=== PATIENT | female | born 1935 | race Caucasian/White ===

== ENCOUNTER 2020-01-21 07:15 | Outpatient (CLI) | payer MEDICARE, MEDICAID, SELFPAY ==
--- NOTE | ~2020-01-21 | MR_ITS ---
EXAMINATION: MR knee RT wo con DATE: 01/21/2020 09:20 INDICATION: Right knee pain. TECHNIQUE: Magnetic resonance imaging (MRI) of the right knee was performed without intravenous contr ast. Sequences included axial PD-weighted FS FSE, coronal PD-weighted FSE and PD-weighted FS FSE, sag ittal PD-weighted FSE, and sagittal T2-weighted FS FSE. COMPARISON: Right knee radiographs 07/23/2019 FINDINGS: Medial compartment: Medial meniscus is intact. There is partial-thickness cartilage loss of tibial condyle, deep at the m edial articular surface with mild subchondral edema-like marrow signal intensity. There is deep parti al thickness cartilage loss of femoral condyle involving the central, medial, lateral, and posterior articular surface with mild subchondral edema-like marrow signal intensity. Osteophytes are noted. Lateral compartment: There is maceration of lateral meniscus. There is extensive full-thickness cartilage loss of tibial c ondyle and femoral condyle with cortical remodeling and extensive subchondral edema-like marrow signa l intensity. Osteophytes are noted. Patellofemoral compartment: There is full-thickness cartilage loss of patellar median ridge and lateral facet with mild subchondr al edema-like marrow signal intensity. There is deep partial thickness cartilage loss of patellar med ial facet. There is full-thickness cartilage loss of central and lateral trochlea with moderate subch ondral edema-like marrow signal intensity. There is partial-thickness cartilage loss of medial trochl ea. Marginal osteophytes are noted. Ligaments and tendons: The anterior and posterior cruciate ligaments are intact. Medial collateral ligament is normal. There are changes of prior sprain of fibular collateral ligament characterized by thickening and increased signal intensity proximally. Fluid: There is a large knee joint effusion with heterogeneous signal intensity. There is a small Serrato's cy st. IMPRESSION: 1. 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 2. Maceration of lateral meniscus. 3. Large knee joint effusion. 4. Small Serrato's cyst. Reviewed, dictated and finalized at location A. IMPRESSION: 1. 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 2. Maceration of lateral meniscus. 3. Large knee joint effusion. 4. Small Serrato's cyst.
--- NOTE | ~2020-01-21 | MR_ITS ---
EXAMINATION: MR knee LT wo con DATE: 01/21/2020 09:20 INDICATION: Left knee pain. TECHNIQUE: Magnetic resonance imaging (MRI) of the left knee was performed without intravenous contra st. Sequences included axial PD-weighted FS FSE, coronal PD-weighted FSE and PD-weighted FS FSE, sagi ttal PD-weighted FSE, and sagittal T2-weighted FS FSE. COMPARISON: Left knee radiographs 07/23/2019 FINDINGS: Medial compartment: Medial meniscus is normal. There is cartilage surface irregularity of femoral condyle and tibial cond yle. Lateral compartment: Lateral meniscus is normal. There is cartilage surface irregularity of femoral condyle and tibial con dyle. Patellofemoral compartment: There is deep partial thickness cartilage loss of patellar median ridge and lateral facet with modera te subchondral edema-like marrow signal intensity. There is shallow partial-thickness cartilage loss of central and lateral trochlea with mild subchondral edema-like marrow signal intensity. Ligaments and tendons: The anterior and posterior cruciate ligaments are normal. Medial collateral ligament is normal. There are changes of prior sprain of fibular collateral ligament characterized by thickening and increased signal intensity proximally. The patellar tendon is normal. Fluid: There is no knee joint effusion. IMPRESSION: 1. Moderate chondrosis of patellofemoral compartment and mild chondrosis of medial and lateral compar tments. Reviewed, dictated and finalized at location A. IMPRESSION: 1. Moderate chondrosis of patellofemoral compartment and mild chondrosis of med ial and lateral compartments.
[2020-01-21 08:02] LABS: Basophils Percent Auto 0.3 % (0.2-1.2); Eosinophils Absolute Auto 0.3 K/mm3 (0-0.3); Eosinophils Percent Auto 2.7 % (0-4.4); Hematocrit 38.8 % (37.0-47.0); Hemoglobin 12.3 g/dL (12.0-15.0); Immature Granulocyte Absolute 0.02 K/mm3 (0.00-0.031); Immature Granulocyte Percent A 0.2 % (0-0.5); Lymphocytes Absolute Auto 4.27 K/mm3 (0.9-3.2); Lymphocytes Percent Auto 44.8 % (18.3-44.2); Mean Corpuscular HGB Conc 31.7 g/dl (32-36); Mean Corpuscular Volume 91.5 fl (80-100); Mean Platelet Volume 9.9 fl (7.4-10.4); Monocytes Absolute Auto 1.1 K/mm3 (0.1-0.6); Monocytes Percent Auto 11.6 % (2.6-8.5); Neutrophils Absolute Auto 3.9 K/mm3 (1.3-6.7); Neutrophils Percent Auto 40.4 % (45.5-73.1); Platelet Count Result 336 k/mm3 (150-375); Red Blood Count 4.24 M/mm3 (4.2-5.4); Red Cell Distribution Width 15.6 % (11.5-14.5); White Blood Count 9.5 K/mm3 (4.5-10.0)
[2020-01-21 08:16] LABS: Blood Urea Nitrogen 11 mg/dL (7-17); Calcium 9.7 mg/dL (8.4-10.2); Carbon Dioxide 25 mmol/L (22-30); Chloride 100 mmol/L (98-107); Cholesterol 108 mg/dL (0-200); Estimated Glomerular Filt Rate > 60; Glucose 103 mg/dL (65-105); HDL Direct 36 mg/dL; Potassium 4.7 mmol/L (3.4-5.0); Sodium 130 mmol/L (137-145); Triglycerides 86 mg/dL (<150)
[2020-01-21 08:26] LABS: LDL Cholesterol Direct 43 mg/dL
[2020-01-23 12:24] LABS: Homocysteine 14.1 umol/L (<10.4)
== END 2020-01-21 07:16 | disposition home or self-care (01) ==
PROVIDERS: PCP Internal Medicine; Referring Provider Internal Medicine; Visit Provider Internal Medicine Rheumatology
DX: M25.562 Pain in left knee (principal); Z79.899 Other long term (current) drug therapy; M71.21 Synovial cyst of popliteal space [Baker], right knee; M25.461 Effusion, right knee
CPT/HCPCS: 36415; 73721; 80048; 80061; 83090; 84443; 85025

== ENCOUNTER 2020-01-30 09:42 | Outpatient (CLI) | payer MEDICARE, MEDICAID, SELFPAY ==
--- NOTE | ~2020-01-30 | DEXA_ITS ---
Bone Density Report Name: Tatiana Serrato Age: 85 Sex: Female Ethnicity: White Date of : 1935 Indication: postmenopausal; height loss; hysterectomy; Referring Provider: SOBIA RAMOS Study: Bone densitometry was performed. Exam Date: January 30, 2020 Accession number: [id number] There is hypertrophic degenerative change of the lumbar spine, which results in higher than expected spine bone mineral density measurements. These spine BMD and T score and Z score measurements are not reflective of the patient's true general bone mineral density. Bone Density: Region BMD T-score Z-score Classification AP Spine (L2, L3) 0.800 -2.3 0.5 Osteopenia Femoral Neck (Left) 0.541 -2.8 -0.3 Osteoporosis Total Hip (Left) 0.633 -2.5 -0.2 Osteoporosis Total Hip Bilateral Avg 0.609 -2.7 -0.4 Osteoporosis Femoral Neck (Right) 0.512 -3.0 -0.6 Osteoporosis Total Hip (Right) 0.583 -2.9 -0.7 Osteoporosis World Health Organization criteria for BMD impression classify patients as: Normal (T-score at or above -1.0), Osteopenia (T-score between -1.0 and -2.5), or Osteoporosis (T-score at or below -2.5). 10-year Fracture Risk: FRAX not reported because: Some T-score for Spine Total or Hip Total or Femoral Neck at or below -2.5 Clinical Information Provided by Patient: Has used the following medications: Vitamin D Has the following medical conditions: Hysterectomy Patient maximum height was 65 Menopause Age: 51 No regular weight bearing exercise Drinks caffeinated beverages Onset of menses at age 15 Number of children 6 Impression: The patient has osteoporosis, based on the Right Femoral Neck T-score. There is hypertrophic degenerative change of the lumbar spine, which results in higher than expected spine bone mineral density measurements. These spine BMD and T score and Z score measurements are not reflective of the patient's true general bone mineral density. Discussion: INCREASED RISK OF FRACTURE. BONE DENSITY IS UNDESIRABLY LOW AT ONE OR MORE SKELETAL SITES, CONSISTENT WITH POSTMENOPAUSAL OSTEOPOROSIS. This patient's lowest T-score meets the World Health Organization's (WHO) criteria for osteoporosis at one or more sites (T-score -2.5 or below). In untreated patients, the risk of osteoporotic fracture increases approximately two-fold for each 1.0 SD decrease in T-score. Low bone density is not the only risk factor for fracture; also consider factors such as patient's age, frailty or poor health, risk of falling, risk of injury, previous osteoporotic fracture, family history of osteoporosis, cigarette smoking, low body weight, etc. Not everyone with low bone mineral density has osteoporosis; osteomalacia and other metabolic bone disorders should also be considered. Patients who have osteoporosis should be evaluated for specific diseases and conditions (secondary ca
[2020-01-30 10:13] LABS: Basophils Percent Auto 0.3 % (0.2-1.2); Eosinophils Absolute Auto 0.2 K/mm3 (0-0.3); Eosinophils Percent Auto 2.3 % (0-4.4); Hematocrit 34.9 % (37.0-47.0); Hemoglobin 11.4 g/dL (12.0-15.0); Immature Granulocyte Absolute 0.02 K/mm3 (0.00-0.031); Immature Granulocyte Percent A 0.2 % (0-0.5); Lymphocytes Absolute Auto 3.58 K/mm3 (0.9-3.2); Lymphocytes Percent Auto 37.3 % (18.3-44.2); Mean Corpuscular HGB Conc 32.7 g/dl (32-36); Mean Corpuscular Hemoglobin 29.8 pg (26-34); Mean Corpuscular Volume 91.4 fl (80-100); Mean Platelet Volume 9.2 fl (7.4-10.4); Monocytes Percent Auto 10.4 % (2.6-8.5); Neutrophils Absolute Auto 4.7 K/mm3 (1.3-6.7); Neutrophils Percent Auto 49.5 % (45.5-73.1); Platelet Count Result 334 k/mm3 (150-375); Red Blood Count 3.82 M/mm3 (4.2-5.4); Red Cell Distribution Width 15.8 % (11.5-14.5); White Blood Count 9.6 K/mm3 (4.5-10.0)
[2020-01-30 10:22] LABS: Alanine Aminotransferase 9 U/L (4-35); Albumin Level 3.8 g/dL (3.5-5.1); Alkaline Phosphatase 87 U/L (38-126); Aspartate Amino Transferase 23 U/L (14-36); Bilirubin,Total 0.4 mg/dL (0.2-1.3); Blood Urea Nitrogen 15 mg/dL (7-17); Calcium 9.1 mg/dL (8.4-10.2); Carbon Dioxide 25 mmol/L (22-30); Chloride 101 mmol/L (98-107); Cholesterol 96 mg/dL (0-200); Estimated Glomerular Filt Rate > 60; Glucose 124 mg/dL (65-105); HDL Direct 36 mg/dL; Potassium 4.3 mmol/L (3.4-5.0); Sodium 134 mmol/L (137-145); Triglycerides 85 mg/dL (<150)
[2020-01-30 10:33] LABS: LDL Cholesterol Direct 37 mg/dL
[2020-01-30 11:22] LABS: Free T4 Free Thyroxine 1.38 ng/mL (0.78-2.19)
== END 2020-01-30 09:43 | disposition home or self-care (01) ==
PROVIDERS: PCP Internal Medicine; Visit Provider Internal Medicine Rheumatology
DX: R73.03 Prediabetes (principal); E03.9 Hypothyroidism, unspecified; M85.89 Other specified disorders of bone density and structure, multiple sites; M81.0 Age-related osteoporosis without current pathological fracture; Z79.899 Other long term (current) drug therapy; Z78.0 Asymptomatic menopausal state
CPT/HCPCS: 36415; 77080; 80053; 80061; 83036; 84439; 84443; 85025

== ENCOUNTER 2020-05-19 17:49 | Inpatient (IN) | payer MEDICARE, MEDICAID, SELFPAY ==
[2020-05-19] VITALS (11 sets, daily range): BP systolic 97–120; BP diastolic 61–68; PULSE 74–166; RESP 18–24; TEMP 36.2–38.3; O2SAT 96–98; BMI 21.5
--- NOTE | ~2020-05-19 | XR_ITS ---
EXAMINATION: XR chest 2V EXAM DATE: 05/19/2020 18:48 INDICATION: Fever, transient alteration of awareness. TECHNIQUE: Frontal and lateral projections of the chest obtained and reviewed. There is no prior bharati dy for comparison. FINDINGS: The lungs are clear. There are no pleural effusions. The cardiomediastinal silhouette is p rominent but magnified on this AP technique. There is no pneumothorax suspected. Severe scoliosis . IMPRESSION: No acute cardiopulmonary findings. Reviewed, dictated and finalized at location A.
--- NOTE | 2020-05-19 18:00 | ECG_ITS ---
Measurements Intervals [place] Rate: 169 P: [place]: 0 QRS: -5 QRSD: 77 T: 62 QT: 232 QTc: 389 Interpretive Statements ATRIAL FIBRILLATION WITH RAPID VENTRICULAR RESPONSE VENTRICULAR PREMATURE COMPLEXES CANNOT RULE OUT SEPTAL INFARCT, AGE INDETERMINATE BORDERLINE ST ABNORMALITY- ANTEROLATERAL LEADS BASELINE ARTIFACT- V5 ABNORMAL ECG Electronically Signed On 05-19-2020 19:36:53 CDT by Tyrell Cornejo D.O.
--- NOTE | 2020-05-19 18:11 | ED.FEVER ---
HPI - Fever General Chief Complaint: Fever Stated Complaint: ams Time Seen by Provider: 05/19/20 18:01 History of Present Illness HPI Narrative: Patient is an 85-year-old female who presents ER with fever as well as dysuria. Symptoms began this afternoon. Patient is in no distress and has no complaints. History obtained mainly from [id number]. Patient has history of A. fib and is currently in RVR. No chest pain or racing heart. Related Data Home Medications Medication Instructions Recorded Confirmed acetaminophen [Acetaminophen Pain 1,000 mg PO BID 12/26/19 01/30/20 Relief] calcium carbonate-vitamin D3 1 tablet PO DAILY 12/26/19 01/30/20 [Caltrate 600 plus D] etanercept [Enbrel] 50 mg SUBCUT WEEKLY 12/26/19 01/30/20 vitamin B complex 1 cap PO DAILY 12/26/19 01/30/20 Allergies Allergy/AdvReac Type Severity Reaction Status Date / Time No Known Allergies Allergy Verified 05/19/20 18:02 Review of Systems Review of Systems: ROS unobtainable: Yes unobtainable due to mental status PMFSH Social History Social History Smoking status: Current every day smoker Tobacco type: smokeless tobacco Smokeless tobacco user: chewing tobacco and snuff Alcohol intake: current Substance use: unknown Gender identity (if verbalized by the patient): Female Spiritual care concerns: No Exam Narrative: Exam Narrative: GENERAL: Well-appearing, well-nourished, and in no acute distress. HEAD: Normocephalic, atraumatic. EYES: PERRL and EOMI. CHEST: Clear to auscultation. No respiratory distress. HEART: Tachycardic and irregular regular. Normal peripheral pulses. ABDOMEN: Soft, nontender, nondistended. EXTREMITIES: Normal range of motion. No edema. SKIN: Warm, dry, no rash. NEURO: Alert and oriented x2. PSYCH: Normal mood and affect. Course Reevaluation(s) Reevaluation #1: Blood pressure dropped to 96/50 mmHg after 10 mg of diltiazem. Heart rate went from 180 bpm to 90 to 100 bpm. Patient is receiving 1 L IV fluid and IV Tylenol for fever. Anticipate admission. Date: 05/19/20 Time: 18:32 Vital Signs Vital signs: Vital Signs Temperature 100.9 F H 05/19/20 17:56 Pulse Rate 166 H 05/19/20 17:56 Respiratory Rate 22 H 05/19/20 17:56 Blood Pressure 120/68 05/19/20 17:56 Pulse Oximetry 97 05/19/20 17:56 Temperature 100.9 F H 05/19/20 17:56 Pulse Rate 115 H 05/19/20 19:06 Respiratory Rate 24 H 05/19/20 18:26 Blood Pressure 99/63 L 05/19/20 19:06 Pulse Oximetry 96 05/19/20 18:26 MDM - Fever Lab Data Result diagrams: 05/19/20 18:19 05/19/20 18:19 Labs: Lab Results 05/19/20 05/19/20 05/19/20 Range/Units 18:19 18:19 18:19 WBC 17.8 H (4.5-10.0) K/mm3 RBC 4.06 L (4.2-5.4) M/mm3 Hgb 12.2 (12.0-15.0) g/dL Hct 36.5 L (37.0-47.0) % MCV 89.9 (80-100) fl MCH 30.0 (26-34) pg MCHC 33.4 (32-36) g/dl RDW 14.0 (11.5-14.5) % Plt Count 274 (150-375) k/mm3 MPV 10.5 H (7.4-10.4) fl Immature Gran % (Auto) 0.4 (0-0.5) % Neut % (Auto) 85.2 H (45.5-73.1) % Lymph % (Auto) 7.0 L (18.3-44.2) % [place]aden % (Auto) 7.1 (2.6-8.5) % Eos % (Auto) 0.1 (0-4.4) % Baso % (Auto) 0.2 (0.2-1.2) % Lymph # (Auto) 1.24 (0.9-3.2) K/mm3 Bladen # (Auto) 1.3 H (0.1-0.6) K/mm3 Eos # (Auto) 0.0 (0-0.3) K/mm3 Baso # (Auto) 0.0 (0.0-0.1) K/mm3 Abs Immat Gran (auto) 0.08 H (0.00-0.031) K/mm3 Absolute Neuts (auto) 15.2 H (1.3-6.7) K/mm3 Absolute Nucleated RBC 0.0 (0.0-0.012) K/mm3 Nucleated RBC % 0.0 (0.0-0.2) % Sodium 136 L (137-145) mmol/L Potassium 4.5 (3.4-5.0) mmol/L Chloride 106 (98-107) mmol/L Carbon Dioxide 20 L (22-30) mmol/L Anion Gap 10 (8-16) mmol/L BUN 16 (7-17) mg/dL Creatinine 0.80 (0.7-1.0) mg/dL Estim Creat Clear Calc 39 ml/min Estimated GFR > 60 (59 - ) Glucose
[2020-05-19] MEDS: dilTIAZem HCl INJ 25 MG/5 ML VIAL 10 MG IV PUSH (18:23)
[2020-05-19] MEDS: SODIUM CHLORIDE 0.9% IV 1,000 ML 999 ML IV CONT (18:24)
[2020-05-19 18:32] LABS: Basophils Percent Auto 0.2 % (0.2-1.2); Eosinophils Percent Auto 0.1 % (0-4.4); Hematocrit 36.5 % (37.0-47.0); Hemoglobin 12.2 g/dL (12.0-15.0); Immature Granulocyte Absolute 0.08 K/mm3 (0.00-0.031); Immature Granulocyte Percent A 0.4 % (0-0.5); Lymphocytes Absolute Auto 1.24 K/mm3 (0.9-3.2); Mean Corpuscular HGB Conc 33.4 g/dl (32-36); Mean Corpuscular Volume 89.9 fl (80-100); Mean Platelet Volume 10.5 fl (7.4-10.4); Monocytes Absolute Auto 1.3 K/mm3 (0.1-0.6); Monocytes Percent Auto 7.1 % (2.6-8.5); Neutrophils Absolute Auto 15.2 K/mm3 (1.3-6.7); Neutrophils Percent Auto 85.2 % (45.5-73.1); Platelet Count Result 274 k/mm3 (150-375); Red Blood Count 4.06 M/mm3 (4.2-5.4); White Blood Count 17.8 K/mm3 (4.5-10.0)
[2020-05-19 18:37] LABS: Add Urine Microscopic? YES; Appearance Urine Cloudy (Clear); Bacteria Urine 1+ /hpf; Bilirubin Urine Negative (Negative); Blood Urine 2+ (Negative); Color Urine Amber (Yellow); Glucose Urine UA Negative (Negative); Ketones Urine Negative (Negative); Leukocyte Esterase Ur 3+ LEU/UL (Negative); Nitrate Urine Positive (Negative); Protein Urine 2+ mg/dL (Negative); Specific Grav Ur 1.014 (1.001-1.035); Urobilinogen Urine Negative mg/dL (<2.0); WBC Urine >75 /hpf
[2020-05-19 18:44] LABS: Lactic Acid Reflex 2.2 mmol/L (0.7-2.1)
[2020-05-19 18:48] LABS: Alanine Aminotransferase 18 U/L (4-35); Albumin Level 3.9 g/dL (3.5-5.1); Alkaline Phosphatase 103 U/L (38-126); Anion Gap 10 mmol/L (8-16); Aspartate Amino Transferase 37 U/L (14-36); Bilirubin,Total 0.3 mg/dL (0.2-1.3); Blood Urea Nitrogen 16 mg/dL (7-17); CRP 7.8 mg/dL (<1.0); Calcium 9.2 mg/dL (8.4-10.2); Carbon Dioxide 20 mmol/L (22-30); Chloride 106 mmol/L (98-107); Estimated CRCL calculation 39 ml/min; Estimated Glomerular Filt Rate > 60; Glucose 128 mg/dL (65-105); Potassium 4.5 mmol/L (3.4-5.0); Sodium 136 mmol/L (137-145)
--- NOTE | 2020-05-19 19:13 | PC.NURSE ---
report given to ANNEMARIE Roberts.
--- NOTE | 2020-05-19 19:17 | PC.NURSE ---
Diltize, drip rate reviewed with oncoming shift.
--- NOTE | 2020-05-19 20:30 | PC.NURSE ---
This patient, Tatiana Serrato, was admitted to IMU Room 213-01 at 1999 on 05/19/20. Patient/family oriented to hospital policies and general routines including ID bracelet, bed and alarms, visiting hours, pain management, procedures, bathroom and other care routines, personal items, smoking policy, room service/diet, and visiting hours. Valuables list has been completed. Information on how to activate the Rapid Response Team has been discussed. Patient/Family are encouraged to report perceived risks to care and to ask questions if they do not understand what they are told or what they should do.
--- NOTE | 2020-05-19 21:04 | PM.IMHP ---
H&P: HPI History of Present Illness Date/Time: 05/19/20 20:30 Chief complaint: Fever, peeing frequently, burning with urination Narrative: Tatiana Serrato is a 85 year old female with a past medical history dementia, atrial fibrillation on chronic anticoagulation, and rheumatoid arthritis who presented to the ER with fever urinary frequency and urgency. Source of information is patient was of [facility] historian and past medical records. The patient reports that she has not felt well for the last 2 weeks ever since she returned from [place] where she visited her son. She has felt fatigued and worn out. She has had decreased appetite. She has had several days of dysuria. Today she developed increased urinary frequency and urgency with only small amounts of urine output. She has been having intermittent fevers and chills that reportedly started today. Today she only had a small amount of Potato soup for lunch and then became nauseated and felt as if she was going to vomit. She has not had any further food. She denies any persistent nausea. The patient is alert and oriented times 2-3 which is reportedly her baseline. The patient actually answered her age date of , month year and reason for hospitalization. However she kept asking same questions over and over again. When she arrived to the ER the patient was noted to be in AFib with RVR. Her heart rate was 169 on EKG. She received Cardizem push and Cardizem drip. She was also febrile on presentation to the hospital. Her T-max was 100.9?. She denies any chest pain or shortness of breath. She has not had any cough or congestion. She has chronic gait instability and ambulates with a walker. Review of systems was limited due to patient's chronic hearing loss. Review of Systems Review of Systems: Narrative: 12 systems were reviewed with pertinent positives and negatives per HPI. Except as documented in the HPI, all other systems were reviewed and are negative. [facility] Past Medical History Medical History (Updated 05/19/20 @ 21:07 by Gudelia Gerardo DO) A-fib on chronic anticoagulation with Eliquis Age-related hearing loss B12 deficiency Cataracts, bilateral maturing Constipation Dementia DJD (degenerative joint disease), multiple sites GERD (gastroesophageal reflux disease) Glaucoma H/O elevated homocysteine Hypothyroidism (acquired) Osteoporosis Pre-diabetes Presbyesophagus Rheumatoid arthritis Surgical History Surgical History (Updated 05/19/20 @ 21:29 by Gudelia Gerardo DO) H/O dilation and curettage October 2019 demonstrating atrophic endometrium History of colonoscopy with polypectomy Family History Family History (Updated 05/19/20 @ 20:27 by Natasha Barbosa, ANNEMARIE) Sibling Acute myocardial infarction Mother Renal failure Social History Social History (Updated 05/19/20 @ 21:21 by Gudelia Gerardo DO) Social History: Primary care physician: Dr. Matias De Jesus Code status: Full code per EMR. The patient does not have advanced directives in place. Smoking status: Never smoker Tobacco type: smokeless tobacco Smokeless tobacco user: snuff Second hand tobacco smoke exposure: Yes Additional smoking assessment comments: snuff x 70 years Alcohol intake: never Substance use: never Living arrangements: with family Additional living arrangements comments: The patient lives with her son. She ambulates with a walker and also has a wheelchair available as needed. She has a total of 5 boys and 1 girl. One son due to trauma at the age of 40. Occupation/Education: retired Gender identity (if verbalized by the patient): Female Spiritual care concerns: No Meds Home Medications and Allergies Home Medications Medication Instructions Recorded Confirmed Type omeprazole 40 mg capsule,delayed 40 mg PO DAILY #90 cap 10/11/19 05/19/20 Rx release acetaminophen [Acetaminophen Pain 1,000 mg PO BID 12/26/19
[2020-05-19 21:29] LABS: Reflex Lactic Acid Yes or No Add Lactic
[2020-05-19] MEDS: PANTOPRAZOLE 40 MG TABLET PO (22:22)
[2020-05-19] MEDS: METOPROLOL TARTRATE 12.5 MG TABLET PO (22:22)
[2020-05-19] MEDS: MELATONIN 5 MG TABLET PO (22:23)
[2020-05-19] MEDS: APIXABAN 5 MG TABLET PO (22:23)
[2020-05-19] MEDS: SODIUM CHLORIDE 0.9% IV 1,000 ML 100 ML IV CONT (22:31)
[2020-05-20] VITALS (18 sets, daily range): BP systolic 88–125; BP diastolic 43–70; PULSE 70–105; RESP 18–20; TEMP 35.9–37.2; O2SAT 95–100
[2020-05-20 07:37] LABS: Hematocrit 32.1 % (37.0-47.0); Hemoglobin 10.5 g/dL (12.0-15.0); Mean Corpuscular HGB Conc 32.7 g/dl (32-36); Mean Corpuscular Hemoglobin 29.9 pg (26-34); Mean Corpuscular Volume 91.5 fl (80-100); Mean Platelet Volume 9.7 fl (7.4-10.4); Platelet Count Result 224 k/mm3 (150-375); Red Blood Count 3.51 M/mm3 (4.2-5.4); Red Cell Distribution Width 14.4 % (11.5-14.5); White Blood Count 14.5 K/mm3 (4.5-10.0)
[2020-05-20 07:50] LABS: Alanine Aminotransferase 13 U/L (4-35); Albumin Level 3.4 g/dL (3.5-5.1); Alkaline Phosphatase 79 U/L (38-126); Anion Gap 6 mmol/L (8-16); Aspartate Amino Transferase 25 U/L (14-36); Bilirubin,Total 0.3 mg/dL (0.2-1.3); Blood Urea Nitrogen 12 mg/dL (7-17); Calcium 8.6 mg/dL (8.4-10.2); Carbon Dioxide 21 mmol/L (22-30); Chloride 110 mmol/L (98-107); Estimated CRCL calculation 45 ml/min; Estimated Glomerular Filt Rate > 60; Glucose 128 mg/dL (65-105); Potassium 4.2 mmol/L (3.4-5.0); Sodium 137 mmol/L (137-145)
[2020-05-20] MEDS: PANTOPRAZOLE 40 MG TABLET PO ×2 (08:55→20:27)
[2020-05-20] MEDS: APIXABAN 5 MG TABLET PO ×2 (08:55→20:25)
[2020-05-20] MEDS: ATORVASTATIN 10 MG TABLET PO (08:55)
[2020-05-20] MEDS: VITAMIN B COMPLEX CAPSULE 1 CAP PO (08:55)
[2020-05-20] MEDS: DOCUSATE SODIUM 100 MG CAPSULE 200 MG PO (08:55)
[2020-05-20] MEDS: FOLIC ACID 1 MG TABLET PO (08:55)
[2020-05-20] MEDS: METOPROLOL TARTRATE 12.5 MG TABLET PO ×2 (08:55→20:26)
[2020-05-20] MEDS: SODIUM CHLORIDE 0.9% IV 1,000 ML 100 ML IV CONT (08:56)
--- NOTE | 2020-05-20 10:14 | PM.IMPN ---
Progress Note: A&P Assessment and Plan (1) Atrial fibrillation with rapid ventricular response: Code(s): I48.91 - Unspecified atrial fibrillation Status: Acute Assessment and Plan: ----- Likely due to acute infection. She was on a Cardizem drip but has been discontinued around midnight so we will continue her home metoprolol and Eliquis. We will check a TSH tomorrow morning to be thorough Although it was normal in January. If her heart rate remains normal after noon, may be downgraded. (2) Acute UTI: Code(s): N39.0 - Urinary tract infection, site not specified Status: Acute Assessment and Plan: ----- UA suspicious for UTI. Continue empiric ceftriaxone and await urine and blood cultures. (3) Sepsis: Code(s): A41.9 - Sepsis, unspecified organism Status: Acute Assessment and Plan: ----- Patient was septic when she arrived secondary to UTI. Her lactic acid was elevated and she had a leukocytosis. This improved with IV fluids and antibiotics. Continue to monitor blood pressure and symptoms closely (4) Rheumatoid arthritis: Code(s): M06.9 - Rheumatoid arthritis, unspecified Status: Acute Assessment and Plan: ----- Patient takes Orencia, immunosuppressant weekly.. Will hold this For now. Time Spent With Patient Time with patient: 25 - 35 minutes Subjective Date/time seen: 05/20/20 10:14 Interval history: Pt is a 85-year-old female here for UTI with AFib RVR. Patient was seen today and says she is doing better than yesterday. She still has some dysuria and frequency but denies chest pain, palpitations, shortness of breath, nausea, vomiting, fevers or chills. She has a slight abdominal discomfort in her lower quadrants. Review of Systems Review of Systems: All systems reviewed & are unremarkable except as noted in HPI and below Exam Narrative: Exam Narrative: General: Hard of hearing elderly patient resting comfortably in bed in no acute distress HEENT: normocephalic Neck: supple Neuro: Alert and oriented x4 CV: irregularly irregular Resp: no wheezing or rhonchi, Relatively clear to auscultation. Abd: Soft, non distended. mild pain to the right lower quadrant. Positive bowel sounds Extremities: No swelling, erythema, or pain to palpation. Objective Data Vital Signs Vital Signs: Vital Signs - 24 hr 05/19/20 17:56 05/19/20 18:26 05/19/20 18:27 Temperature 100.9 F H Pulse Rate 166 H 108 H Respiratory Rate 22 H 24 H Blood Pressure 120/68 97/62 L Pulse Oximetry 97 96 05/19/20 19:06 05/19/20 19:37 05/19/20 19:50 Temperature 99.3 F Pulse Rate 115 H 100 110 H Respiratory Rate 22 H 22 H Blood Pressure 99/63 L 103/62 98/61 L Pulse Oximetry 98 98 05/19/20 19:52 05/19/20 20:00 05/19/20 20:08 Temperature 99.3 F 97.1 F L Pulse Rate 107 H 123 H 74 Respiratory Rate 23 H 18 18 Blood Pressure 98/61 L 104/61 104/61 Pulse Oximetry 98 98 98 05/19/20 22:00 05/19/20 22:22 05/20/20 00:00 Temperature 96.7 F L Pulse Rate 99 99 75 Respiratory Rate 20 Blood Pressure 88/49 L Pulse Oximetry 97 05/20/20 00:34 05/20/20 01:25 05/20/20 02:00 Temperature Pulse Rate 75 70 Respiratory Rate Blood Pressure 88/49 L 90/58 L Pulse Oximetry 05/20/20 04:00 05/20/20 04:34 05/20/20 06:00 Temperature 98.9 F Pulse Rate 84 77 92 Respiratory Rate 18 Blood Pressure 91/43 L Pulse Oximetry 97 05/20/20 08:00 05/20/20 08:55 Temperature 97.4 F L Pulse Rate 82 97 Respiratory Rate 18 Blood Pressure 123/46 L Pulse Oximetry 97 Intake/Output Intake/Output: Intake & Output 05/17/20 05/18/20 05/19/20 05/20/20 23:59 23:59 23:59 23:59 Intake Total 1150 1715 Output Total 750 Balance 1150 965 Meds/Results Medications: Active Medications Generic Name Dose Route Start Last Admin Trade Name Freq PRN Reason Stop Dose Admin Acetaminophen 650 mg 0
--- NOTE | 2020-05-20 16:57 | PC.NURSE ---
This patient, Tatiana Serrato, was transferred to [ [facility]] on 05/20/20 at 1657. Personal belongings sent with patient. Belongings list checked and signed with receiving [ 3[facility]]. Report given to [cullen clemente ]. Appropriate documentation sent with patient.
[2020-05-20] MEDS: ONDANSETRON INJ 4 MG/2 ML VIAL IV PUSH (17:00)
[2020-05-20] MEDS: MELATONIN 5 MG TABLET PO (21:29)
--- NOTE | 2020-05-20 23:41 | PC.NURSE ---
2254 Realized that patient was taking snuff from her purse. The patient went to the bathroom to empty her spit cup and I asked why it was brown. The patient admitted that she was doing snuff but she told me not to tell anyone. I told her that I would need to lock it up at the nurses station. The charge nurse was made aware of this and so was the hospitalist on duty.
[2020-05-21] VITALS (13 sets, daily range): BP systolic 99–135; BP diastolic 49–74; PULSE 69–183; RESP 16–20; TEMP 36.5–36.9; O2SAT 94–99
[2020-05-21] MEDS: METOPROLOL TARTRATE INJ 5 MG/5 ML VIAL IV PUSH (05:06)
[2020-05-21 06:17] LABS: Hematocrit 29.9 % (37.0-47.0); Hemoglobin 9.9 g/dL (12.0-15.0); Mean Corpuscular HGB Conc 33.1 g/dl (32-36); Mean Corpuscular Hemoglobin 29.9 pg (26-34); Mean Corpuscular Volume 90.3 fl (80-100); Mean Platelet Volume 9.9 fl (7.4-10.4); Platelet Count Result 213 k/mm3 (150-375); Red Blood Count 3.31 M/mm3 (4.2-5.4); White Blood Count 10.7 K/mm3 (4.5-10.0)
[2020-05-21 06:30] LABS: Alanine Aminotransferase 10 U/L (4-35); Albumin Level 3.2 g/dL (3.5-5.1); Alkaline Phosphatase 78 U/L (38-126); Anion Gap 7 mmol/L (8-16); Aspartate Amino Transferase 20 U/L (14-36); Bilirubin,Total 0.2 mg/dL (0.2-1.3); Blood Urea Nitrogen 8 mg/dL (7-17); Calcium 8.8 mg/dL (8.4-10.2); Carbon Dioxide 22 mmol/L (22-30); Chloride 107 mmol/L (98-107); Estimated CRCL calculation 51 ml/min; Estimated Glomerular Filt Rate > 60; Glucose 124 mg/dL (65-105); Potassium 3.9 mmol/L (3.4-5.0); Sodium 136 mmol/L (137-145)
[2020-05-21] MEDS: DOCUSATE SODIUM 100 MG CAPSULE 200 MG PO (09:19)
[2020-05-21] MEDS: VITAMIN B COMPLEX CAPSULE 1 CAP PO (09:20)
[2020-05-21] MEDS: PANTOPRAZOLE 40 MG TABLET PO ×2 (09:20→20:48)
[2020-05-21] MEDS: METOPROLOL TARTRATE 12.5 MG TABLET PO ×2 (09:20→20:48)
[2020-05-21] MEDS: ATORVASTATIN 10 MG TABLET PO (09:20)
[2020-05-21] MEDS: APIXABAN 5 MG TABLET PO ×2 (09:20→20:48)
[2020-05-21] MEDS: FOLIC ACID 1 MG TABLET PO (09:20)
[2020-05-21] MEDS: LACTATED RINGERS 1,000 ML 75 ML IV CONT ×2 (09:33→23:31)
--- NOTE | 2020-05-21 16:31 | PM.IMPN ---
Progress Note: A&P Assessment and Plan (1) Bacteremia: Code(s): R78.81 - Bacteremia Status: Acute Assessment and Plan: ----- E coli and both of blood cultures secondary to UTI. Await sensitivities and adjust antibiotics as needed. Continue ceftriaxone at this time. (2) Atrial fibrillation with rapid ventricular response: Code(s): I48.91 - Unspecified atrial fibrillation Status: Acute Assessment and Plan: ----- Likely due to acute infection. She was on a Cardizem drip On admission but was discontinued early 05/20/20. we will continue her home metoprolol and Eliquis. she is on 12.5 metoprolol and we will continue with that as she is 78 consistently throughout today. With that being said, she was 120-140 over night and had to be given an extra dose of metoprolol IV. May consider increasing metoprolol if she continues to have RVR. TSH normal. (3) Acute UTI: Code(s): N39.0 - Urinary tract infection, site not specified Status: Acute Assessment and Plan: ----- E coli UTI confirmed. Await sensitivities and adjust antibiotics as needed. (4) Sepsis: Code(s): A41.9 - Sepsis, unspecified organism Status: Acute Assessment and Plan: ----- Patient was septic when she arrived secondary to UTI. Her lactic acid was elevated and she had a leukocytosis. This improved with IV fluids and antibiotics. Continue to monitor blood pressure and symptoms closely (5) Rheumatoid arthritis: Code(s): M06.9 - Rheumatoid arthritis, unspecified Status: Acute Assessment and Plan: ----- Patient takes Orencia, immunosuppressant weekly. Will hold this For now. Subjective Date/time seen: 05/21/20 16:31 Interval history: Pt is a 85-year-old female here for UTI , bacteremia with AFib RVR. Patient was seen today and says she is doing better but did have some back pain after physical therapy earlier. Her dysuria and frequency has improved. She denies chest pain, palpitations, shortness of breath, nausea, vomiting, fevers or chills. the patient really would like some chewing tobacco, offered nicotine patch. Of note, family relayed to the nurse that she has a problem with pain medication and they have been trying to wean her off of it. Exam Narrative: Exam Narrative: General: Hard of hearing elderly patient resting comfortably in bed in no acute distress HEENT: normocephalic Neck: supple Neuro: Alert and oriented x4 CV: irregularly irregular Rate 88. She had AFib RVR this morning from 4-530. Looks like she got a dose of metoprolol at this time Resp: no wheezing or rhonchi, Relatively clear to auscultation. Abd: Soft, non distended. mild pain to the right lower quadrant. Positive bowel sounds Extremities: No swelling, erythema, or pain to palpation. Objective Data Vital Signs Vital Signs: Vital Signs - 24 hr 05/20/20 16:45 05/20/20 20:00 05/20/20 20:20 Temperature 98.4 F Pulse Rate 98 80 105 H Respiratory Rate 18 Blood Pressure 125/70 112/62 Pulse Oximetry 100 95 05/20/20 20:26 05/20/20 21:52 05/21/20 00:00 Temperature 98.3 F Pulse Rate 105 H 88 88 Respiratory Rate 18 Blood Pressure 108/49 L Pulse Oximetry 98 05/21/20 02:00 05/21/20 04:00 05/21/20 04:05 Temperature 97.9 F Pulse Rate 83 183 H 113 H Respiratory Rate 16 Blood Pressure 110/51 L 135/74 Pulse Oximetry 96 97 05/21/20 04:12 05/21/20 05:06 05/21/20 06:00 Temperature 98.4 F Pulse Rate 113 H 104 H 84 Respiratory Rate 18 Blood Pressure 135/74 99/49 L Pulse Oximetry 97 94 05/21/20 08:00 Temperature Pulse Rate 77 Respiratory Rate Blood Pressure Pulse Oximetry Intake/Output Intake/Output: Intake & Output 05/18/20 05/19/20 05/20/20 05/21/20 23:59 23:59 23:59 23:59 Intake Total 1150 2605 300 Output Total 1450 Balance 1150 1155 300 Meds/Results Medications: Active Medica
[2020-05-21] MEDS: MELATONIN 5 MG TABLET PO (20:49)
[2020-05-22] VITALS (9 sets, daily range): BP systolic 105–143; BP diastolic 48–69; PULSE 74–103; RESP 16–18; TEMP 36.3–37.2; O2SAT 95–98
[2020-05-22 06:34] LABS: Transferrin 170 mg/dL (206-381)
[2020-05-22 07:00] LABS: Iron 30 ug/dL (37-170)
[2020-05-22 07:09] LABS: Percent Iron Saturation 12 % (20-50)
[2020-05-22 07:34] LABS: Folic Acid > 20.0 ng/mL (2.76->20); Vitamin B12 > 1000.0 pg/mL (239-931)
[2020-05-22] MEDS: FOLIC ACID 1 MG TABLET PO (08:14)
[2020-05-22] MEDS: VITAMIN B COMPLEX CAPSULE 1 CAP PO (08:14)
[2020-05-22] MEDS: DOCUSATE SODIUM 100 MG CAPSULE 200 MG PO (08:14)
[2020-05-22] MEDS: PANTOPRAZOLE 40 MG TABLET PO ×2 (08:14→21:00)
[2020-05-22] MEDS: APIXABAN 5 MG TABLET PO ×2 (08:14→20:59)
[2020-05-22] MEDS: METOPROLOL TARTRATE 12.5 MG TABLET PO ×2 (08:14→20:59)
[2020-05-22] MEDS: ATORVASTATIN 10 MG TABLET PO (08:14)
--- NOTE | 2020-05-22 12:01 | PM.IMPN ---
Progress Note: A&P Assessment and Plan (1) Bacteremia: Code(s): R78.81 - Bacteremia Status: Acute Assessment and Plan: ----- E coli and both of blood cultures secondary to UTI. Sensitive to ceftriaxone. Will continue abx today and stop fluids. If pt is doing well and bp remains stable, may be able to discharge tomorrow. (2) Atrial fibrillation with rapid ventricular response: Code(s): I48.91 - Unspecified atrial fibrillation Status: Acute Assessment and Plan: ----- Likely due to acute infection. She was on a Cardizem drip on admission but was discontinued early 05/20/20. we will continue her home metoprolol and Eliquis. TSH normal. (3) Acute UTI: Code(s): N39.0 - Urinary tract infection, site not specified Status: Acute Assessment and Plan: ----- E coli UTI confirmed. Continue ceftriaxone. (4) Sepsis: Code(s): A41.9 - Sepsis, unspecified organism Status: Acute Assessment and Plan: ----- Patient was septic when she arrived secondary to UTI. Her lactic acid was elevated and she had a leukocytosis. This improved with IV fluids and antibiotics. Continue to monitor blood pressure and symptoms closely (5) Rheumatoid arthritis: Code(s): M06.9 - Rheumatoid arthritis, unspecified Status: Acute Assessment and Plan: ----- Patient takes Orencia, immunosuppressant weekly. Will hold this For now. Subjective Date/time seen: 05/22/20 12:01 Interval history: Pt is a 85-year-old female here for UTI , bacteremia with AFib RVR. Patient was seen today and says she is doing well. She has complaints of generalized weakness and a dry nose. She denies chest pain, palpitations, shortness of breath, nausea, vomiting, fevers or chills. Of note, family relayed to the nurse that she has a problem with pain medication and they have been trying to wean her off of it. Exam Narrative: Exam Narrative: General: Hard of hearing elderly patient resting comfortably in bed in no acute distress HEENT: normocephalic Neck: supple Neuro: Alert and oriented x4 CV: irregularly irregular Rate 88. Resp: no wheezing or rhonchi, Relatively clear to auscultation. Abd: Soft, non distended. mild pain to the right lower quadrant. Positive bowel sounds Extremities: No swelling, erythema, or pain to palpation. Objective Data Vital Signs Vital Signs: Vital Signs - 24 hr 05/21/20 14:00 05/21/20 20:00 05/21/20 20:48 Temperature 98.1 F Pulse Rate 84 69 78 Respiratory Rate 20 Blood Pressure 115/65 Pulse Oximetry 99 05/21/20 22:00 05/22/20 00:00 05/22/20 02:00 Temperature 97.7 F 97.7 F Pulse Rate 80 76 79 Respiratory Rate 16 18 Blood Pressure 129/51 L 114/65 Pulse Oximetry 97 95 05/22/20 04:00 05/22/20 06:00 05/22/20 08:00 Temperature 99.0 F Pulse Rate 103 H 98 75 Respiratory Rate 18 Blood Pressure 143/69 H Pulse Oximetry 97 05/22/20 10:00 Temperature 97.3 F L Pulse Rate 79 Respiratory Rate 18 Blood Pressure 105/66 Pulse Oximetry 98 Intake/Output Intake/Output: Intake & Output 05/19/20 05/20/20 05/21/20 05/22/20 23:59 23:59 23:59 23:59 Intake Total 1150 2605 2330 864 Output Total 1450 Balance 1150 1155 2330 864 Meds/Results Medications: Active Medications Generic Name Dose Route Start Last Admin Trade Name Freq PRN Reason Stop Dose Admin Acetaminophen 650 mg 05/21/20 16:38 Tylenol Tablet PO Q4H PRN Mild Pain (1-4) Or Fever Hydrocodone Bitart/Acetaminophen 1 tab 05/21/20 16:38 05/22/20 06:25 Jameson 5-325 Mg PO 1 tab Q4H PRN Administration Pain Rated 5-10 Apixaban 5 mg 05/19/20 21:00 05/22/20 08:14 Eliquis PO 5 mg Q12HR JAMES Administration Atorvastatin Calcium 10 mg 05/20/20 09:00 05/22/20 08:14 Lipitor PO 10 mg DAILY JAMES Administration Calcium Carbonate 500 mg 05/20/20 09:00 05/22/20 08:14 O
[2020-05-22] MEDS: SODIUM CHLORIDE NASAL GEL 14.1 GM 1 APPLIC NASAL (13:07)
[2020-05-22] MEDS: MELATONIN 5 MG TABLET PO (20:59)
[2020-05-23 03:58] VITALS: BP 129/74; PULSE 86; RESP 18; TEMP 37.1; O2SAT 97
[2020-05-23 06:19] LABS: Hematocrit 31.7 % (37.0-47.0); Hemoglobin 10.6 g/dL (12.0-15.0); Mean Corpuscular HGB Conc 33.4 g/dl (32-36); Mean Corpuscular Hemoglobin 29.7 pg (26-34); Mean Corpuscular Volume 88.8 fl (80-100); Mean Platelet Volume 11.1 fl (7.4-10.4); Platelet Count Result 238 k/mm3 (150-375); Red Blood Count 3.57 M/mm3 (4.2-5.4); Red Cell Distribution Width 13.7 % (11.5-14.5); White Blood Count 8.4 K/mm3 (4.5-10.0)
[2020-05-23 06:33] LABS: Alanine Aminotransferase 12 U/L (4-35); Albumin Level 3.3 g/dL (3.5-5.1); Alkaline Phosphatase 67 U/L (38-126); Anion Gap 8 mmol/L (8-16); Aspartate Amino Transferase 34 U/L (14-36); Bilirubin,Total 0.4 mg/dL (0.2-1.3); Blood Urea Nitrogen 12 mg/dL (7-17); Calcium 8.8 mg/dL (8.4-10.2); Carbon Dioxide 25 mmol/L (22-30); Chloride 104 mmol/L (98-107); Estimated CRCL calculation 51 ml/min; Estimated Glomerular Filt Rate > 60; Glucose 108 mg/dL (65-105); Potassium 3.9 mmol/L (3.4-5.0); Sodium 137 mmol/L (137-145)
[2020-05-23 08:03] VITALS: PULSE 86
[2020-05-23] MEDS: APIXABAN 5 MG TABLET PO (08:03)
[2020-05-23] MEDS: DOCUSATE SODIUM 100 MG CAPSULE 200 MG PO (08:03)
[2020-05-23] MEDS: METOPROLOL TARTRATE 12.5 MG TABLET PO (08:03)
[2020-05-23] MEDS: PANTOPRAZOLE 40 MG TABLET PO (08:03)
[2020-05-23] MEDS: ATORVASTATIN 10 MG TABLET PO (08:03)
[2020-05-23] MEDS: FOLIC ACID 1 MG TABLET PO (08:03)
[2020-05-23] MEDS: VITAMIN B COMPLEX CAPSULE 1 CAP PO (08:03)
[2020-05-23] MEDS: polyethylene glycoL 3350 17 GM POWD.PACK PO (08:03)
--- NOTE | 2020-05-23 12:44 | PM.DS ---
DS: Admitting Diagnosis Admitting Diagnosis Admitting Diagnosis: Sepsis, unspecified organism DS: Discharge Diagnosis Discharge Diagnosis (1) Bacteremia: Code(s): R78.81 - Bacteremia Status: Acute Assessment and Plan: ----- E coli and both of blood cultures secondary to UTI. Sensitive to ceftriaxone. She received 4 days of IV abx and transitioned to cefdinir at discharge. (2) Atrial fibrillation with rapid ventricular response: Code(s): I48.91 - Unspecified atrial fibrillation Status: Acute Assessment and Plan: -----Resolved at discharge. Likely due to acute infection. She was on a Cardizem drip on admission but was discontinued early 05/20/20.continue her home metoprolol and Eliquis. TSH normal. (3) Acute UTI: Code(s): N39.0 - Urinary tract infection, site not specified Status: Acute Assessment and Plan: ----- E coli UTI confirmed. see above. (4) Sepsis: Code(s): A41.9 - Sepsis, unspecified organism Status: Acute Assessment and Plan: ----- Patient was septic when she arrived secondary to UTI. Her lactic acid was elevated and she had a leukocytosis. This improved with IV fluids and antibiotics. pt back to baseline. (5) Rheumatoid arthritis: Code(s): M06.9 - Rheumatoid arthritis, unspecified Status: Acute Assessment and Plan: ----- Patient takes Orencia, immunosuppressant weekly. Will hold this for an additional week after discharge. DS: Summary Hospital Course Reason for hospitalization: UTI bacteremia Hospital Course: Patient is a 85-year-old female who is on immunosuppressive therapy for RA who presented emergency room for confusion, weakness and dysuria found to have UTI and bacteremia. She was admitted to the hospitalist service and given 4 days worth of IV therapy. Her cultures grew E coli sensitive to ceftriaxone and she was transition to oral cefdinir to complete a 14 day course of antibiotics. Her condition improved throughout her hospital stay and the day of discharge she felt back to baseline. We reviewed her medications at discharge and she is going to follow-up with her primary care physicians. She was educated about the worrisome signs and symptoms come back to emergency room for was discharged stable condition. Time spent discussing smoking cessation with patient: more than 10 minutes Status at Discharge Overall status at discharge: patient is progressing back to baseline Time Spent with Patient Time attestation: Total time spent providing and/or coordinating discharge services:36 min Time spent: Greater than 30 minutes Exam Narrative: Exam Narrative: General: Hard of hearing elderly patient resting comfortably in bed in no acute distress HEENT: normocephalic Neck: supple Neuro: Alert and oriented x4 CV: irregularly irregular Rate 88. Resp: no wheezing or rhonchi, Relatively clear to auscultation. Abd: Soft, non distended. mild pain to the right lower quadrant. Positive bowel sounds Extremities: No swelling, erythema, or pain to palpation. DS: Data Data Completed and Pending Labs on day of discharge: Labs from last 24 hours 05/23/20 05/23/20 05:37 05:37 WBC 8.4 RBC 3.57 L Hgb 10.6 L Hct 31.7 L MCV 88.8 MCH 29.7 MCHC 33.4 RDW 13.7 Plt Count 238 MPV 11.1 H Sodium 137 Potassium 3.9 Chloride 104 Carbon Dioxide 25 Anion Gap 8 BUN 12 Creatinine 0.60 L Estim Creat Clear Calc 51 Estimated GFR > 60 Glucose 108 H Calcium 8.8 Total Bilirubin 0.4 Direct Bilirubin 0.0 AST 34 ALT 12 Alkaline Phosphatase 67 Total Protein 7.0 Albumin 3.3 L Preliminary micro results at discharge 05/19/20 18:50 Blood Culture - Preliminary Blood Escherichia Coli Discharge Plan Discharge Attending physician on discharge: Maria Elena Nichols Consulting providers: Tosin Feliciano ; Sam Valente ;
== END 2020-05-23 14:55 | disposition home or self-care (01) | DRG 872 ==
LOC: ANHED 19:10 → ANHIMU 19:30 → ANH3MEDSUR 05-21 02:25 → ANHIMU 05-25 15:02
PROVIDERS: Physician Assistant; Admitting Provider Internal Medicine; Emergency Provider Emergency Medicine; PCP Internal Medicine; Visit Provider Family Medicine
DX: A41.51 Sepsis due to Escherichia coli [E. coli] (principal); N39.0 Urinary tract infection, site not specified; I48.91 Unspecified atrial fibrillation; M06.9 Rheumatoid arthritis, unspecified; F03.90 Unspecified dementia, unspecified severity, without behavioral disturbance, psychotic disturbance, mood disturbance, and anxiety; E03.9 Hypothyroidism, unspecified; F17.290 Nicotine dependence, other tobacco product, uncomplicated; Z79.01 Long term (current) use of anticoagulants; Z79.899 Other long term (current) drug therapy
CPT/HCPCS: 36415; 71046; 80048; 80053; 80076; 81001; 82607; 82728; 82746; 83540; 83550; 83605; 83735; 84443; 84466; 85025; 85027; 86140; 87040; 87077; 87086; 87088; 87186; 93005; 96361; 96365; 96366; 96375; 96376; 97110; 97116; 97161; 97165; 97530; 97535; 99285; A9270; G0378; J0131; J0696; J2405; J7030; J7120

== ENCOUNTER 2020-09-28 14:22 | Outpatient (RCR) | payer MEDICARE, MEDICAID, SELFPAY ==
[2020-09-28 15:53] LABS: Basophils Percent Auto 0.3 % (0.2-1.2); Eosinophils Absolute Auto 0.2 K/mm3 (0-0.3); Eosinophils Percent Auto 1.9 % (0-4.4); Hematocrit 39.6 % (37.0-47.0); Hemoglobin 12.7 g/dL (12.0-15.0); Immature Granulocyte Absolute 0.02 K/mm3 (0.00-0.031); Immature Granulocyte Percent A 0.2 % (0-0.5); Lymphocytes Absolute Auto 3.48 K/mm3 (0.9-3.2); Lymphocytes Percent Auto 32.8 % (18.3-44.2); Mean Corpuscular HGB Conc 32.1 g/dl (32-36); Mean Corpuscular Hemoglobin 28.5 pg (26-34); Mean Platelet Volume 11.7 fl (7.4-10.4); Monocytes Percent Auto 9.6 % (2.6-8.5); Neutrophils Absolute Auto 5.9 K/mm3 (1.3-6.7); Neutrophils Percent Auto 55.2 % (45.5-73.1); Platelet Count Result 225 k/mm3 (150-375); Red Blood Count 4.45 M/mm3 (4.2-5.4); Red Cell Distribution Width 15.1 % (11.5-14.5); White Blood Count 10.6 K/mm3 (4.5-10.0)
[2020-09-28 16:06] LABS: Alanine Aminotransferase 13 U/L (4-35); Albumin Level 4.1 g/dL (3.5-5.1); Alkaline Phosphatase 104 U/L (38-126); Anion Gap 9 mmol/L (8-16); Aspartate Amino Transferase 32 U/L (14-36); Bilirubin,Total 0.4 mg/dL (0.2-1.3); Blood Urea Nitrogen 20 mg/dL (7-17); Calcium 10.1 mg/dL (8.4-10.2); Carbon Dioxide 24 mmol/L (22-30); Chloride 106 mmol/L (98-107); Estimated Glomerular Filt Rate > 60; Glucose 108 mg/dL (65-105); Potassium 4.3 mmol/L (3.4-5.0); Sodium 139 mmol/L (137-145)
== END 2020-12-27 23:59 | disposition home or self-care (01) ==
LOC: ANHLAB 14:22
PROVIDERS: PCP Internal Medicine; Visit Provider Internal Medicine Rheumatology
DX: Z51.81 Encounter for therapeutic drug level monitoring (principal); Z79.899 Other long term (current) drug therapy
CPT/HCPCS: 36415; 80048; 80076; 85025

== ENCOUNTER 2020-10-30 15:24 | Outpatient (CLI) | payer MEDICARE, MEDICAID, SELFPAY ==
[2020-10-30 16:08] LABS: Anion Gap 7 mmol/L (8-16); Blood Urea Nitrogen 19 mg/dL (7-17); Calcium 9.7 mg/dL (8.4-10.2); Carbon Dioxide 28 mmol/L (22-30); Chloride 105 mmol/L (98-107); Cholesterol 175 mg/dL (0-200); Estimated Glomerular Filt Rate > 60; Glucose 109 mg/dL (65-105); HDL Direct 93 mg/dL; Potassium 5.4 mmol/L (3.4-5.0); Sodium 140 mmol/L (137-145); Triglycerides 103 mg/dL (<150)
[2020-10-30 16:18] LABS: LDL Cholesterol Direct 54 mg/dL
[2020-10-30 17:04] LABS: Free T4 Free Thyroxine 1.01 ng/mL (0.78-2.19)
== END 2020-10-30 15:25 | disposition home or self-care (01) ==
LOC: ANHLAB 15:27
PROVIDERS: PCP Internal Medicine; Visit Provider Internal Medicine
DX: R73.03 Prediabetes (principal); R94.6 Abnormal results of thyroid function studies; E78.2 Mixed hyperlipidemia; Z79.899 Other long term (current) drug therapy
CPT/HCPCS: 36415; 80048; 80061; 83036; 84439; 84443

== ENCOUNTER → 2021-01-26 02:58 | Outpatient (CLI) | payer MEDICARE, MEDICAID, SELFPAY ==
[2021-01-26 19:43] LABS: SARS-CoV-2 RNA PCR Negative
== END ==
PROVIDERS: PCP Internal Medicine; Visit Provider Internal Medicine Gastroenterology
DX: Z01.812 Encounter for preprocedural laboratory examination (principal); Z20.822 Contact with and (suspected) exposure to COVID-19
CPT/HCPCS: C9803; U0003; U0005

== ENCOUNTER 2021-01-29 00:53 | Day surgery (SDC) | payer MEDICARE, MEDICAID, SELFPAY ==
[2021-01-21 10:33] VITALS: BMI 30.4
[2021-01-29] MEDS: LACTATED RINGERS 1,000 ML 150 ML IV CONT (06:54)
[2021-01-29 07:03] VITALS: BP 146/90; PULSE 75; RESP 16; TEMP 36.2; O2SAT 99
--- NOTE | 2021-01-29 07:40 | WPDANESEPPF ---
Anes - Initial Pre Proc Eval Procedure: Operation Date: 01/29/21 08:00 Proposed Procedures p Colonoscopy - Miguel Taylor MD Date/Time: 01/29/21 07:40 Surgeon: Miguel Taylor MD Pre Op Diagnosis: positive cologuard Patient Data Age: 86 Gender: F Height: 5 ft 1 in Weight: 65.7 kg Last Vital Signs Temp 97.2 F L 01/29/21 07:03 Pulse 75 01/29/21 07:03 Resp 16 01/29/21 07:03 BP 146/90 H 01/29/21 07:03 Pulse Ox 99 01/29/21 07:03 Allergies Allergy/AdvReac Type Severity Reaction Status Date / Time No Known Allergies Allergy Verified 01/29/21 07:01 Home Medications Medication Instructions Recorded Confirmed Type acetaminophen [Acetaminophen Pain 1,000 mg PO BID 12/26/19 01/29/21 History Relief] docusate sodium 200 mg PO DAILY 05/19/20 01/29/21 History melatonin 5 mg PO HS 05/19/20 01/29/21 History syringe with needle 3 mL 25 gauge #3 each 06/26/20 Rx x 1 atorvastatin 10 mg tablet See Rx Instructions .ROUTE 07/24/20 01/29/21 Rx .COMPLEX #90 tablet metoprolol tartrate 25 mg tablet See Rx Instructions .ROUTE 07/24/20 01/29/21 Rx .COMPLEX #90 tablet omeprazole 40 mg capsule,delayed See Rx Instructions .ROUTE 09/28/20 01/29/21 Rx release .COMPLEX #90 cap hydrocodone 5 mg-acetaminophen 325 1 tablet PO BID PRN #60 tablet 10/10/20 01/29/21 Rx mg tablet multivit with min-folic 1 tablet PO DAILY 11/06/20 01/29/21 History acid-lutein 400 mcg-250 mcg chewable tablet prednisone 5 mg tablet 5 mg PO DAILY 11/06/20 01/29/21 History tramadol 50 mg tablet 50 mg PO Q8H PRN tablet 11/06/20 01/29/21 History apixaban 5 mg tablet See Rx Instructions .ROUTE 12/17/20 01/29/21 Rx .COMPLEX #180 tablet cyanocobalamin (vitamin B-12) See Rx Instructions .ROUTE 12/17/20 01/29/21 Rx 1,000 mcg/mL injection solution .COMPLEX #3 ml methotrexate sodium [Methotrexate 15 mg PO WEEKLY 01/21/21 01/29/21 History (Anti-Rheumatic)] polyethylene glycol 3350 [Miralax] 17 g PO DAILY PRN 01/21/21 01/29/21 History Patient hx anesthesia problems: none Family hx anesthesia problems: none PMFSH Past Medical History Medical History (Updated 11/07/20 @ 15:45 by Gillian Bliss) A-fib on chronic anticoagulation with Eliquis Abnormal thyroid function test Age-related hearing loss B12 deficiency BMI 24.0-24.9, adult BMI 26.0-26.9,adult Cataracts, bilateral maturing Constipation Dementia DJD (degenerative joint disease), multiple sites Encounter for annual wellness exam in Medicare patient GERD (gastroesophageal reflux disease) Glaucoma H/O elevated homocysteine History of sepsis Hospital discharge follow-up Hypothyroidism (acquired) Mixed hyperlipidemia Need for COVID-19 vaccine Need for influenza vaccination Osteoporosis Positive colorectal cancer screening using Cologuard test Pre-diabetes Presbyesophagus Rheumatoid arthritis UTI (urinary tract infection) Vitamin D deficiency Surgical History Surgical History H/O dilation and curettage October 2019 demonstrating atrophic endometrium History of colonoscopy with polypectomy Family History Family History Sibling Acute myocardial infarction Mother Renal failure Social History Social History Social History: Primary care physician: Dr. Matias De Jesus Code status: Full code per EMR. The patient does not have advanced directives in place. Smoking status: Never smoker Tobacco type: smokeless tobacco Smokeless tobacco user: snuff Second hand tobacco smoke exposure: Yes Additional smoking assessment comments: snuff x 70 years Alcohol intake: never Substance use: never Living arrangements: with family Additional living arrangements comments: The patient lives with her son. She ambulates with a walker and also has
--- NOTE | 2021-01-29 07:47 | PM.HPGS ---
History of Present Illness History of Present Illness Consent: Risks, benefits, and alternatives have been discussed and questions answered. Patient agrees to proceed with procedure. Chief complaint: positive cologuard Narrative: Tatiana Serrato is a 86 year old female with cologuard +, had polyps about 7 years ago. Review of Systems Constitutional: Constitutional: Denies headache(s) and Denies weakness Eyes: Eyes: Denies blurry vision ENT: Reports Normal hearing present, Denies headache(s) and Denies neck pain Cardiovascular: Cardiovascular: Denies chest pain and Denies dyspnea Respiratory: Respiratory: Denies dyspnea Gastrointestinal: Gastrointestinal: Reports no additional gastrointestinal complaints Genitourinary: Genitourinary: Denies dysuria Musculoskeletal: Musculoskeletal: Denies neck pain Integumentary/Breasts: Skin/Breast: Denies dry skin Neurologic: Reports Normal hearing present, Denies headache(s) and Denies weakness Psychiatric: Psychiatric: Denies anxiety Endocrine: Endocrine: Denies change in body appearance Hematologic/Lymphatic: Hematologic/Lymphatic: Denies easy bleeding Allergic/Immunologic: Allergic/Immunologic: Denies urticaria PMFSH Past Medical History Medical History (Updated 11/07/20 @ 15:45 by Gillian Bliss) A-fib on chronic anticoagulation with Eliquis Abnormal thyroid function test Age-related hearing loss B12 deficiency BMI 24.0-24.9, adult BMI 26.0-26.9,adult Cataracts, bilateral maturing Constipation Dementia DJD (degenerative joint disease), multiple sites Encounter for annual wellness exam in Medicare patient GERD (gastroesophageal reflux disease) Glaucoma H/O elevated homocysteine History of sepsis Hospital discharge follow-up Hypothyroidism (acquired) Mixed hyperlipidemia Need for COVID-19 vaccine Need for influenza vaccination Osteoporosis Positive colorectal cancer screening using Cologuard test Pre-diabetes Presbyesophagus Rheumatoid arthritis UTI (urinary tract infection) Vitamin D deficiency Surgical History Surgical History H/O dilation and curettage October 2019 demonstrating atrophic endometrium History of colonoscopy with polypectomy Family History Family History Sibling Acute myocardial infarction Mother Renal failure Social History Social History Social History: Primary care physician: Dr. Matias Kopjas Code status: Full code per EMR. The patient does not have advanced directives in place. Smoking status: Never smoker Tobacco type: smokeless tobacco Smokeless tobacco user: snuff Second hand tobacco smoke exposure: Yes Additional smoking assessment comments: snuff x 70 years Alcohol intake: never Substance use: never Living arrangements: with family Additional living arrangements comments: The patient lives with her son. She ambulates with a walker and also has a wheelchair available as needed. She has a total of 5 boys and 1 girl. One son due to trauma at the age of 40. Gender identity (if verbalized by the patient): Female Spiritual care concerns: No Meds Home Medications and Allergies Home Medications Medication Instructions Recorded Confirmed Type acetaminophen [Acetaminophen Pain 1,000 mg PO BID 12/26/19 01/29/21 History Relief] docusate sodium 200 mg PO DAILY 05/19/20 01/29/21 History melatonin 5 mg PO HS 05/19/20 01/29/21 History syringe with needle 3 mL 25 gauge #3 each 06/26/20 Rx x 1 atorvastatin 10 mg tablet See Rx Instructions .ROUTE 07/24/20 01/29/21 Rx .COMPLEX #90 tablet metoprolol tartrate 25 mg tablet See Rx Instructions .ROUTE 07/24/20 01/29/21 Rx .COMPLEX #90 tablet omeprazole 40 mg capsule,delayed See Rx Instructions .ROUTE 09/28/20 01/29/21 Rx release .COMPLEX #90 cap hydroc
[2021-01-29 08:15] VITALS: BP 107/51; PULSE 126; RESP 20; O2SAT 97
[2021-01-29 08:25] VITALS: BP 107/62; PULSE 98; RESP 23; O2SAT 97
[2021-01-29 08:35] VITALS: BP 131/92; PULSE 90; RESP 23; O2SAT 96
== END 2021-01-29 08:57 | disposition home or self-care (01) ==
PROVIDERS: PCP Internal Medicine; Visit Provider Internal Medicine Gastroenterology
PROC: 0DJD8ZZ Inspection of Lower Intestinal Tract, Via Natural or Artificial Opening Endoscopic (ICD-10-PCS; CPT 45378; principal; 2021-01-29 08:00)
DX: R19.5 Other fecal abnormalities (principal); D12.2 Benign neoplasm of ascending colon; K63.5 Polyp of colon; K64.8 Other hemorrhoids; I48.91 Unspecified atrial fibrillation; F03.90 Unspecified dementia, unspecified severity, without behavioral disturbance, psychotic disturbance, mood disturbance, and anxiety; K21.9 Gastro-esophageal reflux disease without esophagitis; H40.9 Unspecified glaucoma; E03.9 Hypothyroidism, unspecified; E78.2 Mixed hyperlipidemia; M81.0 Age-related osteoporosis without current pathological fracture; R73.03 Prediabetes; M06.9 Rheumatoid arthritis, unspecified; E55.9 Vitamin D deficiency, unspecified; H26.9 Unspecified cataract; F17.220 Nicotine dependence, chewing tobacco, uncomplicated; Z79.01 Long term (current) use of anticoagulants
CPT/HCPCS: 45380; 45385; 88305; J2704; J7120

== ENCOUNTER 2021-03-12 14:50 | Outpatient (CLI) | payer MEDICARE, MEDICAID, SELFPAY ==
[2021-03-12 15:55] LABS: Basophils Percent Auto 0.2 % (0.2-1.2); Eosinophils Absolute Auto 0.1 K/mm3 (0-0.3); Hematocrit 43.4 % (37.0-47.0); Hemoglobin 13.9 g/dL (12.0-15.0); Immature Granulocyte Absolute 0.07 K/mm3 (0.00-0.031); Immature Granulocyte Percent A 0.6 % (0-0.5); Lymphocytes Absolute Auto 2.98 K/mm3 (0.9-3.2); Lymphocytes Percent Auto 23.9 % (18.3-44.2); Mean Platelet Volume 10.1 fl (7.4-10.4); Monocytes Percent Auto 8.3 % (2.6-8.5); Neutrophils Absolute Auto 8.2 K/mm3 (1.3-6.7); Platelet Count Result 288 k/mm3 (150-375); Red Blood Count 4.34 M/mm3 (4.2-5.4); Red Cell Distribution Width 18.2 % (11.5-14.5); White Blood Count 12.5 K/mm3 (4.5-10.0)
[2021-03-12 16:53] LABS: Anion Gap 11 mmol/L (8-16); Blood Urea Nitrogen 18 mg/dL (7-17); Calcium 10.4 mg/dL (8.4-10.2); Carbon Dioxide 27 mmol/L (22-30); Chloride 105 mmol/L (98-107); Cholesterol 192 mg/dL (0-200); Estimated Glomerular Filt Rate > 60; Glucose 118 mg/dL (65-105); HDL Direct 79 mg/dL; Potassium 5.5 mmol/L (3.4-5.0); Sodium 143 mmol/L (137-145); Triglycerides 256 mg/dL (<150)
[2021-03-12 17:04] LABS: LDL Cholesterol Direct 55 mg/dL
[2021-03-12 17:06] LABS: Free T4 Free Thyroxine 1.03 ng/mL (0.78-2.19)
[2021-03-12 18:00] LABS: Folic Acid > 20.0 ng/mL (2.76->20)
[2021-03-12 18:33] LABS: Hemoglobin A1C 6.1 % (<5.7)
== END 2021-03-12 14:51 | disposition home or self-care (01) ==
LOC: ANHLAB 14:55
PROVIDERS: PCP Internal Medicine; Visit Provider Internal Medicine
DX: R73.03 Prediabetes (principal); Z51.81 Encounter for therapeutic drug level monitoring; Z79.899 Other long term (current) drug therapy; E78.5 Hyperlipidemia, unspecified; E78.2 Mixed hyperlipidemia; E03.9 Hypothyroidism, unspecified; E53.8 Deficiency of other specified B group vitamins
CPT/HCPCS: 36415; 80048; 80061; 82607; 82746; 83036; 84439; 84443; 85025

== ENCOUNTER 2021-07-24 16:03 | Outpatient (CLI) | payer MEDICARE, MEDICAID, SELFPAY ==
[2021-07-24 16:37] LABS: Alanine Aminotransferase 28 U/L (4-35); Albumin Level 4.7 g/dL (3.5-5.1); Alkaline Phosphatase 83 U/L (38-126); Anion Gap 11 mmol/L (8-16); Aspartate Amino Transferase 37 U/L (14-36); Bilirubin,Total 0.5 mg/dL (0.2-1.3); Blood Urea Nitrogen 19 mg/dL (7-17); Calcium 9.6 mg/dL (8.4-10.2); Carbon Dioxide 23 mmol/L (22-30); Chloride 106 mmol/L (98-107); Cholesterol 163 mg/dL (0-200); Estimated Glomerular Filt Rate > 60; Glucose 129 mg/dL (65-110); HDL Direct 72 mg/dL; Potassium 5.1 mmol/L (3.4-5.0); Sodium 140 mmol/L (137-145); Triglycerides 163 mg/dL (<150)
[2021-07-24 16:40] LABS: Hemoglobin A1C 6.1 % (<5.7)
[2021-07-24 16:51] LABS: LDL Cholesterol Direct 58 mg/dL
[2021-07-28 23:01] LABS: Vitamin D 1,25 (OH)2 Total 32 pg/mL (18-72); Vitamin D2 1,25 (OH)2 <8 pg/mL; Vitamin D3 1,25 (OH)2 32 pg/mL
== END 2021-07-24 16:04 | disposition home or self-care (01) ==
LOC: ANHLAB 16:06
PROVIDERS: PCP Internal Medicine; Visit Provider Internal Medicine
DX: E55.9 Vitamin D deficiency, unspecified (principal); Z51.81 Encounter for therapeutic drug level monitoring; Z79.899 Other long term (current) drug therapy; E78.5 Hyperlipidemia, unspecified; R73.03 Prediabetes
CPT/HCPCS: 36415; 80048; 80061; 80076; 82652; 83036

== ENCOUNTER 2021-08-21 14:30 | Inpatient (IN) | payer MEDICARE, MEDICAID, SELFPAY ==
[2021-08-21] VITALS (26 sets, daily range): BP systolic 100–189; BP diastolic 58–104; PULSE 82–197; RESP 12–22; TEMP 36.6–37.2; O2SAT 94–100
--- NOTE | ~2021-08-21 | CT_ITS ---
EXAMINATION: CT brain wo con INDICATION: Head injury, ground level fall COMPARISON: None TECHNIQUE: Standard unenhanced head CT. The dose-length product (DLP) was 605.33 mGy-cm. The mA was a djusted according to patient size. Iterative reconstruction technique was employed. FINDINGS: There is no acute intraparenchymal hemorrhage. No evidence of mass lesion. No evidence of a cute infarction. There is mild periventricular and subcortical hypodensity probably related to small vessel ischemic disease. There is mild prominence of the sulci and ventricles related to cerebral atr ophy. Intracranial calcified cerebral atherosclerosis is noted. There are no extra-axial collections. There is no mass effect or midline shift. Changes in the globes are likely from ocular lens surgery. The visualized sinuses and mastoid air cells are well aerated. IMPRESSION: 1. No acute intracranial abnormality. 2. Age related findings. Reviewed, dictated and finalized at location B. OFFICER
--- NOTE | ~2021-08-21 | XR_ITS ---
EXAMINATION: XR surgery orthopedic EXAM DATE: 08/22/2021 16:29 INDICATION: Right hip fixation. TECHNIQUE: Fluoroscopy used during right hip ORIF performed by Dr. Sweetie Blue MD. Radiologist w as not present for the imaging or procedure. Total fluoroscopic time of 735 seconds. The DAP for th is procedure was 5.9 mGym2. A total of 6 images sent to PACS from the exam. FINDINGS: There is an intertrochanteric fracture. Surgical hardware, gamma nail insertion hardware i n position. Correlate with procedure note. IMPRESSION: Fluoroscopy used during right hip intertrochanteric ORIF.. Reviewed, dictated and finalized at location A. HOME TUTOR
--- NOTE | ~2021-08-21 | CT_ITS ---
EXAMINATION: CTA chest PE protocol EXAM DATE: 08/21/2021 17:35 INDICATION: tachycardia long bone fracture . TECHNIQUE: Spiral CTA of the chest (pulmonary arteries) was performed with 100 cc Omnipaque 350 intr avenous contrast injection. Images were acquired during the pulmonary arterial phase. Coronal maxi mum intensity projection 3D-reconstructions were created by the technologist on dedicated workstation . Axial, coronal and sagittal reformatted images were reviewed. The dose-length product (DLP) for t his examination was 399.28 mGy-cm. The exposure was tailored according to patient size (auto mA exp osure control), and iterative reconstruction (ASIR) was used as additional dose reduction technique. Comparison is made to prior examination from 10/07/2019. FINDINGS: Pulmonary arteries are well opacified and without intraluminal filling defects. No thora cic aortic dissection. Small right pleural plaques. Dependent subsegmental atelectasis. Mild emphyse ma. There are no pleural or pericardial effusions. Tracheobronchial tree is patent. There is no mediastinal, hilar or axillary lymphadenopathy. There is no pneumothorax. Cardiomegaly. There is mild coronary arterial calcification, arterial sclerosis. Upper abdomen is unremarkable. There is mild thoracic spondylosis without osteoblastic or osteolytic lesions identified. Evidence of signifi cant lumbar scoliosis. IMPRESSION: 1. No pulmonary emboli or acute cardiopulmonary findings. 2. Dependent subsegmental atelectasis. 3. Cardiomegaly. Reviewed, dictated and finalized at location A. NQUENT ACCOUNT CLERK
--- NOTE | ~2021-08-21 | CT_ITS ---
EXAMINATION: CT cervical spine wo con DATE: 08/21/2021 15:25 INDICATION: Head injury TECHNIQUE: Computed tomography (CT) of the cervical spine was performed without intravenous contrast. The dose-length product (DLP) was 197.74 mGy-cm. Automated exposure control and iterative reconstruc tion technique were employed. COMPARISON: 07/23/2019 FINDINGS: There are 2 mm of unchanged anterolisthesis of C4 on C5 and 2 mm of stable retrolisthesis o f C5 on C6. There is no fracture. The odontoid is intact. The vertebral body heights are maintained. There is severe loss of intervertebral disc space height at C4-5 and C5-6. Small degenerative osteoph ytes project from the anterior endplates of multiple vertebral bodies. The prevertebral soft tissues are normal. There is moderate to severe multilevel facet and uncovertebral joint osteoarthritis. Scar ring is noted in the lung apices. IMPRESSION: 1. Severe cervical spondylosis without acute findings or significant interval change. Reviewed, dictated and finalized at location B. NTIFIC DIVER IMPRESSION: 1. Severe cervical spondylosis without acute findings or significant interval c tri.
--- NOTE | ~2021-08-21 | XR_ITS ---
XR knee RT 3V 08/21/2021 15:44 Indication: Right knee pain Procedure: 3 views right knee Comparison: 02/11/2021 Findings: There is moderate tricompartment osteoarthritis of the right knee. No acute fracture, sublu xation or dislocation. No definite joint effusion. Osteopenia. Impression: 1: No acute fracture. Reviewed, dictated and finalized at location A. L RULE DIE MAKER Impression: 1: No acute fracture.
--- NOTE | ~2021-08-21 | XR_ITS ---
EXAMINATION: XR hip RT 2V w AP pelvis INDICATION: Right hip pain, initial encounter TECHNIQUE: AP view the pelvis and two views of the right hip are obtained. COMPARISON: 07/23/2019 FINDINGS: There is an acute, traumatic, comminuted intertrochanteric fracture of the right femur. The lesser trochanter resides on a separate fracture fragment. There is moderate osteoarthritis of the r ight hip. Mild left hip posterior arthritis is noted. The soft tissues are unremarkable. IMPRESSION: 1. Comminuted intertrochanteric fracture of the right femur. Reviewed, dictated and finalized at location B. GEMENT ACCOUNTANT
--- NOTE | 2021-08-21 15:00 | ECG_ITS ---
Measurements Intervals [place] Rate: 123 P: NH: 0 QRS: -3 QRSD: 86 T: 76 QT: 286 QTc: 410 Interpretive Statements ATRIAL FIBRILLATION WITH RAPID VENTRICULAR RESPONSE NONSPECIFIC ST & T-WAVE ABNORMALITY- INF/HIGH LAT LEADS BASELINE ARTIFACT- I, II, III, AVR, AVF, V1, V3-V6 ABNORMAL ECG Electronically Signed On 08-21-2021 20:11:43 [facility] by Tyrell Cornejo D.O.
[2021-08-21] MEDS: MORPHINE SULFATE (*CRX) 4 MG/ML INJ IV PUSH ×4 (15:43→23:40)
[2021-08-21 16:01] LABS: Basophils Percent Auto 0.2 % (0.2-1.2); Eosinophils Absolute Auto 0.1 K/mm3 (0-0.3); Eosinophils Percent Auto 0.3 % (0-4.4); Hematocrit 42.9 % (37.0-47.0); Hemoglobin 14.2 g/dL (12.0-15.0); Immature Granulocyte Absolute 0.16 K/mm3 (0.00-0.031); Lymphocytes Absolute Auto 2.21 K/mm3 (0.9-3.2); Lymphocytes Percent Auto 14.5 % (18.3-44.2); Mean Corpuscular HGB Conc 33.1 g/dl (32-36); Mean Corpuscular Hemoglobin 33.3 pg (26-34); Mean Corpuscular Volume 100.5 fl (80-100); Mean Platelet Volume 9.6 fl (7.4-10.4); Monocytes Absolute Auto 0.9 K/mm3 (0.1-0.6); Monocytes Percent Auto 5.9 % (2.6-8.5); Neutrophils Absolute Auto 11.9 K/mm3 (1.3-6.7); Neutrophils Percent Auto 78.1 % (45.5-73.1); Platelet Count Result 285 k/mm3 (150-375); Red Blood Count 4.27 M/mm3 (4.2-5.4); Red Cell Distribution Width 15.7 % (11.5-14.5); White Blood Count 15.3 K/mm3 (4.5-10.0)
[2021-08-21 16:17] LABS: Prothrombin Time 13.5 Seconds (11.1-14.7)
[2021-08-21 16:18] LABS: Partial Thromboplastin Time 32.2 SECONDS (22.3-36.8)
[2021-08-21 16:19] LABS: Alanine Aminotransferase 29 U/L (4-35); Albumin Level 4.6 g/dL (3.5-5.1); Alkaline Phosphatase 101 U/L (38-126); Anion Gap 8 mmol/L (8-16); Aspartate Amino Transferase 43 U/L (14-36); Bilirubin,Total 0.4 mg/dL (0.2-1.3); Blood Urea Nitrogen 20 mg/dL (7-17); Carbon Dioxide 27 mmol/L (22-30); Chloride 103 mmol/L (98-107); Estimated CRCL calculation 51 ml/min; Estimated Glomerular Filt Rate > 60; Glucose 115 mg/dL (65-110); Potassium 4.6 mmol/L (3.4-5.0); Sodium 138 mmol/L (137-145)
--- NOTE | 2021-08-21 16:30 | ED.FALL ---
HPI - Fall General Chief Complaint: Fall Stated Complaint: fall - hip pain Time Seen by Provider: 08/21/21 14:54 Source: patient History of Present Illness HPI Narrative: Patient presents after a ground-level fall. 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 Reports her primary area of pain is her right hip and right knee. She denies striking her head she denies any loss of consciousness she does report she is on Eliquis. Denies any prodrome prior to the fall such as chest pain, shortness of breath, lightheadedness or dizziness. She denies any headache denies any focal numbness or weakness Related Data Home Medications Medication Instructions Recorded Confirmed acetaminophen [Acetaminophen Pain 1,000 mg PO BID PRN 12/26/19 08/21/21 Relief] docusate sodium 200 mg PO DAILY 05/19/20 08/21/21 multivit with min-folic 1 tablet PO DAILY 11/06/20 08/21/21 acid-lutein 400 mcg-250 mcg chewable tablet prednisone 5 mg tablet 5 mg PO DAILY 11/06/20 08/21/21 tramadol 50 mg tablet 50 mg PO Q8H PRN tablet 11/06/20 08/21/21 methotrexate sodium [Methotrexate 7.5 mg PO WEEKLY 01/21/21 08/21/21 (Anti-Rheumatic)] polyethylene glycol 3350 [Miralax] 17 g PO DAILY PRN 01/21/21 08/21/21 gabapentin 100 mg capsule 200 mg PO HS cap 03/20/21 08/21/21 apixaban [Eliquis] 5 mg PO BID 08/21/21 08/21/21 atorvastatin 10 mg PO DAILY 08/21/21 08/21/21 bimatoprost [Lumigan] 1 drp RIGHT EYE HS 08/21/21 08/21/21 brimonidine-timolol [Combigan] 1 drp RIGHT EYE BID 08/21/21 08/21/21 hydrocodone-acetaminophen 1 tablet PO BID PRN 08/21/21 08/21/21 metoprolol tartrate 12.5 mg PO BID 08/21/21 08/21/21 omeprazole 40 mg PO DAILY 08/21/21 08/21/21 Allergies Allergy/AdvReac Type Severity Reaction Status Date / Time No Known Allergies Allergy Verified 08/21/21 14:52 Review of Systems Review of Systems: CONSTITUTIONAL: Denies fever, chills, or sweats. EYES: Denies visual changes, redness, or discharge. ENT: Denies rhinorrhea, congestion, sore throat, or otalgia. CARDIOVASCULAR: Denies chest pain, palpitations, or edema. RESPIRATORY: Denies cough or dyspnea. GASTROINTESTINAL: Denies abdominal pain, nausea, vomiting, or diarrhea. GENITOURINARY: Denies dysuria or hematuria. SKIN: Denies rash or itching. MUSCULOSKELETAL: Denies back pain, or myalgia. NEUROLOGIC: Denies headache, numbness, dizziness, or weakness. PSYCHIATRIC: Denies anxiety or depression. All systems reviewed & are unremarkable except as noted in HPI and below PMFSH Past Medical History Medical History (Updated 08/22/21 @ 10:54 by Jc Cortez MD) A-fib on chronic anticoagulation with Eliquis Abnormal thyroid function test Acute UTI Age-related hearing loss B12 deficiency BMI 24.0-24.9, adult BMI 29.0-29.9,adult BMI 33.0-33.9,adult Cataracts, bilateral maturing Colon cancer screening Constipation Dementia DJD (degenerative joint disease), multiple sites Early satiety Encounter for annual wellness exam in Medicare patient GERD (gastroesophageal reflux disease) Glaucoma H/O elevated homocysteine Hematoma of right knee region History of sepsis Hospital discharge follow-up Hypothyroidism (acquired) Impaired functional mobility, balance, gait, and endurance Knee effusion, right Left knee DJD Mixed hyperlipidemia Need for COVID-19 vaccine Need for influenza vaccination On fdc drug therapy Osteoporosis Positive colorectal cancer screening using Cologuard test Pre-diabetes Presbyesophagus Rheumatoid arthritis Right knee DJD Sepsis Unexplained weight loss UTI (urinary tract infection) Vitamin D deficiency Surgical History Surgical History H/O dilation and curettage October 2019 demonstrating atrophic endometrium History of colonoscopy with polypectomy Family History Family History Sibling Acute m
[2021-08-21] MEDS: dilTIAZem HCl INJ 25 MG/5 ML VIAL 10 MG IV PUSH (16:45)
[2021-08-21] MEDS: SODIUM CHLORIDE 0.9% IV 500 ML 999 ML IV CONT (16:46)
[2021-08-21] MEDS: ONDANSETRON INJ 4 MG/2 ML VIAL IV PUSH (18:04)
[2021-08-21] MEDS: SODIUM CHLORIDE 0.9% IV 1,000 ML 125 ML IV CONT (18:04)
--- NOTE | 2021-08-21 19:00 | ADMGEN ---
This patient, Tatiana Serarto, was admitted to IMU Room 211-01. Patient/family oriented to hospital policies and general routines including ID bracelet, bed and alarms, visiting hours, pain management, procedures, bathroom and other care routines, personal items, smoking policy, room service/diet, and visiting hours. Information on how to activate the Rapid Response Team has been discussed. Patient/Family are encouraged to report perceived risks to care and to ask questions if they do not understand what they are told or what they should do.
--- NOTE | 2021-08-21 21:45 | PM.IMHP ---
H&P: HPI History of Present Illness Date/Time: 08/21/21 21:45 this is an 86-year-old female patient who is hard of hearing and has poor vision. The patient stated that she dropped her medication went to pick it up and her leg slipped then she fell on the ground. She was complaining of right hip and right knee pain. She stated she did not hit her head or lose consciousness however she is on Eliquis. Patient was not dizzy or have any chest pain prior to falling on the ground. Patient's hip and pelvis x-ray was read as comminuted inter intertrochanteric fracture of the right femur. Knee x-ray no acute fracture. Cervical spine CT several cervical spondylosis without acute findings or significant interval change. Head CT was read as no acute intracranial abnormality. Age-related findings. The patient denies any headache or any focal weakness. The patient had a CTA due to her tachycardia and her long bone fracture. Which shows no PE or cardiopulmonary findings. Dependent subsegmental atelectasis. Cardiomegaly. The patient was found to be in AFib with RVR. The patient was given an IV push Cardizem, IV fluids and morphine. Once the patient was admitted to IMU her heart rate went up in the 120s so we started her on a Cardizem drip. The patient is being admitted to inpatient services on the date of service of 08/21/2021. Chief Complaint: Fall and right hip pain Review of Systems Review of Systems: All systems reviewed & are unremarkable except as noted in HPI and below Constitutional: Constitutional: Reports as per HPI and Reports no additional constitutional complaints Eyes: Eyes: Reports as per HPI and Reports no additional eye complaints ENT: Reports system reviewed and no additional complaints, except as documented and Reports Normal hearing present Cardiovascular: Cardiovascular: Reports no additional cardiovascular complaints Respiratory: Respiratory: Reports no additional respiratory complaints and Reports no additional respiratory complaints Gastrointestinal: Gastrointestinal: Reports as per HPI and Reports no additional gastrointestinal complaints Musculoskeletal: Musculoskeletal: Reports no additional musculoskeletal complaints Integumentary/Breasts: Skin/Breast: Reports system reviewed and no additional complaints, except as docu and Reports as per HPI Neurologic: Reports system reviewed and no additional complaints, except as documented, Reports as per HPI and Reports Normal hearing present Psychiatric: Psychiatric: Reports no additional psychiatric complaints and Reports as per HPI Endocrine: Endocrine: Reports no additional endocrine complaints Hematologic/Lymphatic: Hematologic/Lymphatic: Reports no additional hematologic/lymphatic complaints Allergic/Immunologic: Allergic/Immunologic: Reports no additional allergic/immunologic complaints FOR[facility]LY [facility] Past Medical History Medical History (Updated 08/21/21 @ 22:22 by Keisha Jain NP) A-fib on chronic anticoagulation with Eliquis Abnormal thyroid function test Acute UTI Age-related hearing loss B12 deficiency BMI 24.0-24.9, adult BMI 29.0-29.9,adult BMI 33.0-33.9,adult Cataracts, bilateral maturing Colon cancer screening Constipation Dementia DJD (degenerative joint disease), multiple sites Early satiety Encounter for annual wellness exam in Medicare patient GERD (gastroesophageal reflux disease) Glaucoma H/O elevated homocysteine Hematoma of right knee region History of sepsis Hospital discharge follow-up Hypothyroidism (acquired) Impaired functional mobility, balance, gait, and endurance Knee effusion, right Left knee DJD Mixed hyperlipidemia Need for COVID-19 vaccine Need for influenza vaccination On residential drug therapy Osteoporosis Positive colorectal cancer screening using Cologuard test Pre-diabetes Presbyesophagus Rheumatoid arthritis Right knee DJD Sepsis Unexplained weight loss UTI (urinary tract infection) Vitamin D deficiency Adria
[2021-08-22] VITALS (26 sets, daily range): BP systolic 109–170; BP diastolic 49–90; PULSE 73–130; RESP 14–20; TEMP 36.6–37.6; O2SAT 94–100
[2021-08-22] MEDS: SODIUM CHLORIDE 0.9% IV 1,000 ML 125 ML IV CONT ×3 (01:16→21:14)
[2021-08-22] MEDS: LATANOPROST 0.005% OP SOLN 2.5 ML BTL 1 DROP RIGHT EYE (01:16)
[2021-08-22] MEDS: HYDROcodone/acetaminophen (*CRX) 5-325 MG TABLET 1 TAB PO (02:04)
[2021-08-22] MEDS: MORPHINE SULFATE (*CRX) 4 MG/ML INJ IV PUSH ×3 (03:08→08:24)
[2021-08-22 05:20] LABS: Basophils Absolute Auto 0.1 K/mm3 (0.0-0.1); Basophils Percent Auto 0.3 % (0.2-1.2); Eosinophils Absolute Auto 0.1 K/mm3 (0-0.3); Eosinophils Percent Auto 0.5 % (0-4.4); Hematocrit 35.9 % (37.0-47.0); Hemoglobin 11.6 g/dL (12.0-15.0); Immature Granulocyte Absolute 0.11 K/mm3 (0.00-0.031); Immature Granulocyte Percent A 0.7 % (0-0.5); Lymphocytes Absolute Auto 4.75 K/mm3 (0.9-3.2); Lymphocytes Percent Auto 30.2 % (18.3-44.2); Mean Corpuscular HGB Conc 32.3 g/dl (32-36); Mean Platelet Volume 9.7 fl (7.4-10.4); Monocytes Absolute Auto 1.5 K/mm3 (0.1-0.6); Monocytes Percent Auto 9.3 % (2.6-8.5); Neutrophils Absolute Auto 9.3 K/mm3 (1.3-6.7); Platelet Count Result 291 k/mm3 (150-375); Red Blood Count 3.52 M/mm3 (4.2-5.4); Red Cell Distribution Width 15.7 % (11.5-14.5); White Blood Count 15.8 K/mm3 (4.5-10.0)
[2021-08-22 05:48] LABS: Alanine Aminotransferase 25 U/L (4-35); Albumin Level 3.7 g/dL (3.5-5.1); Alkaline Phosphatase 69 U/L (38-126); Anion Gap 7 mmol/L (8-16); Aspartate Amino Transferase 35 U/L (14-36); Bilirubin,Total 0.7 mg/dL (0.2-1.3); Blood Urea Nitrogen 15 mg/dL (7-17); Carbon Dioxide 24 mmol/L (22-30); Chloride 105 mmol/L (98-107); Estimated CRCL calculation 51 ml/min; Estimated Glomerular Filt Rate > 60; Glucose 108 mg/dL (65-110); Magnesium 1.8 mg/dL (1.6-2.3); Potassium 4.3 mmol/L (3.4-5.0); Sodium 136 mmol/L (137-145)
[2021-08-22 08:11] LABS: Free T4 Free Thyroxine Reflex 1.53 ng/dL (0.78-2.19)
[2021-08-22] MEDS: ATORVASTATIN 10 MG TABLET PO (09:13)
[2021-08-22] MEDS: MULTIVITAMINS /C LUTEIN (CENTRUM SILVER) TABLET *BKC 1 TAB PO (09:13)
[2021-08-22] MEDS: PANTOPRAZOLE 40 MG TABLET PO (09:13)
[2021-08-22] MEDS: predniSONE 5 MG TABLET PO (09:13)
--- NOTE | 2021-08-22 09:18 | PM.PNORT ---
Subjective Subjective Date/Time Seen: 08/22/21 09:17 Objective Data Vital Signs Vital Signs: Vital Signs - 24 hr 08/21/21 14:38 08/21/21 14:40 08/21/21 14:50 Temperature 37.2 C Pulse Rate 86 90 88 Respiratory Rate 16 20 17 Blood Pressure 161/96 H Pulse Oximetry 99 94 100 08/21/21 15:00 08/21/21 15:01 08/21/21 15:42 Temperature Pulse Rate 100 102 H 106 H Respiratory Rate 16 19 17 Blood Pressure 170/97 H Pulse Oximetry 100 99 08/21/21 15:43 08/21/21 15:48 08/21/21 16:22 Temperature Pulse Rate 107 H 109 H 93 Respiratory Rate 17 21 H 20 Blood Pressure 158/92 H Pulse Oximetry 100 99 99 08/21/21 16:33 08/21/21 16:45 08/21/21 16:46 Temperature Pulse Rate 108 H 138 H 130 H Respiratory Rate 21 H 20 14 Blood Pressure 189/104 H Pulse Oximetry 97 08/21/21 16:47 08/21/21 17:00 08/21/21 17:02 Temperature Pulse Rate 103 H 102 H 82 Respiratory Rate 22 H 20 14 Blood Pressure 132/58 L Pulse Oximetry 98 99 08/21/21 17:41 08/21/21 17:45 08/21/21 17:46 Temperature Pulse Rate 112 H 101 H 106 H Respiratory Rate 15 15 17 Blood Pressure 156/67 H Pulse Oximetry 08/21/21 19:04 08/21/21 19:05 08/21/21 20:00 Temperature 37.1 C 36.7 C Pulse Rate 109 H 126 H 197 H Respiratory Rate 14 12 Blood Pressure 154/89 H 100/67 Pulse Oximetry 100 99 95 08/21/21 20:09 08/21/21 20:39 08/21/21 20:42 Temperature Pulse Rate 125 H 125 H 133 H Respiratory Rate 12 Blood Pressure Pulse Oximetry 98 08/21/21 22:00 08/21/21 23:13 08/22/21 00:00 Temperature 36.6 C Pulse Rate 98 96 112 H Respiratory Rate 18 Blood Pressure 121/70 Pulse Oximetry 97 96 08/22/21 02:00 08/22/21 03:17 08/22/21 04:00 Temperature 36.7 C Pulse Rate 123 H 107 H 99 Respiratory Rate 20 Blood Pressure 109/90 Pulse Oximetry 98 97 08/22/21 05:50 08/22/21 08:30 Temperature 36.9 C Pulse Rate 108 H 102 H Respiratory Rate 16 Blood Pressure 123/74 Pulse Oximetry 99 Intake/Output Intake/Output: Intake & Output 08/19/21 08/20/21 08/21/21 08/22/21 23:59 23:59 23:59 23:59 Intake Total 600 1000 Output Total 1300 800 Balance -700 200 Meds/Results Medications: Active Medications Generic Name Dose Route Start Last Admin Trade Name Freq PRN Reason Stop Dose Admin Hydrocodone Bitart/Acetaminophen 1 tab 08/21/21 22:14 08/22/21 02:04 Hydrocodone/Acetaminophen (*Crx) 5-325 Mg Tablet PO 1 tab BID PRN Administration Pain Rated 4-6 Atorvastatin Calcium 10 mg 08/22/21 09:00 08/22/21 09:13 Atorvastatin 10 Mg Tablet PO 10 mg DAILY JAMES Administration Docusate Sodium 200 mg 08/22/21 09:00 08/22/21 09:18 Docusate Sodium 100 Mg Capsule PO Not Given DAILY JAMES Acetaminophen 1,000 mg in 100 mls @ 400 mls/hr 08/21/21 17:12 08/21/21 20:43 Ofirmev 1,000 Mg Ivpb IVPB 08/22/21 17:11 Infused Q6H PRN Infusion Mild Pain (1-3) or Fever Sodium Chloride 1,000 mls @ 125 mls/hr 08/21/21 17:15 08/22/21 01:16 Normal Saline Iv IV CONT 125 mls/hr .Q8H JAMES Administration Diltiazem HCl 100 mg in 100 mls @ 5 mls/hr 08/22/21 16:20 Cardizem 100 Mg/D5w 100 Ml IV CONT .Q20H JAMES Protocol Latanoprost 1 drop 08/21/21 22:30 08/22/21 01:16 Latanoprost 0.005% Op Soln 2.5 Ml Btl RIGHT EYE 09/21/21 22:29 1 drop HS JAMES Administration Methotrexate 7.5 mg 08/26/21 09:00 Methotrexate 2.5 Mg Tab (*Chemo) PO Mo@0900 REPLACED BY [facility] Miscellaneous Information 0 each 08/21/21 00:01 Brimonidine/Timolol - We Carry This As 2 Separate Drops - Use These? Or Can Patient Use Fr XX 09/20/21 00:00 CLARIFY REPLACED BY [facility] Morphine Sulfate 4 mg 08/21/21 17:12 08/22/21 08:24 Morphine Sulfate (*Crx) 4 Mg/Ml Inj IV PUSH 4 mg Q2H PRN Administration Pain Rated 7-10 Multivitamins/Minerals 1 tab 08/22/21 09:00 08/22/21 09:13 Multivitamins /C Lutein (Centrum Silver) Tablet *Bkc PO 1 tab QAM REPLACED BY [facility] Administ
--- NOTE | 2021-08-22 09:19 | PM.CNOR ---
Assessment and Plan Assessment and plan (1) Hip fracture: Qualifiers: Encounter type: initial encounter Fracture type: closed Laterality: right Qualified Code(s): S72.001A - Fracture of unspecified part of neck of right femur, initial encounter for closed fracture Code(s): S72.009A - Fracture of unspecified part of neck of unspecified femur, initial encounter for closed fracture Status: Acute Assessment and Plan: History, exam and radiographs reviewed with the patient. Radiographs of the right hip in the emergency room reveal a comminuted intertrochanteric fracture of the right femur. Discussed fracture type, condition, nature, etiology and course of natural history. Conservative and operative treatment options reviewed as well as the risks and benefits of each. Reviewed likelihood of nonunion and long-term immobility with conservative care. Reviewed risks of proceeding with surgical intervention with recent Eliquis. Patient would like to proceed with surgical intervention at this time. Discussed Insertion of Gamma Nail RIGHT Hip Risks of surgery including but not limited to neurovascular damage, wound complications, blood clot, pulmonary embolus, stroke, myocardial infarction, anesthetic risks up to and including were reviewed. Continued pain and possible dysfunction were explained. No guarantees were offered. The patient understands and wishes to proceed. Plan: Insertion of Gamma Nail RIGHT Hip (2) Atrial fibrillation with RVR: Code(s): I48.91 - Unspecified atrial fibrillation Status: Acute Assessment and Plan: The patient had a CTA due to her tachycardia and long bone fracture in the emergency room. CTA reveals no PE or cardiopulmonary findings. She was found to be in AFib with RVR and was admitted to the IMU for telemetry monitoring and a Cardizem drip. She is currently on Eliquis at home which has been held at this time. One document in the medical record indicated that the patient takes Xarelto at home but we are currently unable to find evidence of this. Additional Plan Reviewed case, radiographs, Eliquis use, AFib with RVR and assessment with Dr. Zamarripa. Surgical decision made by Dr. Zamarripa. History of Present Illness HPI Consult date: 08/22/21 Consult reason: fracture (Right Hip Fracture ) Chief complaint: Hip Fracture Narrative: 86-year-old female admitted to [facility] status post fall at home while attempting to burr picker her medications. Patient reports that she dropped her medications and went to pick it up and her leg slipped and she fell onto the right side. She denies a syncopal episode prior to fall and denies loss of consciousness or hitting her head. Per the medical record, the patient is chronically on Eliquis. Radiographs of the right hip were obtained in the emergency room which revealed a comminuted intertrochanteric fracture of the right femur. Radiographs of the right knee with no acute fracture. Patient is known to the Orthopedic Service for chronic right knee DJD and underwent a cortisone injection in February of 2021. Orthopedic consult requested for patient's right hip fracture by the hospitalist service. Review of Systems Constitutional: Constitutional: Reports no additional constitutional complaints, Denies chills, Denies fatigue, Denies fever(s), Denies headache(s) and Denies weakness Eyes: Eyes: Denies change in vision ENT: Reports Normal hearing present and Denies headache(s) Cardiovascular: Cardiovascular: Denies chest pain and Denies dyspnea Respiratory: Respiratory: Denies cough, Denies dyspnea and Denies wheezing Gastrointestinal: Gastrointestinal: Denies constipation, Denies diarrhea, Denies nausea and Denies vomiting Genitourinary: Genitourinary: Denies hematuria, Denies dysuria and Denies urinary urgency Musculoskeletal: Musculoskeletal: Reports as per HPI, Denies numbness and Denies tingling Integumentary/Breasts: Skin/B
[2021-08-22 11:08] LABS: Total Triiodothyronine (T3) 1.68 NG/ML (0.97-1.69)
--- NOTE | 2021-08-22 12:45 | PC.NURSE ---
Patient to Pre-op via bed. Report given to ANNEMARIE Erwin.
--- NOTE | 2021-08-22 13:08 | WPDANESEPPF ---
Anes - Initial Pre Proc Eval Procedure: Operation Date: 08/22/21 14:00 Proposed Procedures p Intertrochanteric Nail Right Hip - Austen Zamarripa MD Date/Time: 08/22/21 13:08 Pre Op Diagnosis: Hip Fracture Patient Data Age: 86 Gender: F Height: 1.6 m Weight: 82 kg Last Vital Signs Temp 36.8 C 08/22/21 12:20 Pulse 105 H 08/22/21 12:20 Resp 18 08/22/21 12:20 BP 121/59 L 08/22/21 12:20 Pulse Ox 96 08/22/21 12:20 Allergies Allergy/AdvReac Type Severity Reaction Status Date / Time No Known Allergies Allergy Verified 08/21/21 14:52 Home Medications Medication Instructions Recorded Confirmed Type acetaminophen [Acetaminophen Pain 1,000 mg PO BID PRN 12/26/19 08/21/21 History Relief] docusate sodium 200 mg PO DAILY 05/19/20 08/21/21 History multivit with min-folic 1 tablet PO DAILY 11/06/20 08/21/21 History acid-lutein 400 mcg-250 mcg chewable tablet prednisone 5 mg tablet 5 mg PO DAILY 11/06/20 08/21/21 History tramadol 50 mg tablet 50 mg PO Q8H PRN tablet 11/06/20 08/21/21 History methotrexate sodium [Methotrexate 7.5 mg PO WEEKLY 01/21/21 08/21/21 History (Anti-Rheumatic)] polyethylene glycol 3350 [Miralax] 17 g PO DAILY PRN 01/21/21 08/21/21 History cyanocobalamin (vitamin B-12) See Rx Instructions .ROUTE 03/20/21 08/21/21 Rx 1,000 mcg/mL injection solution .COMPLEX #3 ml gabapentin 100 mg capsule 200 mg PO HS cap 03/20/21 08/21/21 History syringe with needle 3 mL 25 gauge #3 each 08/20/21 08/21/21 Rx x 1 apixaban [Eliquis] 5 mg PO BID 08/21/21 08/21/21 History atorvastatin 10 mg PO DAILY 08/21/21 08/21/21 History bimatoprost [Lumigan] 1 drp RIGHT EYE HS 08/21/21 08/21/21 History brimonidine-timolol [Combigan] 1 drp RIGHT EYE BID 08/21/21 08/21/21 History hydrocodone-acetaminophen 1 tablet PO BID PRN 08/21/21 08/21/21 History metoprolol tartrate 12.5 mg PO BID 08/21/21 08/21/21 History omeprazole 40 mg PO DAILY 08/21/21 08/21/21 History Laboratory Tests 08/21/21 08/21/21 08/21/21 15:55 15:55 15:55 WBC 15.3 K/mm3 H K/mm3 (4.5-10.0) RBC 4.27 M/mm3 M/mm3 (4.2-5.4) Hgb 14.2 g/dL g/dL (12.0-15.0) Hct 42.9 % % (37.0-47.0) MCV 100.5 fl H fl (80-100) MCH 33.3 pg pg (26-34) MCHC 33.1 g/dl g/dl (32-36) RDW 15.7 % H % (11.5-14.5) Plt Count 285 k/mm3 k/mm3 (150-375) MPV 9.6 fl fl (7.4-10.4) Immature Gran % (Auto) 1.0 % H % (0-0.5) Neut % (Auto) 78.1 % H % (45.5-73.1) Lymph % (Auto) 14.5 % L % (18.3-44.2) Zavala % (Auto) 5.9 % % (2.6-8.5) Eos % (Auto) 0.3 % % (0-4.4) Baso % (Auto) 0.2 % % (0.2-1.2) Lymph # (Auto) 2.21 K/mm3 K/mm3 (0.9-3.2) Zavala # (Auto) 0.9 K/mm3 H K/mm3 (0.1-0.6) Eos # (Auto) 0.1 K/mm3 K/mm3 (0-0.3) Baso # (Auto) 0.0 K/mm3 K/mm3 (0.0-0.1) Abs Immat Gran (auto) 0.16 K/mm3 H K/mm3 (0.00-0.031) Absolute Neuts (auto) 11.9 K/mm3 H K/mm3 (1.3-6.7) Absolute Nucleated RBC 0.0 K/mm3 K/mm3 (0.0-0.012) Nucleated RBC % 0.0 % % (0.0-0.2) PT 13.5 Seconds Seconds (11.1-14.7) INR 1.0 APTT 32.2 SECONDS SECONDS (22.3-36.8) Sodium 138 mmol/L mmol/L (137-145) Potassium 4.6 mmol/L mmol/L (3.4-5.0) Chloride 103 mmol/L mmol/L (98-107) Carbon Dioxide 27 mmol/L mmol/L (22-30) Anion Gap 8 mmol/L mmol/L (8-16) BUN 20 mg/dL H mg/dL (7-17) Creatinine 0.70 mg/dL mg/dL (0.7-1.0) Estim Creat Clear Calc 51 ml/min ml/min Estimated GFR > 60 (59 - ) Glucose 115 mg/dL H mg/dL (65-110) Calcium 10.0 mg/dL mg/dL (8.4-10.2) Magnesium Total Bilirubin 0.4 mg/dL mg/dL (0.2-1.3) AST 43 U/L H U/L (14-36) ALT 29 U/L U/
--- NOTE | 2021-08-22 13:16 | PC.NURSE ---
On 08/22/21, the student, [Neena Owusu], provided care and completed [facility] documentation on this patient. I have reviewed the student's documentation and agree with the findings.
[2021-08-22] MEDS: TRANEXAMIC ACID 1,000MG/ISO100 1,000 MG/100 ML BAG 200 MG IVPB (13:27)
[2021-08-22] MEDS: LACTATED RINGERS 1,000 ML 30 ML IV CONT (13:27)
--- NOTE | 2021-08-22 14:17 | WPDHPUPDATE1 ---
History and Physical Update Update Date/Time: 08/22/21 14:17 History and Physical has been reviewed, including an updated exam of the patient. There are NO changes in the patient's condition. Risks, benefits, and alternatives have been discussed and questions answered. Patient agrees to proceed with procedure.
[2021-08-22] MEDS: ceFAZolin 2 GM/D5W 50 ML 2 GM/50 ML BAG IVPB ×2 (14:27→21:22)
[2021-08-22] MEDS: fentaNYL CITRATE INJ (*CRX) 100 MCG/2 ML VIAL 25 MCG IV PUSH ×5 (16:59→18:00)
--- NOTE | 2021-08-22 17:23 | W.PM.PROC2 ---
Procedure Note - Detailed Date of Procedure 08/22/21 Pre-op Diagnosis RIGHT SUB TROCHANTERIC FEMUR FRACTURE Post-op Diagnosis same Procedure Performed INSERTION IM HIP JUMANA LEFT FEMUR Surgeon Austen Zamarripa MD Anesthesia general Description of Procedure THE PATIENT WAS TAKEN TO THE OPERATING ROOM AND PLACED ON A FRACTURE TABLE AFTER GIVEN GENERAL ANESTHESIA. THE RIGHT LOWER EXTREMITY WAS PLACED IN A TRACTION BOOT AND USING SOME TRACTION AND INTERNAL ROTATION THE INNER TROCHANTERIC FRACTURE WAS REDUCED TO ANATOMIC POSITION. NEXT THE RIGHT LOWER EXTREMITY WAS PREPPED AND DRAPED IN THE STERILE FASHION. AN INCISION WAS MADE PROXIMAL TO THE TIP OF THE GREATER TROCHANTER AND DISSECTION CONTINUED TILL THE TIP OF THE GREATER TROCHANTER WAS PALPATED. A GUIDE PIN WAS PLACED DOWN THE FEMORAL CANAL AND PAST THE FRACTURE SITE. THIS WAS CHECKED ON FLUOROSCOPY AND FOUND TO BE IN GOOD POSITION. AN INITIAL REAMER WAS USED TO REAM THE FEMORAL CANAL. A 11 MM ARTHREX LONG HIP JUMANA WAS INSERTED TILL THE CORRECT POSITION WAS IDENTIFIED ON XRAY. A GUIDE PIN WAS INSERTED THROUGH THE FEMORAL NECK AT [address] TILL IT REACHED THE TIP OF THE SUB CHONDRAL BONE SEEN ON XRAY. AFTER REAMING, LAG SCREW WAS INSERTED MEASURING 105 MM. XRAYS SHOWED IT TO BE IN GOOD POSITION. THE LAG SCREW WAS LOCKED PROXIMALLY AFTER COMPRESSION OF THE FRACTURE SITE WAS PREFORMED. NEXT A DISTAL LOCKING SCREW WAS PLACED ACROSS THE JUMANA AND WAS IN GOOD POSITION ON XRAY. THE TRACTION WAS RELEASED. THE WOUNDS WERE WASHED. THE DEEP FASCIA WAS REPAIRED WITH 0 VICRYL SUTURE, THE SUB CUTANEOUS LAYER WITH 2-0 VICRYL, AND THE SKIN WITH ANGEL. THE WOUNDS WERE WASHED AND THEN STERILE DRESSING WAS APPLIED. PATIENT WAS EXTUBATED AND SENT TO RECOVERY ROOM. Estimated Blood Loss 100 Urine Output 300 Complications No immediate complications Condition stable Disposition PACU
--- NOTE | 2021-08-22 18:18 | PC.NURSE ---
Patient returned to room following surgery. Report received from ANNEMARIE Morales.
--- NOTE | 2021-08-22 18:36 | PM.IMPN ---
Progress Note: A&P Assessment and Plan (1) Hip fracture: Qualifiers: Encounter type: initial encounter Fracture type: closed Laterality: right Qualified Code(s): S72.001A - Fracture of unspecified part of neck of right femur, initial encounter for closed fracture Code(s): S72.009A - Fracture of unspecified part of neck of unspecified femur, initial encounter for closed fracture Status: Acute Assessment and Plan: Dr. Zamarripa has been notified and agreed to consult on the patient. DVT prophylaxis per Dr. Zamarripa. Patient has been on Xarelto will hold it for tonight. Continue with pain management. The patient is receiving IV Tylenol as well as morphine. (2) Atrial fibrillation with rapid ventricular response: Code(s): I48.91 - Unspecified atrial fibrillation Status: Acute Assessment and Plan: Patient was started on a Cardizem drip. Hold metoprolol for now. Hold Eliquis for possible surgery. Hold metoprolol for now. 08/22/2021 interval history: status post fall and fracture right femur most likely triggered atrial fibrillation with RVR patient is being diltiazem drip and metoprolol 25 mg b.i.d. seen by cardiology lori Wood, patient with a right hip fracture seen by orthopedic and scheduled to have a ORIF today will continue to monitor and further recommendation to follow, her son is present in the room (3) Hypothyroidism (acquired): Code(s): E03.9 - Hypothyroidism, unspecified Status: Chronic Assessment and Plan: Check thyroid level. However I do not see any thyroid medicine. (4) Mixed hyperlipidemia: Code(s): E78.2 - Mixed hyperlipidemia Status: Chronic Assessment and Plan: Continue with atorvastatin (5) Rheumatoid arthritis: Qualifiers: Rheumatoid arthritis location: multiple sites Rheumatoid factor presence: unspecified presence Qualified Code(s): M06.9 - Rheumatoid arthritis, unspecified Code(s): M06.9 - Rheumatoid arthritis, unspecified Status: Chronic Assessment and Plan: Continue with methotrexate and prednisone Subjective Date/time seen: 08/22/21 18:36 HPI: this is an 86-year-old female patient who is hard of hearing and has poor vision. The patient stated that she dropped her medication went to pick it up and her leg slipped then she fell on the ground. She was complaining of right hip and right knee pain. She stated she did not hit her head or lose consciousness however she is on Eliquis. Patient was not dizzy or have any chest pain prior to falling on the ground. Patient's hip and pelvis x-ray was read as comminuted inter intertrochanteric fracture of the right femur. Knee x-ray no acute fracture. Cervical spine CT several cervical spondylosis without acute findings or significant interval change. Head CT was read as no acute intracranial abnormality. Age-related findings. The patient denies any headache or any focal weakness. The patient had a CTA due to her tachycardia and her long bone fracture. Which shows no PE or cardiopulmonary findings. Dependent subsegmental atelectasis. Cardiomegaly. The patient was found to be in AFib with RVR. The patient was given an IV push Cardizem, IV fluids and morphine. Once the patient was admitted to IMU her heart rate went up in the 120s so we started her on a Cardizem drip. The patient is being admitted to inpatient services on the date of service of 08/21/2021. Chief Complaint: Fall and right hip pain 08/22/2021 interval history: status post fall and fracture right femur most likely triggered atrial fibrillation with RVR patient is being diltiazem drip and metoprolol 25 mg b.i.d. seen by cardiology lori Wood, patient with a right hip fracture seen by orthopedic and scheduled to have a ORIF today will continue to monitor and further recommendation to follow, her son is present in the room Review of Systems Review of Systems: All systems r
[2021-08-22] MEDS: dilTIAZem HCl INJ 25 MG/5 ML VIAL 10 MG IV PUSH (19:05)
--- NOTE | 2021-08-22 19:18 | PM.CNCAR ---
Assessment and Plan Assessment and plan (1) Atrial fibrillation with RVR: Code(s): I48.91 - Unspecified atrial fibrillation Status: Acute Assessment and Plan: Patient with history of paroxysmal? atrial fibrillation, now with AFib RVR. Increase Cardizem drip from 5 mg to 10 milligrams/hour with another 10 mg bolus Resume metoprolol though at a higher dose, 25 mg b.i.d. Metoprolol 5 mg IVP prn also Apixaban has been resumed Check a CBC in the morning (2) Hip fracture: Qualifiers: Encounter type: initial encounter Fracture type: closed Laterality: right Qualified Code(s): S72.001A - Fracture of unspecified part of neck of right femur, initial encounter for closed fracture Code(s): S72.009A - Fracture of unspecified part of neck of unspecified femur, initial encounter for closed fracture Status: Acute Assessment and Plan: S/P ORIF 08/22/2021, doing well History of Present Illness History of Present Illness Consult date/time: 08/22/21 19:18 Requesting physician: Lucio Marrero MD Consult reason: atrial fibrillation Reason For Visit: Hip Fracture Narrative: Tatiana Serrato is an 85-year-old white female whom I was asked to see at the request of Dr. Marrero for my advice and opinion regarding her AFib RVR in consultation. She has a history of atrial fibrillation, and is maintained on Eliquis and metoprolol. The patient fell on 08/21/2021 and was admitted with a hip fracture. Her heart rate was running around 90-110 and she was started on a Cardizem drip at 5 milligrams/hour. She had her ORIF today with Dr. Dale but has been in AFib RVR with a heart rate in the 120s. She is having no shortness of breath or chest pain. As far she can recall she has no other heart problems such as no heart attacks or heart failure. Dr. De Jesus manages her atrial fibrillation. She may have paroxysmal atrial fibrillation as his last 2 office visit notes showed a regular heart rate although the EKG done in May 2020 showed a fib. Review of Systems Review of Systems: Patient is hungry and would like to have some coffee but is doing well after her hip surgery today. Constitutional: Constitutional: Reports fatigue Eyes: Eyes: Reports no additional eye complaints ENT: Denies Normal hearing present Cardiovascular: Cardiovascular: Denies chest pain, Denies pedal edema, Denies leg edema, Denies lightheadedness and Denies palpitations Respiratory: Respiratory: Denies dyspnea and Denies dyspnea on exertion Gastrointestinal: Gastrointestinal: Denies abdominal pain and Denies constipation Genitourinary: Genitourinary: Denies hematuria Musculoskeletal: Musculoskeletal: Reports back pain, Reports arthralgias and Reports neck pain Comments: Uses a walker. Denies other falls this past year. Integumentary/Breasts: Skin/Breast: Denies rash Neurologic: Denies confusion Psychiatric: Psychiatric: Denies behavioral changes [facility] Past Medical History Medical History A-fib on chronic anticoagulation with Eliquis Abnormal thyroid function test Acute UTI Age-related hearing loss B12 deficiency BMI 24.0-24.9, adult BMI 29.0-29.9,adult BMI 33.0-33.9,adult Cataracts, bilateral maturing Colon cancer screening Constipation Dementia DJD (degenerative joint disease), multiple sites Early satiety Encounter for annual wellness exam in Medicare patient GERD (gastroesophageal reflux disease) Glaucoma H/O elevated homocysteine Hematoma of right knee region History of sepsis Hospital discharge follow-up Hypothyroidism (acquired) Impaired functional mobility, balance, gait, and endurance Knee effusion, right Left knee DJD Mixed hyperlipidemia Need for COVID-19 vaccine Need for influenza vaccination 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
[2021-08-22] MEDS: GABAPENTIN 100 MG CAPSULE 200 MG PO (22:01)
[2021-08-22] MEDS: HYDROcodone/acetaminophen (*CRX) 7.5-325 MG TABLET 1 TAB PO (22:01)
[2021-08-23] VITALS (27 sets, daily range): BP systolic 103–142; BP diastolic 45–61; PULSE 58–108; RESP 18–22; TEMP 36.1–37.4; O2SAT 92–100; BMI 10.0
[2021-08-23] MEDS: SODIUM CHLORIDE 0.9% IV 1,000 ML 125 ML IV CONT ×3 (03:20→17:05)
[2021-08-23] MEDS: ceFAZolin 2 GM/D5W 50 ML 2 GM/50 ML BAG IVPB ×2 (05:22→13:07)
[2021-08-23 06:39] LABS: Basophils Percent Auto 0.1 % (0.2-1.2); Hematocrit 23.3 % (37.0-47.0); Hemoglobin 7.6 g/dL (12.0-15.0); Immature Granulocyte Percent A 0.7 % (0-0.5); Lymphocytes Absolute Auto 1.98 K/mm3 (0.9-3.2); Lymphocytes Percent Auto 14.1 % (18.3-44.2); Mean Corpuscular HGB Conc 32.6 g/dl (32-36); Mean Corpuscular Hemoglobin 33.8 pg (26-34); Mean Corpuscular Volume 103.6 fl (80-100); Monocytes Absolute Auto 1.4 K/mm3 (0.1-0.6); Monocytes Percent Auto 10.2 % (2.6-8.5); Neutrophils Absolute Auto 10.5 K/mm3 (1.3-6.7); Neutrophils Percent Auto 74.9 % (45.5-73.1); Platelet Count Result 203 k/mm3 (150-375); Red Blood Count 2.25 M/mm3 (4.2-5.4); Red Cell Distribution Width 15.4 % (11.5-14.5)
[2021-08-23 06:53] LABS: Anion Gap 8 mmol/L (8-16); Blood Urea Nitrogen 13 mg/dL (7-17); Calcium 8.2 mg/dL (8.4-10.2); Carbon Dioxide 19 mmol/L (22-30); Chloride 108 mmol/L (98-107); Estimated CRCL calculation 51 ml/min; Estimated Glomerular Filt Rate > 60; Glucose 141 mg/dL (65-110); Potassium 4.4 mmol/L (3.4-5.0); Sodium 135 mmol/L (137-145)
[2021-08-23] MEDS: METOPROLOL TARTRATE 25 MG TABLET PO ×2 (08:25→21:16)
[2021-08-23] MEDS: DOCUSATE SODIUM 100 MG CAPSULE PO ×2 (08:25→16:10)
[2021-08-23] MEDS: APIXABAN 5 MG TABLET PO ×2 (10:17→16:11)
[2021-08-23] MEDS: HYDROcodone/acetaminophen (*CRX) 7.5-325 MG TABLET 1 TAB PO (10:19)
--- NOTE | 2021-08-23 10:33 | PM.PNORT ---
Progress Note: A&P Assessment and Plan (1) Hip fracture: Qualifiers: Encounter type: initial encounter Fracture type: closed Laterality: right Qualified Code(s): S72.001A - Fracture of unspecified part of neck of right femur, initial encounter for closed fracture Code(s): S72.009A - Fracture of unspecified part of neck of unspecified femur, initial encounter for closed fracture Status: Acute Assessment and Plan: POD #1: Insertion of gamma nail RIGHT hip Continue PT/OT. TTWB RLE. Walker. HIGH FALL RISK. OOB to chair. Dalton okay to be removed from ortho stanpoint pending patient is able to get out of bed. Continue pain control. Ice lateral hip. SCDs. Incentive Spirometry. Eliquis resumed post op. Monitor dressing. Change on POD #2 or sooner if dressing soiled. Change to Mepilex silver. May keep in place until POD #7 and then change. [place] to be removed on the 14th day after surgery. Dispo: SNF for rehab when medically cleared. Follow up arranged in outpatient ortho clinic. (2) Atrial fibrillation with RVR: Code(s): I48.91 - Unspecified atrial fibrillation Status: Acute Assessment and Plan: Eliquis Resumed. Cardiology following. (3) Impaired functional mobility, balance, gait, and endurance: Code(s): Z74.09 - Other reduced mobility Status: Acute Assessment and Plan: PT/OT. TTWB RLE. Walker. Fall Risk. SNF for Rehab upon discharge. Subjective Subjective Date/Time Seen: 08/23/21 10:05 Post Op day: 1 Principal diagnosis: Right Hip Fracture Interval history: POD #1: Insertion of Gamma Nail RIGHT hip No new complaints. Alert and oriented to place, time, situation. Some confusion to situation but overall, answering questions appropriately. Pain well controlled right hip. No new concerns. Review of Systems Review of Systems: All systems reviewed & are unremarkable except as noted in HPI and below (HPI ) Exam Const: General: comfortable and no acute distress Resp: Effort & Inspection: normal respiratory effort Cardio: Rate: tachycardic GI: Inspection: non-distended GI Palp: Yes Soft to palpation and No Tenderness to palpation present (GI) Urinary Catheter: Urinary Catheter: patent and draining and urine clear Skin: Wounds: wounds noted (Incision right hip ) Neuro: General: No gait normal Cognition (Neuro): normal cognition Speech: normal speech Motor exam (neuro): strength not 5/5 throughout and Abnormal motor strength present (limited RLE ) Extrem: Right lower extremity: hip/thigh Details: tenderness Location: of the hip Location: laterally and anteriorly and of the proximal upper leg Location: laterally and anteriorly, swelling (thigh soft ) Location: at the hip, at the proximal leg and at the mid upper leg, abnormal ROM (Limited due to recent surgical intervention ) and ecchymosis (surrounding incision ); no abrasions and no lacerations, knee Details: normal to inspection, tenderness (generalized, chronic. ), swelling (generalized ) and normal ROM, lower leg (Negative Mariano's Sign ), ankle Details: normal to inspection, no edema and normal ROM; no tenderness, no swelling and no edema and foot Details: normal capillary refill and vascular exam Details: dorsalis pedis pulse present Psych: Mental Status: mental status grossly normal Affect: normal affect and No Anxious affect present Thought content: Yes Normal thought content present Objective Data Vital Signs Vital Signs: Vital Signs - 24 hr 08/22/21 12:00 08/22/21 12:20 08/22/21 13:05 Temperature 36.8 C 37.6 C H Pulse Rate 112 H 105 H 115 H Respiratory Rate 18 18 Blood Pressure 121/59 L 128/54 L Pulse Oximetry 96 96 08/22/21 13:39 08/22/21 13:49 08/22/21 16:46 Temperature Pulse Rate 108 H 115 H 100 Respiratory Rate 17 Blood Pressure 117/58 L 126/77 Pulse Oximetry 98 08/22/21 17:00 08/22/21 17:15 08/22/21 17:30 Temperature Pulse Rate 121 H 111 H
--- NOTE | 2021-08-23 10:47 | PM.PNCARD ---
Progress Note: A&P Assessment and Plan (1) Atrial fibrillation with RVR: Code(s): I48.91 - Unspecified atrial fibrillation Status: Acute Assessment and Plan: Patient with history of paroxysmal? atrial fibrillation, now with AFib RVR. Achieving good rate control on diltiazem drip. Will transition her to p.o. diltiazem. Resume metoprolol though at a higher dose, 25 mg b.i.d. Metoprolol 5 mg IVP prn also Apixaban has been resumed (2) Hip fracture: Qualifiers: Encounter type: initial encounter Fracture type: closed Laterality: right Qualified Code(s): S72.001A - Fracture of unspecified part of neck of right femur, initial encounter for closed fracture Code(s): S72.009A - Fracture of unspecified part of neck of unspecified femur, initial encounter for closed fracture Status: Acute Assessment and Plan: S/P gamma nail placement 08/22/2021, doing well Hemoglobin this moning 7.6 from 11.6 yesterday. 100 cc EBL during procedure. Recheck CBC ? transfuse. Will defer to primary service Subjective Date/time seen: 08/23/21 10:47 Cardiology follow up for atrial fibrillation Date of service 08/23/21: Patient is complaining of pain in her right hip despite receiving pain medicine about 1 hour prior to me seeing her. She is requesting additional pain medicine. Otherwise she does not have any complaints. Review of Systems Constitutional: Constitutional: Reports fatigue Eyes: Eyes: Reports no additional eye complaints ENT: Denies Normal hearing present and Reports neck pain Cardiovascular: Cardiovascular: Denies chest pain, Denies pedal edema, Denies leg edema, Denies lightheadedness, Denies palpitations, Denies dyspnea and Denies dyspnea on exertion Respiratory: Respiratory: Denies dyspnea and Denies dyspnea on exertion Gastrointestinal: Gastrointestinal: Denies abdominal pain and Denies constipation Genitourinary: Genitourinary: Denies hematuria Musculoskeletal: Musculoskeletal: Reports back pain, Reports arthralgias and Reports neck pain Integumentary/Breasts: Skin/Breast: Denies rash Neurologic: Denies Normal hearing present, Denies behavioral changes and Denies confusion Psychiatric: Psychiatric: Denies behavioral changes and Denies confusion Endocrine: Endocrine: Reports fatigue and Denies palpitations Exam Const: General: comfortable and no acute distress; No confusion Orientation/consciousness: No confusion HENMT: Head: normal to inspection General nose exam: no epistaxis Mouth: Yes moist mucous membranes Eyes: General: appearance normal, both eyes and all related structures EOM: EOMs intact bilaterally Neck: Neck: supple and no JVD Thyroid: abnormal thyroid Lymphatic: lymphadenopathy not noted Resp: Effort & Inspection: normal respiratory effort Auscultation: clear to auscultation bilaterally Cardio: Rate: regular rate Rhythm: abnormal rhythm irregularly irregular Heart sounds: no murmurs GI: Inspection: non-distended Urinary Catheter: Urinary Catheter: patent and draining Skin: General skin exam: normal color and no rashes or lesions noted Wounds: wounds noted (Surgical wound right hip. Dressing clean dry and intact.) Neuro: General: No confusion Cranial nerves: No Normal hearing present Cognition (Neuro): normal cognition Speech: normal speech Extrem: General: no edema and no pedal edema Other: Intact dorsalis pedis pulses Psych: Mental Status: mental status grossly normal Affect: normal affect Objective Data Vital Signs Vital Signs: Vital Signs - 24 hr 08/22/21 12:00 08/22/21 12:20 08/22/21 13:05 Temperature 36.8 C 37.6 C H Pulse Rate 112 H 105 H 115 H Respiratory Rate 18 18 Blood Pressure 121/59 L 128/54 L Pulse Oximetry 96 96 08/22/21 13:39 08/22/21 13:49 08/22/21 16:46 Temperature Pulse Rate 108 H 115 H 100 Respiratory Rate 17 Blood Pressure 117/58 L 126/77 Pulse Oximetry 98 08/22/21 17:00 1
--- NOTE | 2021-08-23 11:11 | WPDCDIQUERY2 ---
CDI Query Clarification Request -08/21 H&H 14.2/42.9 08/22 H&H 11.6/35.9 08/23 H&H 7.6/23.3 -Pt admitted with fractured femur after fall -EBL 100cc during OR Please clarify if there is a possible corresponding diagnosis for above findings. <Sabrina Arnold RN - Last Filed: 08/23/21 11:17> Clarified Diagnosis (1) Anemia: Code(s): D64.9 - Anemia, unspecified <Sabrina Arnold RN - Last Filed: 08/23/21 11:17> Status: Acute <Sabrina Arnold RN - Last Filed: 08/23/21 11:17> Assessment and Plan: patient with anemia most likely multifactorial secondary to surgery as well as hemodilution there is no other source of bleeding, patient was given 1 unit of pack RBC and hemoglobin is stable <Lucio Marrero MD - Last Filed: 08/26/21 14:47>
[2021-08-23] MEDS: MORPHINE SULFATE (*CRX) 4 MG/ML INJ 3 MG IV PUSH ×2 (11:23→16:09)
[2021-08-23] MEDS: traMADol HCL (*CRX) 50 MG TABLET PO (13:08)
--- NOTE | 2021-08-23 15:23 | PM.IMPN ---
Progress Note: A&P Assessment and Plan (1) Hip fracture: Qualifiers: Encounter type: initial encounter Fracture type: closed Laterality: right Qualified Code(s): S72.001A - Fracture of unspecified part of neck of right femur, initial encounter for closed fracture Code(s): S72.009A - Fracture of unspecified part of neck of unspecified femur, initial encounter for closed fracture Status: Acute Assessment and Plan: Dr. Zamarripa has been notified and agreed to consult on the patient. DVT prophylaxis per Dr. Zamarripa. Patient has been on Xarelto will hold it for tonight. Continue with pain management. The patient is receiving IV Tylenol as well as morphine. (2) Atrial fibrillation with rapid ventricular response: Code(s): I48.91 - Unspecified atrial fibrillation Status: Acute Assessment and Plan: Patient was started on a Cardizem drip. Hold metoprolol for now. Hold Eliquis for possible surgery. Hold metoprolol for now. 08/22/2021 interval history: status post fall and fracture right femur most likely triggered atrial fibrillation with RVR patient is being diltiazem drip and metoprolol 25 mg b.i.d. seen by cardiology oracioe Israel, patient with a right hip fracture seen by orthopedic and scheduled to have a ORIF today will continue to monitor and further recommendation to follow, her son is present in the room. 08/23/2021 interval history: status post right hip surgery POD#1, States the pain persisting right hip, patient is being treated [place] and tramadol as needed, patient is off diltiazem drip now on diltiazem 60 mg p.o. every 6 hours the rate is trending down, patient will have physical therapy per Orthopedic and anticoagulated with Eliquis, continue to monitor further recommendation to follow. (3) Hypothyroidism (acquired): Code(s): E03.9 - Hypothyroidism, unspecified Status: Chronic Assessment and Plan: Check thyroid level. However I do not see any thyroid medicine. (4) Mixed hyperlipidemia: Code(s): E78.2 - Mixed hyperlipidemia Status: Chronic Assessment and Plan: Continue with atorvastatin (5) Rheumatoid arthritis: Qualifiers: Rheumatoid arthritis location: multiple sites Rheumatoid factor presence: unspecified presence Qualified Code(s): M06.9 - Rheumatoid arthritis, unspecified Code(s): M06.9 - Rheumatoid arthritis, unspecified Status: Chronic Assessment and Plan: Continue with methotrexate and prednisone Subjective Date/time seen: 08/23/21 15:23 08/22/2021 interval history: status post fall and fracture right femur most likely triggered atrial fibrillation with RVR patient is being diltiazem drip and metoprolol 25 mg b.i.d. seen by cardiology lori Wood, patient with a right hip fracture seen by orthopedic and scheduled to have a ORIF today will continue to monitor and further recommendation to follow, her son is present in the room. 08/23/2021 interval history: status post right hip surgery POD#1, States the pain persisting right hip, patient is being treated [place] and tramadol as needed, patient is off diltiazem drip now on diltiazem 60 mg p.o. every 6 hours the rate is trending down, patient will have physical therapy per Orthopedic and anticoagulated with Eliquis, continue to monitor further recommendation to follow. Review of Systems Review of Systems: All systems reviewed & are unremarkable except as noted in HPI and below Exam Narrative: elderly frail Patient is comfortable, NAD HEENT: eyes are clear and none icteric LUNGS: normal respiratory effort ABD: not distended Lower extremities: right lower extremity externally rotated. SKIN: nonjaundiced Neuro: grossly intact. Objective Data Vital Signs Vital Signs: Vital Signs - 24 hr 08/22/21 16:46 08/22/21 17:00 08/22/21 17:15 Temperature Pulse Rate 100 121 H 111 H Respiratory Rate 17 18 14 Blood Pressure 126/7
[2021-08-23] MEDS: dilTIAZem HCL 60 MG TABLET PO (16:10)
[2021-08-23 18:10] LABS: Hematocrit 21.8 % (37.0-47.0); Hemoglobin 7.1 g/dL (12.0-15.0)
[2021-08-23] MEDS: GABAPENTIN 100 MG CAPSULE 200 MG PO (21:16)
--- NOTE | 2021-08-23 21:28 | PC.NURSE ---
Correction to the MAR documentation. HR when giving the 2100 Metoprolol is 87 and Irregular.
[2021-08-24] VITALS (18 sets, daily range): BP systolic 102–115; BP diastolic 42–58; PULSE 56–91; RESP 16–26; TEMP 36.4–37.7; O2SAT 94–100
[2021-08-24] MEDS: dilTIAZem HCL 60 MG TABLET PO ×2 (00:41→04:57)
[2021-08-24] MEDS: TUBING, BLOOD PLUM PUMP TUBING 1 EACH XX (01:20)
[2021-08-24] MEDS: SODIUM CHLORIDE 0.9% IV 1,000 ML 125 ML IV CONT (04:56)
[2021-08-24 07:01] LABS: Hematocrit 22.2 % (37.0-47.0); Hemoglobin 7.5 g/dL (12.0-15.0); Mean Corpuscular HGB Conc 33.8 g/dl (32-36); Mean Corpuscular Hemoglobin 33.3 pg (26-34); Mean Corpuscular Volume 98.7 fl (80-100); Platelet Count Result 182 k/mm3 (150-375); Red Blood Count 2.25 M/mm3 (4.2-5.4); Red Cell Distribution Width 16.9 % (11.5-14.5); White Blood Count 12.8 K/mm3 (4.5-10.0)
[2021-08-24 07:13] LABS: Anion Gap 7 mmol/L (8-16); Blood Urea Nitrogen 11 mg/dL (7-17); Carbon Dioxide 21 mmol/L (22-30); Chloride 111 mmol/L (98-107); Estimated CRCL calculation 62 ml/min; Estimated Glomerular Filt Rate > 60; Glucose 126 mg/dL (65-110); Sodium 139 mmol/L (137-145)
[2021-08-24] MEDS: HYDROcodone/acetaminophen (*CRX) 7.5-325 MG TABLET 1 TAB PO ×3 (09:07→17:33)
[2021-08-24] MEDS: METOPROLOL TARTRATE 25 MG TABLET PO ×2 (09:08→20:43)
[2021-08-24] MEDS: APIXABAN 5 MG TABLET PO ×2 (09:08→17:33)
[2021-08-24] MEDS: DOCUSATE SODIUM 100 MG CAPSULE PO ×2 (09:09→17:34)
[2021-08-24] MEDS: traMADol HCL (*CRX) 50 MG TABLET PO ×2 (10:44→18:47)
--- NOTE | 2021-08-24 12:09 | PM.PNCARD ---
Progress Note: A&P Additional Plan 86-year-old lady with: Chronic atrial fibrillation managing with rate control and anticoagulation. Now that she is postop hip repair and is comfortable I believe she will not require as much rate controlling medication. Going to stop the diltiazem at this point and watch her on just the metoprolol. She did not require any diltiazem prior to coming in the hospital according to what I see in the chart. Jhonatan Shi MD [facility] Subjective Date/time seen: Date of service: 08/24/21 12:09 Interval history: Follow-up visit in this 86-year-old lady with: Chronic atrial fibrillation being managed as an outpatient with metoprolol and apixaban. Patient admitted with a hip fracture we are seeing her to provide rate control. Her metoprolol dosage has been advanced and she was also placed on some diltiazem. She is stable in IMU today. She does not have any cardiovascular complaints at this time but is getting rather bradycardic considering she has chronic atrial fib heart rate at this time is in the 50s and 60s. Exam Narrative: Pleasant older lady who is quite interested in getting dinner. Does not appear to be any distress. Const: General: comfortable and no acute distress; No confusion Orientation/consciousness: No confusion HENMT: Head: normal to inspection General nose exam: no epistaxis Mouth: Yes moist mucous membranes Eyes: General: appearance normal, both eyes and all related structures EOM: EOMs intact bilaterally Neck: Neck: supple and no JVD Thyroid: abnormal thyroid Lymphatic: lymphadenopathy not noted Resp: Effort & Inspection: normal respiratory effort Auscultation: clear to auscultation bilaterally Cardio: Rate: regular rate Rhythm: abnormal rhythm irregularly irregular Heart sounds: no murmurs GI: Inspection: non-distended Urinary Catheter: Urinary Catheter: patent and draining Skin: General skin exam: normal color and no rashes or lesions noted Wounds: wounds noted (Surgical wound right hip. Dressing clean dry and intact.) Neuro: General: No confusion Cranial nerves: No Normal hearing present Cognition (Neuro): normal cognition Speech: normal speech Other: Vague historian Extrem: General: no edema and no pedal edema Other: Intact dorsalis pedis pulses Psych: Mental Status: mental status grossly normal Affect: normal affect Objective Data Vital Signs Vital Signs: Vital Signs - 24 hr 08/23/21 13:20 08/23/21 14:00 08/23/21 14:36 Temperature 36.1 C L Pulse Rate 88 77 Respiratory Rate 22 H Blood Pressure 142/60 H Pulse Oximetry 99 92 08/23/21 15:16 08/23/21 16:00 08/23/21 16:31 Temperature 36.1 C L Pulse Rate 80 88 Respiratory Rate 22 H Blood Pressure 106/61 Pulse Oximetry 94 98 08/23/21 17:06 08/23/21 17:52 08/23/21 19:55 Temperature 37.4 C Pulse Rate 87 99 75 Respiratory Rate 18 Blood Pressure 107/58 L Pulse Oximetry 100 08/23/21 20:00 08/23/21 21:16 08/23/21 22:00 Temperature Pulse Rate 74 65 60 Respiratory Rate Blood Pressure Pulse Oximetry 100 08/23/21 22:07 08/23/21 22:30 08/23/21 23:09 Temperature 36.9 C 37.1 C Pulse Rate 70 60 Respiratory Rate 20 18 Blood Pressure 106/45 L 103/52 L Pulse Oximetry 98 97 94 08/23/21 23:30 08/24/21 00:00 08/24/21 00:30 Temperature 36.5 C 37.7 C H Pulse Rate 58 L 56 L 63 Respiratory Rate 20 20 Blood Pressure 112/49 L 108/58 L Pulse Oximetry 97 99 99 08/24/21 02:00 08/24/21 03:56 08/24/21 04:00 Temperature 37.3 C Pulse Rate 67 66 64 Respiratory Rate 18 Blood Pressure 105/45 L Pulse Oximetry 96 96 08/24/21 06:00 08/24/21 08:00 08/24/21 09:08 Temperature 36.8 C Pulse Rate 63 91 91 Respiratory Rate 24 H Blood Pressure 115/42 L Pulse Oximetry 94 08/24/21 10:00 Temperature Pulse Rate 73 Respiratory Rate Blood Pressure Pulse Oximetry Intake/Output Intake/Output: Intake & Output 08/21/21
--- NOTE | 2021-08-24 13:20 | PM.PNORT ---
Progress Note: A&P Additional Plan POD 2 DOING WELL. WILL SNF PLACEMENT WHEN STABLE PER MEDICINE. WILL F/U IN 6 WEEKS WITH ORTHO. CONTINUE NON WEIGHT BEARING FOR 6 WEEKS Subjective Subjective Date/Time Seen: 08/24/21 13:2POD 2 DOING ELL COMFORTABLE. 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 Objective Data Vital Signs Vital Signs: Vital Signs - 24 hr 08/23/21 14:00 08/23/21 14:36 08/23/21 15:16 Temperature Pulse Rate 77 Respiratory Rate Blood Pressure Pulse Oximetry 92 94 08/23/21 16:00 08/23/21 16:31 08/23/21 17:06 Temperature 36.1 C L Pulse Rate 80 88 87 Respiratory Rate 22 H Blood Pressure 106/61 Pulse Oximetry 98 08/23/21 17:52 08/23/21 19:55 08/23/21 20:00 Temperature 37.4 C Pulse Rate 99 75 74 Respiratory Rate 18 Blood Pressure 107/58 L Pulse Oximetry 100 100 08/23/21 21:16 08/23/21 22:00 08/23/21 22:07 Temperature 36.9 C Pulse Rate 65 60 70 Respiratory Rate 20 Blood Pressure 106/45 L Pulse Oximetry 98 08/23/21 22:30 08/23/21 23:09 08/23/21 23:30 Temperature 37.1 C 36.5 C Pulse Rate 60 58 L Respiratory Rate 18 20 Blood Pressure 103/52 L 112/49 L Pulse Oximetry 97 94 97 08/24/21 00:00 08/24/21 00:30 08/24/21 02:00 Temperature 37.7 C H Pulse Rate 56 L 63 67 Respiratory Rate 20 Blood Pressure 108/58 L Pulse Oximetry 99 99 08/24/21 03:56 08/24/21 04:00 08/24/21 06:00 Temperature 37.3 C Pulse Rate 66 64 63 Respiratory Rate 18 Blood Pressure 105/45 L Pulse Oximetry 96 96 08/24/21 08:00 08/24/21 09:08 08/24/21 10:00 Temperature 36.8 C Pulse Rate 91 91 73 Respiratory Rate 24 H Blood Pressure 115/42 L Pulse Oximetry 94 08/24/21 12:00 Temperature Pulse Rate 61 Respiratory Rate Blood Pressure Pulse Oximetry 94 Intake/Output Intake/Output: Intake & Output 08/21/21 08/22/21 08/23/21 08/24/21 23:59 23:59 23:59 23:59 Intake Total 600 2400 4340 1840 Output Total 1300 1100 1850 1550 Balance -700 1300 2490 290 Meds/Results Medications: Active Medications Generic Name Dose Route Start Last Admin Trade Name Freq PRN Reason Stop Dose Admin Acetaminophen 1,000 mg 08/22/21 18:08 Acetaminophen 500 Mg Tablet PO BID PRN Pain (Scale Score 1-3) Hydrocodone Bitart/Acetaminophen 1 tab 08/22/21 18:08 08/24/21 09:07 Hydrocodone/Acetaminophen (*Crx) 7.5-325 Mg Tablet PO 1 tab Q3H PRN Administration Pain Rated 4-6 Apixaban 5 mg 08/23/21 09:00 08/24/21 09:08 Apixaban 5 Mg Tablet PO 5 mg BID JAMES Administration Cyanocobalamin 1,000 mcg 09/20/21 09:00 Cyanocobalamin Inj 1,000 Mcg/Ml Vial SUB-Q MONTHLY JAMES Diazepam 5 mg 08/22/21 18:08 Diazepam (*Crx) 5 Mg Tablet PO Q8H PRN Muscle Spasm Docusate Sodium 100 mg 08/23/21 09:00 08/24/21 09:09 Docusate Sodium 100 Mg Capsule PO 100 mg BID JAMES Administration Gabapentin 200 mg 08/22/21 21:00 08/23/21 21:16 Gabapentin 100 Mg Capsule PO 200 mg HS JAMES Administration Hydroxyzine Pamoate 50 mg 08/22/21 18:08 Hydroxyzine Pamoate 25 Mg Capsule PO Q4H PRN Itching Sodium Chloride 1,000 mls @ 125 mls/hr 08/22/21 18:08 08/24/21 10:48 Normal Saline Iv IV CONT 0 mls/hr .Q8H JAMES Infusion Magnesium Hydroxide 30 ml 08/22/21 18:08 Magnesium Hydroxide Susp 30 Ml Udc PO BID PRN Constipation Metoprolol Tartrate 25 mg 08/23/21 09:00 08/24/21 09:08 Metoprolol Tartrate 25 Mg Tablet PO 25 mg Q12HR JAMES Administration Metoprolol Tartrate 5 mg 08/22/21 19:47 Metoprolol Tartrate Inj 5 Mg/5 Ml Vial IV PUSH Q4H PRN Tachycardia Morphine Sulfate 3 mg 08/22/21 18:08 08/23/21 16:09 Morphine Sulfate (*Crx) 4 Mg/Ml Inj IV PUSH 3 mg Q3H PRN Administration Pain Rated 7-10 Naloxone HCl 0.1 mg 08/22/21 18:08 Naloxone Hcl 0.4 Mg/Ml Vial
--- NOTE | 2021-08-24 14:14 | PM.IMPN ---
Progress Note: A&P Assessment and Plan (1) Hip fracture: Qualifiers: Encounter type: initial encounter Fracture type: closed Laterality: right Qualified Code(s): S72.001A - Fracture of unspecified part of neck of right femur, initial encounter for closed fracture Code(s): S72.009A - Fracture of unspecified part of neck of unspecified femur, initial encounter for closed fracture Status: Acute Assessment and Plan: Dr. Zamarripa has been notified and agreed to consult on the patient. DVT prophylaxis per Dr. Zamarripa. Patient has been on Xarelto will hold it for tonight. Continue with pain management. The patient is receiving IV Tylenol as well as morphine. (2) Atrial fibrillation with rapid ventricular response: Code(s): I48.91 - Unspecified atrial fibrillation Status: Acute Assessment and Plan: Patient was started on a Cardizem drip. Hold metoprolol for now. Hold Eliquis for possible surgery. Hold metoprolol for now. 08/22/2021 interval history: status post fall and fracture right femur most likely triggered atrial fibrillation with RVR patient is being diltiazem drip and metoprolol 25 mg b.i.d. seen by cardiology oracioe Israel, patient with a right hip fracture seen by orthopedic and scheduled to have a ORIF today will continue to monitor and further recommendation to follow, her son is present in the room. 08/23/2021 interval history: status post right hip surgery POD#1, States the pain persisting right hip, patient is being treated [place] and tramadol as needed, patient is off diltiazem drip now on diltiazem 60 mg p.o. every 6 hours the rate is trending down, patient will have physical therapy per Orthopedic and anticoagulated with Eliquis, continue to monitor further recommendation to follow. 08/24/2021 interval history: status post right hip surgery POD#2, States the pain persisting right hip, pain is worse with physical therapy, patient is being treated [place] and tramadol as needed, patient is off diltiazem drip now on diltiazem 60 mg p.o. every 6 hours the rate is trending down, patient will have physical therapy per Orthopedic and anticoagulated with Eliquis, continue to monitor further recommendation to follow. patient with anemia most likely multifactorial secondary to surgery as well as hemodilution there is no other source of bleeding, patient was given 1 unit of pack RBC will continue to monitor further recommendation to follow. (3) Hypothyroidism (acquired): Code(s): E03.9 - Hypothyroidism, unspecified Status: Chronic Assessment and Plan: Check thyroid level. However I do not see any thyroid medicine. (4) Mixed hyperlipidemia: Code(s): E78.2 - Mixed hyperlipidemia Status: Chronic Assessment and Plan: Continue with atorvastatin (5) Rheumatoid arthritis: Qualifiers: Rheumatoid arthritis location: multiple sites Rheumatoid factor presence: unspecified presence Qualified Code(s): M06.9 - Rheumatoid arthritis, unspecified Code(s): M06.9 - Rheumatoid arthritis, unspecified Status: Chronic Assessment and Plan: Continue with methotrexate and prednisone (6) Anemia: Code(s): D64.9 - Anemia, unspecified Status: Acute Assessment and Plan: patient with acute blood loss anemia most likely multifactorial secondary to right hip surgery and hemodilution, will do the iron profile and further recommendation to follow. Subjective Date/time seen: 08/24/21 14:14 08/22/2021 interval history: status post fall and fracture right femur most likely triggered atrial fibrillation with RVR patient is being diltiazem drip and metoprolol 25 mg b.i.d. seen by cardiology lori Wood, patient with a right hip fracture seen by orthopedic and scheduled to have a ORIF today will continue to monitor and further recommendation to follow, her son is present in the room. 08/23/2021 interval history: status pos
[2021-08-24] MEDS: GABAPENTIN 100 MG CAPSULE 200 MG PO (20:43)
[2021-08-25] VITALS (14 sets, daily range): BP systolic 112–134; BP diastolic 64–71; PULSE 50–101; RESP 16–18; TEMP 36.7–37.2; O2SAT 94–100; BMI 10.0; BMI 35.2
[2021-08-25] MEDS: traMADol HCL (*CRX) 50 MG TABLET PO ×2 (04:11→13:03)
[2021-08-25 05:06] LABS: Iron 15 ug/dL (37-170)
[2021-08-25 05:15] LABS: Percent Iron Saturation 6 % (20-50)
[2021-08-25 06:17] LABS: Folic Acid 8.8 ng/mL (2.76->20); Vitamin B12 > 1000.0 pg/mL (239-931)
[2021-08-25] MEDS: APIXABAN 5 MG TABLET PO ×2 (09:44→17:57)
[2021-08-25] MEDS: DOCUSATE SODIUM 100 MG CAPSULE PO ×2 (09:44→17:57)
[2021-08-25] MEDS: METOPROLOL TARTRATE 25 MG TABLET PO ×2 (09:44→20:43)
[2021-08-25] MEDS: HYDROcodone/acetaminophen (*CRX) 7.5-325 MG TABLET 1 TAB PO ×3 (09:44→20:43)
--- NOTE | 2021-08-25 10:12 | PHAR ---
HOME MEDICATION VERIFIED BY PHARMACY [facility]
--- NOTE | 2021-08-25 10:56 | PM.PNCARD ---
Progress Note: A&P Additional Plan Chronic atrial fibrillation heart rate well controlled with metoprolol. Systemically anticoagulated with apixaban. No adjustments in regimen today. Jhonatan Shi MD [facility] Subjective Date/time seen: Date of service: 08/25/21 10:56 Interval history: Follow-up visit in this 86-year-old lady with: Chronic atrial fibrillation being managed as an outpatient with metoprolol and apixaban. Patient admitted with a hip fracture we are seeing her to provide rate control. Her metoprolol dosage has been advanced and she was also placed on some diltiazem. She is stable in IMU today. She does not have any cardiovascular complaints at this time but is getting rather bradycardic considering she has chronic atrial fib heart rate at this time is in the 50s and 60s. Date of service 08/25/2021: Patient without cardiovascular complaints. Heart rate is well controlled with simply the metoprolol. AFib heart rate in the 80s. Appears she will not require diltiazem along with her metoprolol which has been chronically prescribed. Exam Narrative: Pleasant older lady who is quite interested in getting dinner. Does not appear to be any distress. Const: General: comfortable and no acute distress; No confusion Orientation/consciousness: No confusion HENMT: Head: normal to inspection General nose exam: no epistaxis Mouth: Yes moist mucous membranes Eyes: General: appearance normal, both eyes and all related structures EOM: EOMs intact bilaterally Neck: Neck: supple and no JVD Thyroid: abnormal thyroid Lymphatic: lymphadenopathy not noted Resp: Effort & Inspection: normal respiratory effort Auscultation: clear to auscultation bilaterally Cardio: Rate: regular rate Rhythm: abnormal rhythm irregularly irregular Heart sounds: no murmurs GI: Inspection: non-distended Urinary Catheter: Urinary Catheter: patent and draining Skin: General skin exam: normal color and no rashes or lesions noted Wounds: wounds noted (Surgical wound right hip. Dressing clean dry and intact.) Neuro: General: No confusion Cranial nerves: No Normal hearing present Cognition (Neuro): normal cognition Speech: normal speech Other: Vague historian Extrem: General: no edema and no pedal edema Other: Intact dorsalis pedis pulses Psych: Mental Status: mental status grossly normal Affect: normal affect Objective Data Vital Signs Vital Signs: Vital Signs - 24 hr 08/24/21 12:00 08/24/21 14:00 08/24/21 16:00 Temperature 36.8 C 36.4 C Pulse Rate 59 L 82 78 Respiratory Rate 20 26 H Blood Pressure 109/51 L 112/49 L Pulse Oximetry 99 100 08/24/21 18:00 08/24/21 19:56 08/24/21 20:00 Temperature 36.4 C Pulse Rate 76 57 L 58 L Respiratory Rate 18 Blood Pressure 103/47 L Pulse Oximetry 99 99 08/24/21 20:43 08/24/21 22:00 08/24/21 23:55 Temperature 36.4 C L Pulse Rate 66 64 65 Respiratory Rate 16 Blood Pressure 102/57 L Pulse Oximetry 100 08/25/21 00:00 08/25/21 02:00 08/25/21 04:00 Temperature 37.2 C Pulse Rate 50 L 54 L 69 Respiratory Rate 16 Blood Pressure 125/64 Pulse Oximetry 100 100 08/25/21 06:00 08/25/21 08:00 08/25/21 09:44 Temperature 36.8 C Pulse Rate 68 101 H 101 H Respiratory Rate 18 Blood Pressure 134/68 Pulse Oximetry 97 Intake/Output Intake/Output: Intake & Output 08/22/21 08/23/21 08/24/21 08/25/21 23:59 23:59 23:59 23:59 Intake Total 2400 4340 3000 1180 Output Total 1100 1850 1775 600 Balance 1300 2490 1225 580 Meds/Results Medications: Active Medications Generic Name Dose Route Start Last Admin Trade Name Freq PRN Reason Stop Dose Admin Acetaminophen 1,000 mg 08/22/21 18:08 Acetaminophen 500 Mg Tablet PO BID PRN Pain (Scale Score 1-3) Hydrocodone Bitart/Acetaminophen 1 tab 08/22/21 18:08 08/25/21 09:44 Hydrocodone/Acetaminophen (*Crx) 7.5-325 Mg Tablet PO 1 tab Q3H PRN Administration Pain Rate
--- NOTE | 2021-08-25 13:53 | PM.IMPN ---
Progress Note: A&P Assessment and Plan (1) Hip fracture: Qualifiers: Encounter type: initial encounter Fracture type: closed Laterality: right Qualified Code(s): S72.001A - Fracture of unspecified part of neck of right femur, initial encounter for closed fracture Code(s): S72.009A - Fracture of unspecified part of neck of unspecified femur, initial encounter for closed fracture Status: Acute Assessment and Plan: Dr. Zamarripa has been notified and agreed to consult on the patient. DVT prophylaxis per Dr. Zamarripa. Patient has been on Xarelto will hold it for tonight. Continue with pain management. The patient is receiving IV Tylenol as well as morphine. (2) Atrial fibrillation with rapid ventricular response: Code(s): I48.91 - Unspecified atrial fibrillation Status: Acute Assessment and Plan: Patient was started on a Cardizem drip. Hold metoprolol for now. Hold Eliquis for possible surgery. Hold metoprolol for now. 08/22/2021 interval history: status post fall and fracture right femur most likely triggered atrial fibrillation with RVR patient is being diltiazem drip and metoprolol 25 mg b.i.d. seen by cardiology oracioe Israel, patient with a right hip fracture seen by orthopedic and scheduled to have a ORIF today will continue to monitor and further recommendation to follow, her son is present in the room. 08/23/2021 interval history: status post right hip surgery POD#1, States the pain persisting right hip, patient is being treated [place] and tramadol as needed, patient is off diltiazem drip now on diltiazem 60 mg p.o. every 6 hours the rate is trending down, patient will have physical therapy per Orthopedic and anticoagulated with Eliquis, continue to monitor further recommendation to follow. 08/24/2021 interval history: status post right hip surgery POD#2, States the pain persisting right hip, pain is worse with physical therapy, patient is being treated [place] and tramadol as needed, patient is off diltiazem drip now on diltiazem 60 mg p.o. every 6 hours the rate is trending down, patient will have physical therapy per Orthopedic and anticoagulated with Eliquis, continue to monitor further recommendation to follow. patient with anemia most likely multifactorial secondary to surgery as well as hemodilution there is no other source of bleeding, patient was given 1 unit of pack RBC will continue to monitor further recommendation to follow. 08/25/2021 interval history: status post right hip surgery POD#3, States the pain persisting right hip, pain is worse with physical therapy, patient is being treated [place] and tramadol as needed, patient is off diltiazem drip now on diltiazem 60 mg p.o. every 6 hours the rate is trending down, seen by cardiology recommended continue present management, patient will have physical therapy per Orthopedic and anticoagulated with Eliquis, continue to monitor further recommendation to follow. patient with anemia most likely multifactorial secondary to surgery as well as hemodilution there is no other source of bleeding, patient was given 1 unit of pack RBC will continue to monitor further recommendation to follow. (3) Hypothyroidism (acquired): Code(s): E03.9 - Hypothyroidism, unspecified Status: Chronic Assessment and Plan: Check thyroid level. However I do not see any thyroid medicine. (4) Mixed hyperlipidemia: Code(s): E78.2 - Mixed hyperlipidemia Status: Chronic Assessment and Plan: Continue with atorvastatin (5) Rheumatoid arthritis: Qualifiers: Rheumatoid arthritis location: multiple sites Rheumatoid factor presence: unspecified presence Qualified Code(s): M06.9 - Rheumatoid arthritis, unspecified Code(s): M06.9 - Rheumatoid arthritis, unspecified Status: Chronic Assessment and Plan: Continue with methotrexate and prednisone (6) Anemia: Code(s): D64.9 - Anemia, unspecified
[2021-08-25] MEDS: GABAPENTIN 100 MG CAPSULE 200 MG PO (20:44)
[2021-08-25] MEDS: PANTOPRAZOLE 40 MG TABLET PO (20:44)
--- NOTE | 2021-08-25 23:35 | PC.NURSE ---
This patient, Tatiana Serrato, was transferred to [ [id number]] on 08/25/21 at 2336. Personal belongings sent with patient. Report given to [ Nando]. Appropriate documentation sent with patient.
[2021-08-26] VITALS (8 sets, daily range): BP systolic 104–142; BP diastolic 54–68; PULSE 73–100; RESP 16–18; TEMP 36.1–36.8; O2SAT 94–99
[2021-08-26] MEDS: HYDROcodone/acetaminophen (*CRX) 7.5-325 MG TABLET 1 TAB PO (06:11)
[2021-08-26] MEDS: hydrOXYzine pamoate 25 MG CAPSULE 50 MG PO (09:00)
[2021-08-26] MEDS: traMADol HCL (*CRX) 50 MG TABLET PO (09:00)
[2021-08-26] MEDS: DOCUSATE SODIUM 100 MG CAPSULE PO ×2 (09:00→16:32)
[2021-08-26] MEDS: PANTOPRAZOLE 40 MG TABLET PO (09:00)
[2021-08-26] MEDS: diazePAM (*CRX) 5 MG TABLET PO (09:01)
[2021-08-26] MEDS: METOPROLOL TARTRATE 25 MG TABLET PO (09:02)
[2021-08-26] MEDS: APIXABAN 5 MG TABLET PO ×2 (09:02→16:32)
--- NOTE | 2021-08-26 09:07 | PCPTNOTE ---
Attempted to see patient for PT at this time, however patient refused.
--- NOTE | 2021-08-26 09:32 | PM.PNCARD ---
Progress Note: A&P Assessment and Plan (1) Atrial fibrillation with RVR: Code(s): I48.91 - Unspecified atrial fibrillation Status: Acute Assessment and Plan: Patient with history of paroxysmal? atrial fibrillation, now with AFib RVR. Achieving good rate control on diltiazem drip. Will transition her to p.o. diltiazem. Resume metoprolol though at a higher dose, 25 mg b.i.d. Metoprolol 5 mg IVP prn also Apixaban has been resumed (2) Hip fracture: Qualifiers: Encounter type: initial encounter Fracture type: closed Laterality: right Qualified Code(s): S72.001A - Fracture of unspecified part of neck of right femur, initial encounter for closed fracture Code(s): S72.009A - Fracture of unspecified part of neck of unspecified femur, initial encounter for closed fracture Status: Acute Assessment and Plan: S/P ORIF 08/22/2021 Hemoglobin from 11.6 on day of surgery to 7.6, 7.1, 7.5. 100 cc EBL during procedure. She has been transfused. If hgb remains low will defer work up to primary service. Discussed with Dr. Marrero Subjective Date/time seen: 08/26/21 09:32 Interval history: Follow-up visit in this 86-year-old lady with: Chronic atrial fibrillation being managed as an outpatient with metoprolol and apixaban. Patient admitted with a hip fracture we are seeing her to provide rate control. Her metoprolol dosage has been advanced and she was also placed on some diltiazem. She is stable in IMU today. She does not have any cardiovascular complaints at this time but is getting rather bradycardic considering she has chronic atrial fib heart rate at this time is in the 50s and 60s. Date of service 08/25/2021: Patient without cardiovascular complaints. Heart rate is well controlled with simply the metoprolol. AFib heart rate in the 80s. Appears she will not require diltiazem along with her metoprolol which has been chronically prescribed. Date of service 08/26/2021: Very drowsy this morning but awakens to stimulation. Remains in atrial fibrillation with rate controlled. She does not stay awake long enough to answer most of my questions but she did tell me she feels ok today. Review of Systems Constitutional: Constitutional: Reports fatigue Eyes: Eyes: Reports no additional eye complaints ENT: Denies Normal hearing present and Reports neck pain Cardiovascular: Cardiovascular: Denies chest pain, Denies pedal edema, Denies leg edema, Denies lightheadedness, Denies palpitations, Denies dyspnea and Denies dyspnea on exertion Respiratory: Respiratory: Denies dyspnea and Denies dyspnea on exertion Gastrointestinal: Gastrointestinal: Denies abdominal pain and Denies constipation Genitourinary: Genitourinary: Denies hematuria Musculoskeletal: Musculoskeletal: Reports back pain, Reports arthralgias and Reports neck pain Integumentary/Breasts: Skin/Breast: Denies rash Neurologic: Denies Normal hearing present, Denies behavioral changes and Denies confusion Psychiatric: Psychiatric: Denies behavioral changes and Denies confusion Endocrine: Endocrine: Reports fatigue and Denies palpitations Exam Narrative: Elderly female laying comfortably in bed. Sleeping but awakens to stimulation Const: General: comfortable and no acute distress HENMT: Head: normal to inspection General nose exam: no epistaxis Mouth: Yes moist mucous membranes Eyes: General: appearance normal, both eyes and all related structures EOM: EOMs intact bilaterally Neck: Neck: supple and no JVD Thyroid: abnormal thyroid Lymphatic: lymphadenopathy not noted Resp: Effort & Inspection: normal respiratory effort Auscultation: clear to auscultation bilaterally Cardio: Rate: regular rate Rhythm: abnormal rhythm irregularly irregular Heart sounds: no murmurs GI: Inspection: non-distended Urinary Catheter: Urinary Catheter: patent and draining Skin: General skin exam: normal color and no rash
--- NOTE | 2021-08-26 10:13 | PCOTNOTE ---
Attempted to see pt. on this date, upon entering pt. was sleeping, declined stating, Not right now . Will attempt later.
--- NOTE | 2021-08-26 10:40 | PCPTNOTE ---
Attempted a 2nd time to see patient for PT this morning, however patient declined. Encouraged patient to participate, patient stated not right now.
[2021-08-26 11:30] LABS: Hematocrit 30.2 % (37.0-47.0); Hemoglobin 9.4 g/dL (12.0-15.0); Mean Corpuscular HGB Conc 31.1 g/dl (32-36); Mean Corpuscular Hemoglobin 33.2 pg (26-34); Mean Corpuscular Volume 106.7 fl (80-100); Mean Platelet Volume 9.9 fl (7.4-10.4); Platelet Count Result 252 k/mm3 (150-375); Red Blood Count 2.83 M/mm3 (4.2-5.4); Red Cell Distribution Width 17.4 % (11.5-14.5)
[2021-08-26] MEDS: ACETAMINOPHEN 500 MG TABLET 1000 MG PO (12:25)
--- NOTE | 2021-08-26 12:47 | PM.DS ---
DS: Admitting Diagnosis Discharge Date 08/26/2021 Admitting Diagnosis Chief Complaint: Fall and right hip pain DS: Discharge Diagnosis Discharge Diagnosis (1) Anemia: Code(s): D64.9 - Anemia, unspecified Status: Acute Assessment and Plan: patient with anemia most likely multifactorial secondary to surgery as well as hemodilution there is no other source of bleeding, patient was given 1 unit of pack RBC and hemoglobin is stable DS: Summary Hospital Course Reason for hospitalization: this is an 86-year-old female patient who is hard of hearing and has poor vision. The patient stated that she dropped her medication went to pick it up and her leg slipped then she fell on the ground. She was complaining of right hip and right knee pain. She stated she did not hit her head or lose consciousness however she is on Eliquis. Patient was not dizzy or have any chest pain prior to falling on the ground. Patient's hip and pelvis x-ray was read as comminuted inter intertrochanteric fracture of the right femur. Knee x-ray no acute fracture. Cervical spine CT several cervical spondylosis without acute findings or significant interval change. Head CT was read as no acute intracranial abnormality. Age-related findings. The patient denies any headache or any focal weakness. The patient had a CTA due to her tachycardia and her long bone fracture. Which shows no PE or cardiopulmonary findings. Dependent subsegmental atelectasis. Cardiomegaly. The patient was found to be in AFib with RVR. The patient was given an IV push Cardizem, IV fluids and morphine. Once the patient was admitted to IMU her heart rate went up in the 120s so we started her on a Cardizem drip. The patient is being admitted to inpatient services on the date of service of 08/21/2021. Chief Complaint: Fall and right hip pain Hospital Course: 08/22/2021 interval history: status post fall and fracture right femur most likely triggered atrial fibrillation with RVR patient is being diltiazem drip and metoprolol 25 mg b.i.d. seen by cardiology lori Wood, patient with a right hip fracture seen by orthopedic and scheduled to have a ORIF today will continue to monitor and further recommendation to follow, her son is present in the room. 08/23/2021 interval history: status post right hip surgery POD#1, States the pain persisting right hip, patient is being treated [place] and tramadol as needed, patient is off diltiazem drip now on diltiazem 60 mg p.o. every 6 hours the rate is trending down, patient will have physical therapy per Orthopedic and anticoagulated with Eliquis, continue to monitor further recommendation to follow. 08/24/2021 interval history: status post right hip surgery POD#2, States the pain persisting right hip, pain is worse with physical therapy, patient is being treated [place] and tramadol as needed, patient is off diltiazem drip now on diltiazem 60 mg p.o. every 6 hours the rate is trending down, patient will have physical therapy per Orthopedic and anticoagulated with Eliquis, continue to monitor further recommendation to follow. patient with anemia most likely multifactorial secondary to surgery as well as hemodilution there is no other source of bleeding, patient was given 1 unit of pack RBC will continue to monitor further recommendation to follow. 08/25/2021 interval history: status post right hip surgery POD#3, States the pain persisting right hip, pain is worse with physical therapy, patient is being treated [place] and tramadol as needed, patient is off diltiazem drip now on diltiazem 60 mg p.o. every 6 hours the rate is trending down, seen by cardiology recommended continue present management, patient will have physical therapy per Orthopedic and anticoagulated with Eliquis, continue to monitor further recommendation to follow. patient with anemia most likely multifactorial secondary to surgery as well as hemodilution there is no other source of bleeding, pat
[2021-08-26 14:17] LABS: EDCOVIDSCREEN Negative (Negative)
--- NOTE | 2021-08-26 14:54 | PM.PNORT ---
Progress Note: A&P Assessment and Plan (1) Hip fracture: Qualifiers: Encounter type: initial encounter Fracture type: closed Laterality: right Qualified Code(s): S72.001A - Fracture of unspecified part of neck of right femur, initial encounter for closed fracture Code(s): S72.009A - Fracture of unspecified part of neck of unspecified femur, initial encounter for closed fracture Status: Acute Assessment and Plan: POD #4: Insertion of gamma nail RIGHT hip Continue PT/OT. NWB RLE. Walker. HIGH FALL RISK. OOB to chair. Dalton okay to be removed from ortho standpoint pending patient is able to get out of bed. Continue pain control. Ice lateral hip. SCDs. Incentive Spirometry. Eliquis resumed post op. Change dressing to Mepilex silver today, nursing notified. May keep in place until POD #7 and then change. Lucrecia to be removed on the 14th day after surgery. Dispo: SNF for rehab when medically cleared. Follow up arranged in outpatient ortho clinic. (2) Atrial fibrillation with RVR: Code(s): I48.91 - Unspecified atrial fibrillation Status: Acute Assessment and Plan: Eliquis Resumed. Cardiology following. (3) Impaired functional mobility, balance, gait, and endurance: Code(s): Z74.09 - Other reduced mobility Status: Acute Assessment and Plan: PT/OT. NWB RLE. Walker. Fall Risk. SNF for Rehab upon discharge. Subjective Subjective Date/Time Seen: 08/26/21 14:54 Interval history: POD #4: Insertion of Gamma Nail RIGHT hip No new complaints today. Alert and oriented to place, time, situation. Pain well controlled right hip. Plans to go to SNF today. Review of Systems Review of Systems: All systems reviewed & are unremarkable except as noted in HPI and below (HPI ) Exam Const: General: comfortable and no acute distress Resp: Effort & Inspection: normal respiratory effort Cardio: Rate: tachycardic GI: Inspection: non-distended GI Palp: Yes Soft to palpation and No Tenderness to palpation present (GI) Urinary Catheter: Urinary Catheter: patent and draining and urine clear Skin: Wounds: wounds noted (Incision right hip ) Neuro: General: No gait normal Cognition (Neuro): normal cognition Speech: normal speech Motor exam (neuro): strength not 5/5 throughout and Abnormal motor strength present (limited RLE ) Extrem: Right lower extremity: hip/thigh Details: tenderness Location: of the hip Location: laterally and anteriorly and of the proximal upper leg Location: laterally and anteriorly, swelling (thigh soft ) Location: at the hip, at the proximal leg and at the mid upper leg, abnormal ROM (Limited due to recent surgical intervention ) and ecchymosis (surrounding incision ); no abrasions and no lacerations, knee Details: normal to inspection, tenderness (generalized, chronic. ), swelling (generalized ) and normal ROM, lower leg (Negative Mariano's Sign ), ankle Details: normal to inspection, no edema and normal ROM; no tenderness, no swelling and no edema and foot Details: normal capillary refill and vascular exam Details: dorsalis pedis pulse present Psych: Mental Status: mental status grossly normal Affect: normal affect and No Anxious affect present Thought content: Yes Normal thought content present Objective Data Vital Signs Vital Signs: Vital Signs - 24 hr 08/25/21 16:00 08/25/21 16:45 08/25/21 20:00 Temperature 36.7 C Pulse Rate 68 79 94 Respiratory Rate 18 18 Blood Pressure 112/71 Pulse Oximetry 96 96 08/25/21 20:43 08/26/21 00:00 08/26/21 04:00 Temperature 36.4 C Pulse Rate 98 73 80 Respiratory Rate 16 Blood Pressure 113/61 Pulse Oximetry 97 08/26/21 06:00 08/26/21 09:00 08/26/21 09:02 Temperature 36.8 C Pulse Rate 100 81 92 Respiratory Rate 18 Blood Pressure 142/68 H Pulse Oximetry 99 08/26/21 09:16 08/26/21 12:00 Temperature 36.3 C L Pulse Rate 95 75 Respiratory Rate 16 Blood Pressu
--- NOTE | 2021-08-26 15:17 | PCPTNOTE ---
Attempted to see patient this afternoon, per nursing patient is discharging.
== END 2021-08-26 17:22 | DRG 481 ==
LOC: ANHED 16:35 → ANHIMU 18:01 → ANH2MED 08-26 13:24 → ANHIMU 08-28 09:23
PROVIDERS: Internal Medicine; Nurse Practitioner; Orthopaedic Surgery; Admitting Provider Internal Medicine; Emergency Provider Emergency Medicine; PCP Internal Medicine; Visit Provider Family Medicine
PROC: 0QS636Z Reposition Right Upper Femur with Intramedullary Internal Fixation Device, Percutaneous Approach (ICD-10-PCS; CPT 27245; principal; 2021-08-22 14:00)
DX: S72.144A Nondisplaced intertrochanteric fracture of right femur, initial encounter for closed fracture (principal); I48.20 Chronic atrial fibrillation, unspecified; D62 Acute posthemorrhagic anemia; Z79.01 Long term (current) use of anticoagulants; F03.90 Unspecified dementia, unspecified severity, without behavioral disturbance, psychotic disturbance, mood disturbance, and anxiety; K21.9 Gastro-esophageal reflux disease without esophagitis; M81.0 Age-related osteoporosis without current pathological fracture; M15.9 Polyosteoarthritis, unspecified; H40.9 Unspecified glaucoma; E78.2 Mixed hyperlipidemia; M06.9 Rheumatoid arthritis, unspecified; E55.9 Vitamin D deficiency, unspecified; E03.9 Hypothyroidism, unspecified; E53.8 Deficiency of other specified B group vitamins; E66.9 Obesity, unspecified; Z68.34 Body mass index [BMI] 34.0-34.9, adult; W18.30XA Fall on same level, unspecified, initial encounter
CPT/HCPCS: 36415; 36430; 70450; 71275; 72125; 73502; 73562; 80048; 80053; 82607; 82746; 83540; 83550; 83735; 84439; 84443; 84480; 85014; 85018; 85025; 85027; 85610; 85730; 86850; 86900; 86901; 86920; 87426; 93005; 96361; 96374; 96375; 96376; 97110; 97161; 97167; 97530; 97535; 99285; A9270; C1713; C9803; G0378; J0131; J0690; J1100; J1756; J2270; J2405; J2704; J3010; J3370; J7030; J7040; J7120; J7512; P9016; Q9967

== ENCOUNTER 2021-09-06 06:17 | Inpatient (IN) | payer MEDICARE, MEDICAID, SELFPAY ==
[2021-09-06] VITALS (32 sets, daily range): BP systolic 80–142; BP diastolic 35–101; PULSE 61–152; RESP 15–29; TEMP 36–36.9; O2SAT 93–96; BMI 30.5
--- NOTE | ~2021-09-06 | XR_ITS ---
EXAMINATION: XR chest 1V portable INDICATION: Fluid overload TECHNIQUE: Portable AP chest at 0832 hours COMPARISON: 09/16/2021 FINDINGS: There is stable cardiomegaly. Bibasilar airspace opacities have nearly completely resolved. There is subsegmental atelectasis of the right lower lobe. The interstitial pattern has also nearly completely resolved. There is no pleural effusion or pneumothorax. Thoracolumbar dextroscoliosis is n oted. IMPRESSION: 1. Cardiomegaly with near resolution of pulmonary edema. 2. Near complete resolution of bibasilar airspace opacities with minimal subsegmental atelectasis of the right lung base. Reviewed, dictated and finalized at location A. UCT STRATEGY DIRECTOR IMPRESSION: 1. Cardiomegaly with near resolution of pulmonary edema. 2. Near complete resolution of bibasilar airspace opacities with minimal subseg mental atelectasis of the right lung base.
--- NOTE | ~2021-09-06 | XR_ITS ---
EXAMINATION: XR chest 1V portable INDICATION: PICC insertion TECHNIQUE: Portable AP chest at 1356 hours COMPARISON: 09/18/2021 FINDINGS: A right upper extremity PICC has been inserted which ends with its tip in the distal superi or vena cava. Cardiomegaly is noted. Subsegmental atelectasis of the right lung base is decreased. No additional focal airspace opacities are identified. There is no pleural effusion or pneumothorax. Th oracolumbar dextroscoliosis is noted. IMPRESSION: 1. Right upper extremity PICC ending with its tip in the distal superior vena cava. 2. Decreasing right basilar subsegmental atelectasis. Reviewed, dictated and finalized at location A. NDS SUPERVISOR IMPRESSION: 1. Right upper extremity PICC ending with its tip in the distal superior vena c carrie. 2. Decreasing right basilar subsegmental atelectasis.
--- NOTE | ~2021-09-06 | XR_ITS ---
EXAMINATION: XR chest 1V portable EXAM DATE: 09/21/2021 18:27 INDICATION: Pneumonia. TECHNIQUE: Portable AP frontal chest x-ray was obtained. Comparison is made to prior examination from 09/19/2021. FINDINGS: There is a right-sided PICC line with tip projecting over the cavoatrial junction. Small a mount of right basilar airspace disease with continued improvement. Mild cardiomegaly. No pneumothora x or pleural effusion. The bones are osteopenic. There are bony degenerative changes. Moderate to se marlon scoliosis. IMPRESSION: Small amount of residual right basilar airspace disease. Reviewed, dictated and finalized at location A. PING SERVICES SALES REPRESENTATIVE
--- NOTE | ~2021-09-06 | CT_ITS ---
EXAMINATION: CT hip RT w con DATE: 09/06/2021 09:03 INDICATION: Right hip wound status post right hip surgery on 08/23/2021 TECHNIQUE: Computed tomography (CT) of the pelvis was performed without intravenous contrast. The dos e-length product (DLP) was 940.71 mGy-cm. Automated exposure control and iterative reconstruction chevy hnique were employed. COMPARISON: 10/07/2019 FINDINGS: There is antegrade intramedullary sukhwinder and interlocking intratrochanteric screw fixation of the right femur traversing a comminuted trochanteric fracture. The lesser trochanter is on a separate fracture fragment. An approximately 5.3 x 4.5 cm complex fluid collection with foci of gas is seen o verlying the right hip which is continuous with the surgical incision site. A small amount of gas tra cks inferiorly into the anterior subcutaneous tissues of the proximal leg. 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 IMPRESSION: 1. Complex subcutaneous fluid collection overlying the right hip, contiguous with the incision site, consistent with hematoma/seroma and/or abscess. Reviewed, dictated and finalized at location A. E ALPINE IMPRESSION: 1. Complex subcutaneous fluid collection overlying the right hip, contiguous wi th the incision site, consistent with hematoma/seroma and/or abscess.
--- NOTE | ~2021-09-06 | XR_ITS ---
EXAMINATION: XR chest 1V portable DATE: 09/15/2021 06:09 INDICATION: Increasing oxygen needs TECHNIQUE: frontal view of the chest was obtained. COMPARISON: Chest radiograph dated 05/19/[address] dated 08/21/2021 FINDINGS: Patient is rotated towards the left. Linear bands of discoid atelectasis/scarring in the bilateral lo wer lung zones. In addition there is mild increased interstitial pattern in the right lower lung zone which could represent additional atelectasis, mild pulmonary edema or less likely pneumonia. Cardiom egaly. Partially visualized prominent lumbar dextroscoliosis with moderate spondylosis. IMPRESSION: 1. Bibasilar atelectasis and mild increased interstitial pattern in the right lower lung zone which c ould represent mild pulmonary edema, atelectasis or pneumonia. 2. Cardiomegaly. Reviewed, dictated and finalized at location A. RS AND EMULSIFIERS SUPERVISOR IMPRESSION: 1. Bibasilar atelectasis and mild increased interstitial pattern in the right l ower lung zone which could represent mild pulmonary edema, atelectasis or pneum onia. 2. Cardiomegaly.
--- NOTE | ~2021-09-06 | US_ITS ---
EXAMINATION: US venous doppler [facility] DATE: 09/07/2021 07:53 INDICATION: Bilateral lower limb edema TECHNIQUE: Telles scale images without and with compression and Doppler images of the bilateral lower e xtremity veins were obtained. COMPARISON: None FINDINGS: The right common femoral vein, profunda femoral vein, femoral vein, popliteal vein, peroneal trunk, p osterior tibial veins, and greater saphenous vein are patent. The left common femoral vein, profunda femoral vein, femoral vein, popliteal vein, peroneal trunk, po sterior tibial veins, and greater saphenous vein are patent. IMPRESSION: 1. Patent bilateral lower extremity veins. No evidence of deep venous thrombosis. Reviewed, dictated and finalized at location A. OGICAL TECHNICAL OFFICER IMPRESSION: 1. Patent bilateral lower extremity veins. No evidence of deep venous thrombosi s.
--- NOTE | ~2021-09-06 | XR_ITS ---
EXAMINATION: XR chest 1V portable INDICATION: Pulmonary edema TECHNIQUE: Portable AP chest at 1457 hours COMPARISON: 09/15/2021 FINDINGS: There is stable cardiomegaly. A mild diffuse interstitial pattern persists but has improved . No pleural effusion or pneumothorax is identified. Bibasilar airspace opacities persist without sig nificant change. Thoracolumbar dextroscoliosis is noted. IMPRESSION: 1. Cardiomegaly with improving pulmonary edema. 2. Stable bibasilar airspace opacities, consistent with atelectasis versus pneumonia. Reviewed, dictated and finalized at location A. CH BONDING MACHINE OPERATOR IMPRESSION: 1. Cardiomegaly with improving pulmonary edema. 2. Stable bibasilar airspace opacities, consistent with atelectasis versus pneu monia.
--- NOTE | 2021-09-06 07:39 | ECG_ITS ---
Measurements Intervals [place] Rate: 110 P: MN: 0 QRS: 217 QRSD: 93 T: 40 QT: 367 QTc: 498 Interpretive Statements ATRIAL FIBRILLATION WITH RAPID VENTRICULAR RESPONSE LOW QRS VOLTAGE IN PRECORDIAL LEADS BORDERLINE ST-T WAVE ABNORMALITY- HIGH LATERAL LEADS BASELINE ARTIFACT- I, II, III, AVR, AVF, V2-V6 ABNORMAL ECG Electronically Signed On 09-06-2021 11:33:40 SENIOR MICROS[employer] CONSULTANT by Tyrell Cornejo D.O.
[2021-09-06] MEDS: SODIUM CHLORIDE 0.9% IV 1,000 ML 999 ML IV CONT ×2 (07:42→10:11)
[2021-09-06] MEDS: MORPHINE SULFATE (*CRX) 4 MG/ML INJ IV PUSH ×3 (08:15→18:33)
[2021-09-06 08:26] LABS: Basophils Percent Auto 0.4 % (0.2-1.2); Eosinophils Absolute Auto 0.1 K/mm3 (0-0.3); Hematocrit 34.2 % (37.0-47.0); Hemoglobin 10.8 g/dL (12.0-15.0); Immature Granulocyte Absolute 0.25 K/mm3 (0.00-0.031); Immature Granulocyte Percent A 2.2 % (0-0.5); Lymphocytes Absolute Auto 2.97 K/mm3 (0.9-3.2); Lymphocytes Percent Auto 26.7 % (18.3-44.2); Mean Corpuscular HGB Conc 31.6 g/dl (32-36); Mean Corpuscular Hemoglobin 32.8 pg (26-34); Mean Platelet Volume 10.3 fl (7.4-10.4); Monocytes Percent Auto 9.1 % (2.6-8.5); Neutrophils Absolute Auto 6.7 K/mm3 (1.3-6.7); Neutrophils Percent Auto 60.6 % (45.5-73.1); Nucleated Red Blood Cells Absolute Auto 0.1 K/mm3 (0.0-0.012); Nucleated Red Blood Cells Perc 0.5 % (0.0-0.2); Platelet Count Result 505 k/mm3 (150-375); Red Blood Count 3.29 M/mm3 (4.2-5.4); Red Cell Distribution Width 17.8 % (11.5-14.5); White Blood Count 11.1 K/mm3 (4.5-10.0)
--- NOTE | 2021-09-06 08:36 | PC.NURSE ---
Lab called to obtain blood cultures.
[2021-09-06 08:37] LABS: INR 1.8; Prothrombin Time 20.7 Seconds (11.1-14.7)
[2021-09-06 08:38] LABS: Alanine Aminotransferase 17 U/L (4-35); Albumin Level 3.8 g/dL (3.5-5.1); Alkaline Phosphatase 181 U/L (38-126); Anion Gap 9 mmol/L (8-16); Aspartate Amino Transferase 39 U/L (14-36); Bilirubin,Total 1.4 mg/dL (0.2-1.3); Blood Urea Nitrogen 22 mg/dL (7-17); Calcium 8.2 mg/dL (8.4-10.2); Carbon Dioxide 25 mmol/L (22-30); Chloride 103 mmol/L (98-107); Estimated CRCL calculation 43 ml/min; Estimated Glomerular Filt Rate 60; Glucose 109 mg/dL (65-110); Partial Thromboplastin Time 45.9 SECONDS (22.3-36.8); Potassium 3.6 mmol/L (3.4-5.0); Sodium 137 mmol/L (137-145)
[2021-09-06 08:49] LABS: CRP 20.1 mg/dL (<1.0)
[2021-09-06 08:50] LABS: Add Urine Microscopic? YES; Appearance Urine Turbid (Clear); Bilirubin Urine Negative (Negative); Blood Urine 1+ (Negative); Color Urine Yellow (Yellow); Glucose Urine UA Negative (Negative); Ketones Urine Negative (Negative); Leukocyte Esterase Ur 3+ LEU/UL (Negative); Nitrate Urine Negative (Negative); Protein Urine 1+ mg/dL (Negative); RBC Urine 51-75 /hpf (0-2); Specific Grav Ur 1.011 (1.001-1.035); Urobilinogen Urine Negative mg/dL (<2.0); WBC Clumps Urine Present /HPF; WBC Urine >75 /hpf
--- NOTE | 2021-09-06 08:54 | PC.NURSE ---
Patient to CT.
[2021-09-06 08:57] LABS: Erythrocyte Sedimentation Rate 125 mm/hr (0-20)
--- NOTE | 2021-09-06 09:32 | ED.LOWEXIN ---
HPI - Extremity Injury (Lower) General Chief Complaint: Extremity Injury, Lower Stated Complaint: WOUND R HIP Time Seen by Provider: 09/06/21 07:18 Source: patient History of Present Illness HPI Narrative: Patient referred from nursing facility for wound evaluation. Patient had mechanical fall approximately 2 weeks ago and had enteroenteric fracture managed operatively. Patient is discharged home to a nursing facility this morning they look better wound and thought it was black so they referred her to the ER for further evaluation. Patient reports pain to her right hip that is constant, achy. Denies fevers or focal areas of pain she denies any lightheadedness dizziness she denies any focal numbness or weakness Related Data Home Medications Medication Instructions Recorded Confirmed acetaminophen [Acetaminophen Pain 1,000 mg PO BID PRN 12/26/19 09/06/21 Relief] docusate sodium 200 mg PO DAILY 05/19/20 09/06/21 multivit with min-folic 1 tablet PO DAILY 11/06/20 09/06/21 acid-lutein 400 mcg-250 mcg chewable tablet prednisone 5 mg tablet 5 mg PO DAILY 11/06/20 09/06/21 tramadol 50 mg tablet 50 mg PO Q8H PRN tablet 11/06/20 09/06/21 methotrexate sodium 7.5 mg PO WEEKLY 01/21/21 09/06/21 polyethylene glycol 3350 [Miralax] 17 g PO DAILY PRN 01/21/21 09/06/21 gabapentin 100 mg capsule 200 mg PO HS cap 03/20/21 09/06/21 Combigan 1 drp RIGHT EYE BID 08/21/21 09/06/21 Eliquis 5 mg PO BID 08/21/21 09/06/21 Lumigan 1 drp RIGHT EYE HS 08/21/21 09/06/21 atorvastatin 10 mg PO DAILY 08/21/21 09/06/21 omeprazole 40 mg PO DAILY 08/21/21 09/06/21 ferrous sulfate 325 mg PO DAILY 09/06/21 09/06/21 furosemide 40 mg PO DAILY 09/06/21 09/06/21 hydrocodone-acetaminophen 1 tablet PO Q4-6H PRN 09/06/21 09/06/21 lactulose 30 g PO DAILY 09/06/21 09/06/21 mirtazapine 15 mg PO HS 09/06/21 09/06/21 potassium chloride 20 meq PO DAILY 09/06/21 09/06/21 spironolactone 25 mg PO DAILY 09/06/21 09/06/21 Allergies Allergy/AdvReac Type Severity Reaction Status Date / Time No Known Allergies Allergy Verified 09/06/21 06:32 Review of Systems Review of Systems: CONSTITUTIONAL: Denies fever, chills, or sweats. EYES: Denies visual changes, redness, or discharge. ENT: Denies rhinorrhea, congestion, sore throat, or otalgia. CARDIOVASCULAR: Denies chest pain, palpitations, or edema. RESPIRATORY: Denies cough or dyspnea. GASTROINTESTINAL: Denies abdominal pain, nausea, vomiting, or diarrhea. GENITOURINARY: Denies dysuria or hematuria. SKIN: Denies rash or itching. MUSCULOSKELETAL: Denies back pain, or myalgia. NEUROLOGIC: Denies headache, numbness, dizziness, or weakness. PSYCHIATRIC: Denies anxiety or depression. All systems reviewed & are unremarkable except as noted in HPI and below PMFSH Past Medical History Medical History (Updated 09/06/21 @ 13:09 by Sabrina Bae PA-C) Age-related hearing loss Cataracts, bilateral maturing Chronic anemia Chronic anticoagulation Degenerative joint disease Dementia Gastroesophageal reflux disease Glaucoma Hypertension Hypothyroidism Mixed hyperlipidemia Osteoporosis Paroxysmal atrial fibrillation Pre-diabetes Presbyesophagus Rheumatoid arthritis Vitamin B12 deficiency Vitamin D deficiency Surgical History Surgical History (Updated 09/06/21 @ 13:04 by Sabrina Bae PA-C) History of colonoscopy with polypectomy History of dilation and curettage (11/04/19) For postmenopausal bleeding. Pathology demonstrated atrophic endometrium. History of open reduction and internal fixation (ORIF) procedure (08/22/21) IM sukhwinder for right hip fracture. Family History Family History Sibling Acute myocardial infarction Mother Renal failure Social History Social History (Updated 09/06/21 @ 13:06 by Sabrina Bae PA-C) Social History: Surrogate decision maker: Chandler Serrato, tristan. Code status: Full code. Smoking status: Never smoker
[2021-09-06] MEDS: dilTIAZem HCl INJ 25 MG/5 ML VIAL 10 MG IV PUSH (10:11)
--- NOTE | 2021-09-06 11:32 | PC.NURSE ---
Spoke to Zheng in pharmacy regarding Cardizem drip. States medication was already sent to IMU.
[2021-09-06] MEDS: SODIUM CHLORIDE 0.9% IV 1,000 ML 125 ML IV CONT (12:23)
--- NOTE | 2021-09-06 12:45 | PM.IMHP ---
H&P: HPI History of Present Illness Date/Time: 09/06/21 12:45 <Sabrina Bae PA-C - Last Filed: 09/06/21 21:02> Chief Complaint: Right hip wound. <Sabrina Bae PA-C - Last Filed: 09/06/21 21:02> Narrative: This is an 86-year-old female with dementia, paroxysmal atrial fibrillation, hypertension, hyperlipidemia, rheumatoid arthritis, GERD, and diabetes who presented to the emergency department earlier today via EMS from [facility] for evaluation of a right hip wound. She is currently in rehab at [facility] after sustaining a right hip fracture earlier this month for which she underwent insertion of IM sukhwinder on 08/22/[address] Zamarripa. She has been participating in rehab however she continues to have discomfort in her right hip with exercise and weight-bearing. Today she was brought in for evaluation as staff at the rehab facility noticed a wound developing around the upper incision and they were concerned for possible infection. On arrival to the emergency department she was afebrile with a stable but low end of normal blood pressure. She was found to be in atrial fibrillation with rapid ventricular response and she has been started on a Cardizem drip. CT of the hip showed a complex subcutaneous fluid collection overlying the right hip, contiguous with the incision site, consistent with hematoma/seroma and/or abscess and she is being admitted in this setting. At the time my evaluation she is resting comfortably and she is without significant pain. She has only mild feelings of racing heart but no significant palpitations. She does endorse a decreased appetite over the last several days and fact she did have nausea and a couple of episodes of emesis yesterday. She denies fever, chills, and sweats. No hematemesis, melena, or hematochezia. She denies diarrhea. No dysuria. <Sabrina Bae PA-C - Last Filed: 09/06/21 21:02> Review of Systems Review of Systems: Twelve systems were reviewed. No cold or flu symptoms. She denies cough and shortness of breath. Her vision is poor due to glaucoma, and at time she can only see shadows. Reports chronic right foot drop, present for well over a year. Except as documented, all other systems were reviewed and are negative. <Sabrina Bae PA-C - Last Filed: 09/06/21 21:02> [facility] Past Medical History Medical History: Medical History Age-related hearing loss Cataracts, bilateral maturing Chronic anemia Chronic anticoagulation Degenerative joint disease Dementia Gastroesophageal reflux disease Glaucoma Hypertension Hypothyroidism Mixed hyperlipidemia Osteoporosis Paroxysmal atrial fibrillation Pre-diabetes Presbyesophagus Rheumatoid arthritis Vitamin B12 deficiency Vitamin D deficiency <Sabrina Bae PA-C - Last Filed: 09/06/21 21:02> Surgical History Surgical History: Surgical History History of colonoscopy with polypectomy History of dilation and curettage (11/04/19) For postmenopausal bleeding. Pathology demonstrated atrophic endometrium. History of open reduction and internal fixation (ORIF) procedure (08/22/21) IM sukhwinder for right hip fracture. <Sabrina Bae PA-C - Last Filed: 09/06/21 21:02> Family History Family History: Family History Sibling Acute myocardial infarction Mother Renal failure <Sabrina Bae PA-C - Last Filed: 09/06/21 21:02> Social History Social History: Social History Social History: Surrogate decision maker: Chandler Serrato, son. Code status: Full code. Smoking status: Never smoker Tobacco type: smokeless tobacco Smokeless tobacco user: snuff Second hand tobacco smoke exposure: Yes Additional smoking assessment comments: snuff x 70 years Alcohol intake:
[2021-09-06] MEDS: ONDANSETRON INJ 4 MG/2 ML VIAL IV PUSH (13:17)
[2021-09-06] MEDS: HYDROcodone/acetaminophen (*CRX) 7.5-325 MG TABLET 1 TAB PO ×2 (16:05→20:35)
[2021-09-06] MEDS: TIMOLOL MALEATE 0.5% OP SOLN 5 ML BOTTLE 1 DROP RIGHT EYE (20:28)
[2021-09-06] MEDS: LATANOPROST 0.005% OP SOLN 2.5 ML BTL 1 DROP RIGHT EYE (20:28)
[2021-09-06] MEDS: BRIMONIDINE TARTRATE 0.2% OP SOLN 5 ML BTL 1 DROP RIGHT EYE (20:29)
[2021-09-06] MEDS: GABAPENTIN 100 MG CAPSULE 200 MG PO (20:30)
[2021-09-06] MEDS: MIRTAZAPINE 15 MG TABLET PO (20:30)
[2021-09-06] MEDS: METOPROLOL TARTRATE 25 MG TABLET PO (20:30)
[2021-09-07] VITALS (18 sets, daily range): BP systolic 91–132; BP diastolic 47–90; PULSE 56–98; RESP 16–18; TEMP 36.4–37.3; O2SAT 94–99
--- NOTE | 2021-09-07 01:59 | PC.NURSE ---
Pt's diltiazem gtt infusing at 10mls/hr. Order for 5mls/hr verified. Notified Dr. Evans of discrepancy. Asked Dr. Evans if she wanted to continue gtt at 10 mls/hr or decrease to 5mls/hr. Pt's HR rate controlled in the 60s. Dr. Evans states she wants diltiazem gtt decreased to 5mls/hr.
[2021-09-07 04:40] LABS: Hematocrit 34.3 % (37.0-47.0); Hemoglobin 10.5 g/dL (12.0-15.0); Mean Corpuscular HGB Conc 30.6 g/dl (32-36); Mean Corpuscular Hemoglobin 32.9 pg (26-34); Mean Corpuscular Volume 107.5 fl (80-100); Mean Platelet Volume 10.7 fl (7.4-10.4); Platelet Count Result 391 k/mm3 (150-375); Red Blood Count 3.19 M/mm3 (4.2-5.4); Red Cell Distribution Width 17.8 % (11.5-14.5); White Blood Count 10.2 K/mm3 (4.5-10.0)
[2021-09-07 04:48] LABS: Alanine Aminotransferase 15 U/L (4-35); Albumin Level 3.4 g/dL (3.5-5.1); Alkaline Phosphatase 165 U/L (38-126); Anion Gap 6 mmol/L (8-16); Aspartate Amino Transferase 34 U/L (14-36); Bilirubin,Total 1.1 mg/dL (0.2-1.3); Blood Urea Nitrogen 17 mg/dL (7-17); Calcium 9.1 mg/dL (8.4-10.2); Carbon Dioxide 24 mmol/L (22-30); Chloride 105 mmol/L (98-107); Estimated CRCL calculation 41 ml/min; Estimated Glomerular Filt Rate 60; Glucose 93 mg/dL (65-110); Magnesium 2.3 mg/dL (1.6-2.3); Potassium 4.9 mmol/L (3.4-5.0); Sodium 135 mmol/L (137-145)
[2021-09-07] MEDS: HYDROcodone/acetaminophen (*CRX) 7.5-325 MG TABLET 1 TAB PO ×4 (05:09→21:02)
[2021-09-07] MEDS: TIMOLOL MALEATE 0.5% OP SOLN 5 ML BOTTLE 1 DROP RIGHT EYE ×2 (08:43→21:10)
[2021-09-07] MEDS: FERROUS SULFATE 324 MG TABLET PO (08:44)
[2021-09-07] MEDS: ATORVASTATIN 10 MG TABLET PO (08:45)
[2021-09-07] MEDS: LACTULOSE 20 GM/30 ML UDC 30 GM PO (08:46)
[2021-09-07] MEDS: FUROSEMIDE 40 MG TABLET PO (08:46)
[2021-09-07] MEDS: DOCUSATE SODIUM 100 MG CAPSULE 200 MG PO (08:46)
[2021-09-07] MEDS: METOPROLOL TARTRATE 25 MG TABLET PO ×2 (08:47→21:03)
[2021-09-07] MEDS: MULTIVITAMINS /C LUTEIN (CENTRUM SILVER) TABLET *BKC 1 TAB PO (08:47)
[2021-09-07] MEDS: PANTOPRAZOLE 40 MG TABLET PO (08:48)
[2021-09-07] MEDS: predniSONE 5 MG TABLET PO (08:48)
[2021-09-07] MEDS: POTASSIUM CHLORIDE 20 MEQ TABLET.ER PO (08:48)
[2021-09-07] MEDS: BRIMONIDINE TARTRATE 0.2% OP SOLN 5 ML BTL 1 DROP RIGHT EYE ×2 (08:49→21:12)
[2021-09-07] MEDS: SPIRONOLACTONE 25 MG TABLET PO (08:49)
--- NOTE | 2021-09-07 15:24 | PM.IMPN ---
Progress Note: A&P Assessment and Plan (1) Atrial fibrillation with rapid ventricular response: Code(s): I48.91 - Unspecified atrial fibrillation Status: Acute Assessment and Plan: 09/07/2021 Interval history: status post fall and fracture of the right hip and she underwent insertion of IM sukhwinder on 08/22/2021. no patient present with complaint of right hip pain is a concern for an abscess, patient is being treated with cefazolin and vancomycin and we have consulted Orthopedic further recommendation to follow, patient is also has developed atrial fibrillation with RVR most likely triggered by stress from the pain of right hip, patient was started on diltiazem dripp, patient rate is trending down will stop the diltiazem and start the patient on diltiazem 60 mg q.8 p.o. and monitor (2) Postoperative wound infection of right hip: Code(s): T81.49XA - Infection following a procedure, other surgical site, initial encounter Status: Acute (3) Chronic anemia: Code(s): D64.9 - Anemia, unspecified Status: Acute (4) Abnormal urinalysis: Code(s): R82.90 - Unspecified abnormal findings in urine Status: Acute (5) Chronic anticoagulation: Code(s): Z79.01 - FPC (current) use of anticoagulants Status: Acute (6) Hypothyroidism: Code(s): E03.9 - Hypothyroidism, unspecified Status: Acute (7) Hypertension: Code(s): I10 - Essential (primary) hypertension Status: Acute Additional Plan The patient was brought in today for evaluation of a right hip wound and area of dehiscence around the proximal-most incision on her right hip. There is some surrounding warmth and erythema with evidence of seroma, hematoma, or possibly even abscess contiguous with the incision noted on CT thus she has been started on empiric antibiotics to include cefepime and vancomycin. Dr. Zamarripa has been consulted and his recommendations are appreciated. She has been started on a Cardizem drip for AFib/RVR with some improvement in her rate. She is on apixaban for stroke prophylaxis though I am going to place on hold tonight as she may need exploration and/or debridement of the wound. She has a chronic anemia which is stable on review of previous labs. Her urinalysis is abnormal however she has no symptoms of UTI. Blood pressures were reviewed and they have been running on the low end of normal, likely due to Cardizem drip. Continue antihypertensives with parameters. The rest of her home medications will be reviewed and resumed as appropriate. 09/07/2021 Interval history: status post fall and fracture of the right hip and she underwent insertion of IM sukhwinder on 08/22/2021. no patient present with complaint of right hip pain is a concern for an abscess, patient is being treated with cefazolin and vancomycin and we have consulted Orthopedic further recommendation to follow, patient is also has developed atrial fibrillation with RVR most likely triggered by stress from the pain of right hip, patient was started on diltiazem arun, patient rate is trending down will stop the diltiazem and start the patient on diltiazem 60 mg q.8 p.o. and monitor Subjective Date/time seen: 09/07/21 15:24 Chief Complaint: Right hip wound. HPI: Narrative: This is an 86-year-old female with dementia, paroxysmal atrial fibrillation, hypertension, hyperlipidemia, rheumatoid arthritis, GERD, and diabetes who presented to the emergency department earlier today via EMS from [facility] for evaluation of a right hip wound. She is currently in rehab at [facility] after sustaining a right hip fracture earlier this month for which she underwent insertion of IM sukhwinder on 08/22/[address] Zamarripa. She has been participating in rehab however she continues to have discomfort in her right hip with exercise and weight-bearing. Today she was brought in for evaluation as staff at the rehab facility noticed a wound developing around the uppe
[2021-09-07] MEDS: dilTIAZem HCL 60 MG TABLET PO ×2 (17:07→21:04)
[2021-09-07] MEDS: ONDANSETRON INJ 4 MG/2 ML VIAL IV PUSH (18:01)
[2021-09-07] MEDS: GABAPENTIN 100 MG CAPSULE 200 MG PO (21:03)
[2021-09-07] MEDS: MIRTAZAPINE 15 MG TABLET PO (21:04)
[2021-09-07] MEDS: LATANOPROST 0.005% OP SOLN 2.5 ML BTL 1 DROP RIGHT EYE (21:07)
[2021-09-07] MEDS: HEPARIN SODIUM 5,000 UNITS/ML VIAL 5000 UNITS SUB-Q (21:08)
[2021-09-08] VITALS (16 sets, daily range): BP systolic 89–122; BP diastolic 45–87; PULSE 43–93; RESP 16–18; TEMP 36.2–37.1; O2SAT 94–98
[2021-09-08] MEDS: HYDROcodone/acetaminophen (*CRX) 7.5-325 MG TABLET 1 TAB PO ×4 (00:54→19:18)
[2021-09-08] MEDS: dilTIAZem HCL 60 MG TABLET PO ×3 (05:56→21:54)
[2021-09-08] MEDS: TIMOLOL MALEATE 0.5% OP SOLN 5 ML BOTTLE 1 DROP RIGHT EYE ×2 (08:17→21:53)
[2021-09-08] MEDS: DOCUSATE SODIUM 100 MG CAPSULE 200 MG PO (08:18)
[2021-09-08] MEDS: LACTULOSE 20 GM/30 ML UDC 30 GM PO (08:20)
[2021-09-08] MEDS: MULTIVITAMINS /C LUTEIN (CENTRUM SILVER) TABLET *BKC 1 TAB PO (08:21)
[2021-09-08] MEDS: PANTOPRAZOLE 40 MG TABLET PO (08:21)
[2021-09-08] MEDS: FERROUS SULFATE 324 MG TABLET PO (08:21)
[2021-09-08] MEDS: ATORVASTATIN 10 MG TABLET PO (08:21)
[2021-09-08] MEDS: SPIRONOLACTONE 25 MG TABLET PO (08:22)
[2021-09-08] MEDS: METOPROLOL TARTRATE 25 MG TABLET PO ×2 (08:22→21:54)
[2021-09-08] MEDS: BRIMONIDINE TARTRATE 0.2% OP SOLN 5 ML BTL 1 DROP RIGHT EYE ×2 (08:23→21:53)
[2021-09-08] MEDS: POTASSIUM CHLORIDE 20 MEQ TABLET.ER PO (08:23)
[2021-09-08] MEDS: FUROSEMIDE 40 MG TABLET PO (08:24)
[2021-09-08] MEDS: HEPARIN SODIUM 5,000 UNITS/ML VIAL 5000 UNITS SUB-Q (08:25)
[2021-09-08] MEDS: predniSONE 5 MG TABLET PO (08:25)
--- NOTE | 2021-09-08 13:48 | PM.IMPN ---
Progress Note: A&P Assessment and Plan (1) Atrial fibrillation with rapid ventricular response: Code(s): I48.91 - Unspecified atrial fibrillation Status: Acute Assessment and Plan: 09/07/2021 Interval history: status post fall and fracture of the right hip and she underwent insertion of IM sukhwinder on 08/22/2021. no patient present with complaint of right hip pain is a concern for an abscess, patient is being treated with cefazolin and vancomycin and we have consulted Orthopedic further recommendation to follow, patient is also has developed atrial fibrillation with RVR most likely triggered by stress from the pain of right hip, patient was started on diltiazem dripp, patient rate is trending down will stop the diltiazem and start the patient on diltiazem 60 mg q.8 p.o. and monitor 09/08/2021 Interval history: status post fall and fracture of the right hip and she underwent insertion of IM sukhwinder on 08/22/2021. now patient presented with complaint of right hip pain and CT scan is concerning for an abscess, patient is being treated with cefazolin and vancomycin pernursing staff today wound in not draining as much and we have consulted Orthopedic further recommendation to follow, patient is also has developed atrial fibrillation with RVR most likely triggered by stress from the pain of right hip, patient was started on diltiazem dripp, patient rate was trending down on 09/07 stopped the diltiazem and started the patient on diltiazem 60 mg q.8 p.o. and monitor rate is trending down, patient is off eliquis for possible wound debridement tomorrow, patient is placed on heparin 5000 SC units b.i.d. 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 There is some surrounding warmth and erythema with evidence of seroma, hematoma, or possibly even abscess contiguous with the incision noted on CT thus she has been started on empiric antibiotics to include cefepime and vancomycin. Dr. Zamarripa has been consulted and his recommendations are appreciated. She has been started on a Cardizem drip for AFib/RVR with some improvement in her rate. She is on apixaban for stroke prophylaxis though I am going to place on hold tonight as she may need exploration and/or debridement of the wound. She has a chronic anemia which is stable on review of previous labs. Her urinalysis is abnormal however she has no symptoms of UTI. Blood pressures were reviewed and they have been running on the low end of normal, likely due to Cardizem drip. Continue antihypertensives with parameters. The rest of her home medications will be reviewed and resumed as appropriate. 09/07/2021 Interval history: status post fall and fracture of the right hip and she underwent insertion of IM sukhwinder on 08/22/2021. no patient present with complaint of right hip pain is a concern for an abscess, patient is being treated with cefazolin and vancomycin and we have consulted Orthopedic further recommendation to follow, patient is also has developed atrial fibrillation with RVR most likely triggered by stress from the pain of right hip, patient was started on diltiazem dripp, patient rate is trending down will stop the diltiazem and start
--- NOTE | 2021-09-08 16:46 | PM.CNOR ---
Assessment and Plan Additional Plan IMPRESSION ID RIGHT HIP WOUND DEHISCENCE WITH INFECTED HEMATOMA, POSSIBLY SEEDED FOR UTI. HER WBC COUNT APPEARS TO BE STABLE AND SHE HAS BEEN AFEBRILE. RECOMMEND I AND D AND WOUND CLOSURE IF POSSIBLE AT TIME OF SURGERY. SHE MAY REQUIRE WOUND VAC APPLICATION WELL. DICUSEED THIS WITH THE PATIENT WHO VERBALIZED AN UNDERSTANDING OF HER CONDITON AND THE NEED FOR SURGERY. WILL SPEAK TO FAMILY WELL. WILL PROCEED. DISCUSSED NONOPERATIVE AND OPERATIVE TREATMENT OPTIONS WITH THE PATIENT. THE PATIENT'S QUESTIONS WERE ANSWERED. THE PATIENT DESIRES OPERATIVE TREATMENT. DISCUSSED I AND D RIGHT HIP WOUND. . RISKS OF SURGERY INCLUDING BUT NOT LIMITED TO NEUROVASCULAR DAMAGE, WOUND COMPLICATIONS, BLOOD CLOT, PULMONARY EMBOLUS, STROKE, [place], ANESTHETIC RISKS UP TO AND INCLUDING WERE REVIEWED. CONTINUED PAIN AND POSSIBLE DYSFUNCTION WERE EXPLAINED. NO GUARANTEES WERE OFFERED. THE PATIENT UNDERSTANDS AND WISHES TO PROCEED. History of Present Illness HPI Consult date: 09/08/21 Chief complaint: afib rvr/uti/wound check Narrative: COLE IS A 86 YO FEMALE WELL KNOWN TO ME. SHE UNDERWENT RIGHT HIP IM JUMANA WITH HIP SCREW FOR A INTERTROCH/SUB TROCHANTERIC FEMUR FRACTURE ON 08/23 AND DID VERY WELL. APPROXIMATELY 3 DAYS AGO SHE WAS FOUND TO HAVE A RIGHT SURGICAL WOUND DEHISCENCE WITH DRAINING HEMATOMA. SHE WAS SENT TO THE ED AND THEN ADMITTED WITH A UTI WELL. SHE IS HERE FOR EVALUATION. SHE HAS NO OTHER COMPLAINTS ASIDE FROM SOME MILD TO MODERATE RIGHT HIP PAIN. Review of Systems Review of Systems: All systems reviewed & are unremarkable except as noted in HPI and below PMFSH Past Medical History Medical History Age-related hearing loss Cataracts, bilateral maturing Chronic anemia Chronic anticoagulation Degenerative joint disease Dementia Gastroesophageal reflux disease Glaucoma Hypertension Hypothyroidism Mixed hyperlipidemia Osteoporosis Paroxysmal atrial fibrillation Pre-diabetes Presbyesophagus Rheumatoid arthritis Vitamin B12 deficiency Vitamin D deficiency Surgical History Surgical History History of colonoscopy with polypectomy History of dilation and curettage (11/04/19) For postmenopausal bleeding. Pathology demonstrated atrophic endometrium. History of open reduction and internal fixation (ORIF) procedure (08/22/21) IM jumana for right hip fracture. Family History Family History Sibling Acute myocardial infarction Mother Renal failure Social History Social History Social History: Surrogate decision maker: tristan Gilmore. Code status: Full code. Smoking status: Never smoker Tobacco type: smokeless tobacco Smokeless tobacco user: snuff Second hand tobacco smoke exposure: Yes Additional smoking assessment comments: snuff x 70 years Alcohol intake: never Substance use: never Additional living arrangements comments: . She lives in [place] with her son though she is currently undergoing rehab. Ambulates with a walker but a wheelchair is also available as needed. She has 6 children, 1 in a traumatic accident at the age of 40. Additional occupation/education comments: Retired. Meds Home Medications and Allergies Home Medications Medication Instructions Recorded Confirmed Type acetaminophen [Acetaminophen Pain 1,000 mg PO BID PRN 12/26/19 09/06/21 History Relief] docusate sodium 200 mg PO DAILY 05/19/20 09/06/21 History multivit with min-folic 1 tablet PO DAILY 11/06/20 09/06/21 History acid-lutein 400 mcg-250 mcg chewable tablet prednisone 5 mg tablet 5 mg PO DAILY 11/06/20 09/06/21 History tramadol 50 mg tablet 50 mg PO Q8H PRN tablet 11/06/20 09/06/21 History methotrexate sodi
[2021-09-08] MEDS: GABAPENTIN 100 MG CAPSULE 200 MG PO (21:53)
[2021-09-08] MEDS: LATANOPROST 0.005% OP SOLN 2.5 ML BTL 1 DROP RIGHT EYE (21:53)
[2021-09-08] MEDS: MIRTAZAPINE 15 MG TABLET PO (21:55)
[2021-09-09] VITALS (16 sets, daily range): BP systolic 90–111; BP diastolic 46–63; PULSE 53–96; RESP 18–22; TEMP 36.2–36.9; O2SAT 93–97
[2021-09-09] MEDS: HYDROcodone/acetaminophen (*CRX) 7.5-325 MG TABLET 1 TAB PO ×4 (01:47→20:29)
[2021-09-09 05:03] LABS: Estimated CRCL calculation 37 ml/min; Estimated Glomerular Filt Rate 53
[2021-09-09] MEDS: dilTIAZem HCL 60 MG TABLET PO ×3 (06:03→21:38)
[2021-09-09] MEDS: TIMOLOL MALEATE 0.5% OP SOLN 5 ML BOTTLE 1 DROP RIGHT EYE ×2 (08:29→21:37)
[2021-09-09] MEDS: FERROUS SULFATE 324 MG TABLET PO (08:29)
[2021-09-09] MEDS: SPIRONOLACTONE 25 MG TABLET PO (08:29)
[2021-09-09] MEDS: METOPROLOL TARTRATE 25 MG TABLET PO ×2 (08:29→20:30)
[2021-09-09] MEDS: LACTULOSE 20 GM/30 ML UDC 30 GM PO (08:30)
[2021-09-09] MEDS: DOCUSATE SODIUM 100 MG CAPSULE 200 MG PO (08:30)
[2021-09-09] MEDS: ATORVASTATIN 10 MG TABLET PO (08:31)
[2021-09-09] MEDS: MULTIVITAMINS /C LUTEIN (CENTRUM SILVER) TABLET *BKC 1 TAB PO (08:32)
[2021-09-09] MEDS: PANTOPRAZOLE 40 MG TABLET PO (08:32)
[2021-09-09] MEDS: FUROSEMIDE 40 MG TABLET PO (08:32)
[2021-09-09] MEDS: BRIMONIDINE TARTRATE 0.2% OP SOLN 5 ML BTL 1 DROP RIGHT EYE ×2 (08:32→21:39)
[2021-09-09] MEDS: predniSONE 5 MG TABLET PO (08:32)
[2021-09-09 15:55] LABS: Vancomycin Trough 15.6 ug/mL (10.0-20.0)
--- NOTE | 2021-09-09 16:18 | PM.IMPN ---
Progress Note: A&P Assessment and Plan (1) Atrial fibrillation with rapid ventricular response: Code(s): I48.91 - Unspecified atrial fibrillation Status: Acute Assessment and Plan: 09/07/2021 Interval history: status post fall and fracture of the right hip and she underwent insertion of IM sukhwinder on 08/22/2021. no patient present with complaint of right hip pain is a concern for an abscess, patient is being treated with cefazolin and vancomycin and we have consulted Orthopedic further recommendation to follow, patient is also has developed atrial fibrillation with RVR most likely triggered by stress from the pain of right hip, patient was started on diltiazem dripp, patient rate is trending down will stop the diltiazem and start the patient on diltiazem 60 mg q.8 p.o. and monitor 09/08/2021 Interval history: status post fall and fracture of the right hip and she underwent insertion of IM sukhwinder on 08/22/2021. now patient presented with complaint of right hip pain and CT scan is concerning for an abscess, patient is being treated with cefazolin and vancomycin pernursing staff today wound in not draining as much and we have consulted Orthopedic further recommendation to follow, patient is also has developed atrial fibrillation with RVR most likely triggered by stress from the pain of right hip, patient was started on diltiazem dripp, patient rate was trending down on 09/07 stopped the diltiazem and started the patient on diltiazem 60 mg q.8 p.o. and monitor rate is trending down, patient is off eliquis for possible wound debridement tomorrow, patient is placed on heparin 5000 SC units b.i.d. 09/09/2021 Interval history: today patient remains clinically stable, has no new complaint, patient was seen orthopedic surgeon and recommending I and D of the right hip which is scheduled for tomorrow, patient heart rate is trending down and stable, will continue present management and monitor (2) Postoperative wound infection of right hip: Code(s): T81.49XA - Infection following a procedure, other surgical site, initial encounter Status: Acute (3) Chronic anemia: Code(s): D64.9 - Anemia, unspecified Status: Acute (4) Abnormal urinalysis: Code(s): R82.90 - Unspecified abnormal findings in urine Status: Acute (5) Chronic anticoagulation: Code(s): Z79.01 - longterm (current) use of anticoagulants Status: Acute (6) Hypothyroidism: Code(s): E03.9 - Hypothyroidism, unspecified Status: Acute (7) Hypertension: Code(s): I10 - Essential (primary) hypertension Status: Acute Additional Plan The patient was brought in today for evaluation of a right hip wound and area of dehiscence around the proximal-most incision on her right hip. There is some surrounding warmth and erythema with evidence of seroma, hematoma, or possibly even abscess contiguous with the incision noted on CT thus she has been started on empiric antibiotics to include cefepime and vancomycin. Dr. Zamarripa has been consulted and his recommendations are appreciated. She has been started on a Cardizem drip for AFib/RVR with some improvement in her rate. She is on apixaban for stroke prophylaxis though I am going to place on hold tonight as she may need exploration and/or debridement of the wound. She has a chronic anemia which is stable on review of previous labs. Her urinalysis is abnormal however she has no symptoms of UTI. Blood pressures were reviewed and they have been running on the low end of normal, likely due to Cardizem drip. Continue antihypertensives with parameters. The rest of her home medications will be reviewed and resumed as appropriate. 09/07/2021 Interval history: status post fall and fracture of the right hip and she underwent insertion of IM sukhwinder on 08/22/2021. no patient present with complaint of right hip pain is a concern for an abscess, patient is being treated with cefazolin and vancomyc
[2021-09-09] MEDS: LATANOPROST 0.005% OP SOLN 2.5 ML BTL 1 DROP RIGHT EYE (20:29)
[2021-09-09] MEDS: MIRTAZAPINE 15 MG TABLET PO (20:30)
[2021-09-09] MEDS: GABAPENTIN 100 MG CAPSULE 200 MG PO (20:30)
[2021-09-10] VITALS (21 sets, daily range): BP systolic 98–143; BP diastolic 51–99; PULSE 53–120; RESP 15–20; TEMP 36.2–36.9; O2SAT 92–99
[2021-09-10] MEDS: HYDROcodone/acetaminophen (*CRX) 7.5-325 MG TABLET 1 TAB PO ×4 (04:02→21:40)
[2021-09-10] MEDS: dilTIAZem HCL 60 MG TABLET PO ×3 (05:55→21:42)
--- NOTE | 2021-09-10 07:15 | WPDHPUPDATE1 ---
History and Physical Update Update Date/Time: 09/10/21 07:15 History and Physical has been reviewed, including an updated exam of the patient. There are NO changes in the patient's condition. Risks, benefits, and alternatives have been discussed and questions answered. Patient agrees to proceed with procedure.
[2021-09-10] MEDS: METOPROLOL TARTRATE 25 MG TABLET PO ×2 (08:36→20:31)
[2021-09-10] MEDS: PANTOPRAZOLE 40 MG TABLET PO (08:36)
[2021-09-10] MEDS: TIMOLOL MALEATE 0.5% OP SOLN 5 ML BOTTLE 1 DROP RIGHT EYE ×2 (08:36→20:32)
[2021-09-10] MEDS: BRIMONIDINE TARTRATE 0.2% OP SOLN 5 ML BTL 1 DROP RIGHT EYE ×2 (08:36→20:31)
[2021-09-10] MEDS: predniSONE 5 MG TABLET PO (08:36)
--- NOTE | 2021-09-10 08:47 | WPDCDIQUERY2 ---
CDI Query Clarification Request -09/06 urine culture growing >100,000 E coli -EDP and orthopedic consult documented UTI -Abnormal UA documented by hospitalists Please clarify if UTI was ruled in or ruled out. <Sabrina Arnold RN - Last Filed: 09/10/21 08:51> Provider Comments UTI RULED IN <Maria Elena Nichols MD - Last Filed: 09/10/21 15:30>
[2021-09-10] MEDS: LACTATED RINGERS 1,000 ML 30 ML IV CONT (12:40)
--- NOTE | 2021-09-10 12:44 | WPDANESEPPF ---
Anes - Initial Pre Proc Eval Procedure: Operation Date: 09/10/21 15:30 Proposed Procedures p Incision And Drainage Right Hip Hematoma - Austen Zamarripa MD Date/Time: 09/10/21 12:44 Surgeon: Sweetie Blue MD Pre Op Diagnosis: afib rvr/uti/wound check Patient Data Age: 86 Gender: F Height: 1.63 m Weight: 82 kg Last Vital Signs Temp 36.4 C L 09/10/21 12:29 Pulse 62 09/10/21 12:29 Resp 18 09/10/21 12:29 BP 98/51 L 09/10/21 12:29 Pulse Ox 92 09/10/21 12:29 Allergies Allergy/AdvReac Type Severity Reaction Status Date / Time No Known Allergies Allergy Verified 09/06/21 06:32 Home Medications Medication Instructions Recorded Confirmed Type acetaminophen [Acetaminophen Pain 1,000 mg PO BID PRN 12/26/19 09/06/21 History Relief] docusate sodium 200 mg PO DAILY 05/19/20 09/06/21 History multivit with min-folic 1 tablet PO DAILY 11/06/20 09/06/21 History acid-lutein 400 mcg-250 mcg chewable tablet prednisone 5 mg tablet 5 mg PO DAILY 11/06/20 09/06/21 History tramadol 50 mg tablet 50 mg PO Q8H PRN tablet 11/06/20 09/06/21 History methotrexate sodium 7.5 mg PO WEEKLY 01/21/21 09/06/21 History polyethylene glycol 3350 [Miralax] 17 g PO DAILY PRN 01/21/21 09/06/21 History cyanocobalamin (vitamin B-12) See Rx Instructions .ROUTE 03/20/21 09/06/21 Rx 1,000 mcg/mL injection solution .COMPLEX #3 ml gabapentin 100 mg capsule 200 mg PO HS cap 03/20/21 09/06/21 History syringe with needle 3 mL 25 gauge #3 each 08/20/21 09/06/21 Rx x 1 Combigan 1 drp RIGHT EYE BID 08/21/21 09/06/21 History Eliquis 5 mg PO BID 08/21/21 09/06/21 History Lumigan 1 drp RIGHT EYE HS 08/21/21 09/06/21 History atorvastatin 10 mg PO DAILY 08/21/21 09/06/21 History omeprazole 40 mg PO DAILY 08/21/21 09/06/21 History metoprolol tartrate 25 mg PO Q12HR #60 tablet 08/26/21 09/06/21 Rx pantoprazole 40 mg PO QAM #30 tablet 08/26/21 09/06/21 Rx ferrous sulfate 325 mg PO DAILY 09/06/21 09/06/21 History furosemide 40 mg PO DAILY 09/06/21 09/06/21 History hydrocodone-acetaminophen 1 tablet PO Q4-6H PRN 09/06/21 09/06/21 History lactulose 30 g PO DAILY 09/06/21 09/06/21 History mirtazapine 15 mg PO HS 09/06/21 09/06/21 History potassium chloride 20 meq PO DAILY 09/06/21 09/06/21 History spironolactone 25 mg PO DAILY 09/06/21 09/06/21 History Laboratory Tests 09/09/21 14:41 Vancomycin Trough 15.6 ug/mL ug/mL (10.0-20.0) Patient hx anesthesia problems: none Family hx anesthesia problems: none Results Review: All pre-operative results and documents have been reviewed as part of the pre-operative evaluation. [facility] Past Medical History Medical History Age-related hearing loss Cataracts, bilateral maturing Chronic anemia Chronic anticoagulation Degenerative joint disease Dementia Gastroesophageal reflux disease Glaucoma Hypertension Hypothyroidism Mixed hyperlipidemia Osteoporosis Paroxysmal atrial fibrillation Pre-diabetes Presbyesophagus Rheumatoid arthritis Vitamin B12 deficiency Vitamin D deficiency Surgical History Surgical History History of colonoscopy with polypectomy History of dilation and curettage (11/04/19) For postmenopausal bleeding. Pathology demonstrated atrophic endometrium. History of open reduction and internal fixation (ORIF) procedure (08/22/21) IM sukhwinder for right hip fracture. Family History Family History Sibling Acute myocardial infarction Mother Renal failure Social History Social History Social History: Surrogate decision maker: Chandler Serrato, son. Code status: Full code. Smoking status: Never smoker Tobacco type: smokeless tobacco Smokeless tobacco user: snuff Second hand tobacco smoke exposure: Yes Additional smoking assessment co
--- NOTE | 2021-09-10 13:58 | SUR.OPER ---
Right Hip Wound Culture sent with Franki DARLING to Pathology and received by Naye.
--- NOTE | 2021-09-10 14:35 | W.PM.PROC2 ---
Procedure Note - Detailed Date of Procedure 09/10/21 Pre-op Diagnosis RIGHT HIP INFECTED HEMATOMA Post-op Diagnosis same Procedure Performed INCISION AND DRAINAGE WITH IRRIGATION NAD DEBRIDEMENT RIGHT HIP WOUND WITH WOUND VAC PLACEMENT Surgeon Austen Zamarripa MD Anesthesia general Findings HEMATOMA , FAT NECROSIS AND PURULENCE Description of Procedure THE PATIENT WAS TAKEN TO THE OR IN STABLE CONDITION. SHE WAS PLACED UNDER GENERAL ANESTHESIA AND INTUBATED THEN SHE WAS PLACED IN THE LATERAL DECUBITUS. THE RIGHT LOWER EXTREMITY WAS PREPPED AND DRAPED IN THE USUAL FASHION. THE MAIN PROXIMAL WOUND WAS OPEN AND DEHISCED. THE 2 MORE DISTAL WOUNDS WERE NOT SHOWING ANY SIGN OF INFECTION. THE FIRST THING THAT WAS PREFORMED WAS A DEBRIDEMENT OF THE SKIN EDGES WHICH WAS DONE WITH A SHARP KNIFE. DEBRIDEMENT CONTINUED IN TO THE WOUND AND DOWN TO THE FASCIA LAYER. THE LAYER WAS INTACT AND THERE NO COMMUNICATION WITH THE IMPLANT. DEBRIDEMENT OF DEVITALIZED MUSCLE TISSUE WAS ALSO PREFORMED. FAT NECROSIS WAS SEEN THROUGHOUT THE SUBCUTANEOUS FAT LAYER AND THIS WAS DEBRIDED TO GOOD BLEEDING SUBCUTANEOUS LAYER. ONCE THAT WAS PREFORMED THE WOUND APPEARED TO WELL DEBRIDED AND THERE WAS GOOD BLEEDING TISSUE THROUGHOUT THE WOUND BED. THERE WAS NO COMMUNICATION OF THE MAIN WOUND WITH THE DISTAL WOUNDS. ONCE THAT WAS PREFORMED IT APPEARED THAT WOUND CLOSURE WAS NOT POSSIBLE DUE TO THE SWELLING AND MISSING TISSUE. A WOUND VAC WAS THEN PLACED IN THE USUAL FASHION. IT WAS CONNECTED TO THE MAIN SOURCE AND WAS FUNCTIONING WELL. THE WOUNDS WERE DRESSED WITH STERILE DRESSINGS. THE PATIENT WAS EXTUBATED AND SENT TO RECOVERY ROOM Estimated Blood Loss 150 Urine Output 900 Packing Yes (WOUND VAC) Complications No immediate complications Condition stable Disposition PACU
--- NOTE | 2021-09-10 15:21 | PM.IMPN ---
Progress Note: A&P Assessment and Plan (1) Atrial fibrillation with rapid ventricular response: Code(s): I48.91 - Unspecified atrial fibrillation Status: Acute Assessment and Plan: 09/07/2021 Interval history: status post fall and fracture of the right hip and she underwent insertion of IM sukhwinder on 08/22/2021. no patient present with complaint of right hip pain is a concern for an abscess, patient is being treated with cefazolin and vancomycin and we have consulted Orthopedic further recommendation to follow, patient is also has developed atrial fibrillation with RVR most likely triggered by stress from the pain of right hip, patient was started on diltiazem dripp, patient rate is trending down will stop the diltiazem and start the patient on diltiazem 60 mg q.8 p.o. and monitor 09/08/2021 Interval history: status post fall and fracture of the right hip and she underwent insertion of IM sukhwinder on 08/22/2021. now patient presented with complaint of right hip pain and CT scan is concerning for an abscess, patient is being treated with cefazolin and vancomycin pernursing staff today wound in not draining as much and we have consulted Orthopedic further recommendation to follow, patient is also has developed atrial fibrillation with RVR most likely triggered by stress from the pain of right hip, patient was started on diltiazem dripp, patient rate was trending down on 09/07 stopped the diltiazem and started the patient on diltiazem 60 mg q.8 p.o. and monitor rate is trending down, patient is off eliquis for possible wound debridement tomorrow, patient is placed on heparin 5000 SC units b.i.d. 09/09/2021 Interval history: today patient remains clinically stable, has no new complaint, patient was seen orthopedic surgeon and recommending I and D of the right hip which is scheduled for tomorrow, patient heart rate is trending down and stable, will continue present management and monitor 09/10/2021 Interval history: Pt is stable for orthopedic surgery today (2) Postoperative wound infection of right hip: Code(s): T81.49XA - Infection following a procedure, other surgical site, initial encounter Status: Acute (3) Chronic anemia: Code(s): D64.9 - Anemia, unspecified Status: Acute (4) Abnormal urinalysis: Code(s): R82.90 - Unspecified abnormal findings in urine Status: Acute (5) Chronic anticoagulation: Code(s): 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 no patient present with complaint of right hip pain is a concern for an abscess, patient is being treated with cefazolin and vancomycin and we have consulted Orthopedic further recommendation to follow, patient is also has developed atrial fibrillation with RVR most likely triggered by stress from the pain of right hip, patient was started on diltiazem arun, patient rate is trending down will stop the diltiazem and start the patient on diltiazem 60 mg q.8 p.o. and monitor 09/08/2021 Interval history: status post fall and fracture of the right hip and she underwent insertion of IM sukhwinder on 08/22/2021. now patient presented with complaint of right hip pain and CT scan is concerning for an abscess, patient is being treated with cefazolin and vancomycin pernursing staff today wound in not draining as much and we have consulted Orthopedic further recommendation to follow, patient is also has developed atrial fibrillation with RVR most li
[2021-09-10] MEDS: FUROSEMIDE 40 MG TABLET PO (17:05)
[2021-09-10] MEDS: SPIRONOLACTONE 25 MG TABLET PO (17:05)
[2021-09-10] MEDS: FERROUS SULFATE 324 MG TABLET PO (17:06)
[2021-09-10] MEDS: ATORVASTATIN 10 MG TABLET PO (17:06)
[2021-09-10] MEDS: MULTIVITAMINS /C LUTEIN (CENTRUM SILVER) TABLET *BKC 1 TAB PO (17:06)
[2021-09-10] MEDS: APIXABAN 5 MG TABLET PO (17:58)
[2021-09-10] MEDS: GABAPENTIN 100 MG CAPSULE 200 MG PO (20:30)
[2021-09-10] MEDS: LATANOPROST 0.005% OP SOLN 2.5 ML BTL 1 DROP RIGHT EYE (20:31)
[2021-09-10] MEDS: MIRTAZAPINE 15 MG TABLET PO (20:32)
[2021-09-11] VITALS (14 sets, daily range): BP systolic 87–115; BP diastolic 48–59; PULSE 54–109; RESP 12–20; TEMP 36.2–36.9; O2SAT 93–97; BMI 10.0
[2021-09-11] MEDS: HYDROcodone/acetaminophen (*CRX) 7.5-325 MG TABLET 1 TAB PO ×2 (02:23→06:48)
[2021-09-11] MEDS: dilTIAZem HCL 60 MG TABLET PO ×2 (06:48→16:02)
[2021-09-11] MEDS: FERROUS SULFATE 324 MG TABLET PO (08:54)
[2021-09-11] MEDS: APIXABAN 5 MG TABLET PO ×2 (08:54→16:06)
[2021-09-11] MEDS: BRIMONIDINE TARTRATE 0.2% OP SOLN 5 ML BTL 1 DROP RIGHT EYE ×2 (08:55→21:34)
[2021-09-11] MEDS: DOCUSATE SODIUM 100 MG CAPSULE 200 MG PO (08:55)
[2021-09-11] MEDS: ATORVASTATIN 10 MG TABLET PO (08:55)
[2021-09-11] MEDS: FUROSEMIDE 40 MG TABLET PO (08:56)
[2021-09-11] MEDS: METOPROLOL TARTRATE 25 MG TABLET PO (08:57)
[2021-09-11] MEDS: PANTOPRAZOLE 40 MG TABLET PO (08:58)
[2021-09-11] MEDS: SPIRONOLACTONE 25 MG TABLET PO (08:58)
[2021-09-11] MEDS: predniSONE 5 MG TABLET PO (08:58)
[2021-09-11] MEDS: MULTIVITAMINS /C LUTEIN (CENTRUM SILVER) TABLET *BKC 1 TAB PO (08:58)
[2021-09-11] MEDS: TIMOLOL MALEATE 0.5% OP SOLN 5 ML BOTTLE 1 DROP RIGHT EYE ×2 (08:59→21:34)
[2021-09-11] MEDS: CYANOCOBALAMIN INJ 1,000 MCG/ML VIAL 1000 MCG SUB-Q (12:40)
[2021-09-11] MEDS: SODIUM CHLORIDE 0.9% IV 250 ML 999 ML IV CONT (13:39)
--- NOTE | 2021-09-11 16:18 | PM.IMPN ---
Progress Note: A&P Assessment and Plan (1) Atrial fibrillation with rapid ventricular response: Code(s): I48.91 - Unspecified atrial fibrillation Status: Acute Assessment and Plan: 09/07/2021 Interval history: status post fall and fracture of the right hip and she underwent insertion of IM sukhwinder on 08/22/2021. no patient present with complaint of right hip pain is a concern for an abscess, patient is being treated with cefazolin and vancomycin and we have consulted Orthopedic further recommendation to follow, patient is also has developed atrial fibrillation with RVR most likely triggered by stress from the pain of right hip, patient was started on diltiazem dripp, patient rate is trending down will stop the diltiazem and start the patient on diltiazem 60 mg q.8 p.o. and monitor 09/08/2021 Interval history: status post fall and fracture of the right hip and she underwent insertion of IM sukhwinder on 08/22/2021. now patient presented with complaint of right hip pain and CT scan is concerning for an abscess, patient is being treated with cefazolin and vancomycin pernursing staff today wound in not draining as much and we have consulted Orthopedic further recommendation to follow, patient is also has developed atrial fibrillation with RVR most likely triggered by stress from the pain of right hip, patient was started on diltiazem dripp, patient rate was trending down on 09/07 stopped the diltiazem and started the patient on diltiazem 60 mg q.8 p.o. and monitor rate is trending down, patient is off eliquis for possible wound debridement tomorrow, patient is placed on heparin 5000 SC units b.i.d. 09/09/2021 Interval history: today patient remains clinically stable, has no new complaint, patient was seen orthopedic surgeon and recommending I and D of the right hip which is scheduled for tomorrow, patient heart rate is trending down and stable, will continue present management and monitor 09/10/2021 Interval history: Pt is stable for orthopedic surgery today (2) Postoperative wound infection of right hip: Code(s): T81.49XA - Infection following a procedure, other surgical site, initial encounter Status: Acute Assessment and Plan: Procedure was well tolerated. Patient is postop day 1. Plan for wound closure on Thursday. Continue pain management. (3) Chronic anemia: Code(s): D64.9 - Anemia, unspecified Status: Acute Assessment and Plan: Moderate macrocytic anemia, stable and well tolerated with a hemoglobin of 10.5. Send B12 and folate. (4) Abnormal urinalysis: Code(s): R82.90 - Unspecified abnormal findings in urine Status: Acute Assessment and Plan: Urine culture growing pansensitive E coli. Currently patient on cefepime and vancomycin. Cefepime will cover for E coli UTI. (5) Chronic anticoagulation: Code(s): Z79.01 - prison (current) use of anticoagulants Status: Acute Assessment and Plan: Continue Eliquis 5 mg p.o. b.i.d.. (6) Hypothyroidism: Code(s): E03.9 - Hypothyroidism, unspecified Status: Chronic Assessment and Plan: Chronic and stable . Check TSA agent obtain home medication records. (7) Hypertension: Code(s): I10 - Essential (primary) hypertension Status: Chronic Assessment and Plan: Chronic and stable . At home patient was on furosemide 40 mg p.o. daily, metoprolol tartrate 25 mg p.o. q.12 hour, spironolactone 25 mg p.o. daily. Blood pressure was low earlier today at 87/54. Patient given normal saline 250 cc. Hold blood pressure medication for BP less than 140/90.. Additional Plan The patient was brought in on 09/06/2021 for evaluation of a right hip wound and area of dehiscence around the proximal-most incision on her right hip. There is some surrounding warmth and erythema with evidence of seroma, hematoma, or possibly even abscess contiguous with the incision noted on CT thus she has be
--- NOTE | 2021-09-11 16:32 | PM.PNORT ---
Progress Note: A&P Additional Plan POD 1 DOING WELL. WILL GO FOR SECOND LOOK AND POSSIBLE WOUND CLOSURE ON THURSDAY Subjective Subjective Date/Time Seen: 09/11/21 16:32 POD 1 I AND D RIGHT HIP WOUND. SHE HAS MINIMAL HIP PAIN, NO CALF PAIN Exam Extrem: Other: VSS AFEBRILE WOUND VAC IN PLACE DRAINING WELL, NEG HOMANS SIGN CALF SOFT NON TENDER. NEG HOMANS SIGN Objective Data Vital Signs Vital Signs: Vital Signs - 24 hr 09/10/21 18:00 09/10/21 20:00 09/10/21 20:31 Temperature 36.6 C Pulse Rate 115 H 104 H 120 H Respiratory Rate 20 Blood Pressure 124/71 Pulse Oximetry 97 09/10/21 22:00 09/10/21 23:13 09/11/21 00:00 Temperature 36.6 C Pulse Rate 97 103 H 99 Respiratory Rate 20 Blood Pressure 112/51 L Pulse Oximetry 98 09/11/21 02:00 09/11/21 04:00 09/11/21 06:00 Temperature 36.8 C Pulse Rate 102 H 104 H 98 Respiratory Rate 20 Blood Pressure 115/59 L Pulse Oximetry 97 09/11/21 08:00 09/11/21 08:57 09/11/21 10:00 Temperature 36.2 C L Pulse Rate 101 H 109 H 63 Respiratory Rate 18 Blood Pressure 96/50 L Pulse Oximetry 97 09/11/21 12:00 09/11/21 14:00 Temperature 36.6 C Pulse Rate 54 L 62 Respiratory Rate 18 Blood Pressure 87/54 L Pulse Oximetry 97 Intake/Output Intake/Output: Intake & Output 09/08/21 09/09/21 09/10/21 09/11/21 23:59 23:59 23:59 23:59 Intake Total 1150 590 640 440 Output Total 2690 600 Balance 1150 590 -2050 -160 Meds/Results Medications: Active Medications Generic Name Dose Route Start Last Admin Trade Name Freq PRN Reason Stop Dose Admin Acetaminophen 1,000 mg 09/10/21 15:30 Acetaminophen 500 Mg Tablet PO BID PRN Pain (Scale Score 1-3) Hydrocodone Bitart/Acetaminophen 1 tab 09/06/21 13:31 09/11/21 06:48 Hydrocodone/Acetaminophen (*Crx) 7.5-325 Mg Tablet PO 1 tab Q4-6H PRN Administration Pain (Scale Score 7-10) Apixaban 5 mg 09/10/21 17:00 09/11/21 16:06 Apixaban 5 Mg Tablet PO 5 mg BID JAMES Administration Atorvastatin Calcium 10 mg 09/07/21 09:00 09/11/21 08:55 Atorvastatin 10 Mg Tablet PO 10 mg DAILY JAMES Administration Brimonidine Tartrate 1 drop 09/06/21 21:00 09/11/21 08:55 Brimonidine Tartrate 0.2% Op Soln 5 Ml Btl RIGHT EYE 1 drop Q12HR JAMES Administration Cyanocobalamin 1,000 mcg 09/11/21 09:00 09/11/21 12:40 Cyanocobalamin Inj 1,000 Mcg/Ml Vial SUB-Q 1,000 mcg Q31D JAMES Administration Diltiazem HCl 60 mg 09/07/21 15:50 09/11/21 16:02 Diltiazem Hcl 60 Mg Tablet PO 60 mg Q8HR JAMES Administration Docusate Sodium 200 mg 09/07/21 09:00 09/11/21 08:55 Docusate Sodium 100 Mg Capsule PO 200 mg DAILY JAMES Administration Ferrous Sulfate 324 mg 09/07/21 08:00 09/11/21 08:54 Ferrous Sulfate 324 Mg Tablet PO 324 mg DAILY@0800 JAMES Administration Furosemide 40 mg 09/07/21 09:00 09/11/21 08:56 Furosemide 40 Mg Tablet PO 40 mg DAILY JAMES Administration Gabapentin 200 mg 09/06/21 21:00 09/10/21 20:30 Gabapentin 100 Mg Capsule PO 200 mg HS JAMES Administration Cefepime HCl 2 gm in 50 mls @ 100 mls/hr 09/07/21 09:00 09/11/21 09:33 Maxipime 2 Gm/D5w 50 Ml IVPB Infused Q24H JAMES Infusion Vancomycin HCl 1,250 mg in 250 mls @ 200 mls/hr 09/10/21 03:00 09/11/21 16:02 Vancomycin 1,250 Mg/D5w 250 Ml IVPB 200 mls/hr Q36H JAMES Administration Lactulose 30 gm 09/07/21 09:00 09/11/21 08:57 Lactulose 20 Gm/30 Ml Udc PO Not Given DAILY JAMES Latanoprost 1 drop 09/06/21 21:00 09/10/21 20:31 Latanoprost 0.005% Op Soln 2.5 Ml Btl RIGHT EYE 10/06/21 20:59 1 drop HS JAMES Administration Methotrexate 7.5 mg 09/16/21 09:00 Methotrexate 2.5 Mg Tab (*Chemo) PO Mo@0900 JAMES Metoprolol Tartrate 25 mg 09/06/21 21:00 09/11/21 08:57 Metoprolol Tartrate 25 Mg Tablet PO 25 mg Q12HR JAMES Administration Mirtazapine 15 mg 09/06/21 21:00 09/10/21 20:32 Mirtazapine 15
[2021-09-11] MEDS: GABAPENTIN 100 MG CAPSULE 200 MG PO (21:33)
[2021-09-11] MEDS: MIRTAZAPINE 15 MG TABLET PO (21:33)
[2021-09-11] MEDS: LATANOPROST 0.005% OP SOLN 2.5 ML BTL 1 DROP RIGHT EYE (21:34)
[2021-09-12] VITALS (18 sets, daily range): BP systolic 98–119; BP diastolic 47–66; PULSE 63–110; RESP 14–20; TEMP 36.3–37.4; O2SAT 94–98; BMI 10.0
[2021-09-12] MEDS: dilTIAZem HCL 60 MG TABLET PO (04:40)
[2021-09-12 05:59] LABS: Estimated CRCL calculation 35 ml/min; Estimated Glomerular Filt Rate 47
--- NOTE | 2021-09-12 09:30 | PM.PNORT ---
Progress Note: A&P Assessment and Plan (1) Postoperative wound infection of right hip: Code(s): T81.49XA - Infection following a procedure, other surgical site, initial encounter Status: Acute Assessment and Plan: POD #2: INCISION AND DRAINAGE WITH IRRIGATION NAD DEBRIDEMENT RIGHT HIP WOUND WITH WOUND VAC PLACEMENT Wound VAC in place and functioning well. Sanguinous drainage in chamber. (100mL). NWB RLE. Fall precautions. Intraoperative wound cultures pending. Continue pain control. Ice lateral hip. IV antibiotics per medicine team. ID Consult pending final cultures may be beneficial. Plan for return to OR tomorrow for repeat I&D and possible wound closure. NPO at midnight. Subjective Subjective Date/Time Seen: 09/12/21 09:30 Post Op day: 2 Interval history: POD #2: INCISION AND DRAINAGE WITH IRRIGATION NAD DEBRIDEMENT RIGHT HIP WOUND WITH WOUND VAC PLACEMENT No complaints. Winces in pain when palpating lateral hip. Review of Systems Review of Systems: All systems reviewed & are unremarkable except as noted in HPI and below ROS unobtainable: Yes other (dementia ) Constitutional: Constitutional: Reports as per HPI Exam Const: General: comfortable and no acute distress Resp: Effort & Inspection: normal respiratory effort Cardio: Rate: regular rate Rhythm: regular rhythm GI: GI Palp: Yes Soft to palpation Urinary Catheter: Urinary Catheter: patent and draining Skin: Wounds: wounds noted (lateral hip and proximal hip ) Neuro: General: No gait normal Speech: normal speech Motor exam (neuro): strength not 5/5 throughout and Abnormal motor strength present (b/l LE ) Extrem: Right lower extremity: hip/thigh Details: tenderness Location: of the hip Location: laterally, abnormal ROM (limited ) and ecchymosis (lateral hip ); ROM abnormal, knee Details: normal to inspection and normal ROM; no tenderness and no swelling, lower leg (Negative Mariano's Sign ), ankle (+ankle dorsiflexion/plantarflexion ) and foot (Moves toes, sensation intact to light touch) Other: Wound vac in place and functioning over the proximal hip incision. Dressing over the lateral thigh c/d/i. Wound VAC with sanguinous drainage in the chamber. (100mL) Objective Data Vital Signs Vital Signs: Vital Signs - 24 hr 09/11/21 10:00 09/11/21 12:00 09/11/21 14:00 Temperature 36.6 C Pulse Rate 63 54 L 62 Respiratory Rate 18 Blood Pressure 87/54 L Pulse Oximetry 97 09/11/21 14:10 09/11/21 16:00 09/11/21 18:00 Temperature 36.9 C Pulse Rate 81 68 Respiratory Rate 12 Blood Pressure 97/57 L 96/55 L Pulse Oximetry 94 09/11/21 20:00 09/11/21 22:00 09/12/21 00:00 Temperature 36.5 C 36.6 C Pulse Rate 66 75 73 Respiratory Rate 20 18 Blood Pressure 111/48 L 99/47 L Pulse Oximetry 97 98 09/12/21 02:00 09/12/21 04:00 09/12/21 05:32 Temperature 36.5 C Pulse Rate 82 108 H 110 H Respiratory Rate 20 Blood Pressure 114/64 Pulse Oximetry 98 98 09/12/21 06:00 Temperature Pulse Rate 109 H Respiratory Rate Blood Pressure Pulse Oximetry Intake/Output Intake/Output: Intake & Output 09/09/21 09/10/21 09/11/21 09/12/21 23:59 23:59 23:59 23:59 Intake Total 219 726 5930 Output Total 2690 1250 1600 Balance 590 -2050 300 -1600 Meds/Results Medications: Active Medications Generic Name Dose Route Start Last Admin Trade Name Lisandro PRN Reason Stop Dose Admin Acetaminophen 1,000 mg 09/10/21 15:30 Acetaminophen 500 Mg Tablet PO BID PRN Pain (Scale Score 1-3) Hydrocodone Bitart/Acetaminophen 1 tab 09/06/21 13:31 09/11/21 06:48 Hydrocodone/Acetaminophen (*Crx) 7.5-325 Mg Tablet PO 1 tab Q4-6H PRN Administration Pain (Scale Score 7-10) Apixaban 5 mg 09/10/21 17:00 09/11/21 16:06 Apixaban 5 Mg Tablet PO 5 mg BID JAMES Administration Atorvastatin Calcium 10 mg 09/07/21 09:00 09/11/21 08:55 Atorvastatin 10 Mg Tablet PO 10 mg
[2021-09-12] MEDS: FERROUS SULFATE 324 MG TABLET PO (09:51)
[2021-09-12] MEDS: APIXABAN 5 MG TABLET PO ×2 (09:51→16:59)
[2021-09-12] MEDS: METOPROLOL TARTRATE 25 MG TABLET PO (09:52)
[2021-09-12] MEDS: TIMOLOL MALEATE 0.5% OP SOLN 5 ML BOTTLE 1 DROP RIGHT EYE ×2 (09:52→21:24)
[2021-09-12] MEDS: BRIMONIDINE TARTRATE 0.2% OP SOLN 5 ML BTL 1 DROP RIGHT EYE ×2 (09:52→21:23)
[2021-09-12] MEDS: PANTOPRAZOLE 40 MG TABLET PO (09:52)
[2021-09-12] MEDS: FUROSEMIDE 40 MG TABLET PO (09:53)
[2021-09-12] MEDS: DOCUSATE SODIUM 100 MG CAPSULE 200 MG PO (09:53)
[2021-09-12] MEDS: predniSONE 5 MG TABLET PO (09:53)
[2021-09-12] MEDS: LACTULOSE 20 GM/30 ML UDC 30 GM PO (09:53)
[2021-09-12] MEDS: SPIRONOLACTONE 25 MG TABLET PO (09:54)
[2021-09-12] MEDS: MULTIVITAMINS /C LUTEIN (CENTRUM SILVER) TABLET *BKC 1 TAB PO (09:54)
[2021-09-12] MEDS: ATORVASTATIN 10 MG TABLET PO (09:54)
--- NOTE | 2021-09-12 13:30 | PC.NURSE ---
On 09/12/21, the student, [Maria Luisa Moody], provided care and completed [facility] documentation on this patient. I have reviewed the student's documentation and agree with the findings.
--- NOTE | 2021-09-12 18:08 | P.PNIM_ITS ---
Progress Note: A&P Assessment and Plan (1) Atrial fibrillation with rapid ventricular response: Code(s): I48.91 - Unspecified atrial fibrillation Status: Acute Assessment and Plan: 09/07/2021 Interval history: status post fall and fracture of the right hip and she underwent insertion of IM sukhwinder on 08/22/2021. no patient present with complaint of right hip pain is a concern for an abscess, patient is being treated with cefazolin and vancomycin and we have consulted Orthopedic further recommendation to follow, patient is also has developed atrial fibrillation with RVR most likely triggered by stress from the pain of right hip, patient was started on diltiazem dripp, patient rate is trending down will stop the diltiazem and start the patient on diltiazem 60 mg q.8 p.o. and monitor 09/08/2021 Interval history: status post fall and fracture of the right hip and she underwent insertion of IM sukhwinder on 08/22/2021. now patient presented with complaint of right hip pain and CT scan is concerning for an abscess, patient is being treated with cefazolin and vancomycin pernursing staff today wound in not draining as much and we have consulted Orthopedic further recommendation to follow, patient is also has developed atrial fibrillation with RVR most likely triggered by stress from the pain of right hip, patient was started on diltiazem dripp, patient rate was trending down on 09/07 stopped the diltiazem and started the patient on diltiazem 60 mg q.8 p.o. and monitor rate is trending down, patient is off eliquis for possible wound debridement tomorrow, patient is placed on heparin 5000 SC units b.i.d. 09/09/2021 Interval history: today patient remains clinically stable, has no new complaint, patient was seen orthopedic surgeon and recommending I and D of the right hip which is scheduled for tomorrow, patient heart rate is trending down and stable, will continue present management and monitor 09/10/2021 Interval history: Pt is stable for orthopedic surgery today (2) Postoperative wound infection of right hip: Code(s): T81.49XA - Infection following a procedure, other surgical site, initial encounter Status: Acute Assessment and Plan: Procedure was well tolerated. Patient is postop day 2. Plan for wound closure on Thursday. Continue pain management. (3) Chronic anemia: Code(s): D64.9 - Anemia, unspecified Status: Acute Assessment and Plan: Moderate macrocytic anemia, stable and well tolerated with a hemoglobin of 10.5. Send B12 and folate. (4) Abnormal urinalysis: Code(s): R82.90 - Unspecified abnormal findings in urine Status: Acute Assessment and Plan: Urine culture growing pansensitive E coli. Currently patient on cefepime and vancomycin. Cefepime will cover for E coli UTI. (5) Chronic anticoagulation: Code(s): Z79.01 - [facility] (current) use of anticoagulants Status: Acute Assessment and Plan: Continue Eliquis 5 mg p.o. b.i.d.. (6) Hypothyroidism: Code(s): E03.9 - Hypothyroidism, unspecified Status: Chronic Assessment and Plan: Chronic and stable . Check TSA agent obtain home medication records. (7) Hypertension: Code(s): I10 - Essential (primary) hypertension Status: Chronic Assessment and Plan: Chronic and stable . At home patient was on furosemide 40 mg p.o. daily, metoprolol tartrate 25 mg p.o. q.12 hour, spironolactone 25 mg p.o. daily. Blood pressure was low earlier today at 87/54. Patient given normal saline 250 cc. Hold blood pressure medication for BP less than 140/90.. Additional Plan [facility]
[2021-09-12] MEDS: LATANOPROST 0.005% OP SOLN 2.5 ML BTL 1 DROP RIGHT EYE (21:23)
[2021-09-12] MEDS: GABAPENTIN 100 MG CAPSULE 200 MG PO (21:23)
[2021-09-12] MEDS: MIRTAZAPINE 15 MG TABLET PO (21:25)
--- NOTE | 2021-09-12 21:29 | PC.NURSE ---
Metoprolol held due to MD order to hold if patient BP less than 140/90. See 2000 vital signs for reference.
[2021-09-13] VITALS (25 sets, daily range): BP systolic 90–135; BP diastolic 58–97; PULSE 75–142; RESP 14–24; TEMP 36.4–37.1; O2SAT 94–97; BMI 31.9
[2021-09-13 03:08] LABS: Vancomycin Trough 15.6 ug/mL (10.0-20.0)
--- NOTE | 2021-09-13 07:51 | PCOTNOTE ---
Pt. going to surgery at 9:30 I&D of R hip. Will reassess and continue plan of care as appropriate.
--- NOTE | 2021-09-13 09:15 | PM.IMPN ---
Progress Note: A&P Assessment and Plan (1) Atrial fibrillation with rapid ventricular response: Code(s): I48.91 - Unspecified atrial fibrillation Status: Acute Assessment and Plan: Patient is rate controlled with a pulse of 95. She is on chronic anticoagulation with apixaban well 5 mg b.i.d.. Hold apixaban prior to intervention today. (2) Postoperative wound infection of right hip: Code(s): T81.49XA - Infection following a procedure, other surgical site, initial encounter Status: Acute Assessment and Plan: Procedure was well tolerated. Patient is postop day 2. Plan for wound closure on Thursday. Continue pain management. (3) Chronic anemia: Code(s): D64.9 - Anemia, unspecified Status: Acute Assessment and Plan: Moderate macrocytic anemia, stable and well tolerated with a hemoglobin of 10.5. Send B12 and folate. (4) Abnormal urinalysis: Code(s): R82.90 - Unspecified abnormal findings in urine Status: Acute Assessment and Plan: Urine culture growing pansensitive E coli. Currently patient on cefepime and vancomycin. Cefepime will cover for E coli UTI. 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 b.i.d. hold Eliquis for to intervention today (6) Hypothyroidism: Code(s): E03.9 - Hypothyroidism, unspecified Status: Chronic Assessment and Plan: Chronic and stable . Check TSH obtain home medication records. (7) Hypertension: Code(s): I10 - Essential (primary) hypertension Status: Chronic Assessment and Plan: Chronic and stable . At home patient was on furosemide 40 mg p.o. daily, metoprolol tartrate 25 mg p.o. q.12 hour, spironolactone 25 mg p.o. daily. Blood pressure is currently stable at 113/75. Additional Plan The patient was brought in on 09/06/2021 for evaluation of a right hip wound and area of dehiscence around the proximal-most incision on her right hip. There is some surrounding warmth and erythema with evidence of seroma, hematoma, or possibly even abscess contiguous with the incision noted on CT thus she has been started on empiric antibiotics to include cefepime and vancomycin. Dr. Zamarripa has been consulted and his recommendations are appreciated. She has been started on a Cardizem drip for AFib/RVR with some improvement in her rate. She is on apixaban for stroke prophylaxis though I am going to place on hold tonight as she may need exploration and/or debridement of the wound. She has a chronic anemia which is stable on review of previous labs. Her urinalysis is abnormal however she has no symptoms of UTI. Blood pressures were reviewed and they have been running on the low end of normal, likely due to Cardizem drip. Continue antihypertensives with parameters. The rest of her home medications will be reviewed and resumed as appropriate. 09/07/2021 Interval history: status post fall and fracture of the right hip and she underwent insertion of IM sukhwinder on 08/22/2021. no patient present with complaint of right hip pain is a concern for an abscess, patient is being treated with cefazolin and vancomycin and we have consulted Orthopedic further recommendation to follow, patient is also has developed atrial fibrillation with RVR most likely triggered by stress from the pain of right hip, patient was started on diltiazem dripp, patient rate is trending down will stop the diltiazem and start the patient on diltiazem 60 mg q.8 p.o. and monitor 09/08/2021 Interval history: status post fall and fracture of the right hip and she underwent insertion of IM sukhwinder on 08/22/2021. now patient presented with complaint of right hip pain and CT scan is concerning for an abscess, patient is being treated with cefazolin and vancomycin pernursing staff today wound in not draining as much and we have consulted Orthopedic
--- NOTE | 2021-09-13 10:28 | WPDANESEPPF ---
Anes - Initial Pre Proc Eval Procedure: Operation Date: 09/10/21 15:30 Proposed Procedures p Incision And Drainage Right Hip Hematoma - Austen Zamarripa MD Operation Date: 09/13/21 11:00 Proposed Procedures p Incision and Drainage Right Hip with Closure - Austen Zamarripa MD Date/Time: 09/13/21 10:28 Surgeon: Sweetie Blue MD Pre Op Diagnosis: afib rvr/uti/wound check Patient Data Age: 86 Gender: F Height: 1.63 m Weight: 84.5 kg Last Vital Signs Temp 36.8 C 09/13/21 08:33 Pulse 95 09/13/21 08:33 Resp 18 09/13/21 08:33 BP 113/75 09/13/21 08:33 Pulse Ox 94 09/13/21 08:33 Allergies Allergy/AdvReac Type Severity Reaction Status Date / Time No Known Allergies Allergy Verified 09/06/21 06:32 Home Medications Medication Instructions Recorded Confirmed Type acetaminophen [Acetaminophen Pain 1,000 mg PO BID PRN 12/26/19 09/06/21 History Relief] docusate sodium 200 mg PO DAILY 05/19/20 09/06/21 History multivit with min-folic 1 tablet PO DAILY 11/06/20 09/06/21 History acid-lutein 400 mcg-250 mcg chewable tablet prednisone 5 mg tablet 5 mg PO DAILY 11/06/20 09/06/21 History tramadol 50 mg tablet 50 mg PO Q8H PRN tablet 11/06/20 09/06/21 History methotrexate sodium 7.5 mg PO WEEKLY 01/21/21 09/06/21 History polyethylene glycol 3350 [Miralax] 17 g PO DAILY PRN 01/21/21 09/06/21 History cyanocobalamin (vitamin B-12) See Rx Instructions .ROUTE 03/20/21 09/06/21 Rx 1,000 mcg/mL injection solution .COMPLEX #3 ml gabapentin 100 mg capsule 200 mg PO HS cap 03/20/21 09/06/21 History syringe with needle 3 mL 25 gauge #3 each 08/20/21 09/06/21 Rx x 1 Combigan 1 drp RIGHT EYE BID 08/21/21 09/06/21 History Eliquis 5 mg PO BID 08/21/21 09/06/21 History Lumigan 1 drp RIGHT EYE HS 08/21/21 09/06/21 History atorvastatin 10 mg PO DAILY 08/21/21 09/06/21 History omeprazole 40 mg PO DAILY 08/21/21 09/06/21 History metoprolol tartrate 25 mg PO Q12HR #60 tablet 08/26/21 09/06/21 Rx pantoprazole 40 mg PO QAM #30 tablet 08/26/21 09/06/21 Rx ferrous sulfate 325 mg PO DAILY 09/06/21 09/06/21 History furosemide 40 mg PO DAILY 09/06/21 09/06/21 History hydrocodone-acetaminophen 1 tablet PO Q4-6H PRN 09/06/21 09/06/21 History lactulose 30 g PO DAILY 09/06/21 09/06/21 History mirtazapine 15 mg PO HS 09/06/21 09/06/21 History potassium chloride 20 meq PO DAILY 09/06/21 09/06/21 History spironolactone 25 mg PO DAILY 09/06/21 09/06/21 History Laboratory Tests 09/13/21 02:14 Vancomycin Trough 15.6 ug/mL ug/mL (10.0-20.0) Patient hx anesthesia problems: none Family hx anesthesia problems: none Results Review: All pre-operative results and documents have been reviewed as part of the pre-operative evaluation. [facility] Past Medical History Medical History Age-related hearing loss Cataracts, bilateral maturing Chronic anemia Chronic anticoagulation Degenerative joint disease Dementia Gastroesophageal reflux disease Glaucoma Hypertension Hypothyroidism Mixed hyperlipidemia Osteoporosis Paroxysmal atrial fibrillation Pre-diabetes Presbyesophagus Rheumatoid arthritis Vitamin B12 deficiency Vitamin D deficiency Surgical History Surgical History History of colonoscopy with polypectomy History of dilation and curettage (11/04/19) For postmenopausal bleeding. Pathology demonstrated atrophic endometrium. History of open reduction and internal fixation (ORIF) procedure (08/22/21) IM sukhwinder for right hip fracture. Family History Family History Sibling Acute myocardial infarction Mother Renal failure Social History Social History Social History: Surrogate decision maker: Chandler Serrato, son. Code status: Full code. Smoking status: Never smoker Toba
[2021-09-13] MEDS: METOPROLOL TARTRATE INJ 5 MG/5 ML VIAL 2.5 MG IV PUSH (10:33)
[2021-09-13] MEDS: LACTATED RINGERS 1,000 ML 30 ML IV CONT (10:34)
--- NOTE | 2021-09-13 11:03 | WPDCDIQUERY2 ---
CDI Query Clarification Request - DEBRIDEMENT OF THE SKIN EDGES WHICH WAS DONE WITH A SHARP KNIFE and DEBRIDEMENT OF DEVITALIZED MUSCLE TISSUE WAS ALSO PREFORMED and FAT NECROSIS WAS SEEN THROUGHOUT THE SUBCUTANEOUS FAT LAYER AND THIS WAS DEBRIDED has been documented. Please further specify if debridement was excisional or nonexcisional.
--- NOTE | 2021-09-13 11:11 | PCPTNOTE ---
Attempted to see patient for PT at this time, however unable due to patient out of room for procedure.
--- NOTE | 2021-09-13 12:48 | W.PM.PROC2 ---
Procedure Note - Detailed Date of Procedure 09/13/21 Pre-op Diagnosis RIGHT HIP OPEN WOUND S/P I AND D Post-op Diagnosis same Procedure Performed I AND D AND WOUND CLOSURE RIGHT HIP WOUND Surgeon Austen Zamarripa MD Anesthesia general Description of Procedure THE PATIENT WAS TAKEN TO THE OR IN STABLE CONDITION AND WAS PLACED UNDER GENERAL ANESTHESIA AND INTUBATED THEN PLACED IN THE LATERAL DECUBITUS. THE RIGHT LOWER EXTREMITY WAS PREPPED AND DRAPED IN THE USUAL FASHION. THE WOUND WAS INSPECTED. IT LOOKED VERY CLEAN AND THERE WAS NO SIGNIFICANT AMOUNT OF DEVITALIZED TISSUE. THERE WAS NO OBVIOUS FAT NECROSIS. THERE WAS NO GROSS PURULENCE. THERE WAS A NICE GRANULATING TISSUE BED AT THE REGION OF THE GREATER TROCHANTER. THERE WAS NO COMMUNICATION OF THE WOUND WITH THE HARDWARE. THE WOUND WAS THEN IRRIGATED WITH STERILE WATER AND BETADINE WITH 6 LITERS OF FLUID. THE SUBCUTANEOUS LAYER WAS APPROXIMATED WITH 2-0 VICRYL. THE SKIN WAS CLOSED WITH NUMBER 1 PROLINE. A PREVENA DRESSING WAS PLACED. THE PATIENT EXTUBATED AND SENT TO RECOVERY ROOM. Estimated Blood Loss 20 Urine Output -300.0 Complications No immediate complications Condition stable Disposition PACU
[2021-09-13] MEDS: fentaNYL CITRATE INJ (*CRX) 100 MCG/2 ML VIAL 25 MCG IV PUSH ×3 (13:05→13:33)
--- NOTE | 2021-09-13 13:49 | PC.NURSE ---
On 09/13/21, the student, [Amanda Sawyer], provided care and completed [facility] documentation on this patient. I have reviewed the student's documentation and agree with the findings.
--- NOTE | 2021-09-13 14:15 | PCNSR ---
On 09/13/21, the student, Paige Huggins, provided care and completed [facility] documentation on this patient. I have reviewed the student's documentation and agree with the findings.
[2021-09-13] MEDS: BRIMONIDINE TARTRATE 0.2% OP SOLN 5 ML BTL 1 DROP RIGHT EYE ×2 (14:16→21:17)
[2021-09-13] MEDS: TIMOLOL MALEATE 0.5% OP SOLN 5 ML BOTTLE 1 DROP RIGHT EYE ×2 (14:16→21:14)
--- NOTE | 2021-09-13 14:18 | ECG_ITS ---
Measurements Intervals [place] Rate: 127 P: MD: 0 QRS: -15 QRSD: 83 T: 134 QT: 262 QTc: 381 Interpretive Statements ATRIAL FIBRILLATION WITH RAPID VENTRICULAR RESPONSE NONSPECIFIC ST & T-WAVE ABNORMALITY- ANTEROLAT/HIGH LAT LEADS BASELINE ARTIFACT- II, AVR, AVF, V6 ABNORMAL ECG Electronically Signed On 09-13-2021 14:35:40 TRAFFIC SUPERINTENDENT by Tyrell Cornejo D.O.
[2021-09-13] MEDS: ATORVASTATIN 10 MG TABLET PO (14:23)
[2021-09-13] MEDS: SPIRONOLACTONE 25 MG TABLET PO (14:24)
[2021-09-13] MEDS: PANTOPRAZOLE 40 MG TABLET PO (14:24)
[2021-09-13] MEDS: FUROSEMIDE 40 MG TABLET PO (14:24)
[2021-09-13] MEDS: MULTIVITAMINS /C LUTEIN (CENTRUM SILVER) TABLET *BKC 1 TAB PO (14:24)
[2021-09-13] MEDS: METOPROLOL TARTRATE 25 MG TABLET PO ×2 (14:24→21:16)
[2021-09-13] MEDS: FERROUS SULFATE 324 MG TABLET PO (14:24)
[2021-09-13] MEDS: HYDROcodone/acetaminophen (*CRX) 7.5-325 MG TABLET 1 TAB PO ×2 (15:27→21:16)
[2021-09-13] MEDS: dilTIAZem HCL 60 MG TABLET PO ×2 (15:27→21:16)
--- NOTE | 2021-09-13 16:09 | PM.EVENT ---
Event Note Event Note Event Note: Patient became tachycardic with heart rate 150-1 70s. Her Cardizem 60 mg p.o. every 8 hours was restarted. Repeat heart rate 1 hour later 106-115. Stat BMP and magnesium level orders. Continue close clinical monitoring.
[2021-09-13 17:01] LABS: Basophils Absolute Auto 0.1 K/mm3 (0.0-0.1); Basophils Percent Auto 0.5 % (0.2-1.2); Eosinophils Absolute Auto 0.3 K/mm3 (0-0.3); Eosinophils Percent Auto 1.6 % (0-4.4); Hematocrit 35.6 % (37.0-47.0); Hemoglobin 10.6 g/dL (12.0-15.0); Immature Granulocyte Absolute 0.29 K/mm3 (0.00-0.031); Immature Granulocyte Percent A 1.9 % (0-0.5); Lymphocytes Absolute Auto 2.89 K/mm3 (0.9-3.2); Lymphocytes Percent Auto 18.6 % (18.3-44.2); Mean Corpuscular HGB Conc 29.8 g/dl (32-36); Mean Corpuscular Hemoglobin 32.7 pg (26-34); Mean Corpuscular Volume 109.9 fl (80-100); Mean Platelet Volume 10.1 fl (7.4-10.4); Monocytes Absolute Auto 1.4 K/mm3 (0.1-0.6); Monocytes Percent Auto 9.2 % (2.6-8.5); Neutrophils Absolute Auto 10.6 K/mm3 (1.3-6.7); Neutrophils Percent Auto 68.2 % (45.5-73.1); Platelet Count Result 399 k/mm3 (150-375); Red Blood Count 3.24 M/mm3 (4.2-5.4); Red Cell Distribution Width 18.1 % (11.5-14.5); White Blood Count 15.5 K/mm3 (4.5-10.0)
[2021-09-13 17:13] LABS: Anion Gap 11 mmol/L (8-16); Blood Urea Nitrogen 24 mg/dL (7-17); Calcium 9.2 mg/dL (8.4-10.2); Carbon Dioxide 23 mmol/L (22-30); Chloride 99 mmol/L (98-107); Estimated CRCL calculation 32 ml/min; Estimated Glomerular Filt Rate 43; Glucose 156 mg/dL (65-110); Magnesium 2.6 mg/dL (1.6-2.3); Sodium 133 mmol/L (137-145)
[2021-09-13] MEDS: LATANOPROST 0.005% OP SOLN 2.5 ML BTL 1 DROP RIGHT EYE (21:16)
[2021-09-13] MEDS: GABAPENTIN 100 MG CAPSULE 200 MG PO (21:17)
[2021-09-13] MEDS: MIRTAZAPINE 15 MG TABLET PO (21:17)
[2021-09-14] VITALS (18 sets, daily range): BP systolic 84–128; BP diastolic 38–92; PULSE 63–135; RESP 16–24; TEMP 36.4–37.8; O2SAT 18–100; BMI 10.0
[2021-09-14] MEDS: traMADol HCL (*CRX) 50 MG TABLET PO (06:18)
[2021-09-14] MEDS: dilTIAZem HCL 60 MG TABLET PO ×3 (06:19→21:24)
[2021-09-14 08:09] LABS: Basophils Absolute Auto 0.1 K/mm3 (0.0-0.1); Basophils Percent Auto 0.4 % (0.2-1.2); Eosinophils Absolute Auto 0.3 K/mm3 (0-0.3); Eosinophils Percent Auto 1.7 % (0-4.4); Hematocrit 34.4 % (37.0-47.0); Hemoglobin 10.8 g/dL (12.0-15.0); Immature Granulocyte Absolute 0.25 K/mm3 (0.00-0.031); Immature Granulocyte Percent A 1.5 % (0-0.5); Lymphocytes Absolute Auto 3.12 K/mm3 (0.9-3.2); Lymphocytes Percent Auto 19.2 % (18.3-44.2); Mean Corpuscular HGB Conc 31.4 g/dl (32-36); Mean Corpuscular Hemoglobin 32.8 pg (26-34); Mean Corpuscular Volume 104.6 fl (80-100); Mean Platelet Volume 10.5 fl (7.4-10.4); Monocytes Absolute Auto 1.7 K/mm3 (0.1-0.6); Monocytes Percent Auto 10.7 % (2.6-8.5); Neutrophils Absolute Auto 10.8 K/mm3 (1.3-6.7); Neutrophils Percent Auto 66.5 % (45.5-73.1); Platelet Count Result 410 k/mm3 (150-375); Red Blood Count 3.29 M/mm3 (4.2-5.4); Red Cell Distribution Width 17.9 % (11.5-14.5); White Blood Count 16.2 K/mm3 (4.5-10.0)
[2021-09-14 08:23] LABS: Anion Gap 11 mmol/L (8-16); Blood Urea Nitrogen 28 mg/dL (7-17); Calcium 9.3 mg/dL (8.4-10.2); Carbon Dioxide 27 mmol/L (22-30); Chloride 95 mmol/L (98-107); Estimated CRCL calculation 27 ml/min; Estimated Glomerular Filt Rate 36; Glucose 129 mg/dL (65-110); Potassium 4.3 mmol/L (3.4-5.0); Sodium 133 mmol/L (137-145)
[2021-09-14] MEDS: FERROUS SULFATE 324 MG TABLET PO (09:55)
[2021-09-14] MEDS: METOPROLOL TARTRATE 25 MG TABLET PO ×2 (09:55→19:51)
[2021-09-14] MEDS: ATORVASTATIN 10 MG TABLET PO (09:55)
[2021-09-14] MEDS: DOCUSATE SODIUM 100 MG CAPSULE 200 MG PO (09:55)
[2021-09-14] MEDS: APIXABAN 5 MG TABLET PO ×2 (09:55→16:49)
[2021-09-14] MEDS: FUROSEMIDE 40 MG TABLET PO (09:55)
[2021-09-14] MEDS: SPIRONOLACTONE 25 MG TABLET PO (09:56)
[2021-09-14] MEDS: PANTOPRAZOLE 40 MG TABLET PO (09:56)
[2021-09-14] MEDS: MULTIVITAMINS /C LUTEIN (CENTRUM SILVER) TABLET *BKC 1 TAB PO (09:58)
[2021-09-14] MEDS: TIMOLOL MALEATE 0.5% OP SOLN 5 ML BOTTLE 1 DROP RIGHT EYE ×2 (10:00→19:50)
[2021-09-14] MEDS: BRIMONIDINE TARTRATE 0.2% OP SOLN 5 ML BTL 1 DROP RIGHT EYE ×2 (10:00→19:54)
[2021-09-14] MEDS: LACTULOSE 20 GM/30 ML UDC 30 GM PO (10:04)
--- NOTE | 2021-09-14 11:31 | PCPTNOTE ---
Attempted to see pt this date however she refused. Will attempt at a later date/time.
--- NOTE | 2021-09-14 13:33 | PM.PNORT ---
Progress Note: A&P Additional Plan POD 1 DOING WELL AND IMPROVING PAIN CONTROL. CONTINUE DRESSING. Subjective Subjective Date/Time Seen: 09/14/21 13:33 POD 1 S/P I AND D RIGHT HIP DOING WELL. NO NEW COMPLAINTS Exam Extrem: Other: VSS AFEBRILE DRESSING DRY AND ON VAC NV INTACT CALF SOFT NON TENDER NEG HOMANS SIGN Objective Data Vital Signs Vital Signs: Vital Signs - 24 hr 09/13/21 14:00 09/13/21 14:20 09/13/21 14:24 Temperature 36.8 C Pulse Rate 138 H 135 H 137 H Respiratory Rate 24 H Blood Pressure 121/58 L Pulse Oximetry 97 09/13/21 15:28 09/13/21 16:00 09/13/21 18:00 Temperature 37.1 C Pulse Rate 142 H 119 H 93 Respiratory Rate 22 H Blood Pressure 116/68 Pulse Oximetry 97 09/13/21 20:00 09/13/21 21:16 09/13/21 22:00 Temperature 36.4 C L Pulse Rate 75 89 87 Respiratory Rate 18 Blood Pressure 90/59 L 102/59 L Pulse Oximetry 97 09/14/21 00:00 09/14/21 02:00 09/14/21 04:00 Temperature 37.3 C 37.2 C Pulse Rate 89 63 102 H Respiratory Rate 18 16 Blood Pressure 93/56 L 105/51 L Pulse Oximetry 18 L 100 09/14/21 06:00 09/14/21 08:00 09/14/21 08:55 Temperature 37.4 C Pulse Rate 115 H 119 H 120 H Respiratory Rate 22 H Blood Pressure 128/56 L Pulse Oximetry 97 97 09/14/21 09:55 09/14/21 10:00 09/14/21 12:00 Temperature Pulse Rate 135 H 86 90 Respiratory Rate Blood Pressure Pulse Oximetry 09/14/21 13:24 Temperature 36.4 C L Pulse Rate 98 Respiratory Rate 24 H Blood Pressure 117/92 H Pulse Oximetry 94 Intake/Output Intake/Output: Intake & Output 09/11/21 09/12/21 09/13/21 09/14/21 23:59 23:59 23:59 23:59 Intake Total 1550 600 990 470 Output Total 1250 2050 400 550 Balance 300 -1450 590 -80 Meds/Results Medications: Active Medications Generic Name Dose Route Start Last Admin Trade Name Freq PRN Reason Stop Dose Admin Acetaminophen 1,000 mg 09/10/21 15:30 Acetaminophen 500 Mg Tablet PO BID PRN Pain (Scale Score 1-3) Hydrocodone Bitart/Acetaminophen 1 tab 09/06/21 13:31 09/13/21 21:16 Hydrocodone/Acetaminophen (*Crx) 7.5-325 Mg Tablet PO 1 tab Q4-6H PRN Administration Pain (Scale Score 7-10) Apixaban 5 mg 09/10/21 17:00 09/14/21 09:55 Apixaban 5 Mg Tablet PO 5 mg BID JAMES Administration Atorvastatin Calcium 10 mg 09/07/21 09:00 09/14/21 09:55 Atorvastatin 10 Mg Tablet PO 10 mg DAILY JAMES Administration Brimonidine Tartrate 1 drop 09/06/21 21:00 09/14/21 10:00 Brimonidine Tartrate 0.2% Op Soln 5 Ml Btl RIGHT EYE 1 drop Q12HR JAMES Administration Cyanocobalamin 1,000 mcg 09/11/21 09:00 09/11/21 12:40 Cyanocobalamin Inj 1,000 Mcg/Ml Vial SUB-Q 1,000 mcg Q31D JAMES Administration Diltiazem HCl 60 mg 09/07/21 15:50 09/14/21 06:19 Diltiazem Hcl 60 Mg Tablet PO 60 mg Q8HR JAMES Administration Docusate Sodium 200 mg 09/07/21 09:00 09/14/21 09:55 Docusate Sodium 100 Mg Capsule PO 200 mg DAILY JAMES Administration Ferrous Sulfate 324 mg 09/07/21 08:00 09/14/21 09:55 Ferrous Sulfate 324 Mg Tablet PO 324 mg DAILY@0800 JAMES Administration Furosemide 40 mg 09/07/21 09:00 09/14/21 09:55 Furosemide 40 Mg Tablet PO 40 mg DAILY JAMES Administration Gabapentin 200 mg 09/06/21 21:00 09/13/21 21:17 Gabapentin 100 Mg Capsule PO 200 mg HS JAMES Administration Cefepime HCl 2 gm in 50 mls @ 100 mls/hr 09/07/21 09:00 09/14/21 13:03 Maxipime 2 Gm/D5w 50 Ml IVPB Infused Q24H JAMES Infusion Vancomycin HCl 1,250 mg in 250 mls @ 200 mls/hr 09/13/21 16:00 09/13/21 18:26 Vancomycin 1,250 Mg/D5w 250 Ml IVPB Infused Q48H JAMES Infusion Lactated Ringer's 1,000 mls @ 30 mls/hr 09/13/21 10:40 09/13/21 13:45 Lr - Lactated Ringers Iv IV CONT Infused .Q24H JAMES Infusion Lactulose 30 gm 09/07/21 09:00 09/14/21 10:04 Lactulose 20 Gm/30 Ml Udc PO 30 gm DAILY JAMES Administration Latanoprost 1
--- NOTE | 2021-09-14 14:28 | P.PNAN_ITS ---
Anes - Prog Note Post-Op Date/Time: 09/14/21 14:28 Cardiovascular status: normal Respiratory status: normal Airway patency: baseline Mental status: baseline Post-Op hydration status: normal Vital Signs: Last Vital Signs Temp 36.4 C L 09/14/21 13:24 Pulse 102 H 09/14/21 13:55 Resp 24 H 09/14/21 13:24 BP 117/92 H 09/14/21 13:24 Pulse Ox 94 09/14/21 13:24 Pain Score (VAS): 0 I/O: Intake & Output 09/13/21 09/14/21 09/14/21 23:59 07:59 15:59 Intake Total 540 300 170 Output Total 50 550 Balance 490 -250 170 Laboratory Tests 09/14/21 07:43 09/14/21 07:43 09/13/21 09/13/21 09/13/21 16:27 16:27 16:27 WBC 15.5 H RBC 3.24 L Hgb 10.6 L Hct 35.6 L MCV 109.9 H MCH 32.7 MCHC 29.8 L RDW 18.1 H Plt Count 399 H MPV 10.1 Immature Gran % (Auto) 1.9 H Neut % (Auto) 68.2 Lymph % (Auto) 18.6 [place] % (Auto) 9.2 H Eos % (Auto) 1.6 Baso % (Auto) 0.5 Lymph # (Auto) 2.89 [place] # (Auto) 1.4 H Eos # (Auto) 0.3 Baso # (Auto) 0.1 Abs Immat Gran (auto) 0.29 H Absolute Neuts (auto) 10.6 H Absolute Nucleated RBC 0.0 Nucleated RBC % 0.0 Sodium 133 L Potassium 4.0 Chloride 99 Carbon Dioxide 23 Anion Gap 11 BUN 24 H Creatinine 1.20 H Estim Creat Clear Calc 32 Estimated GFR 43 L Glucose 156 H Calcium 9.2 Magnesium 2.6 H TSH 4.130 09/14/21 09/14/21 07:43 07:43 WBC 16.2 H RBC 3.29 L Hgb 10.8 L Hct 34.4 L MCV 104.6 H MCH 32.8 MCHC 31.4 L RDW 17.9 H Plt Count 410 H MPV 10.5 H Immature Gran % (Auto) 1.5 H Neut % (Auto) 66.5 Lymph % (Auto) 19.2 [place] % (Auto) 10.7 H Eos % (Auto) 1.7 Baso % (Auto) 0.4 Lymph # (Auto) 3.12 [place] # (Auto) 1.7 H Eos # (Auto) 0.3 Baso # (Auto) 0.1 Abs Immat Gran (auto) 0.25 H Absolute Neuts (auto) 10.8 H Absolute Nucleated RBC 0.0 Nucleated RBC % 0.0 Sodium 133 L Potassium 4.3 Chloride 95 L Carbon Dioxide 27 Anion Gap 11 BUN 28 H Creatinine 1.40 H Estim Creat Clear Calc 27 Estimated GFR 36 L Glucose 129 H Calcium 9.3 Magnesium TSH Microbiology 09/10/21 13:49 Hip Right Anaerobic Culture - Final 09/10/21 13:49 Hip Right Aerobic Culture - Final Proteus Mirabilis Post-procedural complaints: none Patient Feedback: Patient satisfied with anesthetic care.
--- NOTE | 2021-09-14 17:48 | PM.IMPN ---
Progress Note: A&P Assessment and Plan (1) Atrial fibrillation with rapid ventricular response: Code(s): I48.91 - Unspecified atrial fibrillation Status: Acute Assessment and Plan: Patient is rate controlled with a pulse of 95. She is on chronic anticoagulation with apixaban well 5 mg b.i.d.. (2) Postoperative wound infection of right hip: Code(s): T81.49XA - Infection following a procedure, other surgical site, initial encounter Status: Acute Assessment and Plan: Procedure was well tolerated. Patient is postop day 3. Repeat I&D and wound VAC placement 09/13/2021. Continue pain management. Wound culture growing Proteus which is imipenem resistant. Sensitive to Zosyn Will switch her to cefepime to Zosyn. Vancomycin ID consultation for antibiotic recommendations (3) Chronic anemia: Code(s): D64.9 - Anemia, unspecified Status: Acute Assessment and Plan: Moderate macrocytic anemia, stable and well tolerated with a hemoglobin of 10.5. Send B12 and folate. (4) Abnormal urinalysis: Code(s): R82.90 - Unspecified abnormal findings in urine Status: Acute Assessment and Plan: Urine culture growing pansensitive E coli. Currently patient on cefepime and vancomycin. Cefepime will cover for E coli UTI. Culture with Proteus imipenem resistant strain Switched to Zosyn. Vancomycin (5) Chronic anticoagulation: Code(s): Z79.01 - FDC (current) use of anticoagulants Status: Acute Assessment and Plan: Continue Eliquis 5 mg p.o. b.i.d. (6) Hypothyroidism: Code(s): E03.9 - Hypothyroidism, unspecified Status: Chronic Assessment and Plan: Chronic and stable . Check TSH obtain home medication records. (7) Hypertension: Code(s): I10 - Essential (primary) hypertension Status: Chronic Assessment and Plan: Chronic and stable . At home patient was on furosemide 40 mg p.o. daily, metoprolol tartrate 25 mg p.o. q.12 hour, spironolactone 25 mg p.o. daily. (8) JOON (acute kidney injury): Code(s): N17.9 - Acute kidney failure, unspecified Status: Acute Assessment and Plan: Slowly increasing creatinine 1.4 today baseline normal 0.6. Will hold her Lasix and spironolactone for now recheck in morning Subjective Date/time seen: 09/14/21 17:48 Interval history: Interval history: status post fall and fracture of the right hip and she underwent insertion of IM sukhwinder on 08/22/2021. Now pateint is POD 3 I and D of the right hip irrigation and debridement with wound VAC placement. Status post repeat I&D and wound VAC placement 09/13/2021. No overnight events. Patient denies any new complaints. Pain is controlled. No fever chills Review of Systems Review of Systems: All systems reviewed & are unremarkable except as noted in HPI and below Exam Narrative: Pt is elderly frail not in acute distress Patient is comfortable LUNGS: normal respiratory effort decreased breath sound bilaterally ABD0: not distended soft nontender Lower extremities: no edema no cyanosis or edema or clubbing SKIN: nonjaundiced Neuro: grossly intact. Objective Data Vital Signs Vital Signs: Vital Signs - 24 hr 09/13/21 18:00 09/13/21 20:00 09/13/21 21:16 Temperature 97.5 F L Pulse Rate 93 75 89 Respiratory Rate 18 Blood Pressure 90/59 L 102/59 L Pulse Oximetry 97 09/13/21 22:00 09/14/21 00:00 09/14/21 02:00 Temperature 99.2 F Pulse Rate 87 89 63 Respiratory Rate 18 Blood Pressure 93/56 L Pulse Oximetry 18 L 09/14/21 04:00 09/14/21 06:00 09/14/21 08:00 Temperature 98.9 F Pulse Rate 102 H 115 H 119 H Respiratory Rate 16 Blood Pressure 105/51 L Pulse Oximetry 100 97 09/14/21 08:55 09/14/21 09:55 09/14/21 10:00 Temperature 99.4 F Pulse Rate 120 H 135 H 86 Respiratory Rate 22 H Blood Pressure 128/56 L Pulse Oximetry 97 09/14/21 12:00 09/14/21 13:
[2021-09-14] MEDS: GABAPENTIN 100 MG CAPSULE 200 MG PO (19:51)
[2021-09-14] MEDS: MIRTAZAPINE 15 MG TABLET PO (19:51)
[2021-09-14] MEDS: LATANOPROST 0.005% OP SOLN 2.5 ML BTL 1 DROP RIGHT EYE (19:56)
[2021-09-15] VITALS (23 sets, daily range): BP systolic 78–118; BP diastolic 39–61; PULSE 75–103; RESP 16–30; TEMP 36.9–37.7; O2SAT 87–100
[2021-09-15] MEDS: SODIUM CHLORIDE 0.9% IV 500 ML 999 ML IV CONT (00:36)
[2021-09-15] MEDS: SODIUM CHLORIDE 0.9% IV 1,000 ML 70 ML IV CONT ×2 (01:44→17:37)
[2021-09-15] MEDS: SODIUM CHLORIDE 0.9% IV 1,000 ML 999 ML IV CONT (04:58)
[2021-09-15 07:34] LABS: Magnesium 2.2 mg/dL (1.6-2.3)
[2021-09-15 07:59] LABS: Basophils Absolute Auto 0.1 K/mm3 (0.0-0.1); Basophils Percent Auto 0.4 % (0.2-1.2); Eosinophils Absolute Auto 0.3 K/mm3 (0-0.3); Eosinophils Percent Auto 1.8 % (0-4.4); Hematocrit 29.2 % (37.0-47.0); Hemoglobin 9.3 g/dL (12.0-15.0); Immature Granulocyte Percent A 1.4 % (0-0.5); Lymphocytes Absolute Auto 3.26 K/mm3 (0.9-3.2); Lymphocytes Percent Auto 22.3 % (18.3-44.2); Mean Corpuscular HGB Conc 31.8 g/dl (32-36); Mean Corpuscular Hemoglobin 32.4 pg (26-34); Mean Corpuscular Volume 101.7 fl (80-100); Mean Platelet Volume 10.6 fl (7.4-10.4); Monocytes Absolute Auto 1.6 K/mm3 (0.1-0.6); Monocytes Percent Auto 11.2 % (2.6-8.5); Neutrophils Absolute Auto 9.2 K/mm3 (1.3-6.7); Neutrophils Percent Auto 62.9 % (45.5-73.1); Platelet Count Result 342 k/mm3 (150-375); Red Blood Count 2.87 M/mm3 (4.2-5.4); Red Cell Distribution Width 17.5 % (11.5-14.5); White Blood Count 14.7 K/mm3 (4.5-10.0)
[2021-09-15] MEDS: TIMOLOL MALEATE 0.5% OP SOLN 5 ML BOTTLE 1 DROP RIGHT EYE ×2 (09:47→21:58)
[2021-09-15] MEDS: FERROUS SULFATE 324 MG TABLET PO (09:48)
[2021-09-15] MEDS: DOCUSATE SODIUM 100 MG CAPSULE 200 MG PO (09:48)
[2021-09-15] MEDS: APIXABAN 5 MG TABLET PO ×2 (09:49→15:59)
[2021-09-15] MEDS: PANTOPRAZOLE 40 MG TABLET PO (09:49)
[2021-09-15] MEDS: ATORVASTATIN 10 MG TABLET PO (09:49)
[2021-09-15] MEDS: BRIMONIDINE TARTRATE 0.2% OP SOLN 5 ML BTL 1 DROP RIGHT EYE ×2 (09:50→22:03)
[2021-09-15] MEDS: LACTULOSE 20 GM/30 ML UDC 30 GM PO (09:50)
[2021-09-15] MEDS: MULTIVITAMINS /C LUTEIN (CENTRUM SILVER) TABLET *BKC 1 TAB PO (09:51)
--- NOTE | 2021-09-15 13:08 | PM.IMPN ---
Progress Note: A&P Assessment and Plan (1) Hypotension: Code(s): I95.9 - Hypotension, unspecified Status: Acute Assessment and Plan: Hypotension likely secondary to infection following a procedure on the surgical site. Blood pressure is in the 90/51-95/49. Currently she is postop day 4 incision and drainage. She underwent repeat I and D and wound VAC placement on September 13, 2021. Wound culture is growing Proteus which is sensitive to Zosyn. Per ID recommendation we will continue Zosyn through September 25. Patient appropriately started on IV fluids. Blood pressure and cardioprotective medication currently on hold. Continue normal saline at 80 cc/hour. Monitor blood pressure every 2 hours. (2) Atrial fibrillation with rapid ventricular response: Code(s): I48.91 - Unspecified atrial fibrillation Status: Acute Assessment and Plan: Patient is rate controlled with a pulse of 95. She is on chronic anticoagulation with apixaban well 5 mg b.i.d. currently metoprolol is on hold due to hypotension. Continue close blood pressure monitoring. (3) Postoperative wound infection of right hip: Code(s): T81.49XA - Infection following a procedure, other surgical site, initial encounter Status: Acute Assessment and Plan: Procedure was well tolerated. Patient is postop day 4. Repeat I&D and wound VAC placement 09/13/2021. Continue pain management. Wound culture growing Proteus which is imipenem resistant. Sensitive to Zosyn Will switch her to cefepime to Zosyn. Vancomycin ID consultation for antibiotic recommendations (4) Chronic anemia: Code(s): D64.9 - Anemia, unspecified Status: Acute Assessment and Plan: Moderate macrocytic anemia, stable and well tolerated with a hemoglobin of 9.3. Send B12 and folate. (5) Abnormal urinalysis: Code(s): R82.90 - Unspecified abnormal findings in urine Status: Acute Assessment and Plan: Urine culture growing pansensitive E coli. Currently patient on cefepime and vancomycin. Cefepime will cover for E coli UTI. Continue Zosyn. Vancomycin (6) Chronic anticoagulation: Code(s): Z79.01 - long-term (current) use of anticoagulants Status: Acute Assessment and Plan: Continue Eliquis 5 mg p.o. b.i.d. (7) Hypothyroidism: Code(s): E03.9 - Hypothyroidism, unspecified Status: Chronic Assessment and Plan: Chronic and stable . Check TSH obtain home medication records. (8) Hypertension: Code(s): I10 - Essential (primary) hypertension Status: Chronic Assessment and Plan: Currently hypotensive so all BP meds are on hold. At home patient was previously on furosemide 40 mg p.o. daily, metoprolol tartrate 25 mg p.o. q.12 hour, spironolactone 25 mg p.o. daily. (9) JOON (acute kidney injury): Code(s): N17.9 - Acute kidney failure, unspecified Status: Acute Assessment and Plan: Slowly increasing creatinine 1.4 today baseline normal 0.6. Will hold her Lasix and spironolactone for now recheck in morning. Additional Plan The patient was brought in on 09/06/2021 for evaluation of a right hip wound and area of dehiscence around the proximal-most incision on her right hip. There is some surrounding warmth and erythema with evidence of seroma, hematoma, or possibly even abscess contiguous with the incision noted on CT thus she has been started on empiric antibiotics to include cefepime and vancomycin. Dr. Zamarripa has been consulted and his recommendations are appreciated. She has been started on a Cardizem drip for AFib/RVR with some improvement in her rate. She is on apixaban for stroke prophylaxis though I am going to place on hold tonight as she may need exploration and/or debridement of the wound. She has a chronic anemia which is stable on review of previous labs. Her urinalysis is abnormal however she has no symptoms of UTI. Blood pressures were reviewed and the
--- NOTE | 2021-09-15 14:34 | WPDINFPN2 ---
Progress Note: A&P Assessment and Plan (1) Postoperative wound infection of right hip: Code(s): T81.49XA - Infection following a procedure, other surgical site, initial encounter Status: Acute Assessment and Plan: 1. SSI R hip, POD # 5/2 2. Hip fracture repair 3. Multifactorial leukocytosis REC PipTazo #2, through 09/25/21. Call if Qs Subjective Date/time seen: 09/15/21 14:34 Objective Data Vital Signs Vital Signs: Vital Signs - 24 hr 09/14/21 16:00 09/14/21 17:02 09/14/21 17:37 Temperature 36.6 C Pulse Rate 97 100 97 Respiratory Rate 20 Blood Pressure 120/89 Pulse Oximetry 94 09/14/21 19:51 09/14/21 20:00 09/14/21 22:00 Temperature 37.8 C H Pulse Rate 101 H 77 73 Respiratory Rate 16 Blood Pressure 99/50 L Pulse Oximetry 91 09/14/21 23:50 09/15/21 00:00 09/15/21 01:19 Temperature 37.0 C Pulse Rate 75 75 Respiratory Rate 18 Blood Pressure 84/38 L 106/39 L Pulse Oximetry 93 09/15/21 02:00 09/15/21 03:44 09/15/21 04:00 Temperature 36.9 C Pulse Rate 79 83 80 Respiratory Rate 18 Blood Pressure 78/42 L Pulse Oximetry 87 L 09/15/21 04:29 09/15/21 04:30 09/15/21 05:38 Temperature Pulse Rate Respiratory Rate Blood Pressure 80/48 L 106/53 L Pulse Oximetry 87 L 09/15/21 06:00 09/15/21 06:36 09/15/21 07:01 Temperature Pulse Rate 96 Respiratory Rate Blood Pressure 93/46 L Pulse Oximetry 96 09/15/21 08:00 09/15/21 09:00 09/15/21 10:00 Temperature 36.9 C 36.9 C Pulse Rate 92 98 88 Respiratory Rate 16 Blood Pressure 107/56 L Pulse Oximetry 96 96 09/15/21 12:00 09/15/21 12:49 09/15/21 14:11 Temperature 37.7 C H Pulse Rate 87 Respiratory Rate 30 H Blood Pressure 90/51 L 95/49 L Pulse Oximetry 96 96 Intake/Output Intake/Output: Intake & Output 09/12/21 09/13/21 09/14/21 09/15/21 23:59 23:59 23:59 23:59 Intake Total 600 680 622 4762 Output Total 2050 400 850 550 Balance -1450 590 -270 1196 Meds/Results Medications: Active Medications Generic Name Dose Route Start Last Admin Trade Name Freq PRN Reason Stop Dose Admin Acetaminophen 1,000 mg 09/10/21 15:30 Acetaminophen 500 Mg Tablet PO BID PRN Pain (Scale Score 1-3) Hydrocodone Bitart/Acetaminophen 1 tab 09/06/21 13:31 09/13/21 21:16 Hydrocodone/Acetaminophen (*Crx) 7.5-325 Mg Tablet PO 1 tab Q4-6H PRN Administration Pain (Scale Score 7-10) Apixaban 5 mg 09/10/21 17:00 09/15/21 09:49 Apixaban 5 Mg Tablet PO 5 mg BID JAMES Administration Atorvastatin Calcium 10 mg 09/07/21 09:00 09/15/21 09:49 Atorvastatin 10 Mg Tablet PO 10 mg DAILY JAMES Administration Brimonidine Tartrate 1 drop 09/06/21 21:00 09/15/21 09:50 Brimonidine Tartrate 0.2% Op Soln 5 Ml Btl RIGHT EYE 1 drop Q12HR JAMES Administration Cyanocobalamin 1,000 mcg 09/11/21 09:00 09/11/21 12:40 Cyanocobalamin Inj 1,000 Mcg/Ml Vial SUB-Q 1,000 mcg Q31D JAMES Administration Diltiazem HCl 60 mg 09/07/21 15:50 09/14/21 21:24 Diltiazem Hcl 60 Mg Tablet PO 60 mg Q8HR JAMES Administration Docusate Sodium 200 mg 09/07/21 09:00 09/15/21 09:48 Docusate Sodium 100 Mg Capsule PO 200 mg DAILY JAMES Administration Ferrous Sulfate 324 mg 09/07/21 08:00 09/15/21 09:48 Ferrous Sulfate 324 Mg Tablet PO 324 mg DAILY@0800 JAMES Administration Gabapentin 200 mg 09/06/21 21:00 09/14/21 19:51 Gabapentin 100 Mg Capsule PO 200 mg HS JAMES Administration Sodium Chloride 1,000 mls @ 70 mls/hr 09/15/21 01:20 09/15/21 05:50 Normal Saline Iv IV CONT 70 mls/hr .[id number] JAMES Infusion Piperacillin Sod/Tazobactam Sod 2.25 gm in 50 mls @ 100 mls/hr 09/15/21 06:00 09/15/21 12:57 Zosyn 2.25 Gm/D5w 50 Ml IVPB 100 mls/hr Q6HR JAMES Administration Lactulose 30 gm 09/07/21 09:00 09/15/21 09:50 Lactulose 20 Gm/30 Ml Udc PO 30 gm DAILY JAMES Administration Latanopros
[2021-09-15] MEDS: ACETAMINOPHEN 500 MG TABLET 1000 MG PO (18:23)
[2021-09-15] MEDS: traMADol HCL (*CRX) 50 MG TABLET PO (18:42)
--- NOTE | 2021-09-15 20:29 | CONS_ITS ---
DATE OF CONSULTATION: 09/15/2021 REASON FOR CONSULTATION: Surgical site infection. HISTORY OF PRESENT ILLNESS: An 86-year-old female, who cannot provide a comprehensive history. She underwent repair of an intertrochanteric right hip fracture on August 22. She had postoperative pain and a wound dehiscence was noted over the incision at her [facility] and was admitted. She was taken to the operating room and had debridement of her wound, which did not extend below the fascia. Findings included infected appearing hematoma. She was taken back to the operating room for reexploration, where no infection was noted. Wound VAC was applied now remains in place. She is postop day 5 and 2. Blood pressure readings have remained borderline intermittently since arrival including currently. She has had no other events nor operative interventions. PRESENT MEDICATIONS: She is on: 1. Prednisone 5 mg daily at her [facility]. 2. Also methotrexate 7.5 mg once weekly. 3. No other immunosuppressants. 4. Other medications continue. ALLERGIES: NONE KNOWN. HABITS: Smokeless tobacco. PAST MEDICAL HISTORY: In addition to the above, D and C, colon polyp removal, vitamin deficiency, RA, PAF, osteoporosis, hyperlipidemia, hypothyroidism, hypertension, glaucoma, GERD, dementia, anticoagulation, cataract extraction, and anemia. FAMILY HISTORY: [place] and renal insufficiency. SOCIAL HISTORY: She is , most recently in [facility], previously lived with her son locally. Six children, 1 has . Retired. REVIEW OF SYSTEMS: 14-point review otherwise negative though not obtainable directly from the patient due to decreased level of consciousness. PHYSICAL EXAMINATION: GENERAL: Chronically ill-appearing female, well-nourished, no acute distress. VITAL SIGNS: T-max 37.7 with no fever since arrival otherwise. Blood pressure 95/49, pulse 87, respirations 30, saturation 96% room air. SKIN: Ecchymoses, warm and dry. No rashes. EENT: Conjunctivae are normal. She will not cooperate for full exam of the mouth, but brief inspection normal. NECK: No masses, thyromegaly. LUNGS: Clear to auscultation and percussion. CARDIAC: Regular rate and rhythm without murmur or gallop. ABDOMEN: Nondistended, soft. No organomegaly. No masses. EXTREMITIES: 1+ edema, which is pitting. MUSCULOSKELETAL: Wound VAC right hip with surrounding nonpitting edema. No draining sinus tracts. No warmth. No tenderness. She has good range of motion of the hip as tested while she is supine. LABORATORY DATA: Blood cultures final, no growth. Wound culture obtained in the operating room with a multidrug resistant Proteus mirabilis. Gram stain not performed. Other organisms also found in small numbers, not identified further. White blood cell count was persistently high during her last admission, currently 14.7, hemoglobin 9.3, platelets are 342. Differential with a minimal left shift. Sodium 133, chloride 95, BUN 28, creatinine 1.4, glucose 129. CRP 20.1 on admission. TSH normal. RADIOLOGY: Chest x-ray this morning, atelectasis, pulmonary edema, cardiomegaly. ASSESSMENT: 1. Surgical site infection, right hip several weeks after hip fracture repair. She is postop day 5 from incision and drainage, postop day 2 from a wound closure over wound VAC. She is progressing satisfactorily. 2. Borderline blood pressure readings, persistent. 3. Multifactorial leukocytosis because of the above 2 factors along with her steroids, which also contribute. 4. Debility. RECOMMENDATIONS: 1. Continue piperacillin, not needed further vancomycin. 2. IV antibiotics through September 25 tentatively. 3. Follow up white blood cell count over time. 4. Local wound care. Thank you very much fo
[2021-09-15] MEDS: MIRTAZAPINE 15 MG TABLET PO (21:59)
[2021-09-15] MEDS: GABAPENTIN 100 MG CAPSULE 200 MG PO (21:59)
[2021-09-15] MEDS: LATANOPROST 0.005% OP SOLN 2.5 ML BTL 1 DROP RIGHT EYE (22:05)
[2021-09-16] VITALS (16 sets, daily range): BP systolic 92–114; BP diastolic 38–56; PULSE 76–110; RESP 18–20; TEMP 36.4–36.9; O2SAT 92–99; BMI 10.0
[2021-09-16] MEDS: traMADol HCL (*CRX) 50 MG TABLET PO (02:31)
[2021-09-16] MEDS: HYDROcodone/acetaminophen (*CRX) 7.5-325 MG TABLET 1 TAB PO ×2 (08:20→14:34)
[2021-09-16] MEDS: SODIUM CHLORIDE 0.9% IV 1,000 ML 70 ML IV CONT (08:21)
[2021-09-16] MEDS: METHOTREXATE 2.5 MG TAB (*CHEMO) 7.5 MG PO (08:21)
[2021-09-16] MEDS: DOCUSATE SODIUM 100 MG CAPSULE 200 MG PO (08:22)
[2021-09-16] MEDS: TIMOLOL MALEATE 0.5% OP SOLN 5 ML BOTTLE 1 DROP RIGHT EYE ×2 (08:22→21:13)
[2021-09-16] MEDS: ATORVASTATIN 10 MG TABLET PO (08:23)
[2021-09-16] MEDS: APIXABAN 5 MG TABLET PO ×2 (08:23→16:56)
[2021-09-16] MEDS: PANTOPRAZOLE 40 MG TABLET PO (08:23)
[2021-09-16] MEDS: FERROUS SULFATE 324 MG TABLET PO (08:23)
[2021-09-16] MEDS: MULTIVITAMINS /C LUTEIN (CENTRUM SILVER) TABLET *BKC 1 TAB PO (08:23)
[2021-09-16] MEDS: BRIMONIDINE TARTRATE 0.2% OP SOLN 5 ML BTL 1 DROP RIGHT EYE ×2 (08:24→21:13)
[2021-09-16 08:37] LABS: Basophils Percent Auto 0.5 % (0.2-1.2); Eosinophils Absolute Auto 0.3 K/mm3 (0-0.3); Eosinophils Percent Auto 4.1 % (0-4.4); Hematocrit 31.7 % (37.0-47.0); Hemoglobin 9.8 g/dL (12.0-15.0); Immature Granulocyte Absolute 0.09 K/mm3 (0.00-0.031); Immature Granulocyte Percent A 1.1 % (0-0.5); Lymphocytes Absolute Auto 1.87 K/mm3 (0.9-3.2); Lymphocytes Percent Auto 23.7 % (18.3-44.2); Mean Corpuscular HGB Conc 30.9 g/dl (32-36); Mean Corpuscular Hemoglobin 32.7 pg (26-34); Mean Corpuscular Volume 105.7 fl (80-100); Mean Platelet Volume 10.2 fl (7.4-10.4); Monocytes Absolute Auto 0.9 K/mm3 (0.1-0.6); Monocytes Percent Auto 11.5 % (2.6-8.5); Neutrophils Absolute Auto 4.7 K/mm3 (1.3-6.7); Neutrophils Percent Auto 59.1 % (45.5-73.1); Platelet Count Result 324 k/mm3 (150-375); Red Cell Distribution Width 17.2 % (11.5-14.5); White Blood Count 7.9 K/mm3 (4.5-10.0)
[2021-09-16 08:53] LABS: Anion Gap 8 mmol/L (8-16); Blood Urea Nitrogen 24 mg/dL (7-17); Calcium 8.5 mg/dL (8.4-10.2); Carbon Dioxide 25 mmol/L (22-30); Chloride 99 mmol/L (98-107); Estimated CRCL calculation 25 ml/min; Estimated Glomerular Filt Rate 33; Glucose 108 mg/dL (65-110); Sodium 132 mmol/L (137-145)
--- NOTE | 2021-09-16 13:36 | PM.IMPN ---
Progress Note: A&P Assessment and Plan (1) Hypotension: Code(s): I95.9 - Hypotension, unspecified Status: Acute Assessment and Plan: Hypotension likely secondary to infection following a procedure on the surgical site. Blood pressure is in the 90/51-95/49. Currently she is postop day 4 incision and drainage. She underwent repeat I and D and wound VAC placement on September 13, 2021. Wound culture is growing Proteus which is sensitive to Zosyn. Per ID recommendation we will continue Zosyn through September 25. Patient appropriately started on IV fluids. Blood pressure and cardioprotective medication currently on hold. Continue normal saline at 80 cc/hour. Monitor blood pressure every 2 hours. Normal saline 250ccs bolus. Chesy Xray suggests possible pneumonia. Patient already on zosyn. Send lactate, blood cultures. Follow up ID recommendations. (2) Atrial fibrillation with rapid ventricular response: Code(s): I48.91 - Unspecified atrial fibrillation Status: Acute Assessment and Plan: P--atient is rate controlled with a pulse of 76-104 . She is on chronic anticoagulation with apixaban well 5 mg b.i.d. currently metoprolol is on hold due to hypotension. Continue close blood pressure monitoring. (3) Postoperative wound infection of right hip: Code(s): T81.49XA - Infection following a procedure, other surgical site, initial encounter Status: Acute Assessment and Plan: Procedure was well tolerated. Patient is postop since 09/10. Repeat I&D and wound VAC placement 09/13/2021. Continue pain management. Wound culture growing Proteus which is sensitive to Zosyn Will switch her to cefepime to Zosyn. Vancomycin ID consultation for antibiotic recommendations (4) Chronic anemia: Code(s): D64.9 - Anemia, unspecified Status: Acute Assessment and Plan: Moderate macrocytic anemia, stable and well tolerated with a hemoglobin of 9.8. Send iron panel, B12 and folate. (5) Abnormal urinalysis: Code(s): R82.90 - Unspecified abnormal findings in urine Status: Acute Assessment and Plan: Urine culture growing pansensitive E coli. Currently patient on cefepime and vancomycin. Cefepime will cover for E coli UTI. Continue Zosyn. 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 b.i.d. (7) Hypothyroidism: Code(s): E03.9 - Hypothyroidism, unspecified Status: Chronic Assessment and Plan: Chronic and stable . Check TSH obtain home medication records. (8) Hypertension: Code(s): I10 - Essential (primary) hypertension Status: Chronic Assessment and Plan: Currently hypotensive so all BP meds are on hold. At home patient was previously on furosemide 40 mg p.o. daily, metoprolol tartrate 25 mg p.o. q.12 hour, spironolactone 25 mg p.o. daily. (9) JOON (acute kidney injury): Code(s): N17.9 - Acute kidney failure, unspecified Status: Acute Assessment and Plan: Slowly increasing creatinine 1.5 today baseline normal 0.6. Will hold her Lasix and spironolactone for now recheck in morning. Additional Plan The patient was brought in on 09/06/2021 for evaluation of a right hip wound and area of dehiscence around the proximal-most incision on her right hip. There is some surrounding warmth and erythema with evidence of seroma, hematoma, or possibly even abscess contiguous with the incision noted on CT thus she has been started on empiric antibiotics to include cefepime and vancomycin. Dr. Zamarripa has been consulted and his recommendations are appreciated. She has been started on a Cardizem drip for AFib/RVR with some improvement in her rate. She is on apixaban for stroke prophylaxis though I am going to place on hold tonight as she may need exploration and/or debridement of the wound. She has a c
--- NOTE | 2021-09-16 14:33 | PM.EVENT ---
Event Note Event Note Event Note: Patient noted to be more hypotensive 1 repeat vital signs. BP 92/38. Ordered the stat normal Petterchak in 250 cc IV bolus, portable chest, repeat blood culture and lactic acid. Recheck blood pressure 1 hour later.
[2021-09-16 15:13] LABS: Lactic Acid Reflex 2.3 mmol/L (0.7-2.1)
--- NOTE | 2021-09-16 16:07 | PC.NURSE ---
This patient, Tatiana Serrato, was transferred to [[id number] ] on 09/16/21 at 1608. Personal belongings sent with patient. Report given to [Ly ]. Appropriate documentation sent with patient.
[2021-09-16] MEDS: POTASSIUM CHLORIDE 20 MEQ PACKET (FOR LIQUID) 40 MEQ PO (16:56)
[2021-09-16] MEDS: KCL 40 MEQ/0.9% SOD CHL 1,000 ML 80 ML IV CONT (16:56)
[2021-09-16 18:00] LABS: Reflex Lactic Acid Yes or No Add Lactic
[2021-09-16 18:43] LABS: Lactic Acid 0.7 mmol/L (0.7-2.1)
[2021-09-16] MEDS: MIRTAZAPINE 15 MG TABLET PO (21:12)
[2021-09-16] MEDS: GABAPENTIN 100 MG CAPSULE 200 MG PO (21:12)
[2021-09-16] MEDS: LATANOPROST 0.005% OP SOLN 2.5 ML BTL 1 DROP RIGHT EYE (21:13)
[2021-09-17] VITALS (10 sets, daily range): BP systolic 85–127; BP diastolic 50–72; PULSE 80–171; RESP 18–28; TEMP 36.2–36.8; O2SAT 94–96; BMI 10.0
[2021-09-17] MEDS: KCL 40 MEQ/0.9% SOD CHL 1,000 ML 80 ML IV CONT (06:26)
[2021-09-17 07:13] LABS: Basophils Percent Auto 0.3 % (0.2-1.2); Eosinophils Absolute Auto 0.3 K/mm3 (0-0.3); Eosinophils Percent Auto 3.7 % (0-4.4); Hematocrit 28.9 % (37.0-47.0); Hemoglobin 9.1 g/dL (12.0-15.0); Immature Granulocyte Absolute 0.04 K/mm3 (0.00-0.031); Immature Granulocyte Percent A 0.4 % (0-0.5); Lymphocytes Absolute Auto 2.93 K/mm3 (0.9-3.2); Lymphocytes Percent Auto 31.8 % (18.3-44.2); Mean Corpuscular HGB Conc 31.5 g/dl (32-36); Mean Corpuscular Volume 101.8 fl (80-100); Mean Platelet Volume 10.4 fl (7.4-10.4); Monocytes Percent Auto 11.2 % (2.6-8.5); Neutrophils Absolute Auto 4.9 K/mm3 (1.3-6.7); Neutrophils Percent Auto 52.6 % (45.5-73.1); Platelet Count Result 356 k/mm3 (150-375); Red Blood Count 2.84 M/mm3 (4.2-5.4); Red Cell Distribution Width 17.2 % (11.5-14.5); White Blood Count 9.2 K/mm3 (4.5-10.0)
[2021-09-17 07:30] LABS: Anion Gap 8 mmol/L (8-16); Blood Urea Nitrogen 17 mg/dL (7-17); Calcium 8.6 mg/dL (8.4-10.2); Carbon Dioxide 21 mmol/L (22-30); Chloride 105 mmol/L (98-107); Estimated CRCL calculation 26 ml/min; Estimated Glomerular Filt Rate 33; Glucose 103 mg/dL (65-110); Sodium 134 mmol/L (137-145)
[2021-09-17 08:19] LABS: Vitamin B12 > 1000.0 pg/mL (239-931)
[2021-09-17] MEDS: APIXABAN 5 MG TABLET PO ×2 (09:02→18:02)
[2021-09-17] MEDS: PANTOPRAZOLE 40 MG TABLET PO (09:02)
[2021-09-17] MEDS: MULTIVITAMINS /C LUTEIN (CENTRUM SILVER) TABLET *BKC 1 TAB PO (09:02)
[2021-09-17] MEDS: FERROUS SULFATE 324 MG TABLET PO (09:02)
[2021-09-17] MEDS: ATORVASTATIN 10 MG TABLET PO (09:03)
[2021-09-17] MEDS: POTASSIUM CHLORIDE 20 MEQ PACKET (FOR LIQUID) 40 MEQ PO (09:03)
[2021-09-17] MEDS: DOCUSATE SODIUM 100 MG CAPSULE 200 MG PO (09:03)
[2021-09-17] MEDS: TIMOLOL MALEATE 0.5% OP SOLN 5 ML BOTTLE 1 DROP RIGHT EYE ×2 (09:04→22:33)
[2021-09-17] MEDS: BRIMONIDINE TARTRATE 0.2% OP SOLN 5 ML BTL 1 DROP RIGHT EYE ×2 (09:11→22:32)
[2021-09-17] MEDS: LACTULOSE 20 GM/30 ML UDC 30 GM PO (09:37)
--- NOTE | 2021-09-17 10:10 | PM.PNORT ---
Progress Note: A&P Assessment and Plan (1) Postoperative wound infection of right hip: Code(s): T81.49XA - Infection following a procedure, other surgical site, initial encounter Status: Acute Assessment and Plan: 3 weeks, 5 days s/p insertion of IM sukhwinder left femur POD #7: I&D with irrigation and debridement right hip wound and wound VAC placement POD #4: I&D and Wound Closure Right Hip Intraoperative wound cultures reveal Proteus Mirabilis. ID consulted. Recommended IV piperacillin through 09/25. Difficulty with hypotension, notes reviewed. Medicine service managing. Patient with a history of Afib as well. Cardiology involved during last hospitalization. Current wound VAC dressing to be removed on Thursday of this week. Then place Mepilex Silver dressing. Continue PT/OT. Encourage OOB to chair. NWB RLE. HIGH FALL RISK. Ice lateral hip. Pain control. Bowel regimen. DVT prophylaxis. SCDs. Incentive Spirometry. Nursing to assist. Dispo: SNF with IV antibiotics pending medical stability. Outpatient ortho follow up arranged. Additional Plan Reviewed case and physical exam with attending MD, Dr. Zamarripa. No further recommendations at this time. Subjective Subjective Date/Time Seen: 09/17/21 10:10 Interval history: 3 weeks, 5 days s/p insertion of IM sukhwinder left femur POD #7: I&D with irrigation and debridement right hip wound and wound VAC placement POD #4: I&D and Wound Closure Right Hip Patient awake this AM. Reports mild pain right hip. Also complains of being thirsty. No other concerns. Review of Systems Review of Systems: All systems reviewed & are unremarkable except as noted in HPI and below Constitutional: Constitutional: Reports no additional constitutional complaints Musculoskeletal: Musculoskeletal: Reports as per HPI Exam Const: General: comfortable and no acute distress Resp: Effort & Inspection: normal respiratory effort Cardio: Rate: regular rate Rhythm: regular rhythm GI: GI Palp: Yes Soft to palpation Urinary Catheter: Urinary Catheter: patent and draining Skin: Wounds: wounds noted (proximal hip with prevena wound vac dressing in place ) Neuro: General: No gait normal Speech: normal speech Motor exam (neuro): strength not 5/5 throughout and Abnormal motor strength present (b/l LE ) Extrem: Right lower extremity: hip/thigh Details: tenderness Location: of the hip Location: laterally, swelling Location: at the hip, abnormal ROM (limited ) and ecchymosis (lateral hip ); ROM abnormal, knee Details: normal to inspection and normal ROM; no tenderness and no swelling, lower leg (Negative Mariano's Sign ), ankle (+ankle dorsiflexion/plantarflexion ) and foot (Moves toes, sensation intact to light touch) Other: Lateral incisions of the femur from first surgical intervention well healed. Prevena wound VAC on the proximal hip with good suction. No drainage in portable chamber. Swelling of right hip noted. Mild ecchymosis noted as well. Thigh soft. Knee without effusion. Moves toes. Sensation intact. +ankle dorsiflexion/plantarflexion. Negative Mariano's sign. Objective Data Vital Signs Vital Signs: Vital Signs - 24 hr 09/16/21 12:00 09/16/21 13:22 09/16/21 14:00 Temperature 36.4 C Pulse Rate 76 91 97 Respiratory Rate 20 Blood Pressure 92/38 L Pulse Oximetry 92 09/16/21 16:07 09/16/21 17:00 09/16/21 20:00 Temperature 36.5 C Pulse Rate 110 H 95 Respiratory Rate 18 Blood Pressure 113/43 L 100/52 L Pulse Oximetry 92 09/16/21 23:46 09/17/21 04:00 09/17/21 09:35 Temperature 36.7 C 36.7 C Pulse Rate 92 105 H 171 H Respiratory Rate 18 18 Blood Pressure 101/43 L 117/56 L 127/59 L Pulse Oximetry 93 94 Intake/Output Intake/Output: Intake & Output 09/14/21 09/15/21 09/16/21 09/17/21 23:59 23:59 23:59 23:59 Intake Total 580 2986 1680 1330 Output Total 850 1500 1050 1250 Balance -270 2997 507 80 Meds/Results Medications: Active Medicatio
--- NOTE | 2021-09-17 12:00 | PM.IMPN ---
Progress Note: A&P Assessment and Plan (1) Hypotension: Code(s): I95.9 - Hypotension, unspecified Status: Acute Assessment and Plan: Hypotension likely secondary to infection following a procedure on the surgical site. Patient improved after several boluses of IV fluids on 09/16/2021. Chest x-ray reveals cardiomegaly with improving pulmonary edema and stable bibasilar opacities consistent with atelectasis versus pneumonia. Lactic acid was slightly elevated at 2.3; a repeat level later was normal at 0.7. Again mild hypotension today and cardioprotective medication were put on hold. At the time of my evaluation blood pressure is more stable with the most recent measurement at 102/55. Blood pressure is in the 90/51-95/49. Currently she is postop day 5 incision and drainage. She underwent repeat I and D and wound VAC placement on September 13, 2021. Wound culture is growing Proteus which is sensitive to Zosyn. Per ID recommendation we will continue Zosyn through September 25. (2) Atrial fibrillation with rapid ventricular response: Code(s): I48.91 - Unspecified atrial fibrillation Status: Acute Assessment and Plan: Patient has experienced atrial fibrillation with rapid ventricular response. Management has been challenging due to intermittent hypotension. Previously on a regimen with Cardizem and metoprolol; in view of current hypotension these medication are currently on hold. We will start patient on amiodarone and consult Cardiology. She is already on chronic anticoagulation with apixaban well 5 mg b.i.d. Continue close blood pressure monitoring. (3) Postoperative wound infection of right hip: Code(s): T81.49XA - Infection following a procedure, other surgical site, initial encounter Status: Acute Assessment and Plan: Procedure was well tolerated. Patient is postop since 09/10. Repeat I&D and wound VAC placement 09/13/2021. Continue pain management. Wound culture growing Proteus which is sensitive to Zosyn Continue Zosyn through September 25 per ID recommendations. (4) Chronic anemia: Code(s): D64.9 - Anemia, unspecified Status: Acute Assessment and Plan: Moderate macrocytic anemia, stable and well tolerated with a hemoglobin of 9.8. B12 level is above normal range. Follow-up iron panel and folate. (5) Abnormal urinalysis: Code(s): R82.90 - Unspecified abnormal findings in urine Status: Acute Assessment and Plan: Urine culture growing pansensitive E coli. Currently patient on Zosyn. 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 b.i.d. (7) Hypothyroidism: Code(s): E03.9 - Hypothyroidism, unspecified Status: Chronic Assessment and Plan: Chronic and stable . TSH is 4.9. (8) Hypertension: Code(s): I10 - Essential (primary) hypertension Status: Chronic Assessment and Plan: Currently hypotensive so all BP/cardioprotective meds are on hold. At home patient was previously on furosemide 40 mg p.o. daily, metoprolol tartrate 25 mg p.o. q.12 hour, spironolactone 25 mg p.o. daily. (9) JOON (acute kidney injury): Code(s): N17.9 - Acute kidney failure, unspecified Status: Acute Assessment and Plan: Plateauing creatinine at 1.5 today baseline normal 0.6. Continue holding Lasix and spironolactone for now recheck in morning. Additional Plan The patient was brought in on 09/06/2021 for evaluation of a right hip wound and area of dehiscence around the proximal-most incision on her right hip. There is some surrounding warmth and erythema with evidence of seroma, hematoma, or possibly even abscess contiguous with the incision noted on CT thus she has been started on empiric antibiotics to include cefepime and vancomycin. Dr. Zamarripa has been consulted and his recommend
--- NOTE | 2021-09-17 12:44 | PC.NURSE ---
On 09/17/21, the student, [Gaby Sanches ], provided care and completed [facility] documentation on this patient. I have reviewed the student's documentation and agree with the findings.
[2021-09-17 13:29] LABS: Iron 77 ug/dL (37-170)
[2021-09-17 13:38] LABS: Percent Iron Saturation 39 % (20-50)
--- NOTE | 2021-09-17 16:18 | PM.CNCAR ---
Assessment and Plan Assessment and plan (1) Atrial fibrillation with RVR: Code(s): I48.91 - Unspecified atrial fibrillation Status: Acute Assessment and Plan: History of paroxysmal atrial fibrillation on metoprolol at home for rate control. Recent presentation for wound infection, was noted to be in Afib with RVR. Has been rate controlled with diltiazem and metoprolol. Some difficulty with hypotension necessitating her rate control agents to be held with resulting tachycardia. Currently rate controlled in the 90's. Will discontinue diltiazem. Change metoprolol to 12.5mg q8h. Continue anticoagulation with eliquis. (2) Hip fracture: Qualifiers: Encounter type: initial encounter Fracture type: closed Laterality: right Qualified Code(s): S72.001A - Fracture of unspecified part of neck of right femur, initial encounter for closed fracture Code(s): S72.009A - Fracture of unspecified part of neck of unspecified femur, initial encounter for closed fracture Status: Acute Assessment and Plan: Recent right hip fracture s/p ORIF per Dr. Zamarripa. (3) Postoperative wound infection of right hip: Code(s): T81.49XA - Infection following a procedure, other surgical site, initial encounter Status: Acute Assessment and Plan: Infection of R hip incision requiring I&D x2 and debridement. Wound vac in place. On IV abx for wound infection. 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 Monitor H&H History of Present Illness History of Present Illness Consult date/time: 09/17/21 16:18 Requesting physician: Sweetie Blue MD Consult reason: atrial fibrillation Reason For Visit: afib rvr/uti/wound check Narrative: Tatiana Serrato is an 86 year old female with dementia, paroxysmal atrial fibrillation, rheumatoid arthritis, and recent hip fracture status post ORIF on 08/22/21 who presented to the hospital from [facility] with complaints of worsening pain at her surgical incision site. CT scan revealed subcuteneous fluid collection surrounding her right hip surgical site. I&D with irrigation and debridement was recommended and performed on 09/10/21. She had a repeat I&D and wound vac placed several days later. Wound cultures positive for Proteus and she is being treated with Zosyn. She has been in atrial fibrillation with rapid ventricular response during this hospitalization. She does have a history of atrial fibrillation that is rate controlled with metoprolol. She takes apixaban for anticoagulation. Over the last couple of days her rate has been difficult to control due to hypotension. For this reason we are being asked to see her in consultation. She is not experiencing any symptoms as a result of this arrhythmia. Review of Systems Review of Systems: ROS unobtainable: Yes unobtainable due to mental status [facility] Past Medical History Medical History Age-related hearing loss Cataracts, bilateral maturing Chronic anemia Chronic anticoagulation Degenerative joint disease Dementia Gastroesophageal reflux disease Glaucoma Hypertension Hypothyroidism Mixed hyperlipidemia Osteoporosis Paroxysmal atrial fibrillation Pre-diabetes Presbyesophagus Rheumatoid arthritis Vitamin B12 deficiency Vitamin D deficiency Surgical History Surgical History History of colonoscopy with polypectomy History of dilation and curettage (11/04/19) For postmenopausal bleeding. Pathology demonstrated atrophic endometrium. History of open reduction and internal fixation (ORIF) procedure (08/22/21) IM sukhwinder for right hip fracture. Family History Family History Sibling Acute myocardial infar
[2021-09-17 17:27] LABS: Iron 83 ug/dL (37-170)
[2021-09-17 17:36] LABS: Percent Iron Saturation 43 % (20-50)
[2021-09-17] MEDS: METOPROLOL TARTRATE 12.5 MG TABLET PO (18:02)
[2021-09-17] MEDS: MIRTAZAPINE 15 MG TABLET PO (22:32)
[2021-09-17] MEDS: GABAPENTIN 100 MG CAPSULE 200 MG PO (22:32)
[2021-09-17] MEDS: LATANOPROST 0.005% OP SOLN 2.5 ML BTL 1 DROP RIGHT EYE (22:32)
[2021-09-18] VITALS (15 sets, daily range): BP systolic 90–151; BP diastolic 46–70; PULSE 77–176; RESP 16–20; TEMP 36.6–37.5; O2SAT 94–97
[2021-09-18] MEDS: HYDROcodone/acetaminophen (*CRX) 7.5-325 MG TABLET 1 TAB PO ×3 (00:08→17:43)
[2021-09-18 08:31] LABS: Basophils Percent Auto 0.4 % (0.2-1.2); Eosinophils Absolute Auto 0.3 K/mm3 (0-0.3); Eosinophils Percent Auto 4.3 % (0-4.4); Hematocrit 32.9 % (37.0-47.0); Hemoglobin 10.2 g/dL (12.0-15.0); Immature Granulocyte Absolute 0.04 K/mm3 (0.00-0.031); Immature Granulocyte Percent A 0.6 % (0-0.5); Lymphocytes Absolute Auto 2.89 K/mm3 (0.9-3.2); Lymphocytes Percent Auto 42.6 % (18.3-44.2); Mean Corpuscular Hemoglobin 32.4 pg (26-34); Mean Corpuscular Volume 104.4 fl (80-100); Mean Platelet Volume 10.3 fl (7.4-10.4); Monocytes Absolute Auto 0.4 K/mm3 (0.1-0.6); Monocytes Percent Auto 5.2 % (2.6-8.5); Neutrophils Absolute Auto 3.2 K/mm3 (1.3-6.7); Neutrophils Percent Auto 46.9 % (45.5-73.1); Platelet Count Result 393 k/mm3 (150-375); Red Blood Count 3.15 M/mm3 (4.2-5.4); Red Cell Distribution Width 17.6 % (11.5-14.5); White Blood Count 6.8 K/mm3 (4.5-10.0)
[2021-09-18 08:34] LABS: Anion Gap 8 mmol/L (8-16); Blood Urea Nitrogen 13 mg/dL (7-17); Calcium 9.3 mg/dL (8.4-10.2); Carbon Dioxide 23 mmol/L (22-30); Chloride 106 mmol/L (98-107); Estimated CRCL calculation 28 ml/min; Estimated Glomerular Filt Rate 36; Glucose 114 mg/dL (65-110); Potassium 3.8 mmol/L (3.4-5.0); Sodium 137 mmol/L (137-145)
[2021-09-18] MEDS: FERROUS SULFATE 324 MG TABLET PO (08:45)
[2021-09-18] MEDS: APIXABAN 5 MG TABLET PO ×2 (08:45→16:52)
[2021-09-18] MEDS: ATORVASTATIN 10 MG TABLET PO (08:45)
[2021-09-18] MEDS: METOPROLOL TARTRATE 12.5 MG TABLET PO ×3 (08:46→16:52)
[2021-09-18] MEDS: BRIMONIDINE TARTRATE 0.2% OP SOLN 5 ML BTL 1 DROP RIGHT EYE ×2 (08:46→21:00)
[2021-09-18] MEDS: PANTOPRAZOLE 40 MG TABLET PO (08:47)
[2021-09-18] MEDS: MULTIVITAMINS /C LUTEIN (CENTRUM SILVER) TABLET *BKC 1 TAB PO (08:47)
[2021-09-18] MEDS: DOCUSATE SODIUM 100 MG CAPSULE 200 MG PO (08:55)
--- NOTE | 2021-09-18 09:51 | PM.PNCARD ---
Progress Note: A&P Assessment and Plan (1) Atrial fibrillation with RVR: Code(s): I48.91 - Unspecified atrial fibrillation Status: Acute Assessment and Plan: History of paroxysmal atrial fibrillation on metoprolol at home for rate control. Recent presentation for wound infection, was noted to be in Afib with RVR. Has been rate controlled with diltiazem and metoprolol. Some difficulty with hypotension necessitating her rate control agents to be held with resulting tachycardia. Heart rate well controlled when sleeping. Continue metoprolol 12.5mg q8h. Continue anticoagulation with eliquis. (2) Hip fracture: Qualifiers: Encounter type: initial encounter Fracture type: closed Laterality: right Qualified Code(s): S72.001A - Fracture of unspecified part of neck of right femur, initial encounter for closed fracture Code(s): S72.009A - Fracture of unspecified part of neck of unspecified femur, initial encounter for closed fracture Status: Acute Assessment and Plan: Recent right hip fracture s/p ORIF per Dr. Zamarripa. (3) Postoperative wound infection of right hip: Code(s): T81.49XA - Infection following a procedure, other surgical site, initial encounter Status: Acute Assessment and Plan: Infection of R hip incision requiring I&D x2 and debridement. Wound vac in place. On IV abx for wound infection. 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 Monitor H&H Subjective Date/time seen: 09/18/21 09:51 Interval history: 86-year-old s/p insertion of IM sukhwinder left femur Date of service 09/18/2021: More awake alert today. No chest pain or shortness of breath Review of Systems Review of Systems: All systems reviewed & are unremarkable except as noted in HPI and below Constitutional: Constitutional: Reports weakness Eyes: Eyes: Denies blurry vision ENT: Reports Normal hearing present Cardiovascular: Cardiovascular: Denies chest pain Respiratory: Respiratory: Denies dyspnea Integumentary/Breasts: Skin/Breast: Reports unusual bruising Psychiatric: Psychiatric: Denies anxiety Hematologic/Lymphatic: Hematologic/Lymphatic: Reports easy bruising Exam Const: General: comfortable and no acute distress Other: Frail, elderly woman lying in bed. Sleeping, difficult to awaken but does awaken to voice and touch. Unable to stay awake long enough for interview. Does answer a couple of questions. HENMT: Head: normal to inspection Ears: hearing grossly normal bilaterally Mouth: Yes Normal oral and palatal mucosa present Eyes: General: appearance normal, both eyes and all related structures Neck: Neck: supple Resp: Effort & Inspection: normal respiratory effort Auscultation: rhonchi and diminished lung sounds Cardio: Rate: regular rate Rhythm: abnormal rhythm irregularly irregular Heart sounds: no murmurs GI: Auscultation: normal bowel sounds Skin: General skin exam: normal color Wounds: wounds noted Extrem: General: abnormal to inspection, edema (BLE ) and pedal edema (left worse than right ) Psych: Mental Status: mental status grossly abnormal Objective Data Vital Signs Vital Signs: Vital Signs - 24 hr 09/17/21 10:00 09/17/21 12:00 09/17/21 12:10 Temperature 36.4 C 36.6 C Pulse Rate 109 H 80 89 Respiratory Rate 28 H 26 H Blood Pressure 85/72 L 102/55 L Pulse Oximetry 95 95 09/17/21 15:51 09/17/21 16:00 09/17/21 18:02 Temperature 36.2 C L Pulse Rate 89 90 96 Respiratory Rate 18 Blood Pressure 121/50 L Pulse Oximetry 96 09/17/21 20:00 09/18/21 00:00 09/18/21 00:26 Temperature 36.8 C 36.7 C Pulse Rate 95 109 H Respiratory Rate 20 18 Blood Pressure 118/56 L 123/64 Pulse Oximetry 96 96 95 09/18/21 03:58 09/18/21 04:00 09/18/21 05:35 Temperature 36.8 C 36.6
[2021-09-18] MEDS: TIMOLOL MALEATE 0.5% OP SOLN 5 ML BOTTLE 1 DROP RIGHT EYE ×2 (10:30→21:00)
--- NOTE | 2021-09-18 10:41 | PC.NURSE ---
On 09/18/21, the student, Nuria Cordon, provided care and [facility]. I have reviewed the student's documentation and agree with the findings.
--- NOTE | 2021-09-18 14:44 | PM.IMPN ---
Progress Note: A&P Assessment and Plan (1) Hypotension: Code(s): I95.9 - Hypotension, unspecified Status: Acute Assessment and Plan: Hypotension likely secondary to infection following a procedure on the surgical site. Patient improved after several boluses of IV fluids on 09/16/2021. Chest x-ray reveals cardiomegaly with improving pulmonary edema and stable bibasilar opacities consistent with atelectasis versus pneumonia. Lactic acid was slightly elevated at 2.3; a repeat level later was normal at 0.7. Again mild hypotension today and cardioprotective medication were put on hold. At the time of my evaluation blood pressure is more stable with the most recent measurement at 102/55. Blood pressure is in the 90/51-95/49. Currently she is postop day 5 incision and drainage. She underwent repeat I and D and wound VAC placement on September 13, 2021. Wound culture is growing Proteus which is sensitive to Zosyn. Per ID recommendation we will continue Zosyn through September 25. (2) Atrial fibrillation with rapid ventricular response: Code(s): I48.91 - Unspecified atrial fibrillation Status: Acute Assessment and Plan: Patient carries a diagnosis of paroxysmal atrial fibrillation; she has experienced atrial fibrillation with rapid ventricular response, and has been managed with PO cardizem and metoprolol. Management has been challenging due to intermittent hypotension. Previously on a regimen with Cardizem and metoprolol; in view of recurrent hypotension Cardiology was consulted. Cardizem was stopped and metoprolol increased to 12.5mg q8h. Continue anticoagulation with eliquis. (3) Postoperative wound infection of right hip: Code(s): T81.49XA - Infection following a procedure, other surgical site, initial encounter Status: Acute Assessment and Plan: Procedure was well tolerated. Patient is postop since 09/10. Repeat I&D and wound VAC placement 09/13/2021. Continue pain management. Wound culture growing Proteus which is sensitive to Zosyn Continue Zosyn through September 25 per ID recommendations. (4) Chronic anemia: Code(s): D64.9 - Anemia, unspecified Status: Acute Assessment and Plan: Moderate macrocytic anemia, stable and well tolerated with a hemoglobin of 10.2. Iron stores, B12 level is above normal range. (5) Abnormal urinalysis: Code(s): R82.90 - Unspecified abnormal findings in urine Status: Acute Assessment and Plan: Urine culture growing pansensitive E coli. Currently patient on Zosyn. 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 b.i.d. (7) Hypothyroidism: Code(s): E03.9 - Hypothyroidism, unspecified Status: Chronic Assessment and Plan: Chronic and stable . TSH is 4.9. (8) Hypertension: Code(s): I10 - Essential (primary) hypertension Status: Chronic Assessment and Plan: Currently hypotensive; cardizem on hold. Repeat BP in 1 hour. All BP/cardioprotective meds are on hold except for metoprolol. At home patient was previously on furosemide 40 mg p.o. daily, metoprolol tartrate 25 mg p.o. q.12 hour, spironolactone 25 mg p.o. daily. (9) JOON (acute kidney injury): Code(s): N17.9 - Acute kidney failure, unspecified Status: Acute Assessment and Plan: Plateauing creatinine at 1.4 today baseline normal 0.6. Continue holding Lasix and spironolactone for now recheck in morning. Additional Plan The patient was brought in on 09/06/2021 for evaluation of a right hip wound and area of dehiscence around the proximal-most incision on her right hip. There is some surrounding warmth and erythema with evidence of seroma, hematoma, or possibly even abscess contiguous with the incision noted on CT thus she has been started on empiric antibiotics to include cefepim
[2021-09-18] MEDS: GABAPENTIN 100 MG CAPSULE 200 MG PO (21:00)
[2021-09-18] MEDS: MIRTAZAPINE 15 MG TABLET PO (21:00)
[2021-09-18] MEDS: LATANOPROST 0.005% OP SOLN 2.5 ML BTL 1 DROP RIGHT EYE (21:00)
[2021-09-19] VITALS (12 sets, daily range): BP systolic 102–126; BP diastolic 51–89; PULSE 83–140; RESP 16–22; TEMP 35.8–37.8; O2SAT 93–96
[2021-09-19 07:01] LABS: Basophils Percent Auto 0.5 % (0.2-1.2); Eosinophils Absolute Auto 0.3 K/mm3 (0-0.3); Eosinophils Percent Auto 4.2 % (0-4.4); Hematocrit 33.1 % (37.0-47.0); Hemoglobin 10.3 g/dL (12.0-15.0); Immature Granulocyte Absolute 0.04 K/mm3 (0.00-0.031); Immature Granulocyte Percent A 0.5 % (0-0.5); Lymphocytes Absolute Auto 2.85 K/mm3 (0.9-3.2); Mean Corpuscular HGB Conc 31.1 g/dl (32-36); Mean Corpuscular Volume 102.8 fl (80-100); Mean Platelet Volume 10.3 fl (7.4-10.4); Monocytes Absolute Auto 0.7 K/mm3 (0.1-0.6); Monocytes Percent Auto 8.4 % (2.6-8.5); Neutrophils Absolute Auto 3.8 K/mm3 (1.3-6.7); Neutrophils Percent Auto 49.4 % (45.5-73.1); Platelet Count Result 391 k/mm3 (150-375); Red Blood Count 3.22 M/mm3 (4.2-5.4); Red Cell Distribution Width 17.1 % (11.5-14.5); White Blood Count 7.7 K/mm3 (4.5-10.0)
[2021-09-19 07:24] LABS: Anion Gap 9 mmol/L (8-16); Blood Urea Nitrogen 15 mg/dL (7-17); Calcium 9.2 mg/dL (8.4-10.2); Carbon Dioxide 23 mmol/L (22-30); Chloride 103 mmol/L (98-107); Estimated CRCL calculation 28 ml/min; Estimated Glomerular Filt Rate 36; Glucose 92 mg/dL (65-110); Potassium 3.9 mmol/L (3.4-5.0); Sodium 135 mmol/L (137-145)
--- NOTE | 2021-09-19 08:10 | PM.IMPN ---
Progress Note: A&P Assessment and Plan (1) Hypotension: Code(s): I95.9 - Hypotension, unspecified Status: Acute Assessment and Plan: Hypotension likely secondary to infection following a procedure on the surgical site. Patient improved after several boluses of IV fluids on 09/16/2021. Chest x-ray reveals cardiomegaly with improving pulmonary edema and stable bibasilar opacities consistent with atelectasis versus pneumonia. Lactic acid was slightly elevated at 2.3; a repeat level later was normal at 0.7. Again mild hypotension today and cardioprotective medication were put on hold. Mild hypotension on 09/18/2021 managed with temp a limbal with improvement of blood pressure. Blood pressure stable today at 102/55. (2) Atrial fibrillation with rapid ventricular response: Code(s): I48.91 - Unspecified atrial fibrillation Status: Acute Assessment and Plan: Patient carries a diagnosis of paroxysmal atrial fibrillation; she has experienced atrial fibrillation with rapid ventricular response, and has been managed with PO cardizem and metoprolol. Management has been challenging due to intermittent hypotension. Previously on a regimen with Cardizem and metoprolol; in view of recurrent hypotension Cardiology was consulted. Cardizem was stopped and metoprolol increased to 12.5mg q8h. Will continue metoprolol 12.5 mg q.8 hours as tolerated. Continue anticoagulation with eliquis. (3) Postoperative wound infection of right hip: Code(s): T81.49XA - Infection following a procedure, other surgical site, initial encounter Status: Acute Assessment and Plan: Procedure was well tolerated. Patient is postop since 09/10. Repeat I&D and wound VAC placement 09/13/2021. Continue pain management. Wound culture growing Proteus which is sensitive to Zosyn Continue Zosyn through September 25 per ID recommendations. PICC line placement today. (4) Chronic anemia: Code(s): D64.9 - Anemia, unspecified Status: Acute Assessment and Plan: Moderate macrocytic anemia, stable and well tolerated with a hemoglobin of 10.2. Iron stores adequate, B12 level is above normal range, folate level. (5) Abnormal urinalysis: Code(s): R82.90 - Unspecified abnormal findings in urine Status: Acute Assessment and Plan: Urine culture growing pansensitive E coli. Currently patient on Zosyn. Plan for PICC line placement. 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 b.i.d. (7) Hypothyroidism: Code(s): E03.9 - Hypothyroidism, unspecified Status: Chronic Assessment and Plan: Chronic and stable . TSH is 4.9. (8) Hypertension: Code(s): I10 - Essential (primary) hypertension Status: Chronic Assessment and Plan: Currently hypotensive; cardizem on hold. Repeat BP in 1 hour. All BP/cardioprotective meds are on hold except for metoprolol. At home patient was previously on furosemide 40 mg p.o. daily, metoprolol tartrate 25 mg p.o. q.12 hour, spironolactone 25 mg p.o. daily. (9) JOON (acute kidney injury): Code(s): N17.9 - Acute kidney failure, unspecified Status: Acute Assessment and Plan: Mild improvement of creatinine from 1.5-1.4 today. Additional Plan The patient was brought in on 09/06/2021 for evaluation of a right hip wound and area of dehiscence around the proximal-most incision on her right hip. There is some surrounding warmth and erythema with evidence of seroma, hematoma, or possibly even abscess contiguous with the incision noted on CT thus she has been started on empiric antibiotics to include cefepime and vancomycin. Dr. Zamarripa has been consulted and his recommendations are appreciated. She has been started on a Cardizem drip for AFib/RVR with some improvement in her rate. She is on apixaban for stro
[2021-09-19] MEDS: FERROUS SULFATE 324 MG TABLET PO (09:17)
[2021-09-19] MEDS: MULTIVITAMINS /C LUTEIN (CENTRUM SILVER) TABLET *BKC 1 TAB PO (09:17)
[2021-09-19] MEDS: PANTOPRAZOLE 40 MG TABLET PO (09:17)
[2021-09-19] MEDS: ATORVASTATIN 10 MG TABLET PO (09:17)
[2021-09-19] MEDS: APIXABAN 5 MG TABLET PO ×2 (09:17→17:15)
[2021-09-19] MEDS: BRIMONIDINE TARTRATE 0.2% OP SOLN 5 ML BTL 1 DROP RIGHT EYE ×2 (09:19→22:24)
[2021-09-19] MEDS: LACTULOSE 20 GM/30 ML UDC 30 GM PO (09:19)
[2021-09-19] MEDS: TIMOLOL MALEATE 0.5% OP SOLN 5 ML BOTTLE 1 DROP RIGHT EYE ×2 (09:20→22:25)
[2021-09-19 09:28] LABS: Atypical Lymphocytes Present; Platelet Estimate Increased (Adequate)
--- NOTE | 2021-09-19 09:48 | PM.PNCARD ---
Progress Note: A&P Assessment and Plan (1) Atrial fibrillation with RVR: Code(s): I48.91 - Unspecified atrial fibrillation Status: Acute Assessment and Plan: History of paroxysmal atrial fibrillation on metoprolol at home for rate control. Recent presentation for wound infection, was noted to be in Afib with RVR. Has been rate controlled with diltiazem and metoprolol. Some difficulty with hypotension necessitating her rate control agents to be held with resulting tachycardia. Heart rate well controlled when sleeping. She does still have some periods of tachycardia noted on telemetry, but generally her rate is well controlled. Suspect this will continue to improve as pain and infection resolve. Continue metoprolol 12.5mg q8h. Continue anticoagulation with eliquis. (2) Hip fracture: Qualifiers: Encounter type: initial encounter Fracture type: closed Laterality: right Qualified Code(s): S72.001A - Fracture of unspecified part of neck of right femur, initial encounter for closed fracture Code(s): S72.009A - Fracture of unspecified part of neck of unspecified femur, initial encounter for closed fracture Status: Acute Assessment and Plan: Recent right hip fracture s/p ORIF per Dr. Zamarripa. (3) Postoperative wound infection of right hip: Code(s): T81.49XA - Infection following a procedure, other surgical site, initial encounter Status: Acute Assessment and Plan: Infection of R hip incision requiring I&D x2 and debridement. Wound vac in place. On IV abx for wound infection. 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 Monitor H&H Subjective Date/time seen: 09/19/21 09:48 Interval history: 86-year-old s/p insertion of IM sukhwinder left femur Date of service 09/18/2021: More awake alert today. No chest pain or shortness of breath Date of service 09/19/2021: Sleepy this morning but awakens to answer questions. Denies any pain, no palpitations, shortness of breath. Review of Systems Review of Systems: All systems reviewed & are unremarkable except as noted in HPI and below ROS unobtainable: Yes unobtainable due to mental status Constitutional: Constitutional: Reports weakness Eyes: Eyes: Denies blurry vision ENT: Reports Normal hearing present Cardiovascular: Cardiovascular: Denies chest pain and Denies dyspnea Respiratory: Respiratory: Denies dyspnea Integumentary/Breasts: Skin/Breast: Reports unusual bruising Neurologic: Reports Normal hearing present and Reports weakness Psychiatric: Psychiatric: Denies anxiety Hematologic/Lymphatic: Hematologic/Lymphatic: Reports easy bruising Exam Const: General: comfortable and no acute distress HENMT: Head: normal to inspection Ears: hearing grossly normal bilaterally Mouth: Yes Normal oral and palatal mucosa present Eyes: General: appearance normal, both eyes and all related structures Neck: Neck: supple Resp: Effort & Inspection: normal respiratory effort Auscultation: clear to auscultation bilaterally and diminished lung sounds Cardio: Rate: regular rate Rhythm: abnormal rhythm irregularly irregular Heart sounds: no murmurs GI: Auscultation: normal bowel sounds Skin: General skin exam: normal color Wounds: wounds noted Neuro: Cranial nerves: Yes Normal hearing present Extrem: General: abnormal to inspection, edema (BLE ) and pedal edema (left worse than right ) Psych: Mental Status: mental status grossly abnormal Objective Data Vital Signs Vital Signs: Vital Signs - 24 hr 09/18/21 11:19 09/18/21 12:00 09/18/21 12:53 Temperature Pulse Rate 176 H 99 77 Respiratory Rate Blood Pressure 116/70 Pulse Oximetry 09/18/21 14:00 09/18/21 15:48 09/18/21 16:00 Temperature 37.5 C Pulse Rate 102 H 101 H Respiratory Rate 16
[2021-09-19] MEDS: LIDOCAINE HCL 1% PF INJ 5 ML VIAL INFILTRATE (13:30)
--- NOTE | 2021-09-19 16:11 | PM.PNORT ---
Progress Note: A&P Assessment and Plan (1) Postoperative wound infection of right hip: Code(s): T81.49XA - Infection following a procedure, other surgical site, initial encounter Status: Acute Assessment and Plan: 4 weeks s/p insertion of IM sukhwinder left femur POD #9: I&D with irrigation and debridement right hip wound and wound VAC placement POD #6: I&D and Wound Closure Right Hip Intraoperative wound cultures reveal Proteus Mirabilis. ID consulted. Recommended IV piperacillin through 09/25. Cardiology following for Afib history and hypotension, improved. Current wound VAC dressing, plan to remove tomorrow and place Mepilex Silver dressing. Continue PT/OT. Encourage OOB to chair. NWB RLE. HIGH FALL RISK. Ice lateral hip. Pain control. Bowel regimen. DVT prophylaxis. SCDs. Incentive Spirometry. Nursing to assist. Dispo: SNF with IV antibiotics pending medical stability. Outpatient ortho follow up arranged. Subjective Subjective Date/Time Seen: 09/19/21 16:11 Interval history: 4 weeks s/p insertion of IM sukhwinder left femur POD #9: I&D with irrigation and debridement right hip wound and wound VAC placement POD #6: I&D and Wound Closure Right Hip Patient resting, rousable to voice. No new complaints. Disoriented to situation. Review of Systems Review of Systems: All systems reviewed & are unremarkable except as noted in HPI and below Constitutional: Constitutional: Reports no additional constitutional complaints Musculoskeletal: Musculoskeletal: Reports as per HPI Exam Const: General: comfortable and no acute distress Resp: Effort & Inspection: normal respiratory effort GI: GI Palp: Yes Soft to palpation Urinary Catheter: Urinary Catheter: patent and draining Skin: Wounds: wounds noted (proximal hip with prevena wound vac dressing in place ) Neuro: General: No gait normal Speech: normal speech Motor exam (neuro): strength not 5/5 throughout and Abnormal motor strength present (b/l LE ) Extrem: Right lower extremity: hip/thigh Details: tenderness Location: of the hip Location: laterally, swelling Location: at the hip, abnormal ROM (limited ) and ecchymosis (lateral hip ); ROM abnormal, knee Details: normal to inspection and normal ROM; no tenderness and no swelling, lower leg (Negative Mariano's Sign ), ankle (+ankle dorsiflexion/plantarflexion ) and foot (Moves toes, sensation intact to light touch) Other: Lateral incisions of the femur from first surgical intervention well healed. Prevena wound VAC on the proximal hip with good suction. Scant sanguinous drainage in the chamber. Swelling of right hip noted. Mild ecchymosis noted as well. Thigh soft. Knee without effusion. Moves toes. Sensation intact. +ankle dorsiflexion/plantarflexion. Negative Mariano's sign. Objective Data Vital Signs Vital Signs: Vital Signs - 24 hr 09/18/21 16:52 09/18/21 20:00 09/19/21 00:00 Temperature 36.8 C Pulse Rate 93 99 83 Respiratory Rate 16 Blood Pressure 95/50 L Pulse Oximetry 95 09/19/21 04:00 09/19/21 07:03 09/19/21 08:00 Temperature 36.4 C Pulse Rate 86 88 100 Respiratory Rate 18 Blood Pressure 102/55 L Pulse Oximetry 96 09/19/21 09:18 09/19/21 12:00 09/19/21 13:07 Temperature Pulse Rate 88 96 97 Respiratory Rate Blood Pressure Pulse Oximetry 09/19/21 14:00 Temperature 37.8 C H Pulse Rate 83 Respiratory Rate 16 Blood Pressure 102/57 L Pulse Oximetry 93 Intake/Output Intake/Output: Intake & Output 09/16/21 09/17/21 09/18/21 09/19/21 23:59 23:59 23:59 23:59 Intake Total 1680 2970 980 160 Output Total 1050 3250 1775 550 Balance 630 -280 -795 -390 Meds/Results Medications: Active Medications Generic Name Dose Route Start Last Admin Trade Name Freq PRN Reason Stop Dose Admin Acetaminophen 650 mg 09/15/21 18:33 Acetaminophen 325 Mg Tablet PO Q6H PRN Pain (Scale Score 1-3) Hydrocodone Bitart/Acetaminophen 1 tab 11
[2021-09-19] MEDS: METOPROLOL TARTRATE 12.5 MG TABLET PO (17:53)
--- NOTE | 2021-09-19 18:55 | PC.NURSE ---
Called Dr. Nguyễn at 1800. I could not get ahold of geri payne. This pt's bp and heart have been very touchy. There was a communication in the worklist to hold bp medications if bp is less than 140/60. All day today this pt's blood pressure has been below 110/50. I held the metoprolol and pt's heart rate stayed below 100 until 1745. I rechecked bp it was 126/51 at that time with a heart rate of 150. I gave the evening dose of metoprolol. Dr. Nguyễn yelled at this nurse and stated that this can wait till morning. Nothing else we will do at this time.
[2021-09-19] MEDS: GABAPENTIN 100 MG CAPSULE 200 MG PO (22:24)
[2021-09-19] MEDS: MIRTAZAPINE 15 MG TABLET PO (22:25)
[2021-09-19] MEDS: LATANOPROST 0.005% OP SOLN 2.5 ML BTL 1 DROP RIGHT EYE (22:25)
[2021-09-19] MEDS: CENTRAL LINE FLUSH 10 ML IV PUSH (22:26)
--- NOTE | 2021-09-19 22:45 | PC.NURSE ---
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 States will put in orders.
[2021-09-20] VITALS (13 sets, daily range): BP systolic 98–135; BP diastolic 54–80; PULSE 55–136; RESP 16–18; TEMP 35.9–37.4; O2SAT 92–97
[2021-09-20] MEDS: METOPROLOL TARTRATE 12.5 MG TABLET PO (02:32)
[2021-09-20] MEDS: HYDROcodone/acetaminophen (*CRX) 7.5-325 MG TABLET 1 TAB PO ×3 (05:30→16:53)
[2021-09-20] MEDS: CENTRAL LINE FLUSH 10 ML IV PUSH ×3 (05:41→22:17)
[2021-09-20 06:07] LABS: Basophils Percent Auto 0.2 % (0.2-1.2); Eosinophils Absolute Auto 0.3 K/mm3 (0-0.3); Eosinophils Percent Auto 3.9 % (0-4.4); Hematocrit 30.4 % (37.0-47.0); Hemoglobin 9.5 g/dL (12.0-15.0); Immature Granulocyte Absolute 0.05 K/mm3 (0.00-0.031); Immature Granulocyte Percent A 0.6 % (0-0.5); Lymphocytes Absolute Auto 2.39 K/mm3 (0.9-3.2); Lymphocytes Percent Auto 28.2 % (18.3-44.2); Mean Corpuscular HGB Conc 31.3 g/dl (32-36); Mean Corpuscular Hemoglobin 32.6 pg (26-34); Mean Corpuscular Volume 104.5 fl (80-100); Mean Platelet Volume 10.6 fl (7.4-10.4); Monocytes Absolute Auto 0.7 K/mm3 (0.1-0.6); Monocytes Percent Auto 8.7 % (2.6-8.5); Neutrophils Percent Auto 58.4 % (45.5-73.1); Platelet Count Result 384 k/mm3 (150-375); Red Blood Count 2.91 M/mm3 (4.2-5.4); Red Cell Distribution Width 17.1 % (11.5-14.5); White Blood Count 8.5 K/mm3 (4.5-10.0)
[2021-09-20 06:19] LABS: Anion Gap 8 mmol/L (8-16); Blood Urea Nitrogen 17 mg/dL (7-17); Calcium 8.9 mg/dL (8.4-10.2); Carbon Dioxide 26 mmol/L (22-30); Chloride 101 mmol/L (98-107); Estimated CRCL calculation 29 ml/min; Estimated Glomerular Filt Rate 39; Glucose 117 mg/dL (65-110); Potassium 3.7 mmol/L (3.4-5.0); Sodium 135 mmol/L (137-145)
--- NOTE | 2021-09-20 08:41 | PM.PNCARD ---
Progress Note: A&P Assessment and Plan (1) Atrial fibrillation with RVR: Code(s): I48.91 - Unspecified atrial fibrillation Status: Acute Assessment and Plan: History of paroxysmal atrial fibrillation on metoprolol at home for rate control. Recent presentation for wound infection, was noted to be in Afib with RVR. Has been rate controlled with diltiazem and metoprolol. Some difficulty with hypotension necessitating her rate control agents to be held with resulting tachycardia. Heart rate well controlled when sleeping. She does still have some periods of tachycardia noted on telemetry, but generally her rate is well controlled. Suspect this will continue to improve as pain and infection resolve. By vital signs review in her chart she has not been hypotensive in the last 24 hours. Increase metoprolol to 25mg q8h with holding parameters. Continue anticoagulation with eliquis. (2) Hip fracture: Qualifiers: Encounter type: initial encounter Fracture type: closed Laterality: right Qualified Code(s): S72.001A - Fracture of unspecified part of neck of right femur, initial encounter for closed fracture Code(s): S72.009A - Fracture of unspecified part of neck of unspecified femur, initial encounter for closed fracture Status: Acute Assessment and Plan: Recent right hip fracture s/p ORIF per Dr. Zamarripa. (3) Postoperative wound infection of right hip: Code(s): T81.49XA - Infection following a procedure, other surgical site, initial encounter Status: Acute Assessment and Plan: Infection of R hip incision requiring I&D x2 and debridement. Wound vac in place. On IV abx for wound infection. Management per ortho and ID (4) Chronic anticoagulation: Code(s): Z79.01 - residential (current) use of anticoagulants Status: Acute Assessment and Plan: On eliqius. Monitor H&H Subjective Date/time seen: 09/20/21 08:41 Interval history: 86-year-old s/p insertion of IM sukhwinder left femur Date of service 09/18/2021: More awake alert today. No chest pain or shortness of breath Date of service 09/19/2021: Sleepy this morning but awakens to answer questions. Denies any pain, no palpitations, shortness of breath. Date of service 09/20/2021: Much more alert today, conversant. Denies any pain. She does not complain of any palpitations, shortness of breath, chest pain. She is eager to go home. Review of Systems Review of Systems: All systems reviewed & are unremarkable except as noted in HPI and below ROS unobtainable: Yes unobtainable due to mental status Constitutional: Constitutional: Reports weakness Eyes: Eyes: Denies blurry vision ENT: Reports Normal hearing present Cardiovascular: Cardiovascular: Denies chest pain and Denies dyspnea Respiratory: Respiratory: Denies dyspnea Integumentary/Breasts: Skin/Breast: Reports unusual bruising Neurologic: Reports Normal hearing present and Reports weakness Psychiatric: Psychiatric: Denies anxiety Hematologic/Lymphatic: Hematologic/Lymphatic: Reports easy bruising Exam Const: General: comfortable and no acute distress Other: Frail, elderly woman lying in bed talking to her son on the phone. Alert and oriented. HENMT: Head: normal to inspection Ears: hearing grossly normal bilaterally Mouth: Yes Normal oral and palatal mucosa present Eyes: General: appearance normal, both eyes and all related structures Neck: Neck: supple Resp: Effort & Inspection: normal respiratory effort Auscultation: clear to auscultation bilaterally and diminished lung sounds Cardio: Rate: regular rate Rhythm: abnormal rhythm irregularly irregular Heart sounds: no murmurs GI: Auscultation: normal bowel sounds Skin: General skin exam: normal color Wounds: wounds noted Neuro: Cranial nerves: Yes Normal hearing present Extrem: General: abnormal to inspection, edema (BLE ) and pedal edema (left worse than right )
[2021-09-20] MEDS: METOPROLOL TARTRATE 25 MG TABLET PO ×3 (09:30→22:12)
[2021-09-20] MEDS: BRIMONIDINE TARTRATE 0.2% OP SOLN 5 ML BTL 1 DROP RIGHT EYE ×2 (09:38→22:10)
[2021-09-20] MEDS: TIMOLOL MALEATE 0.5% OP SOLN 5 ML BOTTLE 1 DROP RIGHT EYE ×2 (09:38→22:11)
[2021-09-20] MEDS: FERROUS SULFATE 324 MG TABLET PO (09:39)
[2021-09-20] MEDS: MULTIVITAMINS /C LUTEIN (CENTRUM SILVER) TABLET *BKC 1 TAB PO (09:39)
[2021-09-20] MEDS: PANTOPRAZOLE 40 MG TABLET PO (09:39)
[2021-09-20] MEDS: ATORVASTATIN 10 MG TABLET PO (09:39)
[2021-09-20] MEDS: LACTULOSE 20 GM/30 ML UDC 30 GM PO (09:40)
--- NOTE | 2021-09-20 09:52 | PM.PNORT ---
Progress Note: A&P Assessment and Plan (1) Postoperative wound infection of right hip: Code(s): T81.49XA - Infection following a procedure, other surgical site, initial encounter Status: Acute Assessment and Plan: 4 weeks, 1 day s/p insertion of IM sukhwinder left femur POD #10: I&D with irrigation and debridement right hip wound and wound VAC placement POD #7: I&D and Wound Closure Right Hip Intraoperative wound cultures reveal Proteus Mirabilis. ID consulted. IV piperacillin through 09/25. Wound VAC dressing removed. Incision well approximated. Scant serous drainage. Mepilex Silver dressing placed. Continue PT/OT. Encourage OOB to chair. NWB RLE. HIGH FALL RISK. Ice lateral hip. Pain control. DVT prophylaxis. SCDs. Incentive Spirometry. Nursing to assist. Dispo: SNF with IV antibiotics pending medical stability. Outpatient ortho follow up arranged. Subjective Subjective Date/Time Seen: 09/20/21 09:52 Interval history: Interval history: 4 weeks, 1 day s/p insertion of IM sukhwinder left femur POD #10: I&D with irrigation and debridement right hip wound and wound VAC placement POD #7: I&D and Wound Closure Right Hip Review of Systems Review of Systems: All systems reviewed & are unremarkable except as noted in HPI and below Constitutional: Constitutional: Reports no additional constitutional complaints Musculoskeletal: Musculoskeletal: Reports as per HPI Exam Const: General: comfortable and no acute distress Resp: Effort & Inspection: normal respiratory effort GI: GI Palp: Yes Soft to palpation Urinary Catheter: Urinary Catheter: patent and draining Skin: Wounds: wounds noted (wound VAC dressing removed, incision well approximated. Scant serous driana) Neuro: General: No gait normal Speech: normal speech Motor exam (neuro): strength not 5/5 throughout and Abnormal motor strength present (b/l LE ) Extrem: Right lower extremity: hip/thigh Details: tenderness Location: of the hip Location: laterally, swelling Location: at the hip, abnormal ROM (limited ) and ecchymosis (lateral hip ); ROM abnormal, knee Details: normal to inspection and normal ROM; no tenderness and no swelling, lower leg (Negative Mariano's Sign ), ankle (+ankle dorsiflexion/plantarflexion ) and foot (Moves toes, sensation intact to light touch) Other: Lateral incisions of the femur from first surgical intervention well healed. Prevena wound VAC on the proximal hip removed today. Incision well approximated with sutures. Scant sanguinous drainage. New Mepilex Silver dressing applied. Surrounding tissue with mild swelling. Thigh soft. Knee without effusion. Moves toes. Sensation intact. +ankle dorsiflexion/plantarflexion. Negative Mariano's sign. Objective Data Vital Signs Vital Signs: Vital Signs - 24 hr 09/19/21 12:00 09/19/21 13:07 09/19/21 14:00 Temperature 37.8 C H Pulse Rate 96 97 83 Respiratory Rate 16 Blood Pressure 102/57 L Pulse Oximetry 93 09/19/21 16:00 09/19/21 17:43 09/19/21 17:53 Temperature Pulse Rate 118 H 140 H Respiratory Rate Blood Pressure 126/51 L Pulse Oximetry 09/19/21 20:00 09/20/21 00:00 09/20/21 02:32 Temperature 35.8 C L 36.2 C L Pulse Rate 107 H 96 136 H Respiratory Rate 18 18 Blood Pressure 112/89 119/68 Pulse Oximetry 96 95 09/20/21 03:44 09/20/21 04:00 09/20/21 08:00 Temperature 35.9 C L 35.9 C L Pulse Rate 107 H 107 H 110 H Respiratory Rate 18 18 Blood Pressure 114/65 114/65 Pulse Oximetry 96 96 Intake/Output Intake/Output: Intake & Output 09/17/21 09/18/21 09/19/21 09/20/21 23:59 23:59 23:59 23:59 Intake Total 2970 980 660 170 Output Total 3250 7505 975 350 [facility] -280 -795 -315 -180 Meds/Results Medications: Active Medications Generic Name Dose Route Start Last Admin Trade Name Freq PRN Reason Stop Dose Admin Acetaminophen 650 mg 09/15/21 18:33 Acetaminophen 325 Mg Tablet PO Q6H PRN Pain (Scale Score 1-3)
[2021-09-20 12:37] LABS: IFOB Positive Control Positive; Immunochemical Fecal Occult Bl Positive (N)
--- NOTE | 2021-09-20 17:02 | PM.IMPN ---
Progress Note: A&P Assessment and Plan (1) Hypotension: Code(s): I95.9 - Hypotension, unspecified Status: Acute Assessment and Plan: Improving blood pressure with no hypotensive episodes over the last 24 hours. Hypotension likely secondary to infection following a procedure on the surgical site. This is likely to improve as infection resolved. Patient originally improved after several boluses of IV fluids on 09/16/2021. Chest x-ray reveals cardiomegaly with improving pulmonary edema and stable bibasilar opacities consistent with atelectasis versus pneumonia. Lactic acid was slightly elevated at 2.3; a repeat level later was normal at 0.7. Again mild hypotension today and cardioprotective medication were put on hold. Mild hypotension on 09/18/2021 managed with temp a limbal with improvement of blood pressure. Blood pressure stable today at 127/80. (2) Atrial fibrillation with rapid ventricular response: Code(s): I48.91 - Unspecified atrial fibrillation Status: Acute Assessment and Plan: Patient carries a diagnosis of paroxysmal atrial fibrillation; she has experienced atrial fibrillation with rapid ventricular response, and has been managed with PO cardizem and metoprolol. Management has been challenging due to intermittent hypotension. Previously on a regimen with Cardizem and metoprolol; in view of recurrent hypotension Cardiology was consulted. Cardizem was stopped and metoprolol increased to 12.5mg q8h. Will increase metoprolol to 25 mg q.8 hours as tolerated. Continue anticoagulation with eliquis. Stool Hemoccult was positive. However hemoglobin has been stable in the 9-10 range. Iron stores are adequate. GI was consulted. This is likely secondary to hemorrhoid. (3) Postoperative wound infection of right hip: Code(s): T81.49XA - Infection following a procedure, other surgical site, initial encounter Status: Acute Assessment and Plan: Procedure was well tolerated. Patient is postop since 09/10. Repeat I&D and wound VAC placement 09/13/2021. Continue pain management. Wound culture growing Proteus which is sensitive to Zosyn Continue Zosyn through September 25 per ID recommendations. 4 weeks, 1 day s/p insertion of IM sukhwinder left femur POD #10: I&D with irrigation and debridement right hip wound and wound VAC placement POD #7: I&D and Wound Closure Right Hip Intraoperative wound cultures reveal Proteus Mirabilis. ID consulted. IV piperacillin through 09/25. Wound VAC dressing removed. Incision well approximated. Scant serous drainage. Mepilex Silver dressing placed. Continue PT/OT. Encourage OOB to chair. NWB RLE. HIGH FALL RISK. Ice lateral hip. Pain control. DVT prophylaxis. SCDs. Incentive Spirometry. Nursing to assist. Dispo: SNF with IV antibiotics pending medical stability. Outpatient ortho follow up arranged. PICC line was placed on 09/19/2021 in anticipation for discharge. (4) Chronic anemia: Code(s): D64.9 - Anemia, unspecified Status: Acute Assessment and Plan: Moderate macrocytic anemia, stable and well tolerated with a hemoglobin of 10.2. Iron stores adequate, B12 level is above normal range, folate level. (5) Abnormal urinalysis: Code(s): R82.90 - Unspecified abnormal findings in urine Status: Acute Assessment and Plan: Urine culture growing pansensitive E coli. Currently patient on Zosyn. PICC line placed on 09/19/2021. (6) Chronic anticoagulation: Code(s): Z79.01 - long-term (current) use of anticoagulants Status: Acute Assessment and Plan: Continue Eliquis 5 mg p.o. b.i.d. no evidence of bleeding from the gut. (7) Hypothyroidism: Code(s): E03.9 - Hypothyroidism, unspecified Status: Chronic Assessment and Plan: Chronic and stable . TSH is 4.9. (8) Hypertension: Code(s): I10 - Essential (primary) hypertension Status: Chronic Assessment and Plan: Saul
[2021-09-20] MEDS: LATANOPROST 0.005% OP SOLN 2.5 ML BTL 1 DROP RIGHT EYE (22:09)
[2021-09-20] MEDS: GABAPENTIN 100 MG CAPSULE 200 MG PO (22:10)
[2021-09-20] MEDS: MIRTAZAPINE 15 MG TABLET PO (22:11)
[2021-09-21] VITALS (15 sets, daily range): BP systolic 95–131; BP diastolic 54–72; PULSE 60–128; RESP 16–22; TEMP 36.3–38.2; O2SAT 93–96; BMI 10.0
[2021-09-21] MEDS: METOPROLOL TARTRATE 25 MG TABLET PO ×3 (06:35→20:22)
[2021-09-21] MEDS: CENTRAL LINE FLUSH 10 ML IV PUSH ×3 (06:37→20:23)
[2021-09-21 06:38] LABS: Basophils Percent Auto 0.3 % (0.2-1.2); Eosinophils Absolute Auto 0.4 K/mm3 (0-0.3); Eosinophils Percent Auto 5.2 % (0-4.4); Hematocrit 30.5 % (37.0-47.0); Hemoglobin 9.4 g/dL (12.0-15.0); Immature Granulocyte Absolute 0.05 K/mm3 (0.00-0.031); Immature Granulocyte Percent A 0.7 % (0-0.5); Lymphocytes Absolute Auto 2.42 K/mm3 (0.9-3.2); Lymphocytes Percent Auto 34.1 % (18.3-44.2); Mean Corpuscular HGB Conc 30.8 g/dl (32-36); Mean Corpuscular Hemoglobin 32.1 pg (26-34); Mean Corpuscular Volume 104.1 fl (80-100); Mean Platelet Volume 10.3 fl (7.4-10.4); Monocytes Absolute Auto 0.7 K/mm3 (0.1-0.6); Monocytes Percent Auto 9.3 % (2.6-8.5); Neutrophils Absolute Auto 3.6 K/mm3 (1.3-6.7); Neutrophils Percent Auto 50.4 % (45.5-73.1); Platelet Count Result 339 k/mm3 (150-375); Red Blood Count 2.93 M/mm3 (4.2-5.4); Red Cell Distribution Width 17.3 % (11.5-14.5); White Blood Count 7.1 K/mm3 (4.5-10.0)
[2021-09-21 06:49] LABS: Anion Gap 11 mmol/L (8-16); Blood Urea Nitrogen 14 mg/dL (7-17); Calcium 8.8 mg/dL (8.4-10.2); Carbon Dioxide 24 mmol/L (22-30); Chloride 104 mmol/L (98-107); Estimated CRCL calculation 32 ml/min; Estimated Glomerular Filt Rate 43; Glucose 102 mg/dL (65-110); Potassium 3.7 mmol/L (3.4-5.0); Sodium 139 mmol/L (137-145)
[2021-09-21 07:33] LABS: Red Blood Cell Folate >1000 ng/mL RBC (>280)
[2021-09-21] MEDS: TIMOLOL MALEATE 0.5% OP SOLN 5 ML BOTTLE 1 DROP RIGHT EYE ×2 (08:05→20:21)
[2021-09-21] MEDS: BRIMONIDINE TARTRATE 0.2% OP SOLN 5 ML BTL 1 DROP RIGHT EYE ×2 (08:05→20:20)
[2021-09-21] MEDS: APIXABAN 5 MG TABLET PO (08:06)
[2021-09-21] MEDS: PANTOPRAZOLE 40 MG TABLET PO (08:06)
[2021-09-21] MEDS: FERROUS SULFATE 324 MG TABLET PO (08:07)
[2021-09-21] MEDS: ATORVASTATIN 10 MG TABLET PO (08:07)
[2021-09-21] MEDS: MULTIVITAMINS /C LUTEIN (CENTRUM SILVER) TABLET *BKC 1 TAB PO (08:07)
--- NOTE | 2021-09-21 11:09 | WPDGICN ---
Assessment and Plan Assessment and plan (1) Chronic anemia: Code(s): D64.9 - Anemia, unspecified Status: Acute Assessment and Plan: anemia probably related to recent surgeries and acute infection, AOCD, also use of anticoagulation no overt gib, found occult blood in stools but this is not significant she had recent colonoscopy earlier this year with hemorrhoids no need to proceed with endoscopic evaluation will sign off (2) Occult blood in stools: Code(s): R19.5 - Other fecal abnormalities Status: Acute Assessment and Plan: probably perianal hb stable last few days no overt gib (3) Postoperative wound infection of right hip: Code(s): T81.49XA - Infection following a procedure, other surgical site, initial encounter Status: Acute Assessment and Plan: she has been in the hospital several days and required more surgery and antibiotics (4) Chronic anticoagulation: Code(s): Z79.01 - continuous churn buttermaker (current) use of anticoagulants Status: Acute (5) Paroxysmal atrial fibrillation: Code(s): I48.0 - Paroxysmal atrial fibrillation Status: Acute GI Consult Note Consult date/time: 09/21/21 11:09 Reason for consult: fobt, anemia HPI: Tatiana Serrato is a 86 year old female who has a prolonged hospitalization after she fell and had fracture of the right hip then underwent insertion of IM sukhwinder on 08/22/2021, she returned from the long term with right hip pain (imaging reviewed and concerning for an abscess), had wound dehiscence over the incision at her long term and was readmitted, taken again to the operating room and had debridement of her wound, treated with antibiotics by ID and also orthopedist. During this hospitalization also had atrial fibrillation with RVR treated by primary team and also on eliquis. She has anemia with hb 7.5-10, work up included occult blood in stool that was positive but no report of overt gib. She is slowly recovering from infection and she is confused, hard to get good history from her. I did her colonoscopy as outpatient on 01/2021 when she had + cologuard, only found hemorrhoids and small polyp that was removed. Review of Systems Constitutional: Constitutional: Reports fatigue Eyes: Comments: legally blind ENT: Reports system reviewed and no additional complaints, except as documented Cardiovascular: Cardiovascular: Denies lightheadedness Respiratory: Respiratory: Denies dyspnea Gastrointestinal: Gastrointestinal: Denies abdominal pain Genitourinary: Genitourinary: Denies hematuria Musculoskeletal: Musculoskeletal: Reports arthralgias Integumentary/Breasts: Skin/Breast: Denies dry skin Neurologic: Denies headache(s) Psychiatric: Psychiatric: Reports confusion [facility] Past Medical History Medical History (Updated 09/21/21 @ 11:19 by Miguel Taylor MD) Age-related hearing loss Cataracts, bilateral maturing Chronic anemia Chronic anticoagulation Degenerative joint disease Dementia Gastroesophageal reflux disease Glaucoma Hypertension Hypothyroidism Mixed hyperlipidemia Occult blood in stools Osteoporosis Paroxysmal atrial fibrillation Pre-diabetes Presbyesophagus Rheumatoid arthritis Vitamin B12 deficiency Vitamin D deficiency Surgical History Surgical History History of colonoscopy with polypectomy History of dilation and curettage (11/04/19) For postmenopausal bleeding. Pathology demonstrated atrophic endometrium. History of open reduction and internal fixation (ORIF) procedure (08/22/21) IM sukhwinder for right hip fracture. Family History Family History Sibling Acute myocardial infarction Mother Renal failure Social History Social History Social History: Surrogate decision maker: Chandler Serrato, son. Code status: Full co
--- NOTE | 2021-09-21 12:46 | PCOTNOTE ---
Attempted to see pt for occupational therapy tx 3x. At 1st attempt pt was wanting to eat her breakfast and required setup for preparation of coffee. At 2nd attempt pt was sleeping at stated to try later. At 3rd attempt at 12:45pm, pt was sleeping and declined to stay awake and was sleeping. Pt was educated on the importance of therapy participation, however pt declined again for therapy. RN was notified of pt's refusal. Will continue per poc duration/frequency tomorrow.
[2021-09-21] MEDS: ACETAMINOPHEN 325 MG TABLET 650 MG PO (17:43)
--- NOTE | 2021-09-21 17:49 | PM.IMPN ---
Progress Note: A&P Assessment and Plan (1) Hypotension: Code(s): I95.9 - Hypotension, unspecified Status: Acute Assessment and Plan: Improving blood pressure with no hypotensive episodes over the last 24 hours. Patient present mild fever at 100.7 F. Will send repeat cultures and perform x-ray of the chest. Send urine analysis and reflux to culture. Patient already on Zosyn Hypotension likely secondary to infection following a procedure on the surgical site. This is likely to improve as infection resolved. Patient originally improved after several boluses of IV fluids on 09/16/2021. Chest x-ray reveals cardiomegaly with improving pulmonary edema and stable bibasilar opacities consistent with atelectasis versus pneumonia. Lactic acid was slightly elevated at 2.3; a repeat level later was normal at 0.7. Again mild hypotension today and cardioprotective medication were put on hold. Mild hypotension on 09/18/2021 managed with temp a limbal with improvement of blood pressure. Blood pressure stable today at 101/59.. (2) Atrial fibrillation with rapid ventricular response: Code(s): I48.91 - Unspecified atrial fibrillation Status: Acute Assessment and Plan: Patient carries a diagnosis of paroxysmal atrial fibrillation; she has experienced atrial fibrillation with rapid ventricular response, and has been managed with PO cardizem and metoprolol. Management has been challenging due to intermittent hypotension. Previously on a regimen with Cardizem and metoprolol; in view of recurrent hypotension Cardiology was consulted. Cardizem was stopped and metoprolol increased to 12.5mg q8h. Currently she is on metoprolol 25 mg q.8 hours as tolerated. Continue anticoagulation with eliquis. Stool Hemoccult was positive. However hemoglobin has been stable in the 9-10 range. Iron stores are adequate. GI was consulted. This is likely secondary to hemorrhoid. (3) Postoperative wound infection of right hip: Code(s): T81.49XA - Infection following a procedure, other surgical site, initial encounter Status: Acute Assessment and Plan: Procedure was well tolerated. Patient is postop since 09/10. Repeat I&D and wound VAC placement 09/13/2021. Continue pain management. Wound culture growing Proteus which is sensitive to Zosyn Continue Zosyn through September 25 per ID recommendations. 4 weeks, 1 day s/p insertion of IM sukhwinder left femur POD #11: I&D with irrigation and debridement right hip wound and wound VAC placement POD #8: I&D and Wound Closure Right Hip Intraoperative wound cultures reveal Proteus Mirabilis. ID consulted. IV piperacillin through 09/25. Wound VAC dressing removed. Incision well approximated. Scant serous drainage. Mepilex Silver dressing placed. Continue PT/OT. Encourage OOB to chair. NWB RLE. HIGH FALL RISK. Ice lateral hip. Pain control. DVT prophylaxis. SCDs. Incentive Spirometry. Nursing to assist. Dispo: SNF with IV antibiotics pending medical stability. Outpatient ortho follow up arranged. PICC line was placed on 09/19/2021 in anticipation for discharge. (4) Chronic anemia: Code(s): D64.9 - Anemia, unspecified Status: Acute Assessment and Plan: Moderate macrocytic anemia, stable and well tolerated with a hemoglobin of 10.2. Iron stores adequate, B12 level is above normal range, folate level. (5) Abnormal urinalysis: Code(s): R82.90 - Unspecified abnormal findings in urine Status: Acute Assessment and Plan: Urine culture growing pansensitive E coli. Currently patient on Zosyn. PICC line placed on 09/19/2021. (6) Chronic anticoagulation: Code(s): Z79.01 - terminal superintendent (current) use of anticoagulants Status: Acute Assessment and Plan: Continue Eliquis 5 mg p.o. b.i.d. no evidence of bleeding from the gut. (7) Hypothyroidism: Code(s): E03.9 - Hypothyroidism, unspecified Status: Chronic Assessment and Pl
[2021-09-21] MEDS: DIGOXIN 250 MCG TABLET 500 MCG PO (19:48)
[2021-09-21] MEDS: LATANOPROST 0.005% OP SOLN 2.5 ML BTL 1 DROP RIGHT EYE (20:20)
[2021-09-21] MEDS: GABAPENTIN 100 MG CAPSULE 200 MG PO (20:21)
[2021-09-21] MEDS: MIRTAZAPINE 15 MG TABLET PO (20:21)
[2021-09-22] VITALS (18 sets, daily range): BP systolic 105–153; BP diastolic 57–81; PULSE 62–103; RESP 14–20; TEMP 35.9–36.6; O2SAT 93–97; BMI 10.0
[2021-09-22] MEDS: APIXABAN 5 MG TABLET PO ×3 (00:41→21:44)
[2021-09-22 03:01] LABS: Add Urine Microscopic? NO; Appearance Urine Clear (Clear); Bilirubin Urine Negative (Negative); Blood Urine Negative (Negative); Color Urine Yellow (Yellow); Glucose Urine UA Negative (Negative); Ketones Urine Negative (Negative); Leukocyte Esterase Ur Negative LEU/UL (NEGATIVE); Nitrate Urine Negative (Negative); Protein Urine Negative (Negative); Specific Grav Ur 1.013 (1.001-1.035); Urobilinogen Urine Negative mg/dL (<2.0)
[2021-09-22] MEDS: METOPROLOL TARTRATE 25 MG TABLET PO ×3 (06:16→21:47)
[2021-09-22] MEDS: CENTRAL LINE FLUSH 10 ML IV PUSH ×3 (06:17→21:46)
[2021-09-22 06:32] LABS: Basophils Percent Auto 0.3 % (0.2-1.2); Eosinophils Absolute Auto 0.4 K/mm3 (0-0.3); Eosinophils Percent Auto 5.4 % (0-4.4); Hematocrit 31.3 % (37.0-47.0); Hemoglobin 9.7 g/dL (12.0-15.0); Immature Granulocyte Absolute 0.06 K/mm3 (0.00-0.031); Immature Granulocyte Percent A 0.9 % (0-0.5); Lymphocytes Absolute Auto 2.34 K/mm3 (0.9-3.2); Lymphocytes Percent Auto 36.2 % (18.3-44.2); Mean Corpuscular Hemoglobin 32.3 pg (26-34); Mean Corpuscular Volume 104.3 fl (80-100); Mean Platelet Volume 10.6 fl (7.4-10.4); Monocytes Absolute Auto 0.7 K/mm3 (0.1-0.6); Monocytes Percent Auto 11.4 % (2.6-8.5); Neutrophils Percent Auto 45.8 % (45.5-73.1); Platelet Count Result 336 k/mm3 (150-375); Red Cell Distribution Width 17.2 % (11.5-14.5); White Blood Count 6.5 K/mm3 (4.5-10.0)
[2021-09-22 06:42] LABS: Anion Gap 10 mmol/L (8-16); Blood Urea Nitrogen 13 mg/dL (7-17); Carbon Dioxide 24 mmol/L (22-30); Chloride 106 mmol/L (98-107); Estimated CRCL calculation 34 ml/min; Estimated Glomerular Filt Rate 47; Glucose 101 mg/dL (65-110); Potassium 3.7 mmol/L (3.4-5.0); Sodium 140 mmol/L (137-145)
[2021-09-22] MEDS: LACTULOSE 20 GM/30 ML UDC 30 GM PO (08:29)
[2021-09-22] MEDS: PANTOPRAZOLE 40 MG TABLET PO (08:30)
[2021-09-22] MEDS: BRIMONIDINE TARTRATE 0.2% OP SOLN 5 ML BTL 1 DROP RIGHT EYE ×2 (08:31→21:44)
[2021-09-22] MEDS: ATORVASTATIN 10 MG TABLET PO (08:31)
[2021-09-22] MEDS: MULTIVITAMINS /C LUTEIN (CENTRUM SILVER) TABLET *BKC 1 TAB PO (08:31)
[2021-09-22] MEDS: FERROUS SULFATE 324 MG TABLET PO (08:31)
[2021-09-22] MEDS: TIMOLOL MALEATE 0.5% OP SOLN 5 ML BOTTLE 1 DROP RIGHT EYE ×2 (08:31→21:45)
--- NOTE | 2021-09-22 11:08 | PM.IMPN ---
Progress Note: A&P Assessment and Plan (1) Hypotension: Code(s): I95.9 - Hypotension, unspecified Status: Acute Assessment and Plan: Improving blood pressure with no hypotensive episodes over the last 24 hours. No recurrence of fever. Chest x-ray with residual basilar airspace disease. Urinalysis was unremarkable. Patient is currently on Zosyn till September 25. Hypotension likely secondary to infection following a procedure on the surgical site. This is likely to improve as infection resolved. Patient originally improved after several boluses of IV fluids on 09/16/2021. Blood pressure stable today at 106/57. Currently on metoprolol for rate control. Cardizem was stopped due to does had recurrent episodes of hypotension (2) Atrial fibrillation with rapid ventricular response: Code(s): I48.91 - Unspecified atrial fibrillation Status: Acute Assessment and Plan: Patient carries a diagnosis of paroxysmal atrial fibrillation; she has experienced atrial fibrillation with rapid ventricular response. Currently patient is rate controlled on metoprolol 20 5q 8h. Last night was started on digoxin due to single episodes of tachycardia. Patient was loaded with digoxin 500 mcg p.o. once followed by digoxin 125 mcg p.o. daily. (3) Postoperative wound infection of right hip: Code(s): T81.49XA - Infection following a procedure, other surgical site, initial encounter Status: Acute Assessment and Plan: Procedure was well tolerated. Patient is postop since 09/10. Repeat I&D and wound VAC placement 09/13/2021. Continue pain management. Wound culture growing Proteus which is sensitive to Zosyn. Plan is to continue Zosyn through September 25 per ID recommendations. 4 weeks, 3 days s/p insertion of IM sukhwinder left femur POD #12: I&D with irrigation and debridement right hip wound and wound VAC placement POD #9: I&D and Wound Closure Right Hip Intraoperative wound cultures reveal Proteus Mirabilis. ID consulted. IV piperacillin through 09/25. Wound VAC dressing removed. Mepilex Silver dressing placed. Continue PT/OT. Encourage OOB to chair. NWB RLE. HIGH FALL RISK. Ice lateral hip. Pain control. DVT prophylaxis. SCDs. Incentive Spirometry. Nursing to assist. Dispo: SNF with IV antibiotics pending medical stability. Outpatient ortho follow up arranged. PICC line was placed on 09/19/2021 in anticipation for discharge. (4) Chronic anemia: Code(s): D64.9 - Anemia, unspecified Status: Acute Assessment and Plan: Moderate macrocytic anemia, stable and well tolerated with a hemoglobin of 9.7. Iron stores adequate, B12 level is above normal range, folate level. (5) Abnormal urinalysis: Code(s): R82.90 - Unspecified abnormal findings in urine Status: Acute Assessment and Plan: Urine culture growing pansensitive E coli. Currently patient on Zosyn. PICC line placed on 09/19/2021. (6) Chronic anticoagulation: Code(s): Z79.01 - nursing home (current) use of anticoagulants Status: Acute Assessment and Plan: Continue Eliquis 5 mg p.o. b.i.d.; no evidence of bleeding from the gut. (7) Hypothyroidism: Code(s): E03.9 - Hypothyroidism, unspecified Status: Chronic Assessment and Plan: Chronic and stable . TSH is 4.9. (8) Hypertension: Code(s): I10 - Essential (primary) hypertension Status: Chronic Assessment and Plan: Currently normotensive; cardizem stopped. Per cardioogy, continue metoprolol tartrate 25 mg p.o. q.8 hour; currently Lasix and spironolactone 25 mg p.o. daily on hold due to hypotension. (9) JOON (acute kidney injury): Code(s): N17.9 - Acute kidney failure, unspecified Status: Acute Assessment and Plan: Again, mild improvement of creatinine from 1.2 it is 1.1 today. Additional Plan The patient was brought in on 09/06/2021 for evaluation of a right hip wound and area of dehiscence
[2021-09-22] MEDS: HYDROcodone/acetaminophen (*CRX) 5-325 MG TABLET 1 TAB PO ×2 (11:52→21:47)
--- NOTE | 2021-09-22 12:07 | PM.PNCARD ---
Progress Note: A&P Additional Plan 86-year-old lady with chronic atrial fibrillation being managed with rate control and anticoagulation. Current combination is metoprolol total daily dosage is of 75 mg. Added some digoxin since rate control was suboptimal last evening. Patient has been at times with soft blood pressure and would like therefore not to use diltiazem or higher dose of metoprolol. Renal function is reasonable and so a modest dose of digoxin should be well tolerated Jhonatan Shi MD [facility] Subjective Date/time seen: Date of service: 09/22/21 12:07 Interval history: Follow-up visit in this 86-year-old lady with chronic atrial fibrillation. Patient admitted to the hospital with infected hip prosthesis. Beta-coreen has been added to her regimen to provide heart rate control. I was called last night about a AFib with RVR with which she was largely asymptomatic. She was given a dose of oral digoxin and heart rate is 80-90 at this time. Patient is asymptomatic unaware of her atrial fibrillation offers no cardiac complaints. Exam Const: General: comfortable and no acute distress Other: Pleasant elderly lady in no distress HENMT: Mouth: Yes moist mucous membranes Eyes: Sclera: sclerae normal Neck: Neck: supple and no JVD Resp: Effort & Inspection: normal respiratory effort Auscultation: clear to auscultation bilaterally Cardio: Rhythm: abnormal rhythm irregularly irregular GI: GI Palp: Yes Soft to palpation Auscultation: normal bowel sounds Skin: General skin exam: normal color Neuro: Cognition (Neuro): normal cognition Objective Data Vital Signs Vital Signs: Vital Signs - 24 hr 09/21/21 13:59 09/21/21 14:02 09/21/21 16:00 Temperature Pulse Rate 116 H 97 Respiratory Rate Blood Pressure 108/63 Pulse Oximetry 09/21/21 16:05 09/21/21 18:30 09/21/21 19:48 Temperature 37.6 C H Pulse Rate 105 H 88 Respiratory Rate 16 Blood Pressure 101/59 L 131/54 L Pulse Oximetry 96 09/21/21 20:00 09/21/21 20:22 09/22/21 00:00 Temperature 36.3 C L 35.9 C L Pulse Rate 96 96 76 Respiratory Rate 22 H 20 Blood Pressure 100/55 L 105/66 Pulse Oximetry 95 94 09/22/21 04:00 09/22/21 06:16 09/22/21 08:00 Temperature 36.2 C L Pulse Rate 62 72 92 Respiratory Rate 20 Blood Pressure 122/57 L Pulse Oximetry 97 09/22/21 08:39 09/22/21 10:53 Temperature 36.3 C L 36.3 C L Pulse Rate 87 87 Respiratory Rate 18 18 Blood Pressure 120/73 120/73 Pulse Oximetry 96 96 Intake/Output Intake/Output: Intake & Output 09/19/21 09/20/21 09/21/21 09/22/21 23:59 23:59 23:59 23:59 Intake Total 936 497 8771 340 Output Total 975 650 700 250 Balance -315 30 470 90 Meds/Results Medications: Active Medications Generic Name Dose Route Start Last Admin Trade Name Freq PRN Reason Stop Dose Admin Acetaminophen 650 mg 09/15/21 18:33 09/21/21 17:43 Acetaminophen 325 Mg Tablet PO 650 mg Q6H PRN Administration Pain (Scale Score 1-3) Hydrocodone Bitart/Acetaminophen 1 tab 09/22/21 11:29 09/22/21 11:52 Hydrocodone/Acetaminophen (*Crx) 5-325 Mg Tablet PO 1 tab Q4H PRN Administration Pain Rated 4-6 Apixaban 5 mg 09/21/21 09:00 09/22/21 08:31 Apixaban 5 Mg Tablet PO 5 mg Q12HR JAMES Administration Atorvastatin Calcium 10 mg 09/07/21 09:00 09/22/21 08:31 Atorvastatin 10 Mg Tablet PO 10 mg DAILY JAMES Administration Brimonidine Tartrate 1 drop 09/06/21 21:00 09/22/21 08:31 Brimonidine Tartrate 0.2% Op Soln 5 Ml Btl RIGHT EYE 1 drop Q12HR JAMES Administration Cyanocobalamin 1,000 mcg 09/11/21 09:00 09/11/21 12:40 Cyanocobalamin Inj 1,000 Mcg/Ml Vial SUB-Q 1,000 mcg Q31D JAMES Administration Docusate Sodium 200 mg 09/07/21 09:00 09/22/21 08:32 Docusate Sodium 100 Mg Capsule PO Not Given DAILY JAMES Ferrous Sulfate 324 mg 09/07/21 08:00 09/22/21 08:31 Ferrous Sulfate 324 Mg Tablet PO 324 mg DA
--- NOTE | 2021-09-22 12:42 | PM.PNORT ---
Progress Note: A&P Assessment and Plan (1) Postoperative wound infection of right hip: Code(s): T81.49XA - Infection following a procedure, other surgical site, initial encounter Status: Acute Assessment and Plan: 4 weeks, 3 days s/p insertion of IM sukhwinder left femur POD #12: I&D with irrigation and debridement right hip wound and wound VAC placement POD #9: I&D and Wound Closure Right Hip Intraoperative wound cultures reveal Proteus Mirabilis. IV piperacillin through 12. Mepilex Silver dressing placed. Continue PT/OT. Encourage OOB to chair. NWB RLE. HIGH FALL RISK. Ice lateral hip. Pain control. DVT prophylaxis. SCDs. Incentive Spirometry. Nursing to assist. Dispo: SNF with IV antibiotics pending medical stability. Outpatient ortho follow up arranged. Subjective Subjective Date/Time Seen: 09/22/21 12:42 Principal diagnosis: Infection left hip intertrochanteric fracture Interval history: patient awake and alert. No new complaints of left hip or left leg. Denies numbness or tingling. Review of Systems Review of Systems: All systems reviewed & are unremarkable except as noted in HPI and below Constitutional: Constitutional: Reports no additional constitutional complaints Musculoskeletal: Musculoskeletal: Reports as per HPI Exam Const: General: comfortable and no acute distress Resp: Effort & Inspection: normal respiratory effort GI: GI Palp: Yes Soft to palpation Urinary Catheter: Urinary Catheter: patent and draining Skin: Wounds: wounds noted (wound VAC dressing removed, incision well approximated. Scant serous driana) Neuro: General: No gait normal Speech: normal speech Motor exam (neuro): strength not 5/5 throughout and Abnormal motor strength present (b/l LE ) Extrem: Right lower extremity: hip/thigh Details: tenderness Location: of the hip Location: laterally, swelling Location: at the hip, abnormal ROM (limited ) and ecchymosis (lateral hip ); ROM abnormal, knee Details: normal to inspection and normal ROM; no tenderness and no swelling, lower leg (Negative Mariano's Sign ), ankle (+ankle dorsiflexion/plantarflexion ) and foot (Moves toes, sensation intact to light touch) Other: Lateral incisions of the femur from first surgical intervention well healed. Mepilex Silver dressing. Surrounding tissue with mild swelling. Thigh soft. Knee without effusion. Moves toes. Sensation intact. +ankle dorsiflexion/plantarflexion. Negative Mariano's sign. Objective Data Vital Signs Vital Signs: Vital Signs - 24 hr 09/21/21 13:59 09/21/21 14:02 09/21/21 16:00 Temperature Pulse Rate 116 H 97 Respiratory Rate Blood Pressure 108/63 Pulse Oximetry 09/21/21 16:05 09/21/21 18:30 09/21/21 19:48 Temperature 99.7 F H Pulse Rate 105 H 88 Respiratory Rate 16 Blood Pressure 101/59 L 131/54 L Pulse Oximetry 96 09/21/21 20:00 09/21/21 20:22 09/22/21 00:00 Temperature 97.4 F L 96.7 F L Pulse Rate 96 96 76 Respiratory Rate 22 H 20 Blood Pressure 100/55 L 105/66 Pulse Oximetry 95 94 09/22/21 04:00 09/22/21 06:16 09/22/21 08:00 Temperature 97.2 F L Pulse Rate 62 72 92 Respiratory Rate 20 Blood Pressure 122/57 L Pulse Oximetry 97 09/22/21 08:39 09/22/21 10:53 09/22/21 12:28 Temperature 97.4 F L 97.4 F L 97.5 F L Pulse Rate 87 87 90 Respiratory Rate 18 18 16 Blood Pressure 120/73 120/73 153/81 H Pulse Oximetry 96 96 93 09/22/21 12:30 Temperature 97.5 F L Pulse Rate 90 Respiratory Rate 16 Blood Pressure 106/57 L Pulse Oximetry 95 Intake/Output Intake/Output: Intake & Output 09/19/21 09/20/21 09/21/21 09/22/21 23:59 23:59 23:59 23:59 Intake Total 035 030 9171 390 Output Total 975 650 700 250 Balance -315 30 470 140 Meds/Results Medications: Active Medications Generic Name Dose Route Start Last Admin Trade Name Freq PRN Reason Stop Dose Admin Acetaminophen 650 mg 09/15/21 18:33 09/21/21 17:43 Acetaminoph
[2021-09-22] MEDS: ACETAMINOPHEN 325 MG TABLET 650 MG PO (16:27)
[2021-09-22] MEDS: GABAPENTIN 100 MG CAPSULE 200 MG PO (21:45)
[2021-09-22] MEDS: LATANOPROST 0.005% OP SOLN 2.5 ML BTL 1 DROP RIGHT EYE (21:46)
[2021-09-22] MEDS: MIRTAZAPINE 15 MG TABLET PO (21:46)
[2021-09-23] VITALS (11 sets, daily range): BP systolic 103–129; BP diastolic 47–70; PULSE 66–110; RESP 14–18; TEMP 36.5–37.4; O2SAT 94–97
[2021-09-23 05:45] LABS: Basophils Percent Auto 0.5 % (0.2-1.2); Eosinophils Absolute Auto 0.5 K/mm3 (0-0.3); Eosinophils Percent Auto 7.5 % (0-4.4); Hematocrit 30.3 % (37.0-47.0); Hemoglobin 9.4 g/dL (12.0-15.0); Immature Granulocyte Absolute 0.07 K/mm3 (0.00-0.031); Immature Granulocyte Percent A 1.2 % (0-0.5); Lymphocytes Absolute Auto 2.86 K/mm3 (0.9-3.2); Lymphocytes Percent Auto 47.4 % (18.3-44.2); Mean Corpuscular Hemoglobin 32.6 pg (26-34); Mean Corpuscular Volume 105.2 fl (80-100); Mean Platelet Volume 10.9 fl (7.4-10.4); Monocytes Absolute Auto 0.8 K/mm3 (0.1-0.6); Monocytes Percent Auto 12.7 % (2.6-8.5); Neutrophils Absolute Auto 1.9 K/mm3 (1.3-6.7); Neutrophils Percent Auto 30.7 % (45.5-73.1); Platelet Count Result 326 k/mm3 (150-375); Red Blood Count 2.88 M/mm3 (4.2-5.4)
[2021-09-23 05:56] LABS: Anion Gap 9 mmol/L (8-16); Blood Urea Nitrogen 13 mg/dL (7-17); Calcium 8.6 mg/dL (8.4-10.2); Carbon Dioxide 24 mmol/L (22-30); Chloride 106 mmol/L (98-107); Estimated CRCL calculation 34 ml/min; Estimated Glomerular Filt Rate 47; Glucose 98 mg/dL (65-110); Potassium 3.4 mmol/L (3.4-5.0); Sodium 139 mmol/L (137-145)
[2021-09-23] MEDS: CENTRAL LINE FLUSH 10 ML IV PUSH ×3 (06:24→20:57)
[2021-09-23] MEDS: FERROUS SULFATE 324 MG TABLET PO (08:09)
[2021-09-23] MEDS: MULTIVITAMINS /C LUTEIN (CENTRUM SILVER) TABLET *BKC 1 TAB PO (08:09)
[2021-09-23] MEDS: APIXABAN 5 MG TABLET PO ×2 (08:09→20:56)
[2021-09-23] MEDS: DIGOXIN TAB 125 MCG TABLET PO (08:10)
[2021-09-23] MEDS: ATORVASTATIN 10 MG TABLET PO (08:10)
[2021-09-23] MEDS: TIMOLOL MALEATE 0.5% OP SOLN 5 ML BOTTLE 1 DROP RIGHT EYE ×2 (08:10→21:00)
[2021-09-23] MEDS: METHOTREXATE 2.5 MG TAB (*CHEMO) 7.5 MG PO (08:10)
[2021-09-23] MEDS: PANTOPRAZOLE 40 MG TABLET PO (08:10)
[2021-09-23] MEDS: BRIMONIDINE TARTRATE 0.2% OP SOLN 5 ML BTL 1 DROP RIGHT EYE ×2 (08:14→21:00)
[2021-09-23] MEDS: LACTULOSE 20 GM/30 ML UDC 30 GM PO (08:15)
[2021-09-23] MEDS: DOCUSATE SODIUM 100 MG CAPSULE 200 MG PO (08:18)
--- NOTE | 2021-09-23 09:01 | PM.PNORT ---
Progress Note: A&P Assessment and Plan (1) Postoperative wound infection of right hip: Code(s): T81.49XA - Infection following a procedure, other surgical site, initial encounter Status: Acute Assessment and Plan: 4 weeks, 4 days s/p insertion of IM sukhwinder left femur POD #13: I&D with irrigation and debridement right hip wound and wound VAC placement POD #10: I&D and Wound Closure Right Hip Intraoperative wound cultures reveal Proteus Mirabilis. IV piperacillin through 12. Mepilex Silver dressing with some drainage- transition to daily dressing changes. Continue PT/OT. Encourage OOB to chair. NWB RLE. HIGH FALL RISK. Ice lateral hip. Pain control. DVT prophylaxis. SCDs. Incentive Spirometry. Nursing to assist. Dispo: SNF with IV antibiotics pending medical stability. Outpatient ortho follow up arranged. Subjective Subjective Date/Time Seen: 09/23/ 09:01 Interval history: No new concerns. Resting comfortable. Easily arousable to voice. Denies pain. Review of Systems Review of Systems: All systems reviewed & are unremarkable except as noted in HPI and below Constitutional: Constitutional: Reports no additional constitutional complaints Musculoskeletal: Musculoskeletal: Reports as per HPI Exam Const: General: comfortable and no acute distress Resp: Effort & Inspection: normal respiratory effort GI: GI Palp: Yes Soft to palpation Urinary Catheter: Urinary Catheter: patent and draining Skin: Wounds: wounds noted (wound VAC dressing removed, incision well approximated. Scant serous driana) Neuro: General: No gait normal Speech: normal speech Motor exam (neuro): strength not 5/5 throughout and Abnormal motor strength present (b/l LE ) Extrem: Right lower extremity: hip/thigh Details: tenderness Location: of the hip Location: laterally, swelling Location: at the hip, abnormal ROM (limited ) and ecchymosis (lateral hip ); ROM abnormal, knee Details: normal to inspection and normal ROM; no tenderness and no swelling, lower leg (Negative Mariano's Sign ), ankle (+ankle dorsiflexion/plantarflexion ) and foot (Moves toes, sensation intact to light touch) Other: Lateral incisions of the femur from first surgical intervention well healed. Mepilex Silver dressing with some saturation at base. Surrounding tissue with mild swelling. Thigh soft. Knee without effusion. Moves toes. Sensation intact. +ankle dorsiflexion/plantarflexion. Negative Mariano's sign. Objective Data Vital Signs Vital Signs: Vital Signs - 24 hr 09/22/21 10:53 09/22/21 12:00 09/22/21 12:28 Temperature 36.3 C L 36.4 C L Pulse Rate 87 97 90 Respiratory Rate 18 16 Blood Pressure 120/73 153/81 H Pulse Oximetry 96 93 09/22/21 12:30 09/22/21 14:19 09/22/21 14:20 Temperature 36.4 C L Pulse Rate 90 95 Respiratory Rate 16 Blood Pressure 106/57 L 131/65 Pulse Oximetry 95 09/22/21 15:05 09/22/21 16:00 09/22/21 17:12 Temperature 36.0 C L Pulse Rate 102 H 103 H Respiratory Rate 16 Blood Pressure 115/63 114/58 L Pulse Oximetry 94 09/22/21 17:20 09/22/21 20:00 09/22/21 20:06 Temperature 36.0 C L 36.6 C Pulse Rate 103 H 87 97 Respiratory Rate 16 14 Blood Pressure 114/58 L 120/64 Pulse Oximetry 94 95 09/22/21 21:47 09/23/21 00:00 09/23/21 04:00 Temperature 37.4 C 37.3 C Pulse Rate 88 72 70 Respiratory Rate 14 18 Blood Pressure 116/68 129/64 Pulse Oximetry 97 96 09/23/21 08:10 09/23/21 08:15 Temperature 37.2 C Pulse Rate 70 71 Respiratory Rate 16 Blood Pressure 127/65 Pulse Oximetry 95 Intake/Output Intake/Output: Intake & Output 09/20/21 09/21/21 09/22/21 09/23/21 23:59 23:59 23:59 23:59 Intake Total 680 1170 1040 850 Output Total 650 700 250 Balance 30 470 790 850 Meds/Results Medications: Active Medications Generic Name Dose Route Start Last Admin Trade Name Freq PRN Reason Stop Dose Admin Acetaminophen 650 mg 09/15/21 18:33 09/22/21 16:2
--- NOTE | 2021-09-23 09:46 | PM.PNCARD ---
Progress Note: A&P Assessment and Plan (1) Atrial fibrillation with RVR: Code(s): I48.91 - Unspecified atrial fibrillation <JERRY Mcgregor - Last Filed: 09/23/21 10:31> Status: Acute <JERRY Mcgregor - Last Filed: 09/23/21 10:31> Assessment and Plan: History of paroxysmal atrial fibrillation on metoprolol at home for rate control. Recent presentation for wound infection, was noted to be in Afib with RVR. Rate control strategy is being pursued. Had some hypotension earlier during this hospitalization on diltiazem so would ideally like to avoid this agent. Currently well rate controlled in the 70's on 25mg metoprolol q8h and digoxin 125mcg daily. Continue this regimen. She is anticoagulated with apixaban. <JERRY Mcgregor - Last Filed: 09/23/21 10:31> (2) Hip fracture: Qualifiers: Encounter type: initial encounter Fracture type: closed Laterality: right Qualified Code(s): S72.001A - Fracture of unspecified part of neck of right femur, initial encounter for closed fracture <JERRY Mcgregor - Last Filed: 09/23/21 10:31> Code(s): S72.009A - Fracture of unspecified part of neck of unspecified femur, initial encounter for closed fracture <JERRY Mcgregor - Last Filed: 09/23/21 10:31> Status: Acute <JERRY Mcgregor - Last Filed: 09/23/21 10:31> Assessment and Plan: Recent right hip fracture s/p ORIF per Dr. Zamarripa. <JERRY Mcgregor - Last Filed: 09/23/21 10:31> (3) Postoperative wound infection of right hip: Code(s): T81.49XA - Infection following a procedure, other surgical site, initial encounter <JERRY Mcgregor - Last Filed: 09/23/21 10:31> Status: Acute <JERRY Mcgregor - Last Filed: 09/23/21 10:31> Assessment and Plan: Infection of R hip incision requiring I&D x2 and debridement. On IV abx for wound infection. Management per ortho and ID <JERRY Mcgregor - Last Filed: 09/23/21 10:31> (4) Chronic anticoagulation: Code(s): Z79.01 - detention (current) use of anticoagulants <JERRY Mcgregor - Last Filed: 09/23/21 10:31> Status: Acute <JERRY Mcgregor - Last Filed: 09/23/21 10:31> Assessment and Plan: On eliqius. Monitor H&H <JERRY Mcgregor - Last Filed: 09/23/21 10:31> Additional Plan Attending Addendum: I personally seen and examined this patient at bedside. I agree with the above documentation and plan of care as outlined. -Patient denies palpitation, chest pain or shortness of breath. Patient states she feels okay. Remains in atrial fibrillation on telemetry with occasional RVR generally heart rate 80s to low 100s occasional to the 130s +. Exam: NAD, A&Ox3, nonfocal neuro exam No JVD Lungs CTA bilaterally Irregular irregular rate and rhythm, S1-S2 normal, soft early systolic murmur Abd soft, NT/ND, +BS Trace bilateral lower extremity edema, no clubbing, or cyanosis, PICC line right arm Plan of Care: Marginal heart rate control. Increase metoprolol tartrate to 37.5 mg p.o. q.8 hours as BP allows for improved heart rate control. Hold for systolic blood pressure less than 100 mm Hg. Attempt to transition to metoprolol tartrate 50 mg b.i.d. prior to discharge. Continue digoxin and Eliquis. IV antibiotics per primary service. <Cesar Schulz MD - Last Filed: 09/23/21 15:01> Subjective Date/time seen: 09/23/21 09:46 Cardiology follow up for atrial fibrillation Date of service 09/23/21: Resting comfortably in bed. She is complaining of some pain in her hip. She denies any chest pain, shortness of breath, palpitations. Rate has been better controlled with addition of digoxin. <JERRY Mcgregor - Last Filed: 09/23/21 10:31> Review of Systems Review of Systems: All systems reviewed & are unremarkable except as noted in HPI and below <JERRY Mcgregor -
--- NOTE | 2021-09-23 11:21 | PCNFU ---
Nutrition Follow-Up Complete: Inadequate oral intake related to decreased appetite and UTI as evidenced by oral intake of anywhere from 0-50% prior to NPO diet order Goal: Pt. to meet estimated nutritional needs. Pt. is progressing towards goal. No new goal at this time. Pt current nutrition is a heart healthy diet. Last recorded weight is 80.2 kg. Recommend re-weighing pt. prior to discharge. Bowel Motility: + BM 09/21/2021 Labs Reviewed: Hgb 9.4, Hct 30.3, GFR 47, Cr 1.1 Meds Noted: Eliquis, Lipitor, Digoxin, Vitamin B-12, Colace, Ferrous sulfate, Neurontin, Lactulose, Lopressor, Remeron, Protonix, Ultram Skin: No skin break down at this time. WNL. Additional Notes: Patient is not on any nutritional supplements at this time. Was perviously receiving ensure Enlive TID with meals but was discontinued. She is eating very little on average 41% of meals and refusing meals on occasion. She is on Remeron, an appetite stimulant, to help boost her appetite. Monitor pt. labs, medications, weight and oral intake every 5 days.
--- NOTE | 2021-09-23 12:09 | PM.IMPN ---
Progress Note: A&P Assessment and Plan (1) Hypotension: Code(s): I95.9 - Hypotension, unspecified Status: Acute Assessment and Plan: Stable blood pressure with no hypotensive episodes over the last 24 hours. No recurrence of fever. Chest x-ray with residual basilar airspace disease. Urinalysis was unremarkable. Patient is currently on Zosyn till September 25. Hypotension likely secondary to infection following a procedure on the surgical site. This is likely to improve as infection resolved. Patient originally improved after several boluses of IV fluids on 09/16/2021. Blood pressure stable today at 119/57. Currently on metoprolol for rate control. Cardizem was stopped due to does had recurrent episodes of hypotension (2) Atrial fibrillation with rapid ventricular response: Code(s): I48.91 - Unspecified atrial fibrillation Status: Acute Assessment and Plan: Patient carries a diagnosis of paroxysmal atrial fibrillation; she has experienced atrial fibrillation with rapid ventricular response. Attempts at controlling her heart rate have been limited by intermittent episodes of hypotension. She was loaded by digoxin followed by digoxin 125 micro g p.o. daily. Rate control remains suboptimal and metoprolol was increased to 37.5 mg p.o. q.8 hour per Cardiology. Will continue to monitor closely. (3) Postoperative wound infection of right hip: Code(s): T81.49XA - Infection following a procedure, other surgical site, initial encounter Status: Acute Assessment and Plan: Procedure was well tolerated. Patient is postop since 09/10. Repeat I&D and wound VAC placement 09/13/2021. Continue pain management. Wound culture growing Proteus which is sensitive to Zosyn. Plan is to continue Zosyn through September 25 per ID recommendations. 4 weeks, 3 days s/p insertion of IM sukhwinder left femur POD #13: I&D with irrigation and debridement right hip wound and wound VAC placement POD #10: I&D and Wound Closure Right Hip Intraoperative wound cultures reveal Proteus Mirabilis. ID consulted. IV piperacillin through 09/25. Wound VAC dressing removed. Mepilex Silver dressing placed. Continue PT/OT. Encourage OOB to chair. NWB RLE. HIGH FALL RISK. Ice lateral hip. Pain control. DVT prophylaxis. SCDs. Incentive Spirometry. Nursing to assist. Dispo: SNF with IV antibiotics pending medical stability. Outpatient ortho follow up arranged. PICC line was placed on 09/19/2021 in anticipation for discharge. (4) Chronic anemia: Code(s): D64.9 - Anemia, unspecified Status: Acute Assessment and Plan: Moderate macrocytic anemia, stable and well tolerated with a hemoglobin of 9.4. Iron stores adequate, B12 level is above normal range, folate level. (5) Abnormal urinalysis: Code(s): R82.90 - Unspecified abnormal findings in urine Status: Acute Assessment and Plan: Urine culture growing pansensitive E coli. Currently patient on Zosyn. PICC line placed on 09/19/2021. (6) Chronic anticoagulation: Code(s): Z79.01 - [facility]P (current) use of anticoagulants Status: Acute Assessment and Plan: Continue Eliquis 5 mg p.o. b.i.d.; no evidence of bleeding from the gut. (7) Hypothyroidism: Code(s): E03.9 - Hypothyroidism, unspecified Status: Chronic Assessment and Plan: Chronic and stable . TSH is 4.9. (8) Hypertension: Code(s): I10 - Essential (primary) hypertension Status: Chronic Assessment and Plan: Currently normotensive; cardizem stopped. Per cardioogy, continue metoprolol tartrate 25 mg p.o. q.8 hour; currently Lasix and spironolactone 25 mg p.o. daily on hold due to hypotension. (9) JOON (acute kidney injury): Code(s): N17.9 - Acute kidney failure, unspecified Status: Acute Assessment and Plan: A creatinine is stable at 1.1 today. Additional Plan The patient was brought in on 09/06/2021 for evalu
[2021-09-23] MEDS: HYDROcodone/acetaminophen (*CRX) 5-325 MG TABLET 1 TAB PO ×2 (12:39→18:51)
--- NOTE | 2021-09-23 14:15 | PCNSR ---
On 09/23/21, the student,Paige Huggins, provided care and completed [facility] documentation on this patient. I have reviewed the student's documentation and agree with the findings.
[2021-09-23] MEDS: METOPROLOL TARTRATE TAB 25 MG, METOPROLOL TARTRATE TAB 12.5 MG 37.5 MG PO (20:56)
[2021-09-23] MEDS: GABAPENTIN 100 MG CAPSULE 200 MG PO (20:56)
[2021-09-23] MEDS: MIRTAZAPINE 15 MG TABLET PO (20:56)
[2021-09-23] MEDS: LATANOPROST 0.005% OP SOLN 2.5 ML BTL 1 DROP RIGHT EYE (21:00)
[2021-09-24] VITALS (13 sets, daily range): BP systolic 89–118; BP diastolic 49–68; PULSE 55–83; RESP 16–18; TEMP 36.3–37; O2SAT 92–95
[2021-09-24] MEDS: METOPROLOL TARTRATE TAB 25 MG, METOPROLOL TARTRATE TAB 12.5 MG 37.5 MG PO ×2 (05:17→14:15)
[2021-09-24] MEDS: CENTRAL LINE FLUSH 10 ML IV PUSH ×3 (05:18→21:18)
[2021-09-24] MEDS: HYDROcodone/acetaminophen (*CRX) 5-325 MG TABLET 1 TAB PO ×4 (05:23→17:51)
[2021-09-24 05:59] LABS: Basophils Percent Auto 0.3 % (0.2-1.2); Eosinophils Absolute Auto 0.5 K/mm3 (0-0.3); Hematocrit 30.4 % (37.0-47.0); Hemoglobin 9.4 g/dL (12.0-15.0); Immature Granulocyte Absolute 0.03 K/mm3 (0.00-0.031); Immature Granulocyte Percent A 0.4 % (0-0.5); Lymphocytes Percent Auto 38.9 % (18.3-44.2); Mean Corpuscular HGB Conc 30.9 g/dl (32-36); Mean Corpuscular Hemoglobin 31.9 pg (26-34); Mean Corpuscular Volume 103.1 fl (80-100); Mean Platelet Volume 10.2 fl (7.4-10.4); Monocytes Absolute Auto 0.8 K/mm3 (0.1-0.6); Monocytes Percent Auto 10.9 % (2.6-8.5); Neutrophils Absolute Auto 3.2 K/mm3 (1.3-6.7); Neutrophils Percent Auto 42.5 % (45.5-73.1); Platelet Count Result 359 k/mm3 (150-375); Red Blood Count 2.95 M/mm3 (4.2-5.4); Red Cell Distribution Width 16.9 % (11.5-14.5); White Blood Count 7.5 K/mm3 (4.5-10.0)
[2021-09-24 06:19] LABS: Anion Gap 11 mmol/L (8-16); Blood Urea Nitrogen 13 mg/dL (7-17); Calcium 8.5 mg/dL (8.4-10.2); Carbon Dioxide 22 mmol/L (22-30); Chloride 107 mmol/L (98-107); Estimated CRCL calculation 37 ml/min; Estimated Glomerular Filt Rate 53; Glucose 112 mg/dL (65-110); Potassium 3.3 mmol/L (3.4-5.0); Sodium 140 mmol/L (137-145)
--- NOTE | 2021-09-24 09:08 | PM.PNCARD ---
Progress Note: A&P Assessment and Plan (1) Atrial fibrillation with RVR: Code(s): I48.91 - Unspecified atrial fibrillation <JERRY Mcgregor - Last Filed: 09/24/21 12:03> Status: Acute <JERRY Mcgregor - Last Filed: 09/24/21 12:03> Assessment and Plan: History of paroxysmal atrial fibrillation on metoprolol at home for rate control. Recent presentation for wound infection, was noted to be in Afib with RVR. Rate control strategy is being pursued. Had some hypotension earlier during this hospitalization on diltiazem so would ideally like to avoid this agent. Currently well rate controlled mostly in the 60's - 70's on 37.5mg metoprolol q8h and digoxin 125mcg daily. Continue this regimen for now. She is anticoagulated with apixaban. <JERRY Mcgregor - Last Filed: 09/24/21 12:03> (2) Hip fracture: Qualifiers: Encounter type: initial encounter Fracture type: closed Laterality: right Qualified Code(s): S72.001A - Fracture of unspecified part of neck of right femur, initial encounter for closed fracture <JERRY Mcgregor - Last Filed: 09/24/21 12:03> Code(s): S72.009A - Fracture of unspecified part of neck of unspecified femur, initial encounter for closed fracture <JERRY Mcgregor - Last Filed: 09/24/21 12:03> Status: Acute <JERRY Mcgregor - Last Filed: 09/24/21 12:03> Assessment and Plan: Recent right hip fracture s/p ORIF per Dr. Zamarripa. <JERRY Mcgregor - Last Filed: 09/24/21 12:03> (3) Postoperative wound infection of right hip: Code(s): T81.49XA - Infection following a procedure, other surgical site, initial encounter <JERRY Mcgregor - Last Filed: 09/24/21 12:03> Status: Acute <JERRY Mcgregor - Last Filed: 09/24/21 12:03> Assessment and Plan: Infection of R hip incision requiring I&D x2 and debridement. On IV abx for wound infection. Management per ortho and ID <JERRY Mcgregor - Last Filed: 09/24/21 12:03> (4) Chronic anticoagulation: Code(s): Z79.01 - penitentiary (current) use of anticoagulants <JERRY Mcgregor - Last Filed: 09/24/21 12:03> Status: Acute <JERRY Mcgregor - Last Filed: 09/24/21 12:03> Assessment and Plan: On eliqius. Monitor H&H <JERRY Mcgregor - Last Filed: 09/24/21 12:03> Additional Plan Attending addendum: I agree with the above documentation and plan of care as outlined. <Cesar Schulz MD - Last Filed: 09/24/21 16:45> Subjective Date/time seen: 09/24/21 09:08 <JERRY Mcgregor - Last Filed: 09/24/21 12:03> Interval history: Follow-up visit in this 86-year-old lady with chronic atrial fibrillation. Date of service 09/23/21: Resting comfortably in bed. She is complaining of some pain in her hip. She denies any chest pain, shortness of breath, palpitations. Rate has been better controlled with addition of digoxin. Date of service 09/24/21: More alert and responsive today. She just finished working with therapy. NWB still but sitting on the edge of the bed. Denies any dizziness, trouble breathing, or palpitations with this activity. She does complain of some pain in her right hip. <JERRY Mcgregor - Last Filed: 09/24/21 12:03> Review of Systems Review of Systems: All systems reviewed & are unremarkable except as noted in HPI and below <JERRY Mcgregor - Last Filed: 09/24/21 12:03> ROS unobtainable: Yes unobtainable due to mental status <JERRY Mcgregor - Last Filed: 09/24/21 12:03> Constitutional: Constitutional: Reports weakness <JERRY Mcgregor - Last Filed: 09/24/21 12:03> Eyes: Eyes: Denies blurry vision <JERRY Mcgregor - Last Filed: 09/24/21 12:03> ENT: Reports Normal hearing present <JERRY Mcgregor - Last Filed: 09/24/21 12:03> Cardiovascular: Cardiovascular: Denies ches
--- NOTE | 2021-09-24 09:36 | PCPTNOTE ---
Attempted to see patient for PT at this time, however patient refused due wanting pain medication before therapy.
[2021-09-24] MEDS: ATORVASTATIN 10 MG TABLET PO (09:44)
[2021-09-24] MEDS: BRIMONIDINE TARTRATE 0.2% OP SOLN 5 ML BTL 1 DROP RIGHT EYE ×2 (09:44→21:18)
[2021-09-24] MEDS: APIXABAN 5 MG TABLET PO ×2 (09:44→21:18)
[2021-09-24] MEDS: FERROUS SULFATE 324 MG TABLET PO (09:44)
[2021-09-24] MEDS: DIGOXIN TAB 125 MCG TABLET PO (09:45)
[2021-09-24] MEDS: PANTOPRAZOLE 40 MG TABLET PO (09:47)
[2021-09-24] MEDS: TIMOLOL MALEATE 0.5% OP SOLN 5 ML BOTTLE 1 DROP RIGHT EYE ×2 (09:47→21:18)
[2021-09-24] MEDS: MULTIVITAMINS /C LUTEIN (CENTRUM SILVER) TABLET *BKC 1 TAB PO (09:47)
--- NOTE | 2021-09-24 10:09 | PM.PNORT ---
Progress Note: A&P Assessment and Plan (1) Postoperative wound infection of right hip: Code(s): T81.49XA - Infection following a procedure, other surgical site, initial encounter Status: Acute Assessment and Plan: 4 weeks, 5 days s/p insertion of IM sukhwinder left femur POD #14: I&D with irrigation and debridement right hip wound and wound VAC placement POD #11: I&D and Wound Closure Right Hip Intraoperative wound cultures reveal Proteus Mirabilis. IV piperacillin through 1215. Mepilex Silver dressing with some drainage- transition to daily dressing changes with transfer and ABD pad. Continue PT/OT. Encourage OOB to chair. NWB RLE. HIGH FALL RISK. Ice lateral hip. Pain control. DVT prophylaxis. SCDs. Incentive Spirometry. Nursing to assist. Dispo: SNF with IV antibiotics pending medical stability. Outpatient ortho follow up arranged. Additional Plan Reviewed case and physical exam with attending MD, Dr. Zamarripa. No further recommendations at this time. Subjective Subjective Date/Time Seen: 09/24/21 10:09 Interval history: Patient sitting on side of bed at time of exam. Mild pain report. Awaiting pain medication at this time. No new concerns. Review of Systems Review of Systems: All systems reviewed & are unremarkable except as noted in HPI and below Constitutional: Constitutional: Reports no additional constitutional complaints Musculoskeletal: Musculoskeletal: Reports as per HPI Exam Const: General: comfortable and no acute distress Resp: Effort & Inspection: normal respiratory effort GI: GI Palp: Yes Soft to palpation Urinary Catheter: Urinary Catheter: patent and draining Skin: Wounds: wounds noted (wound VAC dressing removed, incision well approximated. Scant serous driana) Neuro: General: No gait normal Speech: normal speech Motor exam (neuro): strength not 5/5 throughout and Abnormal motor strength present (b/l LE ) Extrem: Right lower extremity: hip/thigh Details: tenderness Location: of the hip Location: laterally, swelling Location: at the hip, abnormal ROM (limited ) and ecchymosis (lateral hip ); ROM abnormal, knee Details: normal to inspection and normal ROM; no tenderness and no swelling, lower leg (Negative Mariano's Sign ), ankle (+ankle dorsiflexion/plantarflexion ) and foot (Moves toes, sensation intact to light touch) Other: Lateral incisions of the femur from first surgical intervention well healed. Mepilex Silver dressing with some saturation at base. Recommended dressing change, nursing notified. Surrounding tissue with mild swelling. Mild serosanguineous drainage noted. Thigh soft. Knee without effusion. Moves toes. Sensation intact. +ankle dorsiflexion/plantarflexion. Negative Mariano's sign. Objective Data Vital Signs Vital Signs: Vital Signs - 24 hr 09/23/21 11:49 09/23/21 12:00 09/23/21 15:54 Temperature 37.1 C 36.8 C Pulse Rate 73 110 H 80 Respiratory Rate 14 14 Blood Pressure 123/70 119/57 L Pulse Oximetry 96 96 09/23/21 16:00 09/23/21 20:00 09/23/21 20:56 Temperature 36.5 C Pulse Rate 94 98 94 Respiratory Rate 16 Blood Pressure 103/47 L Pulse Oximetry 94 09/24/21 00:00 09/24/21 04:00 09/24/21 05:17 Temperature Pulse Rate 63 67 67 Respiratory Rate Blood Pressure Pulse Oximetry 09/24/21 06:00 09/24/21 09:45 Temperature 37.0 C Pulse Rate 72 72 Respiratory Rate 16 Blood Pressure 118/49 L Pulse Oximetry 93 Intake/Output Intake/Output: Intake & Output 09/21/21 09/22/21 09/23/21 09/24/21 23:59 23:59 23:59 23:59 Intake Total 1170 1040 1720 220 Output Total 700 250 750 250 Balance 470 790 970 -30 Meds/Results Medications: Active Medications Generic Name Dose Route Start Last Admin Trade Name Freq PRN Reason Stop Dose Admin Acetaminophen 650 mg 09/15/21 18:33 09/22/21 16:27 Acetaminophen 325 Mg Tablet PO 650 mg Q6H PRN Administration Pain (Scale Score 1-3) Hydrocodone Bitart
[2021-09-24] MEDS: DOCUSATE SODIUM 100 MG CAPSULE 200 MG PO (12:04)
--- NOTE | 2021-09-24 13:26 | P.PNIM_ITS ---
Progress Note: A&P Assessment and Plan (1) Hypotension: Code(s): I95.9 - Hypotension, unspecified Status: Acute Assessment and Plan: Stable blood pressure with no hypotensive episodes over the last 24 hours. A couple loss of measurements this afternoon at 91/54 and 94/68 respectively. No recurrence of fever. Chest x-ray with residual basilar airspace disease. Urinalysis was unremarkable. Patient is currently on Zosyn till September 25. Hypotension likely secondary to infection following a procedure on the surgical site. This is likely to improve as infection resolved. Patient originally improved after several boluses of IV fluids on 09/16/2021. Blood pressure stable today at 119/57. Currently on metoprolol for rate control. Cardizem was stopped due to does had recurrent episodes of hypotension (2) Atrial fibrillation with rapid ventricular response: Code(s): I48.91 - Unspecified atrial fibrillation Status: Acute Assessment and Plan: Patient carries a diagnosis of paroxysmal atrial fibrillation; she has experienced atrial fibrillation with rapid ventricular response. Attempts at controlling her heart rate have been limited by intermittent episodes of hypotension. She was loaded by digoxin followed by digoxin 125 micro g p.o. d aily. Rate control remained suboptimal;metoprolol was increased to 37.5 mg p.o. q.8 hour per Cardiology; continue made to wean at the same dose and daily digoxin. Will continue to monitor closely. (3) Postoperative wound infection of right hip: Code(s): T81.49XA - Infection following a procedure, other surgical site, initial encounter Status: Acute Assessment and Plan: Procedure was well tolerated. Patient is postop since 09/10. Repeat I&D and wound VAC placement 09/13/2021. Continue pain management. Wound culture growing Proteus which is sensitive to Zosyn. Plan is to continue Zosyn through September 25 per ID recommendations. 4 weeks, 5 days s/p insertion of IM sukhwinder left femur POD #14: I&D with irrigation and debridement right hip wound and wound VAC placement POD #11: I&D and Wound Closure Right Hip Intraoperative wound cultures reveal Proteus Mirabilis. ID consulted. IV piperacillin through 09/25. Wound VAC dressing removed. Mepilex Silver dressing placed. Continue PT/OT. Encourage OOB to chair. NWB RLE. HIGH FALL RISK. Ice lateral hip. Pain control. DVT prophylaxis. SCDs. Incentive Spirometry. Nursing to assist. Dispo: SNF with IV antibiotics pending medical stability. Outpatient ortho follow up arranged. PICC line was placed on 09/19/2021 in anticipation for discharge. (4) Chronic anemia: Code(s): D64.9 - Anemia, unspecified Status: Acute Assessment and Plan: Moderate macrocytic anemia, stable and well tolerated with a hemoglobin of 9.4. Iron stores adequate, B12 level is above normal range, folate level. (5) Abnormal urinalysis: Code(s): R82.90 - Unspecified abnormal findings in urine Status: Acute Assessment and Plan: Urine culture growing pansensitive E coli. Currently patient on Zosyn. PICC line placed on 09/19/2021. (6) Chronic anticoagulation: Code(s): Z79.01 - medical terminologist (current) use of anticoagulants Status: Acute Assessment and Plan: Continue Eliquis 5 mg p.o. b.i.d.; no evidence of bleeding from the gut. (7) Hypothyroidism: Code(s): E03.9 - Hypothyroidism, unspecified Status: Chronic Assessment and Plan: Chronic and stable . TSH is 4.9. (8) Hypertension: Code(s): I10 - Essential (primary) hypertension Status: Chronic
[2021-09-24] MEDS: GABAPENTIN 100 MG CAPSULE 200 MG PO (21:18)
[2021-09-24] MEDS: LATANOPROST 0.005% OP SOLN 2.5 ML BTL 1 DROP RIGHT EYE (21:18)
[2021-09-24] MEDS: MIRTAZAPINE 15 MG TABLET PO (21:18)
[2021-09-24] MEDS: ACETAMINOPHEN 325 MG TABLET 650 MG PO (21:22)
[2021-09-25] VITALS (11 sets, daily range): BP systolic 102–123; BP diastolic 54–65; PULSE 57–94; RESP 16–18; TEMP 36.2–37.6; O2SAT 94–95
[2021-09-25] MEDS: CENTRAL LINE FLUSH 10 ML IV PUSH ×3 (05:31→21:06)
[2021-09-25 05:32] LABS: Basophils Percent Auto 0.4 % (0.2-1.2); Eosinophils Absolute Auto 0.5 K/mm3 (0-0.3); Eosinophils Percent Auto 9.4 % (0-4.4); Hemoglobin 9.2 g/dL (12.0-15.0); Immature Granulocyte Absolute 0.02 K/mm3 (0.00-0.031); Immature Granulocyte Percent A 0.4 % (0-0.5); Lymphocytes Absolute Auto 2.92 K/mm3 (0.9-3.2); Lymphocytes Percent Auto 51.6 % (18.3-44.2); Mean Corpuscular HGB Conc 30.7 g/dl (32-36); Mean Corpuscular Hemoglobin 32.1 pg (26-34); Mean Corpuscular Volume 104.5 fl (80-100); Mean Platelet Volume 10.2 fl (7.4-10.4); Monocytes Absolute Auto 0.4 K/mm3 (0.1-0.6); Monocytes Percent Auto 6.5 % (2.6-8.5); Neutrophils Absolute Auto 1.8 K/mm3 (1.3-6.7); Neutrophils Percent Auto 31.7 % (45.5-73.1); Platelet Count Result 311 k/mm3 (150-375); Red Blood Count 2.87 M/mm3 (4.2-5.4); Red Cell Distribution Width 16.8 % (11.5-14.5); White Blood Count 5.7 K/mm3 (4.5-10.0)
[2021-09-25 05:41] LABS: Anion Gap 10 mmol/L (8-16); Blood Urea Nitrogen 13 mg/dL (7-17); Calcium 8.6 mg/dL (8.4-10.2); Carbon Dioxide 21 mmol/L (22-30); Chloride 108 mmol/L (98-107); Estimated CRCL calculation 33 ml/min; Estimated Glomerular Filt Rate 47; Glucose 111 mg/dL (65-110); Sodium 139 mmol/L (137-145)
[2021-09-25 06:24] LABS: Atypical Lymphocytes Present
[2021-09-25] MEDS: FERROUS SULFATE 324 MG TABLET PO (08:52)
[2021-09-25] MEDS: LACTULOSE 20 GM/30 ML UDC 30 GM PO (08:52)
[2021-09-25] MEDS: DIGOXIN TAB 125 MCG TABLET PO (08:53)
[2021-09-25] MEDS: PANTOPRAZOLE 40 MG TABLET PO (08:54)
[2021-09-25] MEDS: MULTIVITAMINS /C LUTEIN (CENTRUM SILVER) TABLET *BKC 1 TAB PO (08:54)
[2021-09-25] MEDS: BRIMONIDINE TARTRATE 0.2% OP SOLN 5 ML BTL 1 DROP RIGHT EYE ×2 (08:54→21:04)
[2021-09-25] MEDS: ATORVASTATIN 10 MG TABLET PO (08:54)
[2021-09-25] MEDS: APIXABAN 5 MG TABLET PO ×2 (08:54→21:04)
[2021-09-25] MEDS: TIMOLOL MALEATE 0.5% OP SOLN 5 ML BOTTLE 1 DROP RIGHT EYE ×2 (08:54→21:04)
--- NOTE | 2021-09-25 09:29 | PM.IMPN ---
Progress Note: A&P Assessment and Plan (1) Hypotension: Code(s): I95.9 - Hypotension, unspecified Status: Acute Assessment and Plan: Stable blood pressure with no hypotensive episodes over the last 24 hours. A couple loss of measurements this afternoon at 91/54 and 94/68 respectively. No recurrence of fever. Chest x-ray with residual basilar airspace disease. Urinalysis was unremarkable. Patient is currently on Zosyn till September 25. Hypotension likely secondary to infection following a procedure on the surgical site. This is likely to improve as infection resolved. Patient originally improved after several boluses of IV fluids on 09/16/2021. Blood pressure stable today at 119/57. Currently on metoprolol for rate control. Cardizem was stopped due to does had recurrent episodes of hypotension (2) Atrial fibrillation with rapid ventricular response: Code(s): I48.91 - Unspecified atrial fibrillation Status: Acute Assessment and Plan: Patient carries a diagnosis of paroxysmal atrial fibrillation; she has experienced atrial fibrillation with rapid ventricular response. Attempts at controlling her heart rate have been limited by intermittent episodes of hypotension. She was loaded by digoxin followed by digoxin 125 micro g p.o. daily. Rate control remained suboptimal;metoprolol was increased to 37.5 mg p.o. q.8 hour per Cardiology; continue made to wean at the same dose and daily digoxin. Will continue to monitor closely. (3) Postoperative wound infection of right hip: Code(s): T81.49XA - Infection following a procedure, other surgical site, initial encounter Status: Acute Assessment and Plan: Procedure was well tolerated. Patient is postop since 09/10. Repeat I&D and wound VAC placement 09/13/2021. Continue pain management. Wound culture growing Proteus which is sensitive to Zosyn. Plan is to continue Zosyn through September 25 per ID recommendations. 4 weeks, 5 days s/p insertion of IM sukhwinder left femur POD #14: I&D with irrigation and debridement right hip wound and wound VAC placement POD #11: I&D and Wound Closure Right Hip Intraoperative wound cultures reveal Proteus Mirabilis. ID consulted. IV piperacillin through 09/25. Wound VAC dressing removed. Mepilex Silver dressing placed. Continue PT/OT. Encourage OOB to chair. NWB RLE. HIGH FALL RISK. Ice lateral hip. Pain control. DVT prophylaxis. SCDs. Incentive Spirometry. Nursing to assist. Dispo: SNF with IV antibiotics pending medical stability. Outpatient ortho follow up arranged. PICC line was placed on 09/19/2021 in anticipation for discharge. (4) Chronic anemia: Code(s): D64.9 - Anemia, unspecified Status: Acute Assessment and Plan: Moderate macrocytic anemia, stable and well tolerated with a hemoglobin of 9.4. Iron stores adequate, B12 level is above normal range, folate level. (5) Abnormal urinalysis: Code(s): R82.90 - Unspecified abnormal findings in urine Status: Acute Assessment and Plan: Urine culture growing pansensitive E coli. Currently patient on Zosyn. PICC line placed on 09/19/2021. (6) Chronic anticoagulation: Code(s): Z79.01 - nursing home (current) use of anticoagulants Status: Acute Assessment and Plan: Continue Eliquis 5 mg p.o. b.i.d.; no evidence of bleeding from the gut. (7) Hypothyroidism: Code(s): E03.9 - Hypothyroidism, unspecified Status: Chronic Assessment and Plan: Chronic and stable . TSH is 4.9. (8) Hypertension: Code(s): I10 - Essential (primary) hypertension Status: Chronic Assessment and Plan: Currently normotensive; cardizem stopped. Per cardioogy, continue metoprolol tartrate 25 mg p.o. q.8 hour; currently Lasix and spironolactone 25 mg p.o. daily on hold due to hypotension. (9) JOON (acute kidney injury): Code(s): N17.9 - Acute kidney failure, unspecified Status: Acu
[2021-09-25] MEDS: POTASSIUM CHLORIDE 20 MEQ TABLET 40 MEQ PO (12:28)
[2021-09-25] MEDS: DOCUSATE SODIUM 100 MG CAPSULE 200 MG PO (12:29)
[2021-09-25] MEDS: HYDROcodone/acetaminophen (*CRX) 5-325 MG TABLET 1 TAB PO ×3 (12:29→21:37)
--- NOTE | 2021-09-25 13:24 | PM.PNCARD ---
Progress Note: A&P Assessment and Plan (1) Atrial fibrillation with RVR: Code(s): I48.91 - Unspecified atrial fibrillation Status: Acute Assessment and Plan: AFib persistent this hospitalization but heart rate reasonably controlled. History of paroxysmal atrial fibrillation on metoprolol at home for rate control. Recent presentation for wound infection, was noted to be in Afib with RVR. Rate control strategy is being pursued. Prior hypertension on diltiazem. Currently well rate controlled mostly in the 60's - 70's on 37.5mg metoprolol q8h and digoxin 125mcg daily. Due to hypotension overnight will reduce metoprolol tartrate to 37.5mg BID. Continue systemic anticoagulation with apixaban. Monitor renal function on digoxin as well as electrolytes. Potassium low must be repleted to keep around 4.0. Check magnesium level. Caution with ambulation to avoid risk for falls and injuries. (2) Hypotension: Code(s): I95.9 - Hypotension, unspecified Status: Acute Assessment and Plan: Intermittent hypotension. Monitor volume status. (3) Hypokalemia: Code(s): E87.6 - Hypokalemia Status: Acute Assessment and Plan: 3.0 this morning. Important to maintain normal electrolyte levels particular on digoxin if her advanced age. Check digoxin level in a.m.. Replete to keep potassium at 4.0. Check magnesium in a.m.. (4) Chronic anemia: Code(s): D64.9 - Anemia, unspecified Status: Acute Assessment and Plan: Stable H&H. Continue to monitor. 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 Monitor H&H (6) Postoperative wound infection of right hip: Code(s): T81.49XA - Infection following a procedure, other surgical site, initial encounter Status: Acute Assessment and Plan: Infection of R hip incision requiring I&D x2 and debridement. On IV abx for wound infection. Management per ortho and ID (7) Hip fracture: Qualifiers: Encounter type: initial encounter Fracture type: closed Laterality: right Qualified Code(s): S72.001A - Fracture of unspecified part of neck of right femur, initial encounter for closed fracture Code(s): S72.009A - Fracture of unspecified part of neck of unspecified femur, initial encounter for closed fracture Status: Acute Assessment and Plan: Recent right hip fracture s/p ORIF per Dr. Zamarripa. Subjective Date/time seen: Date of service: 09/25/21 13:24 Interval history: Follow-up visit in this 86-year-old lady with chronic atrial fibrillation. Denies chest pain, shortness of breath or palpitations. Asking for pain medication. Denies nausea vomiting. Heart rate better controlled. BP other soft overnight systolic blood pressure 80s and 90s, improved this morning. Review of Systems Review of Systems: All systems reviewed & are unremarkable except as noted in HPI and below Constitutional: Constitutional: Reports as per HPI, Reports fatigue and Reports weakness Eyes: Eyes: Reports as per HPI and Denies blurry vision ENT: Reports as per HPI and Reports Normal hearing present Cardiovascular: Cardiovascular: Reports as per HPI, Denies chest pain, Denies palpitations and Denies dyspnea Respiratory: Respiratory: Reports as per HPI, Denies dyspnea and Denies dyspnea on exertion Gastrointestinal: Gastrointestinal: Reports as per HPI, Denies abdominal pain, Denies nausea and Denies vomiting Genitourinary: Genitourinary: Reports as per HPI Musculoskeletal: Musculoskeletal: Reports as per HPI Integumentary/Breasts: Skin/Breast: Reports as per HPI and Reports unusual bruising Neurologic: Reports as per HPI, Reports Normal hearing present and Reports weakness Psychiatric: Psychiatric: Reports as per HPI and Denies anxiety Endocrine: Endocrine: Reports as per HPI Hematologic/Lymphatic
[2021-09-25] MEDS: ONDANSETRON INJ 4 MG/2 ML VIAL IV PUSH (18:32)
[2021-09-25] MEDS: MIRTAZAPINE 15 MG TABLET PO (21:04)
[2021-09-25] MEDS: LATANOPROST 0.005% OP SOLN 2.5 ML BTL 1 DROP RIGHT EYE (21:04)
[2021-09-25] MEDS: GABAPENTIN 100 MG CAPSULE 200 MG PO (21:04)
[2021-09-25] MEDS: METOPROLOL TARTRATE TAB 25 MG, METOPROLOL TARTRATE TAB 12.5 MG 37.5 MG PO (21:06)
[2021-09-26] VITALS (12 sets, daily range): BP systolic 125–132; BP diastolic 68–74; PULSE 59–98; RESP 18–20; TEMP 36.2–36.7; O2SAT 94–100
[2021-09-26] MEDS: CENTRAL LINE FLUSH 10 ML IV PUSH ×2 (05:08→14:08)
[2021-09-26 05:36] LABS: Anion Gap 8 mmol/L (8-16); Blood Urea Nitrogen 14 mg/dL (7-17); Calcium 8.9 mg/dL (8.4-10.2); Carbon Dioxide 23 mmol/L (22-30); Chloride 110 mmol/L (98-107); Estimated CRCL calculation 37 ml/min; Estimated Glomerular Filt Rate 53; Glucose 104 mg/dL (65-110); Magnesium 2.1 mg/dL (1.6-2.3); Potassium 3.7 mmol/L (3.4-5.0); Sodium 141 mmol/L (137-145)
[2021-09-26] MEDS: MULTIVITAMINS /C LUTEIN (CENTRUM SILVER) TABLET *BKC 1 TAB PO (08:39)
[2021-09-26] MEDS: ATORVASTATIN 10 MG TABLET PO (08:39)
[2021-09-26] MEDS: PANTOPRAZOLE 40 MG TABLET PO (08:39)
[2021-09-26] MEDS: LACTULOSE 20 GM/30 ML UDC 30 GM PO (08:39)
[2021-09-26] MEDS: TIMOLOL MALEATE 0.5% OP SOLN 5 ML BOTTLE 1 DROP RIGHT EYE ×2 (08:40→19:56)
[2021-09-26] MEDS: BRIMONIDINE TARTRATE 0.2% OP SOLN 5 ML BTL 1 DROP RIGHT EYE ×2 (08:40→19:55)
[2021-09-26] MEDS: DIGOXIN TAB 125 MCG TABLET PO (08:40)
[2021-09-26] MEDS: APIXABAN 5 MG TABLET PO ×2 (08:40→19:48)
[2021-09-26] MEDS: FERROUS SULFATE 324 MG TABLET PO (08:40)
[2021-09-26] MEDS: METOPROLOL TARTRATE TAB 25 MG, METOPROLOL TARTRATE TAB 12.5 MG 37.5 MG PO ×2 (08:40→19:52)
[2021-09-26] MEDS: HYDROcodone/acetaminophen (*CRX) 5-325 MG TABLET 1 TAB PO ×4 (08:41→22:41)
[2021-09-26] MEDS: DOCUSATE SODIUM 100 MG CAPSULE 200 MG PO (10:10)
[2021-09-26 10:26] LABS: Digoxin 0.9 ng/mL (0.8-2.0)
[2021-09-26 11:14] LABS: Hematocrit 29.4 % (37.0-47.0); Mean Corpuscular HGB Conc 30.6 g/dl (32-36); Mean Corpuscular Hemoglobin 32.1 pg (26-34); Mean Platelet Volume 10.3 fl (7.4-10.4); Platelet Count Result 338 k/mm3 (150-375); Red Cell Distribution Width 16.9 % (11.5-14.5); White Blood Count 6.9 K/mm3 (4.5-10.0)
--- NOTE | 2021-09-26 11:14 | PM.PNCARD ---
Progress Note: A&P Assessment and Plan (1) Atrial fibrillation with RVR: Code(s): I48.91 - Unspecified atrial fibrillation <JERRY Mcgregor - Last Filed: 09/26/21 11:54> Status: Acute <JERRY Mcgregor - Last Filed: 09/26/21 11:54> Assessment and Plan: AFib persistent this hospitalization but heart rate reasonably controlled. History of paroxysmal atrial fibrillation on metoprolol at home for rate control. Recent presentation for wound infection, was noted to be in Afib with RVR. Rate control strategy is being pursued. Prior hypertension on diltiazem. Currently well rate controlled actually mildly bradycardic at times now on 37.5mg metoprolol q8h and digoxin 125mcg daily. Digoxin level 0.9 today. She has not had any hypotension documented in the las 24 hours. Continue systemic anticoagulation with apixaban. Monitor renal function on digoxin as well as electrolytes. K+ 3.7, Mag 2.1 today. Continue to monitor electrolytes daily. <JERRY Mcgregor - Last Filed: 09/26/21 11:54> (2) Hypotension: Code(s): I95.9 - Hypotension, unspecified <JERRY Mcgregor - Last Filed: 09/26/21 11:54> Status: Acute <JERRY Mcgregor - Last Filed: 09/26/21 11:54> Assessment and Plan: Intermittent hypotension. Monitor volume status. <JERRY Mcgregor - Last Filed: 09/26/21 11:54> (3) Hypokalemia: Code(s): E87.6 - Hypokalemia <JERRY Mcgregor - Last Filed: 09/26/21 11:54> Status: Acute <JERRY Mcgregor - Last Filed: 09/26/21 11:54> Assessment and Plan: 3.7 today. Continue to monitor daily BMP with goal to keep K+ ~4.0, Mag 2.0 <JERRY Mcgregor - Last Filed: 09/26/21 11:54> (4) Chronic anemia: Code(s): D64.9 - Anemia, unspecified <JERRY Mcgregor - Last Filed: 09/26/21 11:54> Status: Acute <JERRY Mcgregor - Last Filed: 09/26/21 11:54> Assessment and Plan: Stable H&H. Continue to monitor. 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 Monitor H&H <JERRY Mcgregor - Last Filed: 09/26/21 11:54> (6) Postoperative wound infection of right hip: Code(s): T81.49XA - Infection following a procedure, other surgical site, initial encounter <JERRY Mcgregor - Last Filed: 09/26/21 11:54> Status: Acute <JERRY Mcgregor - Last Filed: 09/26/21 11:54> Assessment and Plan: Infection of R hip incision requiring I&D x2 and debridement. On IV abx for wound infection. Management per ortho and ID <JERRY Mcgregor - Last Filed: 09/26/21 11:54> (7) Hip fracture: Qualifiers: Encounter type: initial encounter Fracture type: closed Laterality: right Qualified Code(s): S72.001A - Fracture of unspecified part of neck of right femur, initial encounter for closed fracture <JERRY Mcgregor - Last Filed: 09/26/21 11:54> Code(s): S72.009A - Fracture of unspecified part of neck of unspecified femur, initial encounter for closed fracture <JERRY Mcgregor - Last Filed: 09/26/21 11:54> Status: Acute <JERRY Mcgregor - Last Filed: 09/26/21 11:54> Assessment and Plan: Recent right hip fracture s/p ORIF per Dr. Zamarripa. <JERRY Mcgregor - Last Filed: 09/26/21 11:54> Additional Plan Attending addendum: I agree with the above documentation and plan of care as outlined. Continue metoprolol tartrate 37.5 mg twice daily. Digoxin level acceptable. Follow H&H. <Cesar Schulz MD - Last Filed: 09/26/21 16:01> Subjective Date/time seen: 09/26/21 11
[2021-09-26 11:59] LABS: EDCOVIDSCREEN Negative (Negative)
--- NOTE | 2021-09-26 12:42 | PM.PNORT ---
Progress Note: A&P Assessment and Plan (1) Postoperative wound infection of right hip: Code(s): T81.49XA - Infection following a procedure, other surgical site, initial encounter Status: Acute Assessment and Plan: 5 weeks s/p insertion of IM sukhwinder left femur POD #16: I&D with irrigation and debridement right hip wound and wound VAC placement POD #13: I&D and Wound Closure Right Hip Intraoperative wound cultures reveal Proteus Mirabilis. IV piperacillin through 15- completed. Daily dressing changes with transfer and ABD pad. Sutures to be removed tomorrow- nursing aware. Continue PT/OT. Encourage OOB to chair. NWB RLE. HIGH FALL RISK. Ice lateral hip. Pain control. DVT prophylaxis. SCDs. Incentive Spirometry. Nursing to assist. Dispo: SNF when medically stable. Outpatient ortho follow up arranged. Additional Plan Reviewed case and physical exam with attending MD, Dr. Zamarripa. No further recommendations at this time. Subjective Subjective Date/Time Seen: 09/26/21 12:42 Interval history: Patient awake/alert. No new complaints. Pain well controlled. Review of Systems Review of Systems: All systems reviewed & are unremarkable except as noted in HPI and below Constitutional: Constitutional: Reports no additional constitutional complaints Musculoskeletal: Musculoskeletal: Reports as per HPI Exam Const: General: comfortable and no acute distress Resp: Effort & Inspection: normal respiratory effort GI: GI Palp: Yes Soft to palpation Urinary Catheter: Urinary Catheter: patent and draining Skin: Wounds: wounds noted Neuro: General: No gait normal Speech: normal speech Motor exam (neuro): strength not 5/5 throughout and Abnormal motor strength present (b/l LE ) Extrem: Right lower extremity: hip/thigh Details: tenderness Location: of the hip Location: laterally, swelling Location: at the hip, abnormal ROM (limited ) and ecchymosis (lateral hip ); ROM abnormal, knee Details: normal to inspection and normal ROM; no tenderness and no swelling, lower leg (Negative Mariano's Sign ), ankle (+ankle dorsiflexion/plantarflexion ) and foot (Moves toes, sensation intact to light touch) Other: Lateral incisions of the femur from first surgical intervention well healed. Dressing removed. Small 0.1x0.1cm wound at the most distal aspect of the incision at the suture noted. Mild serousanguinous drainage noted. No malodor. No purulence. Thigh soft. Knee without effusion. Moves toes. Sensation intact. +ankle dorsiflexion/plantarflexion. Negative Mariano's sign. Objective Data Vital Signs Vital Signs: Vital Signs - 24 hr 09/25/21 14:00 09/25/21 16:00 09/25/21 20:00 Temperature 36.9 C Pulse Rate 67 85 94 Respiratory Rate 16 18 Blood Pressure 102/65 Pulse Oximetry 95 94 09/25/21 21:06 09/25/21 21:46 09/26/21 00:00 Temperature 37.6 C Pulse Rate 92 92 75 Respiratory Rate 18 Blood Pressure 123/54 L Pulse Oximetry 94 09/26/21 00:36 09/26/21 04:00 09/26/21 05:36 Temperature 36.7 C Pulse Rate 68 63 Respiratory Rate 18 Blood Pressure 130/71 Pulse Oximetry 94 100 09/26/21 08:40 Temperature Pulse Rate 98 Respiratory Rate Blood Pressure Pulse Oximetry Intake/Output Intake/Output: Intake & Output 09/23/21 09/24/21 09/25/21 09/26/21 23:59 23:59 23:59 23:59 Intake Total 1720 1420 1570 Output Total 750 400 750 Balance 970 1020 820 Meds/Results Medications: Active Medications Generic Name Dose Route Start Last Admin Trade Name Freq PRN Reason Stop Dose Admin Acetaminophen 650 mg 09/15/21 18:33 09/24/21 21:22 Acetaminophen 325 Mg Tablet PO 650 mg Q6H PRN Administration Pain (Scale Score 1-3) Hydrocodone Bitart/Acetaminophen 1 tab 09/22/21 11:29 09/26/21 08:41 Hydrocodone/Acetaminophen (*Crx) 5-325 Mg Tablet PO 1 tab Q4H PRN Administration Pain Rated 4-6 Apixaban 5 mg 09/21/21 09:00 09/26/21 08:40 Apixaban 5
[2021-09-26] MEDS: POTASSIUM CHLORIDE 20 MEQ PACKET (FOR LIQUID) 40 MEQ PO (14:08)
--- NOTE | 2021-09-26 14:41 | PM.DS ---
DS: Admitting Diagnosis Discharge Date 09/26/21 Admitting Diagnosis 1) Atrial fibrillation with rapid ventricular response: Code(s): I48.91 - Unspecified atrial fibrillation <Sabrina RubioMICHA WoodardC - Last Filed: 09/06/21 21:02> Status: Acute <Sabrina LaroseCARLOS vyas-C - Last Filed: 09/06/21 21:02> (2) Postoperative wound infection of right hip: Code(s): T81.49XA - Infection following a procedure, other surgical site, initial encounter <Sabrina Appiah CARLOS Bae-C - Last Filed: 09/06/21 21:02> Status: Acute <Sabrina RubioCARLOS Woodard-C - Last Filed: 09/06/21 21:02> (3) Chronic anemia: Code(s): D64.9 - Anemia, unspecified <Sabrina RubioCARLSO Woodard-C - Last Filed: 09/06/21 21:02> Status: Acute <Sabrina RubioCARLOS Woodard-C - Last Filed: 09/06/21 21:02> (4) Abnormal urinalysis: Code(s): R82.90 - Unspecified abnormal findings in urine <Sabrina Appiah CARLOS Bae-C - Last Filed: 09/06/21 21:02> Status: Acute <Sabrina RubioCARLOS Woodard-C - Last Filed: 09/06/21 21:02> (5) Chronic anticoagulation: Code(s): Z79.01 - retirement (current) 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 anticoagulants <Sabrina RamiroCARLOS Woodard-C - Last Filed: 09/06/21 21:02> Status: Acute <Sabrina RubioCARLOS Woodard-C - Last Filed: 09/06/21 21:02> (6) Hypothyroidism: Code(s): E03.9 - Hypothyroidism, unspecified <Sabrina RamiroCARLOS Woodard-C - Last Filed: 09/06/21 21:02> Status: Chronic <Sabrina RamiroCARLOS Woodard-C - Last Filed: 09/06/21 21:02> (7) Hypertension: Code(s): I10 - Essential (primary) hypertension <Sabrina RamiroCARLOS Woodard-C - Last Filed: 09/06/21 21:02> Status: Chronic <Sabrina Bae PA-C - Last Filed: 09/06/21 21:02> DS: Discharge Diagnosis Discharge Diagnosis (1) Hypertension: Code(s): I10 - Essential (primary) hypertension Status: Chronic (2) Hypothyroidism: Code(s): E03.9 - Hypothyroidism, unspecified Status: Chronic (3) Chronic anticoagulation: 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 Status: Acute (4) Abnormal urinalysis: Code(s): R82.90 - Unspecified abnormal findings in urine Status: Acute (5) Chronic anemia: Code(s): D64.9 - Anemia, unspecified Status: Acute (6) Postoperative wound infection of right hip: Code(s): T81.49XA - Infection following a procedure, other surgical site, initial encounter Status: Acute (7) Atrial fibrillation with RVR: Code(s): I48.91 - Unspecified atrial fibrillation Status: Acute DS: Summary Hospital Course Reason for hospitalization: hip infection Hospital Course: 86-year-old female who recently underwent insertion of IM sukhwinder on 08/22/[address] Byers returns to [facility] for evaluation of wound dehiscence. CT demonstrated an abscess and pt was admitted for further care. She was started on empiric antibiotics to include cefepime and vancomycin. Pt was also in A fib RVR and was additionally started on Cardizem drip. Her OAC was held at time of admission for surgical debridement. Cardiology and Ortho were consulted as well as ID. Pt underwent incision and drainage with irrigation and debridement of the right hip wound with wound VAC placement on 09/10/[address] Zamarripa. Pod 3 patient returned for 2nd I and D with wound closure of the right hip. Id placed patient on Zosyn and recommended to complete antibiotics on 09/25/2021. Patient had an uncomplicated clinical course. Her atrial fibrillation was rate controlled with metoprolol and digoxin and her anticoagulation with apixaban was restarted. Her wound VAC was removed on 09/20/21. She completed her entire antibiotic course of Zosyn x Proteus Mirabilis wound infection prior to discharge. She was subsequently [facility] in stable condition with indications to follow up with her primary care physician, orthopedist, and Cardiology.
[2021-09-26] MEDS: NEOMYCIN/POLYMYXIN/BACITRACIN OINTMENT PACKET 1 PACKET (16:14)
[2021-09-26] MEDS: GABAPENTIN 100 MG CAPSULE 200 MG PO (19:50)
[2021-09-26] MEDS: LATANOPROST 0.005% OP SOLN 2.5 ML BTL 1 DROP RIGHT EYE (19:55)
[2021-09-26] MEDS: MIRTAZAPINE 15 MG TABLET PO (19:57)
== END 2021-09-27 01:15 | DRG 857 ==
LOC: ANHED 09:45 → ANHIMU 10:09 → ANH3MEDSUR 09-16 20:37 → ANHIMU 09-30 10:04
PROVIDERS: Internal Medicine; Internal Medicine Cardiovascular Disease; Orthopaedic Surgery; Physician Assistant; Admitting Provider Internal Medicine; Emergency Provider Emergency Medicine; PCP Internal Medicine; Visit Provider Hospitalist
PROC: 0KDN0ZZ Extraction of Right Hip Muscle, Open Approach (ICD-10-PCS; CPT 27245; principal; 2021-09-10 15:30)
PROC: 0JQL0ZZ Repair Right Upper Leg Subcutaneous Tissue and Fascia, Open Approach (ICD-10-PCS; principal; 2021-09-13 11:00)
DX: T81.49XA Infection following a procedure, other surgical site, initial encounter (principal); T81.31XA Disruption of external operation (surgical) wound, not elsewhere classified, initial encounter; N17.9 Acute kidney failure, unspecified; N39.0 Urinary tract infection, site not specified; I48.20 Chronic atrial fibrillation, unspecified; B96.4 Proteus (mirabilis) (morganii) as the cause of diseases classified elsewhere; B96.20 Unspecified Escherichia coli [E. coli] as the cause of diseases classified elsewhere; Z20.822 Contact with and (suspected) exposure to COVID-19; Z23 Encounter for immunization; R00.0 Tachycardia, unspecified; I95.9 Hypotension, unspecified; F03.90 Unspecified dementia, unspecified severity, without behavioral disturbance, psychotic disturbance, mood disturbance, and anxiety; D53.9 Nutritional anemia, unspecified; R73.03 Prediabetes; H26.9 Unspecified cataract; H40.9 Unspecified glaucoma; K21.9 Gastro-esophageal reflux disease without esophagitis; E03.9 Hypothyroidism, unspecified; E78.2 Mixed hyperlipidemia; I10 Essential (primary) hypertension; M06.9 Rheumatoid arthritis, unspecified; M21.371 Foot drop, right foot; E53.8 Deficiency of other specified B group vitamins; E55.9 Vitamin D deficiency, unspecified; M81.0 Age-related osteoporosis without current pathological fracture; Z79.01 Long term (current) use of anticoagulants; Z79.899 Other long term (current) drug therapy; Z91.81 History of falling
CPT/HCPCS: 36415; 36569; 51701; 71045; 73701; 80048; 80053; 80162; 80202; 81001; 81003; 82274; 82565; 82607; 82728; 82747; 83540; 83550; 83605; 83735; 84443; 85025; 85027; 85610; 85652; 85730; 86140; 87040; 87070; 87075; 87077; 87086; 87088; 87186; 87205; 87426; 90471; 90653; 93005; 93970; 96361; 96365; 96366; 96367; 96368; 96375; 96376; 97110; 97162; 97166; 97530; 97535; 99285; A9270; C1751; C9803; G0008; G0378; J0171; J0692; J1644; J2270; J2370; J2405; J2543; J2704; J3010; J3370; J3420; J7030; J7040; J7050; J7120; J7512; Q9967

== ENCOUNTER 2021-11-05 08:28 | Outpatient (RCR) | payer MEDICARE, MEDICAID, SELFPAY ==
[2021-11-05 10:59] VITALS: BMI 30.8
--- NOTE | 2021-11-05 14:51 | PM.IMHP ---
H&P: HPI History of Present Illness Date/Time: 11/05/21 14:51 Chief Complaint: Complicated right hip fracture wound Narrative: 86-year-old female seen in the [facility] wound [facility] today for postoperative wound dehiscence. Patient had a right hip gamma sukhwinder placement 10 weeks, 5 days ago and then had a subsequent right hip hematoma requiring I&D and returned to the OR for wound VAC placement. A subsequent surgeries have been 2 weeks following her fracture. The patient has since been discharged to a care home and has now been found to have a recurrent wound. She is currently being treated for Pseudomonas which was found on the wound culture on October 16. jail has started dressing changes daily however there was shown little to no improvement in wound bed. Patient was evaluated by Dr. Zamarripa in the outpatient orthopedic clinic and referred to the Wound Clinic for closer monitoring. Review of Systems Constitutional: Constitutional: Reports no additional constitutional complaints PMFSH Past Medical History Medical History (Updated 11/05/21 @ 14:56 by ANGELINA Manzo) Age-related hearing loss Cataracts, bilateral maturing Chronic anemia Chronic anticoagulation Degenerative joint disease Dementia Foot drop, right Gastroesophageal reflux disease Glaucoma Hypertension Hypothyroidism Mixed hyperlipidemia Occult blood in stools Osteoporosis Paroxysmal atrial fibrillation Postoperative wound dehiscence Pre-diabetes Presbyesophagus Rheumatoid arthritis Vitamin B12 deficiency Vitamin D deficiency Surgical History Surgical History History of colonoscopy with polypectomy History of dilation and curettage (11/04/19) For postmenopausal bleeding. Pathology demonstrated atrophic endometrium. History of open reduction and internal fixation (ORIF) procedure (08/22/21) IM sukhwinder for right hip fracture. Family History Family History Sibling Acute myocardial infarction Mother Renal failure Social History Social History Social History: Surrogate decision maker: Chandler Serrato, son. Code status: Full code. Smoking status: Former smoker (smokeless tobacco) Tobacco type: smokeless tobacco Smokeless tobacco user: snuff Second hand tobacco smoke exposure: Yes Additional smoking assessment comments: snuff x 70 years Alcohol intake: never Substance use: never Additional living arrangements comments: . She lives in [place] with her son though she is currently undergoing rehab. Ambulates with a walker but a wheelchair is also available as needed. She has 6 children, 1 in a traumatic accident at the age of 40. Additional occupation/education comments: Retired. Spiritual care concerns: No Meds Home Medications and Allergies Home Medications Medication Instructions Recorded Confirmed Type acetaminophen [Acetaminophen Pain 1,000 mg PO BID PRN 12/26/19 11/05/21 History Relief] docusate sodium 200 mg PO DAILY 05/19/20 11/05/21 History multivit with min-folic 1 tablet PO DAILY 11/06/20 11/05/21 History acid-lutein 400 mcg-250 mcg chewable tablet prednisone 5 mg tablet 5 mg PO DAILY 11/06/20 11/05/21 History methotrexate sodium 7.5 mg PO WEEKLY 01/21/21 11/05/21 History cyanocobalamin (vitamin B-12) See Rx Instructions .ROUTE 03/20/21 11/05/21 Rx 1,000 mcg/mL injection solution .COMPLEX #3 ml gabapentin 100 mg capsule 200 mg PO HS cap 03/20/21 11/05/21 History Combigan 1 drp RIGHT EYE BID 08/21/21 11/05/21 History Eliquis 5 mg PO BID 08/21/21 11/05/21 History Lumigan 1 drp RIGHT EYE HS 08/21/21 11/05/21 History atorvastatin 10 mg PO DAILY 08/21/21 11/05/21 History omeprazole 40 mg PO DAILY 08/21/21 11/05/21 History furosemide 40 mg PO DAILY 09/06/21 11/05/21 History lactulose 30 g PO DAILY 09/06/21 0
--- NOTE | 2021-11-06 15:14 | PCWOUND ---
WOCN NOTE Celina nurse from [facility] called to inform that patient had tested positive for COVID-19. Appointment for 11/12/21 has been cancelled. NH to contact wound center once patient is off quarantine to reschedule. Will notify Dr. Zamarripa's office as well.
== END 2022-01-20 08:09 | disposition home or self-care (01) ==
LOC: ANHWOC 08:28
PROVIDERS: PCP Internal Medicine; Visit Provider Orthopaedic Surgery
DX: T81.49XD Infection following a procedure, other surgical site, subsequent encounter (principal)
CPT/HCPCS: 11042

== ENCOUNTER 2021-11-15 15:19 | Inpatient (IN) | payer MEDICARE, MEDICAID, SELFPAY ==
[2021-11-15] VITALS (13 sets, daily range): BP systolic 81–123; BP diastolic 68–84; PULSE 65–95; RESP 15–25; TEMP 36.8–37.1; O2SAT 94–100
--- NOTE | ~2021-11-15 | XR_ITS ---
EXAMINATION: XR chest 1V portable DATE: 11/22/2021 06:43 INDICATION: Respiratory failure TECHNIQUE: frontal view of the chest was obtained. COMPARISON: Chest radiograph dated 11/21/2021 FINDINGS: Endotracheal tube tip 2.4 cm above the michelle. Nasogastric tube extends below the left hemidiaphragm with distal tip collimated off the study. Left internal jugular central venous catheter with distal tip in the caudal superior vena cava. No significant change in patchy airspace opacities throughout both lungs. No pleural effusion or pneu mothorax. Borderline heart size accounting for AP technique. Thoracolumbar scoliosis with severe spon dylosis. IMPRESSION: 1. No significant change in patchy bilateral lung disease which could represent pneumonia, pulmonary edema, atelectasis or some combination thereof. 2. Borderline heart size. Reviewed, dictated and finalized at location A. VITIES AIDE
--- NOTE | ~2021-11-15 | XR_ITS ---
EXAMINATION: XR chest ET placement DATE: 11/18/2021 19:19 INDICATION: Intubation. TECHNIQUE: A single frontal view of the chest was obtained. COMPARISON: Chest single view at 5:51 PM FINDINGS: There is a diffuse interstitial pattern in the lungs. There are airspace opacities in the m id and lower lung zones. There are small pleural effusions. No pneumothorax. Cardiomegaly is noted. T he endotracheal tube tip is 2.3 cm above the michelle. The nasogastric tube tip is beyond the inferior margin of the radiograph, but at least to the stomach. A left internal jugular central venous cathete r is seen with tip in the superior vena cava. IMPRESSION: 1. Stable diffuse lung disease, likely moderate pulmonary edema. 2. Small pleural effusions. 3. Cardiomegaly. Reviewed, dictated and finalized at location E. UCTION MECHANIC TIN CANS
--- NOTE | ~2021-11-15 | XR_ITS ---
EXAMINATION: XR abdomen NG/feed tube insert DATE: 11/18/2021 19:19 INDICATION: Nasogastric tube placement. TECHNIQUE: A supine view of the abdomen was obtained. COMPARISON: None. FINDINGS: There are no dilated loops of bowel. The nasogastric tube tip is in the stomach. IMPRESSION: 1. Nasogastric tube tip in the stomach. Reviewed, dictated and finalized at location E. GLE SHEARING MACHINE OPERATOR
--- NOTE | ~2021-11-15 | XR_ITS ---
EXAMINATION: XR chest 1V portable DATE: 11/18/2021 17:58 INDICATION: Respiratory distress. TECHNIQUE: A single frontal view of the chest was obtained. COMPARISON: Chest single view 11/15/2021, chest CT 11/15/2021, CT abdomen and pelvis 11/16/2021 FINDINGS: There is a diffuse interstitial pattern in the lungs. There are airspace opacities in the m id and lower lung zones with a perihilar predominance. There are small pleural effusions. There is mi ld scarring at the lung apices. No pneumothorax. Cardiomegaly is noted. A left internal jugular centr al venous catheter is seen with tip in the superior vena cava. IMPRESSION: 1. Worsened diffuse lung disease, likely moderate pulmonary edema. 2. Small pleural effusions. 3. Cardiomegaly. Reviewed, dictated and finalized at location E. ER STRAIGHTENER
--- NOTE | ~2021-11-15 | XR_ITS ---
EXAMINATION: XR chest 1V portable DATE: 11/20/2021 05:51 INDICATION: Respiratory failure TECHNIQUE: frontal view of the chest was obtained. COMPARISON: Chest radiograph dated 11/19/2021 FINDINGS: Endotracheal tube tip 2.6 cm above the michelle. Nasogastric tube extends below the left hemidiaphragm with distal tip collimated off the study. Left internal jugular central venous catheter with distal tip at the midsuperior vena cava. Slight improvement in the patchy airspace opacities in the bilateral mid and lower lung zones. Likely small bilateral pleural effusions. No pneumothorax. Borderline heart size accounting for AP techniqu e. Partially visualized lumbar dextrorotoscoliosis with lower thoracic levocurvature. IMPRESSION: 1. Continued slight improvement in bilateral lung disease which could represent pulmonary edema, pneu monia, atelectasis or some combination thereof. 2. Likely small bilateral pleural effusions. 2. Borderline heart size. Reviewed, dictated and finalized at location A. ANICAL TECHNICIAN IMPRESSION: 1. Continued slight improvement in bilateral lung disease which could represent pulmonary edema, pneumonia, atelectasis or some combination thereof. 2. Likely small bilateral pleural effusions. 2. Borderline heart size.
--- NOTE | ~2021-11-15 | US_ITS ---
EXAMINATION: US abdomen limited DATE: 11/20/2021 09:55 INDICATION: Elevated liver function tests TECHNIQUE: Multiple grayscale and Doppler ultrasound images of the abdomen were obtained. COMPARISON: None FINDINGS: The pancreatic head and body are normal in appearance. The pancreatic tail is not visualized. Liver has normal echogenicity and contour, with a smooth surface. No liver lesion identified. No intrahepat ic biliary duct dilation suspected. Portal venous flow was seen in the hepatopetal, normal direction and has normal Doppler waveform. Minimal anechoic ascites along the normal-appearing gallbladder with no gallbladder wall thickening. Small amount of echogenic sludge/debris in the gallbladder. No shado wing cholelithiasis. The common bile duct measures 5 mm, which is normal. Sonographic Dunlap sign chidi ble to be assessed due to patient mental status. IMPRESSION: 1. Gallbladder sludge with minimal nonspecific pericholecystic fluid but without shadowing cholelithi asis, gallbladder dilation or wall thickening to suggest acute cholecystitis. If there is continued c linical concern for acute cholecystitis could consider HIDA scan for further evaluation. Reviewed, dictated and finalized at location A. RUMENT MAKER IMPRESSION: 1. Gallbladder sludge with minimal nonspecific pericholecystic fluid but withou t shadowing cholelithiasis, gallbladder dilation or wall thickening to suggest acute cholecystitis. If there is continued clinical concern for acute cholecyst itis could consider HIDA scan for further evaluation.
--- NOTE | ~2021-11-15 | XR_ITS ---
EXAMINATION: XR chest 1V portable DATE: 11/21/2021 05:49 INDICATION: Respiratory failure TECHNIQUE: frontal view of the chest was obtained. COMPARISON: Chest radiograph dated 11/20/2021 FINDINGS: Endotracheal tube tip 1.8 cm above the michelle. Nasogastric tube extends below the left hemidiaphragm with distal tip collimated off the study. Left internal jugular central venous catheter with distal tip in the midsuperior vena cava. Persistent patchy airspace opacities scattered throughout both lungs relatively sparing the left uppe r lung zone. No pleural effusion or pneumothorax. Borderline heart size accounting for AP technique. Thoracolumbar scoliosis with severe lumbar spondylosis. IMPRESSION: 1. No significant change in patchy bilateral lung disease which could represent pneumonia, pulmonary edema, atelectasis or some combination thereof. 2. Borderline heart size. Reviewed, dictated and finalized at location A. RVISOR QUILTING
--- NOTE | ~2021-11-15 | XR_ITS ---
EXAMINATION: XR chest port-a-cath/central EXAM DATE: 11/15/2021 18:47 INDICATION: cl placement . TECHNIQUE: Portable AP frontal chest x-ray was obtained. Comparison is made to prior examination from earlier same date. FINDINGS: Moderate to severe thoracolumbar scoliosis. There is a new left-sided IJ venous line in pos ition. No confluent consolidation, pneumothorax or pleural effusion suspected. Cardiomediastinal silh ouette is normal. The bones are osteopenic. There are bony degenerative changes. IMPRESSION: No evidence postprocedure pneumothorax. Reviewed, dictated and finalized at location G. ATIONAL PARAPROFESSIONAL
--- NOTE | ~2021-11-15 | XR_ITS ---
EXAMINATION: XR chest 1V portable EXAM DATE: 11/15/2021 15:41 INDICATION: Hypoxia, Weakness, Covid Positive, Hx Gi Bleed. TECHNIQUE: Portable AP frontal chest x-ray was obtained. Comparison is made to prior examination from 09/21/2021. FINDINGS: The lungs are clear. There are no pleural effusions. Cardiac silhouette is prominent but magnified on this AP technique. There is no pneumothorax suspected. The bones and soft tissues are unremarkable. IMPRESSION: No acute cardiopulmonary findings. Reviewed, dictated and finalized at location G. NG MACHINE OPERATOR SEMIAUTOMATIC
--- NOTE | ~2021-11-15 | CT_ITS ---
EXAMINATION: CT brain wo [facility] EXAM DATE: 11/15/2021 17:22 INDICATION: Altered mental status. TECHNIQUE: Spiral CT of the head was performed without contrast. Axial, coronal and sagittal images were reviewed. The dose-length product (DLP) for this examination was 605.33 mGy-cm. The exposure w as tailored according to patient size, and iterative reconstruction (ASIR) was used as additional dos e reduction technique. Comparison is made to prior examination from 08/21/2021. FINDINGS: There is no acute intraparenchymal hemorrhage. No evidence of intraparenchymal brain mass lesion. No evidence of acute infarction. Please note that initial head CT has limited sensitivity f or small or acute infarctions. There is mild periventricular and subcortical hypodensity, nonspecific but probably related to small vessel ischemic disease. There is moderate prominence of the sulci a nd ventricles related to cerebral atrophy. There is intracranial carotid arteriosclerosis. There a re no extra-axial collections. There is no mass effect or midline shift. Patient has had bilateral ocular lens surgery. Soft tissue is unremarkable. The visualized sinuses and mastoid air cells are well aerated. IMPRESSION: 1. No acute intracranial findings. 2. Chronic age related findings. Reviewed, dictated and finalized at location G. PAPER STUFFER
--- NOTE | ~2021-11-15 | CT_ITS ---
EXAMINATION: CT abdomen pelvis wo con DATE: 11/16/2021 07:04 INDICATION: Sepsis TECHNIQUE: Computed tomography (CT) of the abdomen and pelvis was performed without intravenous contr ast. The dose-length product was 740.62 mGy-cm. Automated exposure control and iterative reconstruction technique were employed. COMPARISON: CT dated 10/07/2019. FINDINGS: There is residual contrast in the kidneys and renal collecting systems. Correlate for recen t contrast administration. There is bibasilar dependent atelectasis. Cardiomegaly. No significant ple ural effusion. No pericardial effusion. Gallbladder contains high density material, likely vicarious excretion of contrast. The liver, spleen , pancreas, right adrenal gland are unremarkable. There is 1.4 cm left adrenal adenoma. There are hyp ervascular lesions in both kidneys. There are low-density lesions in the right kidney, most likely be nign cysts. Nonobstructive bowel gas pattern. Dalton catheter present in the bladder. No free air or f ree fluid. There is dextroscoliosis of the lumbar spine. Severe lumbar spondylosis. There is a dynami c compression screw transfixing the right femoral neck with healing fracture deformity. IMPRESSION: 1. No acute abdominal abnormality identified. 2: Hypervascular lesions of both kidneys, nonspecific. Correlation with MRI is recommended to exclude enhancing solid renal mass. 3: Bibasilar dependent atelectasis. 4: Left adrenal adenoma measuring 1.4 cm. Reviewed, dictated and finalized at location A. CHGEAR REPAIRER
--- NOTE | ~2021-11-15 | CT_ITS ---
EXAMINATION: CTA chest PE protocol EXAM DATE: 11/15/2021 19:28 INDICATION: Hypoxia, surgery 2 months ago. Tachycardia. Fall. TECHNIQUE: Spiral CTA of the chest (pulmonary arteries) was performed with 100 cc Omnipaque 350 intr avenous contrast injection. Images were acquired during the pulmonary arterial phase. Coronal maxi mum intensity projection 3D-reconstructions were created by the technologist on dedicated workstation . Axial, coronal and sagittal reformatted images were reviewed. The dose-length product (DLP) for t his examination was 328.28 mGy-cm. The exposure was tailored according to patient size (auto mA exp osure control), and iterative reconstruction (ASIR) was used as additional dose reduction technique. Comparison is made to prior examination from 08/21/2021. FINDINGS: There are no pulmonary emboli in the 1st through 3rd order (central and interlobar) pulmon heladio arteries. Some loss of attenuation in the right basilar segmental pulmonary from respiratory mot ion, these regions not confidently evaluated. No Intraluminal filling defects identified. No thorac ic aortic dissection. There is bilateral lower lobe subsegmental atelectasis. The lungs are otherwis e clear. Mild emphysema and hyperinflation. There are no pleural or pericardial effusions. Tracheo bronchial tree is patent. There is no mediastinal, hilar or axillary lymphadenopathy. There is no pneumothorax. Heart normal in size. No evidence of coronary arterial calcification. Upper abdom en is unremarkable. There is thoracic spondylosis without osteoblastic or osteolytic lesions identi fied. Moderate to severe bilateral glenohumeral joint osteoarthritis. IMPRESSION: 1. Limited right basilar segmental evaluation, but no pulmonary emboli are suspected. 2. Bibasilar subsegmental atelectasis. 3. Mild emphysema and hyperinflation. Reviewed, dictated and finalized at location G. RE POLISHER IMPRESSION: 1. Limited right basilar segmental evaluation, but no pulmonary emboli are leatha pected. 2. Bibasilar subsegmental atelectasis. 3. Mild emphysema and hyperinflation.
--- NOTE | ~2021-11-15 | XR_ITS ---
EXAMINATION: XR chest 1V portable DATE: 11/19/2021 05:47 INDICATION: Pulmonary edema TECHNIQUE: frontal view of the chest was obtained. COMPARISON: Chest radiograph dated 11/18/2021 FINDINGS: Endotracheal tube tip 2.1 cm above the michelle. Nasogastric tube extends below the left hemidiaphragm with distal tip collimated off the study. Left internal jugular central venous catheter with distal tip at the caudal superior vena cava. Slight decrease in the opacities in the bilateral mid and lower lung zones. Possible small pleural ef fusions. No pneumothorax. Cardiomegaly. S-shaped thoracolumbar scoliosis with severe lumbar spondylos is. IMPRESSION: 1. Slight improvement in diffuse bilateral lung disease which could represent pulmonary edema, pneumo kristen, atelectasis or some combination thereof. 2. Cardiomegaly. 2. Possible small pleural effusions. Reviewed, dictated and finalized at location A. TRAVELING IMPRESSION: 1. Slight improvement in diffuse bilateral lung disease which could represent p ulmonary edema, pneumonia, atelectasis or some combination thereof. 2. Cardiomegaly. 2. Possible small pleural effusions.
--- NOTE | 2021-11-15 15:26 | ECG_ITS ---
Measurements Intervals [place] Rate: 68 P: GA: 0 QRS: -8 QRSD: 92 T: 140 QT: 335 QTc: 356 Interpretive Statements ATRIAL FIBRILLATION ST-T WAVE ABNORMALITY IN DIFFUSE LEADS- CONSIDER ISCHEMIA BASELINE ARTIFACT- I, II, III, AVR, AVL, AVF, V1-V4 ABNORMAL ECG Electronically Signed On 11-15-2021 20:59:01 DREDGE PUMP OPERATOR by Tyrell Cornejo D.O.
[2021-11-15 15:38] LABS: Alveolar/Arterial O2 Gradient 485.3 mmHg; Base Excess ABG -9.6 mEq/l (+/-2.0); Carboxyhemoglobin 0.3 % THb (0-2.0); Fractional Inspired Oxygen 100 %; HCO3 ABG 13.3 mEq/l (22.0-26.0); Methemoglobin ABG 0.1 %THb (0-1.5); Oxygen Saturation ABG 99.4 % (95.0-100.0); Oxyhemoglobin 98.2 % THb (90.0-100.0); PO2 ABG 205.6 mmHg (80.0-100.0); PO2 FiO2 Ratio Arterial Blood 2.06 %; Reduced Hemoglobin 1.4 %THb (0-5.0); pH ABG 7.398 (7.350-7.450)
[2021-11-15 15:39] LABS: Device NASAL CANNULA; Modified Allen's Test Pass; PCO2 ABG 22.1 mmHg (35.0-45.0); Site Drawn RIGHT RADIAL
[2021-11-15 15:51] LABS: Basophils Percent Auto 0.1 % (0.2-1.2); Eosinophils Percent Auto 0.1 % (0-4.4); Hemoglobin 11.1 g/dL (12.0-15.0); Immature Granulocyte Absolute 0.08 K/mm3 (0.00-0.031); Lymphocytes Absolute Auto 1.42 K/mm3 (0.9-3.2); Mean Corpuscular HGB Conc 31.7 g/dl (32-36); Mean Corpuscular Hemoglobin 32.6 pg (26-34); Mean Corpuscular Volume 102.9 fl (80-100); Mean Platelet Volume 10.6 fl (7.4-10.4); Monocytes Absolute Auto 0.1 K/mm3 (0.1-0.6); Monocytes Percent Auto 1.3 % (2.6-8.5); Neutrophils Absolute Auto 6.7 K/mm3 (1.3-6.7); Neutrophils Percent Auto 80.5 % (45.5-73.1); Nucleated Red Blood Cells Absolute Auto 0.1 K/mm3 (0.0-0.012); Nucleated Red Blood Cells Perc 1.7 % (0.0-0.2); Platelet Count Result 279 k/mm3 (150-375); Red Cell Distribution Width 18.7 % (11.5-14.5); White Blood Count 8.3 K/mm3 (4.5-10.0)
[2021-11-15 15:58] LABS: INR 2.3; Prothrombin Time 24.7 Seconds (11.1-14.7)
[2021-11-15 15:59] LABS: Partial Thromboplastin Time 40.5 SECONDS (22.3-36.8)
[2021-11-15 16:01] LABS: Lactic Acid Reflex 5.5 mmol/L (0.7-2.1)
[2021-11-15 16:11] LABS: Alanine Aminotransferase 34 U/L (4-35); Albumin Level 3.9 g/dL (3.5-5.1); Alkaline Phosphatase 76 U/L (38-126); Anion Gap 14 mmol/L (8-16); Aspartate Amino Transferase 72 U/L (14-36); Bilirubin,Total 0.9 mg/dL (0.2-1.3); Blood Urea Nitrogen 43 mg/dL (7-17); Calcium 9.2 mg/dL (8.4-10.2); Carbon Dioxide 13 mmol/L (22-30); Chloride 108 mmol/L (98-107); Estimated Glomerular Filt Rate 31; Glucose 171 mg/dL (65-110); Potassium 6.5 mmol/L (3.4-5.0); Sodium 135 mmol/L (137-145)
--- NOTE | 2021-11-15 16:16 | ED.SOB ---
HPI - SOB/Dyspnea General Chief Complaint: Shortness of Breath/Dyspnea Stated Complaint: gi bleed - unresponsive Time Seen by Provider: 11/15/21 15:21 Source: patient History of Present Illness HPI Narrative: Patient presents with shortness of breath diminished responsiveness and concerns for blood in stool. EMS was called and she was referred to the ER for evaluation noted hypoxia to the 80s on room air started on oxygen. EMS notes the patient was responsive to verbal stimuli. Of note patient had right hip orthopedic surgery a couple months ago has had wound dehiscence is currently has a wound VAC in place. Patient also recently tested positive for Covid Related Data Home Medications Medication Instructions Recorded Confirmed acetaminophen [Acetaminophen Pain 1,000 mg PO BID PRN 12/26/19 11/05/21 Relief] docusate sodium 200 mg PO DAILY 05/19/20 11/05/21 multivit with min-folic 1 tablet PO DAILY 11/06/20 11/05/21 acid-lutein 400 mcg-250 mcg chewable tablet prednisone 5 mg tablet 5 mg PO DAILY 11/06/20 11/05/21 methotrexate sodium 7.5 mg PO WEEKLY 01/21/21 11/05/21 gabapentin 100 mg capsule 200 mg PO HS cap 03/20/21 11/05/21 Combigan 1 drp RIGHT EYE BID 08/21/21 11/05/21 Eliquis 5 mg PO BID 08/21/21 11/05/21 Lumigan 1 drp RIGHT EYE HS 08/21/21 11/05/21 atorvastatin 10 mg PO DAILY 08/21/21 11/05/21 omeprazole 40 mg PO DAILY 08/21/21 11/05/21 furosemide 40 mg PO DAILY 09/06/21 11/05/21 lactulose 30 g PO DAILY 09/06/21 11/05/21 mirtazapine 15 mg PO HS 09/06/21 11/05/21 potassium chloride 20 meq PO DAILY 09/06/21 11/05/21 spironolactone 25 mg PO DAILY 09/06/21 11/05/21 folic acid 1 mg PO DAILY 11/05/21 11/05/21 ondansetron 4 mg PO Q8H PRN 11/05/21 11/05/21 peg 400-propylene glycol [Systane 1 - 2 drp EACH EYE Q4H PRN 11/05/21 11/05/21 (propylene glycol)] Allergies Allergy/AdvReac Type Severity Reaction Status Date / Time No Known Allergies Allergy Verified 11/05/21 11:50 Review of Systems Review of Systems: ROS unobtainable: Yes unobtainable due to mental status [facility] Past Medical History Medical History Age-related hearing loss Cataracts, bilateral maturing Chronic anemia Chronic anticoagulation Degenerative joint disease Dementia Foot drop, right Gastroesophageal reflux disease Glaucoma Hypertension Hypothyroidism Mixed hyperlipidemia Occult blood in stools Osteoporosis Paroxysmal atrial fibrillation Postoperative wound dehiscence Pre-diabetes Presbyesophagus Rheumatoid arthritis Vitamin B12 deficiency Vitamin D deficiency Surgical History Surgical History History of colonoscopy with polypectomy History of dilation and curettage (11/04/19) For postmenopausal bleeding. Pathology demonstrated atrophic endometrium. History of open reduction and internal fixation (ORIF) procedure (08/22/21) IM sukhwinder for right hip fracture. Family History Family History Sibling Acute myocardial infarction Mother Renal failure Social History Social History Social History: Surrogate decision maker: hCandler Serrato, tristan. Code status: Full code. Smoking status: Former smoker (smokeless tobacco) Tobacco type: smokeless tobacco Smokeless tobacco user: snuff Second hand tobacco smoke exposure: Yes Additional smoking assessment comments: snuff x 70 years Alcohol intake: never Substance use: never Additional living arrangements comments: . She lives in [place] with her son though she is currently undergoing rehab. Ambulates with a walker but a wheelchair is also available as needed. She has 6 children, 1 in a traumatic accident at the age of 40. Additional occupation/education comments: Retired. Spiritual care concerns: No Exam Narrative: GENERA
[2021-11-15 16:22] LABS: Add Urine Microscopic? YES; Appearance Urine Cloudy (Clear); Bacteria Urine Trace /hpf; Bilirubin Urine Negative (Negative); Blood Urine 2+ (Negative); Color Urine Yellow (Yellow); Glucose Urine UA Negative (Negative); Ketones Urine Negative (Negative); Leukocyte Esterase Ur 3+ LEU/UL (Negative); Nitrate Urine Negative (Negative); Protein Urine 1+ mg/dL (Negative); RBC Urine 21-50 /hpf (0-2); Specific Grav Ur 1.012 (1.001-1.035); Urobilinogen Urine Negative mg/dL (<2.0); WBC Clumps Urine Present /HPF; WBC Urine >75 /hpf
[2021-11-15] MEDS: ALBUTEROL SULFATE NEB 2.5 MG/0.5 ML INH 5 MG INHALATION (16:31)
[2021-11-15 17:01] LABS: SARS-CoV-2 RNA PCR Positive
[2021-11-15 18:47] LABS: Reflex Lactic Acid Yes or No Add Lactic
[2021-11-15] MEDS: SODIUM CHLORIDE 0.9% IV 1,000 ML 999 ML IV CONT ×3 (18:59→21:15)
[2021-11-15] MEDS: DEXTROSE 50% 25 GM/50 ML SYRINGE IV PUSH (19:00)
[2021-11-15] MEDS: CALCIUM GLUCONATE 1,000 MG/10 ML VIAL 1000 MG IV PUSH (19:02)
[2021-11-15] MEDS: INSULIN HUMAN REGULAR (*BKC) 100 UNITS/ML 10 UNITS IV PUSH (19:05)
[2021-11-15] MEDS: SODIUM BICARBONATE 8.4% 50 MEQ/50 ML SYRINGE IV PUSH (19:09)
--- NOTE | 2021-11-15 19:19 | PC.NURSE ---
Report received from ANNEMARIE Miner. Assumed care of patient at this time.
[2021-11-15 20:16] LABS: Lactic Acid 6.1 mmol/L (0.7-2.1)
[2021-11-15 20:18] LABS: Digoxin 1.8 ng/mL (0.8-2.0)
[2021-11-15] MEDS: SODIUM CHLORIDE 0.9% IV 1,000 ML 125 ML IV CONT (20:56)
--- NOTE | 2021-11-15 21:00 | PC.NURSE ---
Patient bp dropping and concerns for aspirating kayexalate, hospitalist paged.
--- NOTE | 2021-11-15 21:10 | PC.NURSE ---
Spoke with , orders received.
[2021-11-15 21:43] LABS: Anion Gap 10 mmol/L (8-16); Blood Urea Nitrogen 37 mg/dL (7-17); Calcium 8.2 mg/dL (8.4-10.2); Carbon Dioxide 18 mmol/L (22-30); Chloride 113 mmol/L (98-107); Estimated Glomerular Filt Rate 39; Glucose 64 mg/dL (65-110); Potassium 4.5 mmol/L (3.4-5.0); Sodium 141 mmol/L (137-145)
[2021-11-15 22:02] LABS: Lactic Acid Reflex 4.6 mmol/L (0.7-2.1)
--- NOTE | 2021-11-15 23:21 | PC.NURSE ---
Patient tristan Arteaga, calls for update.
[2021-11-16] VITALS (54 sets, daily range): BP systolic 73–142; BP diastolic 41–99; PULSE 42–96; RESP 12–25; TEMP 35.9–36.9; O2SAT 69–99; BMI 26.7
--- NOTE | 2021-11-16 00:12 | PC.NURSE ---
Patient O2 dropped to 78% on RA. Patient repositioned and placed on oxygen via NC at 5L and O2 sat increased to 83%. Patient taken off NC and placed on nonrebreather at 15L and O2 increased to 86%. Hospitalist paged.
--- NOTE | 2021-11-16 00:55 | PC.NURSE ---
Patient taken off nonrebreather at this time. Patient awake in room pulling at mask. Patient placed on 3L via NC, tolerating well, O2 sat is 97%.
--- NOTE | 2021-11-16 01:12 | PM.IMHP ---
H&P: HPI History of Present Illness Date/Time: 11/16/21 01:12 Chief Complaint: Altered mental status. Narrative: This is an 86-year-old female retirement resident past medical history significant for chronic anemia, chronic anticoagulation, degenerative joint disease, dementia, right footdrop, gastroesophageal reflux disease, glaucoma, hypertension, hypothyroidism, mixed hyperlipidemia, osteoporosis, paroxysmal atrial fibrillation, chronic wound, rheumatoid arthritis, vitamin B12 deficiency. Patient was brought for to the emergency room via EMS due to low oxygen saturation altered mental status. Preliminary workup was significant for urinalysis with numerous wbc's present, a chest x-ray was significant for no acute cardiopulmonary findings, a CT angio of the chest did not show acute pulmonary emboli. At the time of my visit patient was unable to give any history due to altered mental status patient is obtunded. Patient received a right IJ in the emergency room and fluid resuscitation was started as her blood pressure was below 90/60. Decision has been made to admit the patient for further evaluation management and treatment. Review of Systems Review of Systems: ROS unobtainable: Yes unobtainable due to medical condition and unobtainable due to mental status (Obtunded) [facility] Past Medical History Medical History Age-related hearing loss Cataracts, bilateral maturing Chronic anemia Chronic anticoagulation Degenerative joint disease Dementia Foot drop, right Gastroesophageal reflux disease Glaucoma Hypertension Hypothyroidism Mixed hyperlipidemia Occult blood in stools Osteoporosis Paroxysmal atrial fibrillation Postoperative wound dehiscence Pre-diabetes Presbyesophagus Rheumatoid arthritis Vitamin B12 deficiency Vitamin D deficiency Surgical History Surgical History History of colonoscopy with polypectomy History of dilation and curettage (11/04/19) For postmenopausal bleeding. Pathology demonstrated atrophic endometrium. History of open reduction and internal fixation (ORIF) procedure (08/22/21) IM sukhwinder for right hip fracture. Family History Family History Sibling Acute myocardial infarction Mother Renal failure Social History Social History Social History: Surrogate decision maker: Chandler Serrato, tristan. Code status: Full code. Smoking status: Former smoker (smokeless tobacco) Tobacco type: smokeless tobacco Smokeless tobacco user: snuff Second hand tobacco smoke exposure: Yes Additional smoking assessment comments: snuff x 70 years Alcohol intake: never Substance use: never Additional living arrangements comments: . She lives in [place] with her son though she is currently undergoing rehab. Ambulates with a walker but a wheelchair is also available as needed. She has 6 children, 1 in a traumatic accident at the age of 40. Additional occupation/education comments: Retired. Spiritual care concerns: No Meds Home Medications and Allergies Home Medications Medication Instructions Recorded Confirmed Type acetaminophen [Acetaminophen Pain 1,000 mg PO BID PRN 12/26/19 11/05/21 History Relief] docusate sodium 200 mg PO DAILY 05/19/20 11/05/21 History multivit with min-folic 1 tablet PO DAILY 11/06/20 11/05/21 History acid-lutein 400 mcg-250 mcg chewable tablet prednisone 5 mg tablet 5 mg PO DAILY 11/06/20 11/05/21 History methotrexate sodium 7.5 mg PO WEEKLY 01/21/21 11/05/21 History cyanocobalamin (vitamin B-12) See Rx Instructions .ROUTE 03/20/21 11/05/21 Rx 1,000 mcg/mL injection solution .COMPLEX #3 ml gabapentin 100 mg capsule 200 mg PO HS cap 03/20/21 11/05/21 History Pamigan 1 drp RIGHT EYE BID 08/21/21 11/05/21 History Leora
--- NOTE | 2021-11-16 01:12 | PC.NURSE ---
gives VORB to start levophed at 10 and titrate down to keep MAP at 65. She states to start mediation when patient bp drops again. patient last bp 120s/70s. Dr. Evans informed of oxygen placement.
[2021-11-16] MEDS: SODIUM CHLORIDE 0.9% IV 1,000 ML 125 ML IV CONT (05:17)
--- NOTE | 2021-11-16 05:38 | PC.NURSE ---
Aracelis, patients nurse at [facility] calls to get update on patient. This nurse informs here that the patient is waiting for a bed upstairs and is being admitted for hyperkalemia.
--- NOTE | 2021-11-16 05:49 | PC.NURSE ---
Patient pulse and bp dropping. Paged hospitalist.
--- NOTE | 2021-11-16 05:53 | PC.NURSE ---
Spoke with about patients VS and possible rate control medication. She stated to start the levo and monitor VS.
[2021-11-16] MEDS: NOREPINEPHRINE 8 MG/D5W 250 ML 8 MG/250 ML BAG 9.38 MG IV CONT (05:57)
--- NOTE | 2021-11-16 08:58 | WPDCNINT ---
Assessment and Plan Assessment and plan (1) Urinary tract infection: Code(s): N39.0 - Urinary tract infection, site not specified Status: Acute Assessment and Plan: patient has indwelling Dalton catheter blood and urine cultures have been sent CT abdomen pelvis was done and report is pending change cefepime to imipenem to cover for ESBL (2) Septic shock: Code(s): A41.9 - Sepsis, unspecified organism; R65.21 - Severe sepsis with septic shock Status: Acute Assessment and Plan: continue Levophed titration change prednisone to hydrocortisone at stress dose check lactic acid level now and if elevated will give additional fluid bolus (3) Subtrochanteric fracture of right femur: Qualifiers: Encounter type: subsequent encounter Fracture type: closed Fracture alignment: displaced Fracture healing: with routine healing Qualified Code(s): S72.21XD - Displaced subtrochanteric fracture of right femur, subsequent encounter for closed fracture with routine healing Code(s): S72.21XA - Displaced subtrochanteric fracture of right femur, initial encounter for closed fracture Status: Acute (4) Postoperative wound infection of right hip: Code(s): T81.49XA - Infection following a procedure, other surgical site, initial encounter Status: Acute Assessment and Plan: consult wound care as patient has a wound VAC on her hip (5) COVID-19: Code(s): U07.1 - COVID-19 Status: Acute Assessment and Plan: patient tested positive for COVID but is vaccinated and has no evidence of COVID-[address] scan she is on room air continue isolation and no treatment indicated this time (6) A-fib: Qualifiers: Atrial fibrillation type: unspecified Qualified Code(s): I48.91 - Unspecified atrial fibrillation Code(s): I48.91 - Unspecified atrial fibrillation Status: Chronic Assessment and Plan: EKG reviewed and patient is currently in AFib controlled ventricular rhythm Hold beta-coreen due to low blood pressure hold digoxin and check digoxin level continue picks a band (7) Acute kidney injury: Code(s): N17.9 - Acute kidney failure, unspecified Status: Acute Assessment and Plan: secondary to septic shock IV fluid volume resuscitation creatinine and potassium level has improved IV fluid with bicarb for acidosis CT abdomen pelvis is pending (8) Metabolic acidosis: Code(s): E87.2 - Acidosis Status: Acute Assessment and Plan: secondary to JOON change IV fluids with sodium bicarbonate Additional Plan DVT prophylaxis - apixaban Stress ulcer prophylaxis - continue home PPI Code Status - Full Code Total Critical Care Time - 35 minutes Due to a high probability of clinically significant, life threatening deterioration, the patient required my highest level of preparedness to intervene emergently and I personally spent this critical care time directly and personally managing the patient. This critical care time included obtaining a history; examining the patient; pulse oximetry; ordering and review of studies; arranging urgent treatment with development of a management plan; evaluation of patient's response to treatment; frequent reassessment; and discussions with other providers. It was exclusive of separately billable procedures and treating other patients and teaching time. Please see Assessment and Plan section and the rest of the note for further information on patient assessment and treatment Personnel Director Consult Note Consult date: 11/16/21 HPI: Tatiana Serrato is a 86 year old female who is a long-term resident and has past medical history significant for chronic anemia, chronic anticoagulation, degenerative joint disease, dementia, right footdrop, gastroesophageal reflux disease, glaucoma, hypertension, hypothyroidism, mixed hyperlipidemia, osteoporosis, paroxys
--- NOTE | 2021-11-16 09:57 | PC.NURSE ---
This patient, Tatiana Serrato, was admitted to Intensive Care Unit-6. Patient/family oriented to hospital policies and general routines including ID bracelet, bed and alarms, visiting hours, pain management, procedures, bathroom and other care routines, personal items, smoking policy, room service/diet, and visiting hours. Information on how to activate the Rapid Response Team has been discussed. Patient/Family are encouraged to report perceived risks to care and to ask questions if they do not understand what they are told or what they should do.
--- NOTE | 2021-11-16 11:37 | PCSTNOTE ---
Please refer to the Bedside Swallow Evaluation in the EMR. Please note, silent aspiration cannot be ruled out at bedside.
[2021-11-16 11:49] LABS: Hematocrit 27.1 % (37.0-47.0); Hemoglobin 8.4 g/dL (12.0-15.0); Mean Corpuscular Hemoglobin 32.3 pg (26-34); Mean Corpuscular Volume 104.2 fl (80-100); Mean Platelet Volume 10.3 fl (7.4-10.4); Platelet Count Result 196 k/mm3 (150-375); Red Cell Distribution Width 18.6 % (11.5-14.5); White Blood Count 6.2 K/mm3 (4.5-10.0)
[2021-11-16] MEDS: SODIUM BICARBONATE 8.4% 150 MEQ in DEXTROSE 5% 1,000 ML 950 ML IV CONT ×2 (11:51→21:27)
[2021-11-16 12:34] LABS: Digoxin 0.9 ng/mL (0.8-2.0)
[2021-11-16 12:36] LABS: Glucose Point of Care 95 mg/dl (65-105)
[2021-11-16] MEDS: PANTOPRAZOLE SODIUM IV 40 MG VIAL IV PUSH (13:58)
[2021-11-16] MEDS: HYDROCORTISONE SODIUM SUCCINATE 100 MG/2 ML VIAL IV PUSH ×2 (13:58→21:25)
[2021-11-16] MEDS: APIXABAN 5 MG TABLET PO ×2 (14:20→21:26)
[2021-11-16] MEDS: ATORVASTATIN 10 MG TABLET PO (14:20)
[2021-11-16] MEDS: DOCUSATE SODIUM LIQ 100 MG/10 ML UDC PO ×2 (14:22→21:26)
[2021-11-16] MEDS: LACTATED RINGERS 1,000 ML 999 ML IV CONT (14:55)
--- NOTE | 2021-11-16 15:38 | PM.IMPN ---
Progress Note: A&P Assessment and Plan (1) Urinary tract infection: Code(s): N39.0 - Urinary tract infection, site not specified Status: Acute Assessment and Plan: patient has indwelling Dalton catheter blood and urine cultures have been sent CT abdomen pelvis with no acute abdominal abnormality nonspecific hypervascular lesions of both kidneys noted left adrenal adenoma measuring 1.4 cm with bibasilar dependent atelectasis. Currently on imipenem to cover for ESBL and other Gram-negative microbes (2) Septic shock: Code(s): A41.9 - Sepsis, unspecified organism; R65.21 - Severe sepsis with septic shock Status: Acute Assessment and Plan: On Levophed change prednisone to hydrocortisone at stress dose Lactic acid was elevated continues to improve with fluid resuscitation. Likely source urine CTA negative any pulmonary infection (3) Subtrochanteric fracture of right femur: Qualifiers: Encounter type: subsequent encounter Fracture type: closed Fracture alignment: displaced Fracture healing: with routine healing Qualified Code(s): S72.21XD - Displaced subtrochanteric fracture of right femur, subsequent encounter for closed fracture with routine healing Code(s): S72.21XA - Displaced subtrochanteric fracture of right femur, initial encounter for closed fracture Status: Acute (4) Postoperative wound infection of right hip: Code(s): T81.49XA - Infection following a procedure, other surgical site, initial encounter Status: Acute Assessment and Plan: consult wound care as patient has a wound VAC on her hip (5) COVID-19: Code(s): U07.1 - COVID-19 Status: Acute Assessment and Plan: patient tested positive for COVID but is vaccinated and has no evidence of COVID-[address] scan she is on room air continue isolation and no treatment indicated this time (6) A-fib: Qualifiers: Atrial fibrillation type: unspecified Qualified Code(s): I48.91 - Unspecified atrial fibrillation Code(s): I48.91 - Unspecified atrial fibrillation Status: Chronic Assessment and Plan: EKG reviewed and patient is currently in AFib controlled ventricular rhythm Hold beta-coreen due to low blood pressure hold digoxin and check digoxin level continue apixaban (7) Acute kidney injury: Code(s): N17.9 - Acute kidney failure, unspecified Status: Acute Assessment and Plan: secondary to septic shock IV fluid volume resuscitation creatinine and potassium level has improved IV fluid with bicarb for acidosis CT abdomen pelvis with no hydronephrosis (8) Metabolic acidosis: Code(s): E87.2 - Acidosis Status: Acute Assessment and Plan: secondary to JOON change IV fluids with sodium bicarbonate (9) Acute encephalopathy: Code(s): G93.40 - Encephalopathy, unspecified Status: Acute Assessment and Plan: CT head is negative Likely due to sepsis Additional Plan DVT prophylaxis - apixaban Stress ulcer prophylaxis - continue home PPI Code Status - Full Code Subjective Date/time seen: 11/16/21 15:38 Interval history: HPI:This is an 86-year-old female [facility] resident past medical history significant for chronic anemia, chronic anticoagulation, degenerative joint disease, dementia, right footdrop, gastroesophageal reflux disease, glaucoma, hypertension, hypothyroidism, mixed hyperlipidemia, osteoporosis, paroxysmal atrial fibrillation, chronic wound, rheumatoid arthritis, vitamin B12 deficiency. Patient was brought for to the emergency room via EMS due to low oxygen saturation altered mental status. Preliminary workup was significant for urinalysis with numerous wbc's present, a chest x-ray was significant for no acute cardiopulmonary findings, a CT angio of the chest did not show acute pulmonary emboli. At the time of my visit patient was unable to give a
[2021-11-16 16:25] LABS: Glucose Point of Care 116 mg/dl (65-105)
[2021-11-16 16:49] LABS: Anion Gap 7 mmol/L (8-16); Blood Urea Nitrogen 16 mg/dL (7-17); Calcium 7.4 mg/dL (8.4-10.2); Carbon Dioxide 20 mmol/L (22-30); Chloride 110 mmol/L (98-107); Estimated CRCL calculation 44 ml/min; Estimated Glomerular Filt Rate > 60; Glucose 111 mg/dL (65-110); Potassium 3.1 mmol/L (3.4-5.0); Sodium 137 mmol/L (137-145)
[2021-11-16] MEDS: LATANOPROST 0.005% OP SOLN 2.5 ML BTL 1 DROP RIGHT EYE (21:26)
[2021-11-17] VITALS (21 sets, daily range): BP systolic 84–133; BP diastolic 48–97; PULSE 45–101; RESP 15–26; TEMP 36.4–37.2; O2SAT 95–99
[2021-11-17 00:52] LABS: Glucose Point of Care 188 mg/dl (65-105)
[2021-11-17] MEDS: NOREPINEPHRINE 8 MG/D5W 250 ML 8 MG/250 ML BAG 16.88 MG IV CONT (01:52)
[2021-11-17] MEDS: SODIUM BICARBONATE 8.4% 150 MEQ in DEXTROSE 5% 1,000 ML 950 ML IV CONT (03:56)
[2021-11-17] MEDS: HYDROCORTISONE SODIUM SUCCINATE 100 MG/2 ML VIAL IV PUSH ×3 (05:07→21:34)
[2021-11-17 05:43] LABS: Hemoglobin 8.2 g/dL (12.0-15.0); Mean Corpuscular HGB Conc 32.8 g/dl (32-36); Mean Corpuscular Hemoglobin 32.8 pg (26-34); Mean Platelet Volume 10.5 fl (7.4-10.4); Platelet Count Result 193 k/mm3 (150-375); Red Cell Distribution Width 18.2 % (11.5-14.5); White Blood Count 8.1 K/mm3 (4.5-10.0)
[2021-11-17 06:04] LABS: Albumin Level 2.7 g/dL (3.5-5.1); Alkaline Phosphatase 62 U/L (38-126); Anion Gap 5 mmol/L (8-16); Aspartate Amino Transferase 76 U/L (14-36); Bilirubin,Total 0.6 mg/dL (0.2-1.3); Blood Urea Nitrogen 9 mg/dL (7-17); Carbon Dioxide 33 mmol/L (22-30); Chloride 97 mmol/L (98-107); Estimated CRCL calculation 67 ml/min; Estimated Glomerular Filt Rate > 60; Glucose 172 mg/dL (65-110); Magnesium 1.2 mg/dL (1.6-2.3); Potassium 2.4 mmol/L (3.4-5.0); Sodium 135 mmol/L (137-145)
[2021-11-17 06:14] LABS: Alanine Aminotransferase 34 U/L (4-35)
[2021-11-17] MEDS: KCL 40 MEQ/WATER 100 ML 100 ML 25 ML IVPB (06:55)
[2021-11-17] MEDS: POTASSIUM CHLORIDE 20 MEQ TABLET 40 MEQ PO (06:55)
[2021-11-17] MEDS: KCL 20MEQ/0.9% SOD CHL 1,000 ML 100 ML IV CONT ×2 (10:01→21:26)
--- NOTE | 2021-11-17 10:04 | WPDINTPN ---
Progress Note: A&P Assessment and Plan (1) Urinary tract infection: Code(s): N39.0 - Urinary tract infection, site not specified Status: Acute Assessment and Plan: patient has indwelling Dalton catheter blood and urine cultures have been sent and are pending CT abdomen pelvis IMPRESSION: 1. No acute abdominal abnormality identified. 2: Hypervascular lesions of both kidneys, nonspecific. Correlation with MRI is recommended to exclude enhancing solid renal mass. 3: Bibasilar dependent atelectasis. 4: Left adrenal adenoma measuring 1.4 cm continue imipenem to cover for ESBL (2) Septic shock: Code(s): A41.9 - Sepsis, unspecified organism; R65.21 - Severe sepsis with septic shock Status: Acute Assessment and Plan: continue Levophed titration continue hydrocortisone at stress dose her lactic acid level has normalized although she still requiring significant amount of Levophed add albumin 25% will give another fluid bolus add midodrine (3) Postoperative wound infection of right hip: Code(s): T81.49XA - Infection following a procedure, other surgical site, initial encounter Status: Acute Assessment and Plan: consult wound care as patient has a wound VAC on her hip (4) COVID-19: Code(s): U07.1 - COVID-19 Status: Acute Assessment and Plan: patient tested positive for COVID but is vaccinated and has no evidence of COVID-[address] scan she is on room air continue isolation and no treatment indicated this time (5) A-fib: Qualifiers: Atrial fibrillation type: unspecified Qualified Code(s): I48.91 - Unspecified atrial fibrillation Code(s): I48.91 - Unspecified atrial fibrillation Status: Chronic Assessment and Plan: EKG reviewed and patient is currently in AFib controlled ventricular rhythm she has episodes of bradycardia Hold beta-coreen due to low blood pressure hold digoxin due to bradycardia but her digoxin level was normal range continue Eliquis (6) Acute kidney injury: Code(s): N17.9 - Acute kidney failure, unspecified Status: Acute Assessment and Plan: secondary to septic shock IV fluid volume resuscitation creatinine has normalized IV fluid with bicarb for acidosis has been changed to normal saline CT abdomen pelvis reviewed (7) Metabolic acidosis: Code(s): E87.2 - Acidosis Status: Acute Assessment and Plan: secondary to JOON resolved change IV fluids to normal saline (8) Electrolyte abnormality: Code(s): E87.8 - Other disorders of electrolyte and fluid balance, not elsewhere classified Status: Acute Assessment and Plan: replacement ordered for low potassium magnesium and calcium Additional Plan DVT prophylaxis - apixaban Stress ulcer prophylaxis - continue home PPI Code Status - Full Code modified diet is ordered Total Critical Care Time - 32 minutes Due to a high probability of clinically significant, life threatening deterioration, the patient required my highest level of preparedness to intervene emergently and I personally spent this critical care time directly and personally managing the patient. This critical care time included obtaining a history; examining the patient; pulse oximetry; ordering and review of studies; arranging urgent treatment with development of a management plan; evaluation of patient's response to treatment; frequent reassessment; and discussions with other providers. It was exclusive of separately billable procedures and treating other patients and teaching time. Please see Assessment and Plan section and the rest of the note for further information on patient assessment and treatment Subjective Date/time seen: 11/17/21 10:04 Patient remains pleasantly confused. Continues to require Levophed. She is afebrile has good urine output. when I walked into the room patient was
[2021-11-17] MEDS: CALCIUM GLUC 2,000 MG/NS 100ML 2,000 MG/100 ML BAG 100 MG IVPB (10:15)
[2021-11-17] MEDS: MAGNESIUM SULF 2 GM/WATER 50ML 2 GM/50 ML BAG IVPB (10:15)
[2021-11-17] MEDS: ATORVASTATIN 10 MG TABLET PO (10:16)
[2021-11-17] MEDS: APIXABAN 5 MG TABLET PO ×2 (10:16→21:34)
[2021-11-17] MEDS: MIDODRINE HCL 10 MG TABLET PO ×3 (10:16→16:07)
[2021-11-17] MEDS: DOCUSATE SODIUM LIQ 100 MG/10 ML UDC PO ×2 (10:16→21:34)
[2021-11-17] MEDS: PANTOPRAZOLE SODIUM IV 40 MG VIAL IV PUSH (10:17)
[2021-11-17] MEDS: LACTATED RINGERS 1,000 ML 999 ML IV CONT (10:26)
--- NOTE | 2021-11-17 11:13 | PM.IMPN ---
Progress Note: A&P Assessment and Plan (1) Urinary tract infection: Code(s): N39.0 - Urinary tract infection, site not specified Status: Acute Assessment and Plan: patient has indwelling Dalton catheter blood and urine cultures have been sent and are pending CT abdomen pelvis IMPRESSION: 1. No acute abdominal abnormality identified. 2: Hypervascular lesions of both kidneys, nonspecific. Correlation with MRI is recommended to exclude enhancing solid renal mass. 3: Bibasilar dependent atelectasis. 4: Left adrenal adenoma measuring 1.4 cm continue imipenem to cover for ESBL (2) Septic shock: Code(s): A41.9 - Sepsis, unspecified organism; R65.21 - Severe sepsis with septic shock Status: Acute Assessment and Plan: continue Levophed titration continue hydrocortisone at stress dose her lactic acid level has normalized although she still requiring significant amount of Levophed add albumin 25% will give another fluid bolus add midodrine (3) Postoperative wound infection of right hip: Code(s): T81.49XA - Infection following a procedure, other surgical site, initial encounter Status: Acute Assessment and Plan: consult wound care as patient has a wound VAC on her hip (4) COVID-19: Code(s): U07.1 - COVID-19 Status: Acute Assessment and Plan: patient tested positive for COVID but is vaccinated and has no evidence of COVID-[address] scan she is on room air continue isolation and no treatment indicated this time (5) A-fib: Qualifiers: Atrial fibrillation type: unspecified Qualified Code(s): I48.91 - Unspecified atrial fibrillation Code(s): I48.91 - Unspecified atrial fibrillation Status: Chronic Assessment and Plan: EKG reviewed and patient is currently in AFib controlled ventricular rhythm she has episodes of bradycardia Hold beta-coreen due to low blood pressure hold digoxin due to bradycardia but her digoxin level was normal range continue Eliquis (6) Acute kidney injury: Code(s): N17.9 - Acute kidney failure, unspecified Status: Acute Assessment and Plan: secondary to septic shock IV fluid volume resuscitation creatinine has normalized IV fluid with bicarb for acidosis has been changed to normal saline CT abdomen pelvis reviewed (7) Metabolic acidosis: Code(s): E87.2 - Acidosis Status: Acute Assessment and Plan: secondary to JOON resolved change IV fluids to normal saline (8) Electrolyte abnormality: Code(s): E87.8 - Other disorders of electrolyte and fluid balance, not elsewhere classified Status: Acute Assessment and Plan: replacement ordered for low potassium magnesium and calcium Additional Plan 11/17/2021 Continue current plan care and treatment. Replace electrolytes and monitor closely. Continue IV antibiotics monitor culture reports. Subjective Date/time seen: 11/17/21 11:13 Patient was seen during the morning rounds today. No new overnight complaints. Mild shortness of breath, no chest pain. No abdominal pain, no nausea,. Mood stable P Review of Systems Review of Systems: ROS unobtainable: Yes unobtainable due to medical condition and unobtainable due to mental status Exam Narrative: General: Pt is alert awake and in NAD, Old frail female Lungs/Chest: Trachea central Clear BS B/L, No crackles or wheezing. Cardiac: RRR. Normal S1 S2. No murmurs Abdomen: Normal bowel sounds. obese Soft. NT. ND. Extremities: both feet are under wrapped dressing, there is edema of the legs with chronic venous status changes : Dalton in place with dark urine Neurologic: Follows commands. Moves all 4 extremities PERRL, mumbles and grumbles Skin: several areas of bruising all over the body, skin tear on left leg which is under dressing, skin tear on right lower leg, wound VAC in right hip, no sacral decubitus,
[2021-11-17] MEDS: ALBUMIN HUMAN 25% 25 GM/100 ML 100 ML IVPB ×3 (11:39→23:44)
[2021-11-17 11:59] LABS: Glucose Point of Care 154 mg/dl (65-105)
[2021-11-17] MEDS: NOREPINEPHRINE 8 MG/D5W 250 ML 8 MG/250 ML BAG 22.5 MG IV CONT (13:29)
[2021-11-17 16:14] LABS: Glucose Point of Care 153 mg/dl (65-105)
[2021-11-17] MEDS: LATANOPROST 0.005% OP SOLN 2.5 ML BTL 1 DROP RIGHT EYE (21:33)
[2021-11-17 21:57] LABS: Glucose Point of Care 142 mg/dl (65-105)
[2021-11-17] MEDS: NOREPINEPHRINE 8 MG/D5W 250 ML 8 MG/250 ML BAG 15 MG IV CONT (23:44)
[2021-11-18] VITALS (43 sets, daily range): BP systolic 81–138; BP diastolic 37–94; PULSE 49–102; RESP 16–38; TEMP 34–37.7; O2SAT 88–100
--- NOTE | 2021-11-18 | ECHO_ITS ---
Patient Info Name: Tatiana Serrato Age: 86 years : 1935 Gender: Female Ht: 64 in Wt: 160 lbs BSA: 1.83 m2 HR: 81 bpm BP: 123 / 76 mmHg Exam Date: 11/18/2021 3:05 PM Exam Location: [facility] Patient Status: Inpatient Admit Date: 11/16/2021 Staff Ordering Physician: Sanjiv Ramon MD Transfer Knitter: Luis Dunlap, TRENT, RT Attending Provider: Lucio Marrero MD Exam Type: CA echo doppler color flow Study Info Indications I50.9 - Heart failure, unspecified Complete two-dimensional, color flow and Doppler transthoracic echocardiogram is performed. Summary 1. Complete two-dimensional, color flow and Doppler transthoracic echocardiogram is performed. 2. Normal LV size and wall thickness, moderate to severe LV systolic dysfunction with segmental wall motion abnormality; mid anterior and apical segments are akinetic; LVEF 30-35%. Diastolic dysfunction is present. Moderate biatrial enlargement. Normal mitral valve structure with [id number] mitral regurgitation. Aortic valve sclerosis with mild aortic stenosis; aortic valve area 1.8 cm2, mild aortic regurgitation. Moderate pulmonary regurgitation, moderate pulmonary hypertension, RVSP 59 mmHg. Mild pulmonic regurgitation. Left Ventricle Left ventricular chamber dimension is normal. Left ventricular systolic function is moderately reduced, estimated at 30-35%. There is no increased left ventricular wall thickness. The left ventricular diastolic function is abnormal. Right Ventricle Right ventricular chamber dimension is normal. Right ventricular systolic function is normal. Left Atria Left atrial chamber dimension is moderately enlarged. Right Atria Right atrial chamber dimension is moderately enlarged. Aortic Valve There is mild aortic valve sclerosis. There is mild aortic valve regurgitation. Pulmonic Valve The pulmonic valve is normal. There is mild pulmonic regurgitation. Mitral Valve The mitral valve has normal leaflets. There is mild to moderate mitral valve regurgitation. Tricuspid Valve The tricuspid valve leaflets are normal. There is moderate tricuspid valve regurgitation. Moderate pulmonary hypertension, estimated pulmonary arterial systolic pressure is 59 mmHg. Pericardium/Pleural The pericardium appears epicardial fat pad. Inferior Vena Cava Dilated inferior vena cava with <50% collapse upon inspiration consistent with elevated right atrial pressure, 15 mmHg. Aorta The aortic root size at the sinus of Valsalva is normal. Left Ventricular Outflow Tract Name Value Normal LVOT 2D LVOT Diameter 1.8 cm LVOT Doppler LVOT Peak Gradient 4 mmHg LVOT Mean Gradient 2 mmHg LVOT VTI 15 cm LVOT VTI/AV VTI Ratio 0.7 LVOT Stroke Volume 38 ml LVOT CO 3.1 l/min LVOT CI 1.7 l/min/m2 Pulmonic Valve Name Value
[2021-11-18 04:37] LABS: Hematocrit 22.6 % (37.0-47.0); Hemoglobin 7.3 g/dL (12.0-15.0); Mean Corpuscular HGB Conc 32.3 g/dl (32-36); Mean Corpuscular Hemoglobin 32.9 pg (26-34); Mean Corpuscular Volume 101.8 fl (80-100); Mean Platelet Volume 11.3 fl (7.4-10.4); Platelet Count Result 163 k/mm3 (150-375); Red Blood Count 2.22 M/mm3 (4.2-5.4); White Blood Count 11.5 K/mm3 (4.5-10.0)
[2021-11-18 05:01] LABS: Albumin Level 3.3 g/dL (3.5-5.1); Alkaline Phosphatase 55 U/L (38-126); Anion Gap 10 mmol/L (8-16); Aspartate Amino Transferase 80 U/L (14-36); Bilirubin,Total 0.7 mg/dL (0.2-1.3); Blood Urea Nitrogen 3 mg/dL (7-17); Calcium 7.4 mg/dL (8.4-10.2); Carbon Dioxide 26 mmol/L (22-30); Chloride 105 mmol/L (98-107); Estimated CRCL calculation 67 ml/min; Estimated Glomerular Filt Rate > 60; Glucose 128 mg/dL (65-110); Magnesium 1.4 mg/dL (1.6-2.3); Potassium 2.4 mmol/L (3.4-5.0); Sodium 141 mmol/L (137-145)
[2021-11-18 05:06] LABS: Alanine Aminotransferase 36 U/L (4-35)
[2021-11-18] MEDS: ALBUMIN HUMAN 25% 25 GM/100 ML 100 ML IVPB ×2 (05:20→12:36)
[2021-11-18] MEDS: HYDROCORTISONE SODIUM SUCCINATE 100 MG/2 ML VIAL IV PUSH ×3 (05:21→22:14)
[2021-11-18] MEDS: POTASSIUM CHLORIDE 20 MEQ TABLET 40 MEQ PO (06:40)
[2021-11-18] MEDS: KCL 40 MEQ/WATER 100 ML 100 ML 25 ML IVPB (06:41)
[2021-11-18] MEDS: KCL 20MEQ/0.9% SOD CHL 1,000 ML 100 ML IV CONT (07:06)
--- NOTE | 2021-11-18 09:27 | PM.IMPN ---
Progress Note: A&P Assessment and Plan (1) Septic shock: Code(s): A41.9 - Sepsis, unspecified organism; R65.21 - Severe sepsis with septic shock Status: Acute Assessment and Plan: Pateint became HoTN in the ED requiring central line placement and Pressors. She has been given fluids and Albumin. Midodrine added. Lactic acidosis to 6.1 but normal now after fluid resuscitation. BCx NGTD. UCx negative. She was on Prednisone on admission for her RA and continues on hydrocortisone at stress dose here. Weaning Levophed as BP tolerates. Continue broad spectrum abx for now. (2) Postoperative wound infection of right hip: Code(s): T81.49XA - Infection following a procedure, other surgical site, initial encounter Status: Acute Assessment and Plan: Patient admitted for hip pain after a fall and found to right subtrochanteric femur status post right hip IM sukhwinder placement 08/22/21. She was readmitted for postop and underwent I&D right hip wound and wound VAC placement 09/10/21 and repeat I&D and Wound Closure Right Hip 09/13/21. Wound vac removed this admission. Wound Care consult was ordered. Continue dressing changes. Unclear if this is the source of her sepsis. (3) COVID-19: Code(s): U07.1 - COVID-19 Status: Acute Assessment and Plan: Patient tested positive for COVID prior to admission but is vaccinated and has no evidence of COVID-[address] Chest. She was hypoxic on admission but improved. She had mild hypoxia and 1L added today. Continue isolation. Consider remdesivir. (4) A-fib: Qualifiers: Atrial fibrillation type: unspecified Qualified Code(s): I48.91 - Unspecified atrial fibrillation Code(s): I48.91 - Unspecified atrial fibrillation Status: Chronic Assessment and Plan: Patient has history of atrial fibrillation. EKG reviewed showing atrial fibrillation with controlled rate diffuse ST T wave changes. The ST T wave changes appear to be chronic. Beta-coreen on hold due to hypotension. Digoxin also on hold. Digoxin level is noted. Hold Eliquis presumed GI bleed. Check echocardiogram. (5) GI (gastrointestinal bleed): Code(s): K92.2 - Gastrointestinal hemorrhage, unspecified Status: Acute Assessment and Plan: ED note states patient was guaiac positive with melanotic stools. This has not been corroborated by nursing since the patient's admission. Hemoglobin and last year was normal. However, since her hip fracture in August her hemoglobin has been running in the 9-10 range mostly. Hemoglobin 11.1 on admission but patient was hypotensive and dehydrated. With IV fluids her hemoglobin has drifted down to 7.3. Again no gross evidence of GI blood loss. In the abundance of caution however, will hold Eliquis. Increase Protonix twice a day. GI has already been consulted is on the case. Continue to monitor H&H. Transfuse as necessary (6) Acute kidney injury: Code(s): N17.9 - Acute kidney failure, unspecified Status: Acute Assessment and Plan: Creatinine 1.6 on admission related to dehydration and chronic Lasix use. Lasix has been stopped. Creatinine has normalized with fluid resuscitation. She tolerated IV contrast. Will continue to monitor. (7) Metabolic acidosis: Code(s): E87.2 - Acidosis Status: Acute Assessment and Plan: Serum bicarb of 13 on admission with essentially normal gap. Golden related to lactic acidosis and JOON. Lactic acid was up to 6.1. with fluid resuscitation, serum bicarb is normal now and lactic acid level has resolved. Acute kidney injury also has resolved. Continue to follow. (8) Acute encephalopathy: Code(s): G93.40 - Encephalopathy, unspecified Status: Acute Assessment and Plan: Patient awake but confused. Brain CT showing no acute findings on admission. Baseline mental status is unclear. Follow. (9) Rheumat
[2021-11-18] MEDS: MIDODRINE HCL 10 MG TABLET PO ×2 (09:31→12:37)
[2021-11-18] MEDS: ATORVASTATIN 10 MG TABLET PO (09:31)
[2021-11-18] MEDS: DOCUSATE SODIUM LIQ 100 MG/10 ML UDC PO ×2 (09:31→22:14)
[2021-11-18] MEDS: APIXABAN 5 MG TABLET PO (09:31)
[2021-11-18] MEDS: MAGNESIUM SULF 2 GM/WATER 50ML 2 GM/50 ML BAG IVPB (09:35)
[2021-11-18] MEDS: CALCIUM GLUC 2,000 MG/NS 100ML 2,000 MG/100 ML BAG 100 MG IVPB (09:36)
[2021-11-18] MEDS: PANTOPRAZOLE SODIUM IV 40 MG VIAL IV PUSH ×2 (09:38→22:49)
[2021-11-18 09:55] LABS: Glucose Point of Care 122 mg/dl (65-105)
--- NOTE | 2021-11-18 10:14 | WPDINTPN ---
Progress Note: A&P Assessment and Plan (1) Urinary tract infection: Code(s): N39.0 - Urinary tract infection, site not specified Status: Acute Assessment and Plan: patient has indwelling Dalton catheter blood and urine cultures have been sent and are negative till now CT abdomen pelvis IMPRESSION: 1. No acute abdominal abnormality identified. 2: Hypervascular lesions of both kidneys, nonspecific. Correlation with MRI is recommended to exclude enhancing solid renal mass. 3: Bibasilar dependent atelectasis. 4: Left adrenal adenoma measuring 1.4 cm continue imipenem to cover for ESBL (2) Septic shock: Code(s): A41.9 - Sepsis, unspecified organism; R65.21 - Severe sepsis with septic shock Status: Acute Assessment and Plan: continue Levophed titration continue hydrocortisone at stress dose her lactic acid level has normalized although she still requiring smallamount of Levophed continue albumin 25% continue midodrine (3) Postoperative wound infection of right hip: Code(s): T81.49XA - Infection following a procedure, other surgical site, initial encounter Status: Acute Assessment and Plan: patient's warm and which has wound VAC on was examined by wound care today and they told me that it looks to be progressing as expected and does not look infected. They have placed wound VAC back on after discussion with the surgeon (4) COVID-19: Code(s): U07.1 - COVID-19 Status: Acute Assessment and Plan: patient tested positive for COVID but is vaccinated and has no evidence of COVID-[address] scan she is on room air continue isolation and no treatment indicated this time (5) A-fib: Qualifiers: Atrial fibrillation type: unspecified Qualified Code(s): I48.91 - Unspecified atrial fibrillation Code(s): I48.91 - Unspecified atrial fibrillation Status: Chronic Assessment and Plan: EKG reviewed and patient is currently in AFib controlled ventricular rhythm she has episodes of bradycardia Hold beta-coreen due to low blood pressure digoxin was held on admission due to bradycardia but digoxin level was normal range heart rate has improved now in normal range. monitor hold Eliquis (6) Acute kidney injury: Code(s): N17.9 - Acute kidney failure, unspecified Status: Acute Assessment and Plan: secondary to septic shock IV fluid volume resuscitation creatinine has normalized IV fluid with bicarb for acidosis has been changed to normal saline CT abdomen pelvis reviewed (7) Metabolic acidosis: Code(s): E87.2 - Acidosis Status: Acute Assessment and Plan: secondary to JOON resolved change IV fluids to normal saline (8) Electrolyte abnormality: Code(s): E87.8 - Other disorders of electrolyte and fluid balance, not elsewhere classified Status: Acute Assessment and Plan: replacement ordered for low potassium magnesium and calcium (9) GI (gastrointestinal bleed): Code(s): K92.2 - Gastrointestinal hemorrhage, unspecified Status: Acute Assessment and Plan: there was mention of GI bleed in ED physician note but patient has had several bowel movements urine ICU with no needing noticed her hemoglobin has dropped but this could be dilutional. GI was consulted on admission and consult is pending hold anticoagulation for now change PPI to q.12 hours monitor closely for now tr Additional Plan DVT prophylaxis - SCDs Stress ulcer prophylaxis - continue PPI Code Status - Full Code modified diet is ordered Total Critical Care Time - 30 minutes Due to a high probability of clinically significant, life threatening deterioration, the patient required my highest level of preparedness to intervene emergently and I personally spent this critical care time directly and personally managing the patient. This critical care time i
[2021-11-18 12:37] LABS: Glucose Point of Care 145 mg/dl (65-105)
[2021-11-18] MEDS: KCL 20 MEQ/SW 100 ML 100 ML 50 MEQ IVPB (12:37)
[2021-11-18 12:56] LABS: Hematocrit 24.1 % (37.0-47.0); Hemoglobin 7.6 g/dL (12.0-15.0); Mean Corpuscular HGB Conc 31.5 g/dl (32-36); Mean Corpuscular Hemoglobin 32.5 pg (26-34); Mean Platelet Volume 10.7 fl (7.4-10.4); Platelet Count Result 155 k/mm3 (150-375); Red Blood Count 2.34 M/mm3 (4.2-5.4); Red Cell Distribution Width 19.5 % (11.5-14.5); White Blood Count 13.5 K/mm3 (4.5-10.0)
[2021-11-18 13:29] LABS: Iron 36 ug/dL (37-170)
[2021-11-18 13:40] LABS: Percent Iron Saturation 30 % (20-50)
[2021-11-18 14:19] LABS: Folic Acid 7.6 ng/mL (2.76->20); Vitamin B12 > 1000.0 pg/mL (239-931)
--- NOTE | 2021-11-18 15:27 | P.CDI_ITS ---
CDI Query Clarification Request -Acute encephalopathy has been documented. Please clarify type of encephalopathy: * Metabolic * Toxic * Hypertensive * Hepatic * Anoxic * Other * Unable to determine
--- NOTE | 2021-11-18 15:27 | WPDCDIQUERY2 ---
CDI Query Clarification Request -Acute encephalopathy has been documented. Please clarify type of encephalopathy: Metabolic Toxic Hypertensive Hepatic Anoxic Other Unable to determine
[2021-11-18] MEDS: INSULIN ASPART (*BKC) 100 UNITS/ML SUB-Q (16:59)
[2021-11-18 17:06] LABS: Glucose Point of Care 209 mg/dl (65-105)
[2021-11-18 17:14] LABS: Anion Gap 24 mmol/L (8-16); Calcium 8.5 mg/dL (8.4-10.2); Carbon Dioxide 12 mmol/L (22-30); Chloride 110 mmol/L (98-107); Estimated CRCL calculation 67 ml/min; Estimated Glomerular Filt Rate > 60; Glucose 215 mg/dL (65-110); Potassium 3.5 mmol/L (3.4-5.0); Sodium 146 mmol/L (137-145)
[2021-11-18 17:50] LABS: Blood Urea Nitrogen < 2 mg/dL (7-17)
[2021-11-18 17:57] LABS: Base Excess ABG -17.3 mEq/l (+/-2.0); Fractional Inspired Oxygen 40 %; HCO3 ABG 8.6 mEq/l (22.0-26.0); Oxygen Content ABG 10.4 %vol (16.0-22.0); Oxygen Saturation ABG 91.2 % (95.0-100.0); PO2 ABG 69.2 mmHg (80.0-100.0); PO2 FiO2 Ratio Arterial Blood 1.73 %; Total Hemoglobin 8.5 g/dL (12.0-18.0)
[2021-11-18 17:59] LABS: Device NASAL CANNULA; Modified Allen's Test Pass; Oxyhemoglobin 86.6 % THb (90.0-100.0); PCO2 ABG 20.9 mmHg (35.0-45.0); Site Drawn LEFT RADIAL
[2021-11-18] MEDS: FUROSEMIDE INJ 40 MG/4 ML VIAL IV PUSH (17:59)
[2021-11-18] MEDS: SODIUM BICARBONATE 8.4% 50 MEQ/50 ML SYRINGE 100 MEQ IV PUSH (18:30)
[2021-11-18] MEDS: SODIUM BICARBONATE 8.4% 50 MEQ/50 ML SYRINGE 100 MEQ (18:32)
--- NOTE | 2021-11-18 18:55 | WPDPROCEDUR ---
Procedures Intubation Intubation Date: 11/18/21 Intubation Time: 18:55 Consent: Family gave consent. A pre-procedural Time-Out was completed immediately before starting the procedure and confirmed: Patient Identification, Site, Procedure, Patient Position and the Availability of Requisite Equipment: Yes Sedative: etomidate Mg given: 15 Paralytic: succinylcholine Mg given: 75 Laryngoscope: fiber optic video scope Assist device used: fiber optic device ET tube size: cuffed Tube secured depth (cm): 22 Tube secured location: teeth Tube placement confirmation: visualized tube passing through cords, equal breath sounds bilaterally, no breath sounds over epigastrium and confirmation by capnometry Patient tolerated procedure: well Intubation complications: none Additional comments: Dr. Ben Ho, attending ED physician, was notified of plans for intubation and was available if needed. Vent settings and sedation orders per Dr. Brown.
[2021-11-18] MEDS: MIDAZOLAM 100MG/NS 100ML(*CRX) 100 MG/100 ML BAG IV CONT (19:42)
[2021-11-18] MEDS: FENTANYL 2,500MCG/NS250ML(*CRX 2,500 MCG/250 ML BAG IV CONT (19:47)
[2021-11-18 20:06] LABS: Hematocrit 25.4 % (37.0-47.0); Hemoglobin 7.7 g/dL (12.0-15.0); Mean Corpuscular HGB Conc 30.3 g/dl (32-36); Mean Corpuscular Hemoglobin 32.9 pg (26-34); Mean Corpuscular Volume 108.5 fl (80-100); Mean Platelet Volume 11.1 fl (7.4-10.4); Platelet Count Result 161 k/mm3 (150-375); Red Blood Count 2.34 M/mm3 (4.2-5.4); Red Cell Distribution Width 19.9 % (11.5-14.5); White Blood Count 14.6 K/mm3 (4.5-10.0)
[2021-11-18] MEDS: NOREPINEPHRINE 8 MG/D5W 250 ML 8 MG/250 ML BAG 7.5 MG IV CONT (20:46)
[2021-11-18 20:53] LABS: Alveolar/Arterial O2 Gradient 596.4 mmHg; Base Excess ABG -8.6 mEq/l (+/-2.0); Carboxyhemoglobin 0.2 % THb (0-2.0); Fractional Inspired Oxygen 100 %; HCO3 ABG 14.5 mEq/l (22.0-26.0); Methemoglobin ABG 0.5 %THb (0-1.5); Oxygen Content ABG 10.9 %vol (16.0-22.0); Oxygen Saturation ABG 97.6 % (95.0-100.0); Oxyhemoglobin 94.6 % THb (90.0-100.0); PO2 ABG 94.3 mmHg (80.0-100.0); PO2 FiO2 Ratio Arterial Blood 0.94 %; Reduced Hemoglobin 4.7 %THb (0-5.0); Total Hemoglobin 8.1 g/dL (12.0-18.0); pH ABG 7.431 (7.350-7.450)
[2021-11-18 20:55] LABS: Device VENTILATOR; Modified Allen's Test Pass; PCO2 ABG 22.3 mmHg (35.0-45.0); Site Drawn LEFT RADIAL
[2021-11-18 20:56] LABS: Arterial Blood Gas PEEP 5 cmH2O; Arterial Blood Gas Tidal Volume 350 ml; Arterial Blood Gas Vent Mode CMV; Arterial Blood Gas Ventilator rate 22 /MIN
--- NOTE | 2021-11-18 21:27 | PC.NURSE ---
Patient's Levophed d/c'ed after scanning. Titrating on that administration.
[2021-11-18] MEDS: LATANOPROST 0.005% OP SOLN 2.5 ML BTL 1 DROP RIGHT EYE (22:14)
--- NOTE | 2021-11-18 23:43 | PC.NURSE ---
21:15 [employer] notified of patient's blood gas results. New orders to change ventilator rate to 16 carried out.
[2021-11-19] VITALS (41 sets, daily range): BP systolic 76–138; BP diastolic 45–115; PULSE 44–82; RESP 15–28; TEMP 36.8–38.1; O2SAT 89–100; BMI 27.9
[2021-11-19] MEDS: ACETAMINOPHEN 325 MG TABLET 650 MG PO (00:16)
[2021-11-19 00:24] LABS: Glucose Point of Care 180 mg/dl (65-105)
[2021-11-19] MEDS: NOREPINEPHRINE 8 MG/D5W 250 ML 8 MG/250 ML BAG 16.88 MG IV CONT (03:34)
[2021-11-19 05:01] LABS: Hemoglobin 7.9 g/dL (12.0-15.0); Mean Corpuscular HGB Conc 31.6 g/dl (32-36); Mean Corpuscular Hemoglobin 32.9 pg (26-34); Mean Corpuscular Volume 104.2 fl (80-100); Mean Platelet Volume 11.1 fl (7.4-10.4); Platelet Count Result 172 k/mm3 (150-375); Red Cell Distribution Width 19.8 % (11.5-14.5); White Blood Count 12.5 K/mm3 (4.5-10.0)
[2021-11-19 05:23] LABS: Alanine Aminotransferase 40 U/L (4-35); Albumin Level 3.6 g/dL (3.5-5.1); Alkaline Phosphatase 61 U/L (38-126); Anion Gap 12 mmol/L (8-16); Aspartate Amino Transferase 109 U/L (14-36); Blood Urea Nitrogen 2 mg/dL (7-17); Calcium 8.4 mg/dL (8.4-10.2); Carbon Dioxide 28 mmol/L (22-30); Chloride 108 mmol/L (98-107); Estimated CRCL calculation 50 ml/min; Estimated Glomerular Filt Rate > 60; Glucose 143 mg/dL (65-110); Magnesium 2.1 mg/dL (1.6-2.3); Potassium 2.7 mmol/L (3.4-5.0); Sodium 148 mmol/L (137-145)
[2021-11-19 05:37] LABS: Alveolar/Arterial O2 Gradient 185.7 mmHg; Base Excess ABG 2.2 mEq/l (+/-2.0); Carboxyhemoglobin 0.3 % THb (0-2.0); Fractional Inspired Oxygen 40 %; HCO3 ABG 24.8 mEq/l (22.0-26.0); Methemoglobin ABG 0.2 %THb (0-1.5); Oxygen Content ABG 11.2 %vol (16.0-22.0); Oxygen Saturation ABG 94.8 % (95.0-100.0); Oxyhemoglobin 91.2 % THb (90.0-100.0); PCO2 ABG 30.7 mmHg (35.0-45.0); PO2 ABG 64.2 mmHg (80.0-100.0); Reduced Hemoglobin 8.3 %THb (0-5.0); Total Hemoglobin 8.7 g/dL (12.0-18.0)
[2021-11-19 05:39] LABS: Device VENTILATOR; Modified Allen's Test Pass; Site Drawn LEFT RADIAL; pH ABG 7.525 (7.350-7.450)
[2021-11-19 05:40] LABS: Arterial Blood Gas PEEP 5 cmH2O; Arterial Blood Gas Tidal Volume 350 ml; Arterial Blood Gas Vent Mode CMV; Arterial Blood Gas Ventilator rate 16 /MIN
[2021-11-19] MEDS: HYDROCORTISONE SODIUM SUCCINATE 100 MG/2 ML VIAL IV PUSH ×3 (05:42→20:33)
[2021-11-19] MEDS: KCL 40 MEQ/WATER 100 ML 100 ML 25 ML IVPB (06:52)
[2021-11-19] MEDS: ATORVASTATIN 10 MG TABLET PO (09:50)
[2021-11-19] MEDS: DOCUSATE SODIUM LIQ 100 MG/10 ML UDC PO ×2 (09:50→20:19)
[2021-11-19] MEDS: POTASSIUM CHLORIDE 20 MEQ PACKET (FOR LIQUID) 40 MEQ FEED TUBE (09:50)
[2021-11-19] MEDS: MIDODRINE HCL 10 MG TABLET PO ×2 (09:51→17:21)
[2021-11-19] MEDS: PANTOPRAZOLE SODIUM IV 40 MG VIAL IV PUSH ×2 (09:51→20:32)
[2021-11-19] MEDS: MINERAL OIL/WHITE PETROLATUM OINTMENT 1 APPLIC EACH EYE ×2 (09:51→20:32)
[2021-11-19 11:50] LABS: Glucose Point of Care 145 mg/dl (65-105)
--- NOTE | 2021-11-19 11:53 | WPDINTPN ---
Progress Note: A&P Assessment and Plan (1) Acute respiratory failure: Code(s): J96.00 - Acute respiratory failure, unspecified whether with hypoxia or hypercapnia Status: Acute Assessment and Plan: On 11/18/2021: Patient was in respiratory distress with decreased O2 saturations, chest x-ray showed bilateral pulmonary edema, patient was intubated and placed on mechanical ventilation -currently on CMV mode of ventilation, peep of 5 and 40% FiO2 -chest x-ray and ABGs reviewed, will increase PEEP to 8 and decrease respiratory rate to 14 -will add bronchodilators - Check sputum culture -will start Vancomycin (11/19) (2) Urinary tract infection: Code(s): N39.0 - Urinary tract infection, site not specified Status: Acute Assessment and Plan: patient has indwelling Dalton catheter - blood and urine cultures have been sent and are negative till now CT abdomen pelvis IMPRESSION: 1. No acute abdominal abnormality identified. 2: Hypervascular lesions of both kidneys, nonspecific. Correlation with MRI is recommended to exclude enhancing solid renal mass. 3: Bibasilar dependent atelectasis. 4: Left adrenal adenoma measuring 1.4 cm continue imipenem to cover for ESBL (3) Septic shock: Code(s): A41.9 - Sepsis, unspecified organism; R65.21 - Severe sepsis with septic shock Status: Acute Assessment and Plan: continue Levophed titration continue hydrocortisone at stress dose -titrate Levophed to maintain mean arterial pressure > 65 mmHg continue albumin 25% continue midodrine (4) Postoperative wound infection of right hip: Code(s): T81.49XA - Infection following a procedure, other surgical site, initial encounter Status: Acute Assessment and Plan: patient's warm and which has wound VAC on was examined by wound care today and they told me that it looks to be progressing as expected and does not look infected. They have placed wound VAC back on after discussion with the surgeon (5) COVID-19: Code(s): U07.1 - COVID-19 Status: Acute Assessment and Plan: patient tested positive for COVID but is vaccinated and has no evidence of COVID-[address] scan - continue isolation and no treatment indicated this time (6) A-fib: Qualifiers: Atrial fibrillation type: unspecified Qualified Code(s): I48.91 - Unspecified atrial fibrillation Code(s): I48.91 - Unspecified atrial fibrillation Status: Chronic Assessment and Plan: EKG reviewed and patient is currently in AFib controlled ventricular rhythm s Hold beta-coreen due to low blood pressure digoxin was held on admission due to bradycardia but digoxin level was normal range heart rate has improved now in normal range. monitor hold Eliquis (7) Acute kidney injury: Code(s): N17.9 - Acute kidney failure, unspecified Status: Acute Assessment and Plan: Resolved secondary to septic shock IV fluid volume resuscitation creatinine has normalized Off IV fluids CT abdomen pelvis reviewed (8) Metabolic acidosis: Code(s): E87.2 - Acidosis Status: Acute Assessment and Plan: Resolved secondary to JOON (9) Electrolyte abnormality: Code(s): E87.8 - Other disorders of electrolyte and fluid balance, not elsewhere classified Status: Acute Assessment and Plan: Replace potassium (10) GI (gastrointestinal bleed): Code(s): K92.2 - Gastrointestinal hemorrhage, unspecified Status: Acute Assessment and Plan: there was mention of GI bleed in ED physician note but patient has had several bowel movements urine ICU with no needing noticed her hemoglobin has dropped but this could be dilutional. GI was consulted on admission and consult is pending hold anticoagulation for now change PPI to q.12 hours monitor closely for now Additional Plan DVT prophylaxis - SCDs Stress ulcer prop
[2021-11-19] MEDS: MIDAZOLAM 100MG/NS 100ML(*CRX) 100 MG/100 ML BAG 6 MG IV CONT (14:06)
[2021-11-19] MEDS: ALBUTEROL SULFATE NEB 2.5 MG/0.5 ML INH INHALATION ×2 (14:36→21:20)
[2021-11-19] MEDS: IPRATROPIUM BR 0.02% INH SOLN 0.5 MG/2.5 ML VIAL INHALATION ×2 (14:36→21:19)
--- NOTE | 2021-11-19 15:38 | PM.IMPN ---
Progress Note: A&P Assessment and Plan (1) Acute respiratory failure: Code(s): J96.00 - Acute respiratory failure, unspecified whether with hypoxia or hypercapnia Status: Acute Assessment and Plan: Patient was mildly hypoxic on 11/18 but condition worsened. ABG 7. on 5L. She was intubated on 11/18 felt related to COVID PNA vs CHF vs bacterial PNA. On steroids and broad spectrum abx. Patient remains intubated and sedated. Appreciate oil boiler input (2) Septic shock: Code(s): A41.9 - Sepsis, unspecified organism; R65.21 - Severe sepsis with septic shock Status: Acute Assessment and Plan: Jordanaeint became HoTN in the ED requiring central line placement and Pressors. She has been given fluids and Albumin. Midodrine added. Lactic acidosis to 6.1 but normal now after fluid resuscitation. BCx NGTD. UCx negative. She was on Prednisone on admission for her RA and continues on hydrocortisone at stress dose here. Weaning Levophed as BP tolerates. Continue broad spectrum abx for now. (3) Postoperative wound infection of right hip: Code(s): T81.49XA - Infection following a procedure, other surgical site, initial encounter Status: Acute Assessment and Plan: Patient admitted for hip pain after a fall and found to right subtrochanteric femur status post right hip IM sukhwinder placement 08/22/21. She was readmitted for postop and underwent I&D right hip wound and wound VAC placement 09/10/21 and repeat I&D and Wound Closure Right Hip 09/13/21. Wound vac removed this admission. Wound Care consult was ordered. Continue dressing changes. Unclear if this is the source of her sepsis. (4) COVID-19: Code(s): U07.1 - COVID-19 Status: Acute Assessment and Plan: Patient tested positive for COVID prior to admission but is vaccinated and had no evidence of COVID-[address] Chest. She was hypoxic on admission but improved. She had mild hypoxia yesterday that worsened to the point of requiring intubation. Continue isolation. Consider remdesivir. (5) A-fib: Qualifiers: Atrial fibrillation type: unspecified Qualified Code(s): I48.91 - Unspecified atrial fibrillation Code(s): I48.91 - Unspecified atrial fibrillation Status: Chronic Assessment and Plan: Patient has history of atrial fibrillation. EKG reviewed showing atrial fibrillation with controlled rate and diffuse ST T wave changes. The ST T wave changes appear to be chronic. Beta-coreen on hold due to hypotension. Digoxin also on hold. Digoxin level is noted. Hold Eliquis for presumed GI bleed. Echo showing moderate to severe LV systolic dysfunction with segmental wall motion abnormalities, EF 30-35%, diastolic dysfunction, [id number] MR and moderate pulmonary hypertension. Contineu to monitor on Tele. (6) GI (gastrointestinal bleed): Code(s): K92.2 - Gastrointestinal hemorrhage, unspecified Status: Acute Assessment and Plan: ED note states patient was guaiac positive with melanotic stools. This has not been corroborated by nursing since the patient's admission. Hemoglobin last year was normal. However, since her hip fracture in August her hemoglobin has been running in the 9-10 range mostly. Hemoglobin 11.1 on admission but patient was hypotensive and dehydrated. With IV fluids her hemoglobin has drifted down to 7 range but stable. Again no gross evidence of GI blood loss. In the abundance of caution however, will hold Eliquis. Contnue Protonix twice a day. GI has already been consulted and is on the case. Continue to monitor H&H. Transfuse as necessary (7) Acute kidney injury: Code(s): N17.9 - Acute kidney failure, unspecified Status: Acute Assessment and Plan: Creatinine 1.6 on admission related to dehydration and chronic Lasix use. Lasix has been stopped. Creatinine has normalized with fluid resuscitation. She tolerated IV c
[2021-11-19 17:26] LABS: Glucose Point of Care 140 mg/dl (65-105)
[2021-11-19 17:51] LABS: Glucose Point of Care 209 mg/dl (65-105)
--- NOTE | 2021-11-19 18:10 | PC.NURSE ---
On 11/19/21, the student, [ Zain Meneses], provided care and completed [facility] documentation on this patient. I have reviewed the student's documentation and agree with the findings.
[2021-11-19] MEDS: LATANOPROST 0.005% OP SOLN 2.5 ML BTL 1 DROP RIGHT EYE (20:32)
[2021-11-20] VITALS (38 sets, daily range): BP systolic 92–124; BP diastolic 56–96; PULSE 55–85; RESP 14–28; TEMP 37.3–38.5; O2SAT 91–100
[2021-11-20] MEDS: NOREPINEPHRINE 8 MG/D5W 250 ML 8 MG/250 ML BAG 13.13 MG IV CONT ×2 (01:09→20:57)
[2021-11-20 01:23] LABS: Glucose Point of Care 177 mg/dl (65-105)
[2021-11-20] MEDS: FENTANYL 2,500MCG/NS250ML(*CRX 2,500 MCG/250 ML BAG 12.5 MCG IV CONT (03:53)
[2021-11-20 04:20] LABS: Hematocrit 25.9 % (37.0-47.0); Mean Corpuscular HGB Conc 30.9 g/dl (32-36); Mean Corpuscular Hemoglobin 32.9 pg (26-34); Mean Corpuscular Volume 106.6 fl (80-100); Mean Platelet Volume 12.4 fl (7.4-10.4); Platelet Count Result 180 k/mm3 (150-375); Red Blood Count 2.43 M/mm3 (4.2-5.4); Red Cell Distribution Width 20.4 % (11.5-14.5); White Blood Count 13.2 K/mm3 (4.5-10.0)
[2021-11-20 05:00] LABS: Alanine Aminotransferase 94 U/L (4-35); Albumin Level 3.3 g/dL (3.5-5.1); Alkaline Phosphatase 70 U/L (38-126); Anion Gap 5 mmol/L (8-16); Aspartate Amino Transferase 418 U/L (14-36); Bilirubin,Total 0.9 mg/dL (0.2-1.3); Blood Urea Nitrogen 9 mg/dL (7-17); Calcium 8.2 mg/dL (8.4-10.2); Carbon Dioxide 32 mmol/L (22-30); Chloride 110 mmol/L (98-107); Estimated CRCL calculation 44 ml/min; Estimated Glomerular Filt Rate > 60; Glucose 156 mg/dL (65-110); Magnesium 2.2 mg/dL (1.6-2.3); Potassium 3.6 mmol/L (3.4-5.0); Sodium 147 mmol/L (137-145)
[2021-11-20 05:04] LABS: Phosphorus < 1.0 mg/dL (2.5-4.5)
[2021-11-20] MEDS: IPRATROPIUM BR 0.02% INH SOLN 0.5 MG/2.5 ML VIAL INHALATION ×5 (05:07→20:45)
[2021-11-20] MEDS: ALBUTEROL SULFATE NEB 2.5 MG/0.5 ML INH INHALATION ×5 (05:07→20:45)
[2021-11-20 05:29] LABS: Base Excess ABG 4.9 mEq/l (+/-2.0); Carboxyhemoglobin 0.2 % THb (0-2.0); Fractional Inspired Oxygen 50 %; HCO3 ABG 27.7 mEq/l (22.0-26.0); Methemoglobin ABG 0.3 %THb (0-1.5); Oxygen Content ABG 12.1 %vol (16.0-22.0); Oxygen Saturation ABG 98.4 % (95.0-100.0); Oxyhemoglobin 96.4 % THb (90.0-100.0); PCO2 ABG 33.6 mmHg (35.0-45.0); PO2 ABG 107.7 mmHg (80.0-100.0); PO2 FiO2 Ratio Arterial Blood 2.15 %; Reduced Hemoglobin 3.1 %THb (0-5.0); Total Hemoglobin 8.8 g/dL (12.0-18.0)
[2021-11-20 05:30] LABS: Device VENTILATOR; Site Drawn RIGHT BRACHIAL; pH ABG 7.534 (7.350-7.450)
[2021-11-20 05:31] LABS: Arterial Blood Gas PEEP 8 cmH2O; Arterial Blood Gas Tidal Volume 350 ml; Arterial Blood Gas Vent Mode CMV; Arterial Blood Gas Ventilator rate 14 /MIN
[2021-11-20] MEDS: HYDROCORTISONE SODIUM SUCCINATE 100 MG/2 ML VIAL IV PUSH ×3 (06:42→20:58)
[2021-11-20] MEDS: MIDODRINE HCL 10 MG TABLET PO ×3 (08:34→16:28)
[2021-11-20] MEDS: ATORVASTATIN 10 MG TABLET PO (08:34)
[2021-11-20] MEDS: DOCUSATE SODIUM LIQ 100 MG/10 ML UDC PO ×2 (08:34→20:58)
[2021-11-20] MEDS: PANTOPRAZOLE SODIUM IV 40 MG VIAL IV PUSH ×2 (08:35→20:58)
[2021-11-20] MEDS: POTASSIUM/PHOSPHORUS/SODIUM 1.5 GM PACKET 1 PACKET PO (08:37)
[2021-11-20 08:55] LABS: Hepatitis B Surface Antigen Negative (Negative)
[2021-11-20 09:00] LABS: HAV RESULT Negative (Negative); Hepatitis B Core IgM Result Negative (Negative)
[2021-11-20 09:12] LABS: Hepatitis C Virus Antibody Negative (Negative)
[2021-11-20] MEDS: POTASSIUM PHOS,M-BASIC-D-BASIC 20 MMOL in SODIUM CHLORIDE 0.9% IV 250 ML 64.17 MMOL IVPB (10:46)
[2021-11-20] MEDS: MINERAL OIL/WHITE PETROLATUM OINTMENT 1 APPLIC EACH EYE ×2 (10:49→20:58)
[2021-11-20 12:23] LABS: Glucose Point of Care 197 mg/dl (65-105)
--- NOTE | 2021-11-20 12:26 | WPDINTPN ---
Progress Note: A&P Assessment and Plan (1) Acute respiratory failure: Code(s): J96.00 - Acute respiratory failure, unspecified whether with hypoxia or hypercapnia Status: Acute Assessment and Plan: On 11/18/2021: Patient was in respiratory distress with decreased O2 saturations, chest x-ray showed bilateral pulmonary edema, patient was intubated and placed on mechanical ventilation -currently on CMV mode of ventilation, peep of 8 and 40% FiO2 -chest x-ray and ABGs reviewed, will increase PEEP to 8 and decrease respiratory rate to 14 - continue bronchodilators - sputum culture pending -continue imipenem, started Vancomycin (11/19) (2) Urinary tract infection: Code(s): N39.0 - Urinary tract infection, site not specified Status: Acute Assessment and Plan: patient has indwelling Dalton catheter - blood and urine cultures have been sent and are negative till now CT abdomen pelvis IMPRESSION: 1. No acute abdominal abnormality identified. 2: Hypervascular lesions of both kidneys, nonspecific. Correlation with MRI is recommended to exclude enhancing solid renal mass. 3: Bibasilar dependent atelectasis. 4: Left adrenal adenoma measuring 1.4 cm continue imipenem to cover for ESBL (3) Septic shock: Code(s): A41.9 - Sepsis, unspecified organism; R65.21 - Severe sepsis with septic shock Status: Acute Assessment and Plan: continue Levophed titration continue hydrocortisone at stress dose -titrate Levophed to maintain mean arterial pressure > 65 mmHg continue albumin 25% continue midodrine (4) Postoperative wound infection of right hip: Code(s): T81.49XA - Infection following a procedure, other surgical site, initial encounter Status: Acute Assessment and Plan: patient's warm and which has wound VAC on was examined by wound care today and they told me that it looks to be progressing as expected and does not look infected. They have placed wound VAC back on after discussion with the surgeon (5) COVID-19: Code(s): U07.1 - COVID-19 Status: Acute Assessment and Plan: patient tested positive for COVID but is vaccinated and has no evidence of COVID-[address] scan - continue isolation and no treatment indicated this time (6) A-fib: Qualifiers: Atrial fibrillation type: unspecified Qualified Code(s): I48.91 - Unspecified atrial fibrillation Code(s): I48.91 - Unspecified atrial fibrillation Status: Chronic Assessment and Plan: EKG reviewed and patient is currently in AFib controlled ventricular rhythm s Hold beta-coreen due to low blood pressure digoxin was held on admission due to bradycardia but digoxin level was normal range heart rate has improved now in normal range. monitor hold Eliquis (7) Acute kidney injury: Code(s): N17.9 - Acute kidney failure, unspecified Status: Acute Assessment and Plan: Resolved secondary to septic shock IV fluid volume resuscitation creatinine has normalized Off IV fluids CT abdomen pelvis reviewed (8) Metabolic acidosis: Code(s): E87.2 - Acidosis Status: Acute Assessment and Plan: Resolved secondary to JOON (9) Electrolyte abnormality: Code(s): E87.8 - Other disorders of electrolyte and fluid balance, not elsewhere classified Status: Acute Assessment and Plan: resolved (10) GI (gastrointestinal bleed): Code(s): K92.2 - Gastrointestinal hemorrhage, unspecified Status: Acute Assessment and Plan: there was mention of GI bleed in ED physician note but patient has had several bowel movements urine ICU with no needing noticed her hemoglobin has dropped but this could be dilutional. GI was consulted on admission and consult is pending hold anticoagulation for now continue PPI to q.12 hours monitor closely for now Additional Plan DVT prophylaxis - SCDs Stre
--- NOTE | 2021-11-20 13:32 | PCFNICU ---
ICU Rounding Note: Pt current nutrition is Vital AF 1.2 at 50 ml/hr over 22 hours. Nutrition recommendation: Goal rate at 60 ml/hr Last recorded weight is 79.4 kg, up from 73.9 kg on admit. Bowel Motility:+BM reported 11/20 Labs Reviewed:Na 147, Hct 25.9,Hgb 8.0,Alb 3.3 Meds Noted:Vancomycin, Protonix, Albuterol, Solu-Cortef, Lipitor, Colace, Midodrine, Atrovent Skin: wound vac-right hip Additional Notes: Patient remains on mechanical vent and tube feedings of Vital AF 1.2 currently at 50 ml/hr over 22 hours goal rate at 60 ml/hr. Abdominal US ordered. GI consult. Fentanyl and Versed-weaning. Agree with diet orders. Following daily in ICU rounds. Will monitor every Thursday and Thursday.
--- NOTE | 2021-11-20 13:50 | PM.IMPN ---
Progress Note: A&P Assessment and Plan (1) Acute respiratory failure: Code(s): J96.00 - Acute respiratory failure, unspecified whether with hypoxia or hypercapnia Status: Acute Assessment and Plan: Patient was mildly hypoxic on 11/18 but condition worsened. ABG 7. on 5L. She was intubated on 11/18 felt related to COVID PNA vs CHF vs bacterial PNA. Echo showing EF 30-35% with diastolic dysfunction, moderate MR and moderate pulmonary HTN. On steroids and broad spectrum abx. Patient remains intubated and sedated. Appreciate managed care analyst input (2) Septic shock: Code(s): A41.9 - Sepsis, unspecified organism; R65.21 - Severe sepsis with septic shock Status: Acute Assessment and Plan: Pateint became HoTN in the ED requiring central line placement and Pressors. She has been given fluids and Albumin. Midodrine added. Lactic acidosis to 6.1 but normal now after fluid resuscitation. BCx NGTD. UCx negative. She was on Prednisone on admission for her RA and continues on hydrocortisone at stress dose here. Weaning Levophed as BP tolerates. Continue broad spectrum abx for now. (3) Postoperative wound infection of right hip: Code(s): T81.49XA - Infection following a procedure, other surgical site, initial encounter Status: Acute Assessment and Plan: Patient admitted for hip pain after a fall in August and found to right subtrochanteric femur status post right hip IM sukhwinder placement 08/22/21. She was readmitted for postop and underwent I&D right hip wound and wound VAC placement 09/10/21 and repeat I&D and Wound Closure Right Hip 09/13/21. Wound vac removed this admission. Wound Care consult was ordered. Continue dressing changes. Unclear if this is the source of her sepsis. (4) COVID-19: Code(s): U07.1 - COVID-19 Status: Acute Assessment and Plan: Patient tested positive for COVID prior to admission but is vaccinated and had no evidence of COVID-[address] Chest. She was hypoxic on admission that improved initially but worsened to the point of requiring intubation on 11/18. CXR showing bilateral lung disease. Possibly from COVID. Continue isolation. (5) A-fib: Qualifiers: Atrial fibrillation type: unspecified Qualified Code(s): I48.91 - Unspecified atrial fibrillation Code(s): I48.91 - Unspecified atrial fibrillation Status: Chronic Assessment and Plan: Patient has history of atrial fibrillation. EKG reviewed showing atrial fibrillation with controlled rate and diffuse ST T wave changes. The ST T wave changes appear to be chronic. Beta-coreen on hold due to hypotension. Digoxin also on hold. Digoxin level is noted. Hold Eliquis for presumed GI bleed. Echo showing moderate to severe LV systolic dysfunction with segmental wall motion abnormalities, EF 30-35%, diastolic dysfunction, [id number] MR and moderate pulmonary hypertension. Continue to monitor on Tele. (6) LFT elevation: Code(s): R79.89 - Other specified abnormal findings of blood chemistry Status: Acute Assessment and Plan: AST/ALT elevated on admission and have increased. Hepatitis panel negative. RUQ US showing GB sludge with minimal nonspecific pericholecystic fluid but no other evidence of acute cholecystitis. Check TCK. (7) GI (gastrointestinal bleed): Code(s): K92.2 - Gastrointestinal hemorrhage, unspecified Status: Acute Assessment and Plan: ED note states patient was guaiac positive with melanotic stools. This has not been corroborated by nursing since the patient's admission. Hemoglobin last year was normal. However, since her hip fracture in August her hemoglobin has been running in the 9-10 range mostly. Hemoglobin 11.1 on admission but patient was hypotensive and dehydrated. With IV fluids her hemoglobin has drifted down to 7-8 range but stable. Again no gross evidence of GI blood loss. In the abundan
[2021-11-20 16:25] LABS: Creatine Kinase 259 U/L (30-135)
[2021-11-20 18:24] LABS: Glucose Point of Care 195 mg/dl (65-105)
[2021-11-20] MEDS: LATANOPROST 0.005% OP SOLN 2.5 ML BTL 1 DROP RIGHT EYE (20:58)
[2021-11-21] VITALS (38 sets, daily range): BP systolic 74–129; BP diastolic 39–92; PULSE 30–94; RESP 16–44; TEMP 36.7–37.7; O2SAT 95–100
[2021-11-21 00:43] LABS: Glucose Point of Care 194 mg/dl (65-105)
[2021-11-21 05:29] LABS: Hematocrit 24.3 % (37.0-47.0); Hemoglobin 7.6 g/dL (12.0-15.0); Mean Corpuscular HGB Conc 31.3 g/dl (32-36); Mean Corpuscular Hemoglobin 32.6 pg (26-34); Mean Corpuscular Volume 104.3 fl (80-100); Mean Platelet Volume 12.7 fl (7.4-10.4); Platelet Count Result 160 k/mm3 (150-375); Red Blood Count 2.33 M/mm3 (4.2-5.4); Red Cell Distribution Width 20.8 % (11.5-14.5); White Blood Count 13.6 K/mm3 (4.5-10.0)
[2021-11-21 05:35] LABS: Alveolar/Arterial O2 Gradient 179.4 mmHg; Base Excess ABG 4.8 mEq/l (+/-2.0); Carboxyhemoglobin 0.1 % THb (0-2.0); Fractional Inspired Oxygen 40 %; HCO3 ABG 27.2 mEq/l (22.0-26.0); Methemoglobin ABG 0.4 %THb (0-1.5); Oxygen Saturation ABG 95.9 % (95.0-100.0); Oxyhemoglobin 92.4 % THb (90.0-100.0); PCO2 ABG 31.8 mmHg (35.0-45.0); PO2 ABG 69.2 mmHg (80.0-100.0); PO2 FiO2 Ratio Arterial Blood 1.73 %; Reduced Hemoglobin 7.1 %THb (0-5.0); Total Hemoglobin 9.2 g/dL (12.0-18.0)
[2021-11-21 05:40] LABS: Device VENTILATOR; Modified Allen's Test Pass; Site Drawn RIGHT RADIAL
[2021-11-21 05:41] LABS: Arterial Blood Gas PEEP 8 cmH2O; Arterial Blood Gas Tidal Volume 350 ml; Arterial Blood Gas Vent Mode CMV; Arterial Blood Gas Ventilator rate 14 /MIN
[2021-11-21 05:49] LABS: Alanine Aminotransferase 87 U/L (4-35); Albumin Level 2.9 g/dL (3.5-5.1); Alkaline Phosphatase 137 U/L (38-126); Anion Gap 4 mmol/L (8-16); Aspartate Amino Transferase 258 U/L (14-36); Bilirubin,Total 0.8 mg/dL (0.2-1.3); Blood Urea Nitrogen 15 mg/dL (7-17); Calcium 7.7 mg/dL (8.4-10.2); Carbon Dioxide 32 mmol/L (22-30); Chloride 108 mmol/L (98-107); Estimated CRCL calculation 70 ml/min; Estimated Glomerular Filt Rate > 60; Glucose 183 mg/dL (65-110); Potassium 2.4 mmol/L (3.4-5.0); Sodium 144 mmol/L (137-145)
[2021-11-21] MEDS: MIDAZOLAM 100MG/NS 100ML(*CRX) 100 MG/100 ML BAG IV CONT (06:52)
[2021-11-21] MEDS: HYDROCORTISONE SODIUM SUCCINATE 100 MG/2 ML VIAL IV PUSH (06:52)
[2021-11-21] MEDS: POTASSIUM PHOS,M-BASIC-D-BASIC 40 MMOL in SODIUM CHLORIDE 0.9% IV 250 ML 43.89 MMOL IVPB (08:15)
[2021-11-21] MEDS: MINERAL OIL/WHITE PETROLATUM OINTMENT 1 APPLIC EACH EYE ×2 (08:32→20:02)
[2021-11-21] MEDS: ATORVASTATIN 10 MG TABLET PO (08:32)
[2021-11-21] MEDS: MIDODRINE HCL 10 MG TABLET PO ×3 (08:32→17:28)
[2021-11-21] MEDS: DOCUSATE SODIUM LIQ 100 MG/10 ML UDC PO ×2 (08:32→20:03)
[2021-11-21] MEDS: PANTOPRAZOLE SODIUM IV 40 MG VIAL IV PUSH ×2 (08:32→20:02)
[2021-11-21] MEDS: ALBUTEROL SULFATE NEB 2.5 MG/0.5 ML INH INHALATION ×3 (08:41→21:00)
[2021-11-21] MEDS: IPRATROPIUM BR 0.02% INH SOLN 0.5 MG/2.5 ML VIAL INHALATION ×3 (08:41→21:00)
[2021-11-21] MEDS: POTASSIUM CHLORIDE 20 MEQ PACKET (FOR LIQUID) 40 MEQ FEED TUBE (09:10)
[2021-11-21 09:29] LABS: Alanine Aminotransferase 88 U/L (4-35); Estimated CRCL calculation 87 ml/min; Estimated Glomerular Filt Rate > 60
[2021-11-21 09:33] LABS: INR 1.6; Prothrombin Time 18.3 Seconds (11.1-14.7)
[2021-11-21] MEDS: POTASSIUM/PHOSPHORUS/SODIUM 1.5 GM PACKET 1 PACKET PO ×2 (09:35→17:29)
[2021-11-21] MEDS: REMDESIVIR 200 MG/NS 250 ML 200 MG/250 ML BAG 250 MG IVPB (10:00)
[2021-11-21 12:10] LABS: Glucose Point of Care 288 mg/dl (65-105)
--- NOTE | 2021-11-21 12:19 | PCFNICU ---
ICU Rounding Note: Pt current nutrition is Vital AF 1.2 at 30 ml/hr over 22 hours. Last recorded weight is 83.3 kg, up from 73.9 kg on admit. Bowel Motility:+BM reported 11/20 Labs Reviewed:PO4 1.0,K 2.4, Hct 24.3,Hgb 7.6, Alb 2.9 Meds Noted:Levophed, Versed, Lipitor, Colace, Phos Nak, Vancomycin, Protonix,Fentanyl. Skin: wound vac-right hip. Additional Notes: Patient remains on mechanical vent and tube feedings of Vital AF 1.2 at 30 ml/hr. High residuals reported, tube feeding goal rate at 60 ml/hr over 22 hours. Free water flush 30 ml q 4 hours. Agree with diet orders. Following daily in ICU rounds. Will monitor every Thursday and Thursday.
[2021-11-21] MEDS: INSULIN ASPART (*BKC) 100 UNITS/ML SUB-Q (12:35)
--- NOTE | 2021-11-21 12:39 | PCWOUND ---
WOCN NOTE received nurse driven communication that patient had pressure ulcer present, but did not document where pressure was located. Spoke with Kallie SHARPE for patient today, no pressure ulcers noted.
--- NOTE | 2021-11-21 12:55 | WPDINTPN ---
Progress Note: A&P Assessment and Plan (1) Acute respiratory failure: Code(s): J96.00 - Acute respiratory failure, unspecified whether with hypoxia or hypercapnia Status: Acute Assessment and Plan: On 11/18/2021: Patient was in respiratory distress with decreased O2 saturations, chest x-ray showed bilateral pulmonary edema, patient was intubated and placed on mechanical ventilation -currently on CMV mode of ventilation, peep of 8 and 40% FiO2 -chest x-ray and ABGs reviewed, continue peep of 8, will decrease tidal volumes to 300 ml. - continue bronchodilators -11/20/2019 to sputum culture negative -continue imipenem, Vancomycin (11/19) (2) Urinary tract infection: Code(s): N39.0 - Urinary tract infection, site not specified Status: Acute Assessment and Plan: patient has indwelling Dalton catheter - blood and urine cultures have been sent and are negative till now CT abdomen pelvis IMPRESSION: 1. No acute abdominal abnormality identified. 2: Hypervascular lesions of both kidneys, nonspecific. Correlation with MRI is recommended to exclude enhancing solid renal mass. 3: Bibasilar dependent atelectasis. 4: Left adrenal adenoma measuring 1.4 cm continue imipenem to cover for ESBL (3) Septic shock: Code(s): A41.9 - Sepsis, unspecified organism; R65.21 - Severe sepsis with septic shock Status: Acute Assessment and Plan: continue Levophed titration continue hydrocortisone at stress dose -titrate Levophed to maintain mean arterial pressure > 65 mmHg continue midodrine (4) Postoperative wound infection of right hip: Code(s): T81.49XA - Infection following a procedure, other surgical site, initial encounter Status: Acute Assessment and Plan: Right hip wound infection with wound VAC in place. Wound care nurses are following the patient T (5) COVID-19: Code(s): U07.1 - COVID-19 Status: Acute Assessment and Plan: patient tested positive for COVID but is vaccinated and has no evidence of COVID-[address] scan - continue isolation -given patient on mechanical ventilation, bilateral infiltrates, started patient on dexamethasone and remdesivir (6) A-fib: Qualifiers: Atrial fibrillation type: unspecified Qualified Code(s): I48.91 - Unspecified atrial fibrillation Code(s): I48.91 - Unspecified atrial fibrillation Status: Chronic Assessment and Plan: EKG reviewed and patient is currently in AFib controlled ventricular rhythm Hold beta-coreen due to low blood pressure digoxin was held on admission due to bradycardia but digoxin level was normal range heart rate has improved now in normal range. monitor hold Eliquis (7) Acute kidney injury: Code(s): N17.9 - Acute kidney failure, unspecified Status: Acute Assessment and Plan: Resolved secondary to septic shock IV fluid volume resuscitation creatinine has normalized Off IV fluids CT abdomen pelvis reviewed (8) Metabolic acidosis: Code(s): E87.2 - Acidosis Status: Acute Assessment and Plan: Resolved secondary to JOON (9) Electrolyte abnormality: Code(s): E87.8 - Other disorders of electrolyte and fluid balance, not elsewhere classified Status: Acute Assessment and Plan: resolved (10) GI (gastrointestinal bleed): Code(s): K92.2 - Gastrointestinal hemorrhage, unspecified Status: Acute Assessment and Plan: there was mention of GI bleed in ED physician note but patient has had several bowel movements urine ICU with no needing noticed her hemoglobin has dropped but this could be dilutional. GI was consulted on admission and consult is pending hold anticoagulation for now continue PPI to q.12 hours monitor closely for now Additional Plan DVT prophylaxis - SCDs Stress ulcer prophylaxis - continue PPI Code Status - Full Code Nutrition: cont
[2021-11-21 14:45] LABS: Anion Gap 7 mmol/L (8-16); Blood Urea Nitrogen 15 mg/dL (7-17); Carbon Dioxide 28 mmol/L (22-30); Chloride 108 mmol/L (98-107); Estimated CRCL calculation 72 ml/min; Estimated Glomerular Filt Rate > 60; Glucose 194 mg/dL (65-110); Potassium 3.3 mmol/L (3.4-5.0); Sodium 143 mmol/L (137-145)
--- NOTE | 2021-11-21 15:07 | PM.IMPN ---
Progress Note: A&P Assessment and Plan (1) Acute respiratory failure: Code(s): J96.00 - Acute respiratory failure, unspecified whether with hypoxia or hypercapnia Status: Acute Assessment and Plan: Patient was mildly hypoxic on 11/18 but condition worsened requiring intubation on 11/18 felt related to COVID PNA vs CHF vs bacterial PNA. On steroids and broad spectrum abx. Patient remains intubated and sedated. Appreciate cream tester input. (2) Septic shock: Code(s): A41.9 - Sepsis, unspecified organism; R65.21 - Severe sepsis with septic shock Status: Acute Assessment and Plan: Patient became HoTN in the ED requiring central line placement and pressors. She has been given fluids and Albumin. Midodrine added. Lactic acidosis to 6.1 but normal now after fluid resuscitation. BCx NGTD. UCx negative. She was on Prednisone on admission for her RA and was on hydrocortisone at stress dosing but changed to Dexamethasone. Weaning Levophed as BP tolerates. Continue broad spectrum abx for now. (3) Postoperative wound infection of right hip: Code(s): T81.49XA - Infection following a procedure, other surgical site, initial encounter Status: Acute Assessment and Plan: Patient admitted for hip pain after a fall and found to right subtrochanteric femur status post right hip IM sukhwinder placement 08/22/21. She was readmitted for postop and underwent I&D right hip wound and wound VAC placement 09/10/21 and repeat I&D and Wound Closure Right Hip 09/13/21. Wound vac removed this admission and has been replaced. Wound Care consult was ordered. Unclear if this is the source of her sepsis. (4) COVID-19: Code(s): U07.1 - COVID-19 Status: Acute Assessment and Plan: Patient tested positive for COVID prior to admission but is vaccinated and had no evidence of COVID-[address] Chest. She was hypoxic on admission but improved initially. She had mild hypoxia that worsened to the point of requiring intubation. Continue isolation. Changed to Dexamethasone. (5) A-fib: Qualifiers: Atrial fibrillation type: unspecified Qualified Code(s): I48.91 - Unspecified atrial fibrillation Code(s): I48.91 - Unspecified atrial fibrillation Status: Chronic Assessment and Plan: Patient has history of atrial fibrillation. EKG reviewed showing atrial fibrillation with controlled rate and diffuse ST T wave changes. The ST T wave changes appear to be chronic. Beta-coreen on hold due to hypotension. Digoxin also on hold. Digoxin level is noted. HR remaining stable. Eliquis on hold for presumed GI bleed. Echo showing moderate to severe LV systolic dysfunction with segmental wall motion abnormalities, EF 30-35%, diastolic dysfunction, [id number]-irhafuho MR and moderate pulmonary hypertension. Continue to monitor on Tele. (6) GI (gastrointestinal bleed): Code(s): K92.2 - Gastrointestinal hemorrhage, unspecified Status: Acute Assessment and Plan: ED note states patient was guaiac positive with melanotic stools. This has not been corroborated by nursing since the patient's admission. Hemoglobin last year was normal. However, since her hip fracture in August her hemoglobin has been running in the 9-10 range mostly. Hemoglobin 11.1 on admission but patient was hypotensive and dehydrated. With IV fluids her hemoglobin has drifted down to 7 range but stable. Again no gross evidence of GI blood loss. In the abundance of caution however, will hold Eliquis. Continue Protonix twice a day. GI has been consulted and is on the case. Continue to monitor H&H. Transfuse as necessary (7) Acute kidney injury: Code(s): N17.9 - Acute kidney failure, unspecified Status: Acute Assessment and Plan: Creatinine 1.6 on admission related to dehydration and chronic Lasix use. Lasix has been stopped. Creatinine has normalized with fluid resuscitation. She t
[2021-11-21] MEDS: KCL 40 MEQ/WATER 100 ML 100 ML 25 ML IVPB (17:28)
[2021-11-21 17:54] LABS: Glucose Point of Care 174 mg/dl (65-105)
[2021-11-21 19:42] LABS: Vancomycin Trough 13.3 ug/mL (10.0-20.0)
[2021-11-21] MEDS: LATANOPROST 0.005% OP SOLN 2.5 ML BTL 1 DROP RIGHT EYE (20:04)
[2021-11-21 23:58] LABS: Glucose Point of Care 176 mg/dl (65-105)
[2021-11-22] VITALS (21 sets, daily range): BP systolic 72–114; BP diastolic 42–97; PULSE 52–69; RESP 12–22; TEMP 35.7–36.8; O2SAT 76–100
[2021-11-22] MEDS: NOREPINEPHRINE 8 MG/D5W 250 ML 8 MG/250 ML BAG 5.63 MG IV CONT (01:57)
[2021-11-22] MEDS: IPRATROPIUM BR 0.02% INH SOLN 0.5 MG/2.5 ML VIAL INHALATION ×2 (02:37→09:10)
[2021-11-22] MEDS: ALBUTEROL SULFATE NEB 2.5 MG/0.5 ML INH INHALATION ×2 (02:37→09:10)
[2021-11-22] MEDS: MIDAZOLAM 100MG/NS 100ML(*CRX) 100 MG/100 ML BAG IV CONT (04:19)
[2021-11-22 05:21] LABS: Hematocrit 23.9 % (37.0-47.0); Hemoglobin 7.4 g/dL (12.0-15.0); Mean Corpuscular Hemoglobin 32.5 pg (26-34); Mean Corpuscular Volume 104.8 fl (80-100); Mean Platelet Volume 12.7 fl (7.4-10.4); Platelet Count Result 158 k/mm3 (150-375); Red Blood Count 2.28 M/mm3 (4.2-5.4); Red Cell Distribution Width 21.7 % (11.5-14.5); White Blood Count 12.3 K/mm3 (4.5-10.0)
[2021-11-22 05:36] LABS: Alanine Aminotransferase 86 U/L (4-35); Albumin Level 2.7 g/dL (3.5-5.1); Alkaline Phosphatase 183 U/L (38-126); Anion Gap 8 mmol/L (8-16); Aspartate Amino Transferase 183 U/L (14-36); Bilirubin,Total 0.8 mg/dL (0.2-1.3); Blood Urea Nitrogen 17 mg/dL (7-17); Calcium 7.1 mg/dL (8.4-10.2); Carbon Dioxide 29 mmol/L (22-30); Chloride 105 mmol/L (98-107); Estimated CRCL calculation 86 ml/min; Estimated Glomerular Filt Rate > 60; Glucose 158 mg/dL (65-110); Magnesium 1.8 mg/dL (1.6-2.3); Phosphorus 2.3 mg/dL (2.5-4.5); Potassium 3.4 mmol/L (3.4-5.0); Sodium 142 mmol/L (137-145)
[2021-11-22 05:39] LABS: INR 1.4; Prothrombin Time 16.8 Seconds (11.1-14.7)
[2021-11-22 05:45] LABS: Alveolar/Arterial O2 Gradient 110.3 mmHg; Base Excess ABG 2.7 mEq/l (+/-2.0); Carboxyhemoglobin 0.2 % THb (0-2.0); Fractional Inspired Oxygen 30 %; HCO3 ABG 25.1 mEq/l (22.0-26.0); Methemoglobin ABG 0.3 %THb (0-1.5); Oxygen Content ABG 11.6 %vol (16.0-22.0); Oxygen Saturation ABG 95.6 % (95.0-100.0); Oxyhemoglobin 91.8 % THb (90.0-100.0); PCO2 ABG 30.3 mmHg (35.0-45.0); PO2 FiO2 Ratio Arterial Blood 2.27 %; Reduced Hemoglobin 7.7 %THb (0-5.0); Total Hemoglobin 8.9 g/dL (12.0-18.0)
[2021-11-22 05:48] LABS: pH ABG 7.536 (7.350-7.450)
[2021-11-22 05:49] LABS: Device VENTILATOR; Modified Allen's Test Unable to perform; Site Drawn RIGHT RADIAL
[2021-11-22 05:50] LABS: Arterial Blood Gas PEEP 8 cmH2O; Arterial Blood Gas Tidal Volume 300 ml; Arterial Blood Gas Vent Mode CMV; Arterial Blood Gas Ventilator rate 14 /MIN
[2021-11-22 06:03] LABS: Anisocytosis 3+ (NORMAL); Band Neutrophils Percent 8 % (0-6); Lymphocytes Absolute Manual 2.33 K/mm3 (1.1-4.5); Macrocytosis 1+ (NORMAL); Microcytosis 1+ (NORMAL); Monocytes Absolute Manual 0.98 K/mm3 (0.1-0.90); Monocytes Percent Manual 8 % (3-9); Neutrophils Absolute Manual 8.97 K/mm3 (1.7-7.2); Neutrophils Percent Manual 65 % (46-73); Nucleated Red Blood Cells 8 %; Platelet Estimate Adequate (Adequate); Total Cells Counted 100
[2021-11-22] MEDS: POTASSIUM CHLORIDE 20 MEQ PACKET (FOR LIQUID) 40 MEQ FEED TUBE (09:12)
[2021-11-22] MEDS: PANTOPRAZOLE SODIUM IV 40 MG VIAL IV PUSH (09:17)
[2021-11-22] MEDS: ATORVASTATIN 10 MG TABLET PO (09:17)
[2021-11-22] MEDS: MINERAL OIL/WHITE PETROLATUM OINTMENT 1 APPLIC EACH EYE (09:18)
[2021-11-22] MEDS: MIDODRINE HCL 10 MG TABLET PO ×2 (09:18→11:55)
[2021-11-22] MEDS: DOCUSATE SODIUM LIQ 100 MG/10 ML UDC PO (09:18)
[2021-11-22] MEDS: POTASSIUM/PHOSPHORUS/SODIUM 1.5 GM PACKET 1 PACKET PO (09:18)
[2021-11-22] MEDS: polyethylene glycoL 3350 17 GM POWD.PACK PO (09:19)
[2021-11-22] MEDS: REMDESIVIR 100 MG/NS 250 ML 100 MG/250 ML BAG 250 MG IVPB (09:27)
[2021-11-22] MEDS: BARICITINIB 2 MG TABLET 4 MG PO (11:55)
[2021-11-22 12:22] LABS: Glucose Point of Care 166 mg/dl (65-105)
--- NOTE | 2021-11-22 12:23 | PCNFU ---
Nutrition Follow-Up Complete: Inadequate Oral Intake as related to mechanical vent as evidenced by NPO Goal: Meet estimated nutritional needs Patient is progressing towards goal. We will continue current goal. Pt current nutrition is Vital AF 1.2 at 60 ml/hr over 22 hours. Last recorded weight is 81 kg, up from 73.9 kg on admit. Bowel Motility: +Bm reported 11/22 Labs Reviewed:PO4 2.3,Cr 0.4,Glu 158, Alb 2.8, Hct 23.9,Hgb 7.4 Meds Noted:Fentanyl, Versed, Albuterol, Colace, Solu Medrol, Lipitor, Protonix, Vancomycin, Atrovent, Midodrine,Decadron, Remdesivir. Skin: wound vac-right hip Additional Notes: Patient remains on mechanical vent and tube feedings of Vital AF 1.2 at 60 ml/hr over 22 hours. Tube feeding is providing 1584 kcals/99 gms protein/1071 ml water. Free water flush 30 ml q 4 hours. Tube feeding is providing 100% of caloric needs and 93% of protein needs. Nursing reported during rounds, some high residuals overnight. Tube feedings had been restarted this morning at 60 ml/hr today. Agree with diet orders. Monitoring: Will monitor in ICU rounds and reassessing Thursday and Thursday.
--- NOTE | 2021-11-22 12:28 | WPDINTPN ---
Progress Note: A&P Assessment and Plan (1) Acute respiratory failure: Code(s): J96.00 - Acute respiratory failure, unspecified whether with hypoxia or hypercapnia Status: Acute Assessment and Plan: On 11/18/2021: Patient was in respiratory distress with decreased O2 saturations, chest x-ray showed bilateral pulmonary edema, patient was intubated and placed on mechanical ventilation -currently on CMV mode of ventilation, peep of 8 and 30% FiO2 -chest x-ray and ABGs reviewed, continue peep of 8, - continue bronchodilators -11/20/2019 to sputum culture negative -continue imipenem, Vancomycin (11/19) (2) Urinary tract infection: Code(s): N39.0 - Urinary tract infection, site not specified Status: Acute Assessment and Plan: patient has indwelling Dalton catheter - blood and urine cultures have been sent and are negative till now CT abdomen pelvis IMPRESSION: 1. No acute abdominal abnormality identified. 2: Hypervascular lesions of both kidneys, nonspecific. Correlation with MRI is recommended to exclude enhancing solid renal mass. 3: Bibasilar dependent atelectasis. 4: Left adrenal adenoma measuring 1.4 cm continue imipenem to cover for ESBL (3) Septic shock: Code(s): A41.9 - Sepsis, unspecified organism; R65.21 - Severe sepsis with septic shock Status: Acute Assessment and Plan: Would be related to pneumonia, COVID, UTI, wound infection in the right hip continue Levophed titration continue hydrocortisone at stress dose -titrate Levophed to maintain mean arterial pressure > 65 mmHg continue midodrine -blood, urine and sputum cultures are negative so far (4) Postoperative wound infection of right hip: Code(s): T81.49XA - Infection following a procedure, other surgical site, initial encounter Status: Acute Assessment and Plan: Right hip wound infection with wound VAC in place. Wound care nurses are following the patient T (5) COVID-19: Code(s): U07.1 - COVID-19 Status: Acute Assessment and Plan: patient tested positive for COVID but is vaccinated and has no evidence of COVID-[address] scan - continue droplet, airborne, contact isolation/precautions -given patient on mechanical ventilation, bilateral infiltrates, started patient on dexamethasone and remdesivir and baricitinib (6) A-fib: Qualifiers: Atrial fibrillation type: unspecified Qualified Code(s): I48.91 - Unspecified atrial fibrillation Code(s): I48.91 - Unspecified atrial fibrillation Status: Chronic Assessment and Plan: EKG reviewed and patient is currently in AFib controlled ventricular rhythm Hold beta-coreen due to low blood pressure digoxin was held on admission due to bradycardia but digoxin level was normal range Heart rate remains in 50s to 60s, continue to monitor closely hold Eliquis (7) Acute kidney injury: Code(s): N17.9 - Acute kidney failure, unspecified Status: Acute Assessment and Plan: Resolved secondary to septic shock IV fluid volume resuscitation creatinine has normalized med urine output has decreased Off IV fluids CT abdomen pelvis reviewed (8) Metabolic acidosis: Code(s): E87.2 - Acidosis Status: Acute Assessment and Plan: Resolved secondary to JOON (9) Electrolyte abnormality: Code(s): E87.8 - Other disorders of electrolyte and fluid balance, not elsewhere classified Status: Acute Assessment and Plan: resolved (10) GI (gastrointestinal bleed): Code(s): K92.2 - Gastrointestinal hemorrhage, unspecified Status: Acute Assessment and Plan: there was mention of GI bleed in ED physician note but patient has had several bowel movements urine ICU with no needing noticed her hemoglobin has dropped but this could be dilutional. GI was consulted on admission and consult is pending hold anticoagulation for now
[2021-11-22] MEDS: MORPHINE SULFATE INJ (*CRX) 10 MG/ML AMP 5 MG IV PUSH (13:42)
[2021-11-22] MEDS: LORazepam INJ (*CRX) 2 MG/ML VIAL IV PUSH ×3 (13:42→18:00)
--- NOTE | 2021-11-22 14:02 | PM.IMPN ---
Progress Note: A&P Assessment and Plan (1) Acute respiratory failure: Code(s): J96.00 - Acute respiratory failure, unspecified whether with hypoxia or hypercapnia Status: Acute (2) Septic shock: Code(s): A41.9 - Sepsis, unspecified organism; R65.21 - Severe sepsis with septic shock Status: Acute (3) Postoperative wound infection of right hip: Code(s): T81.49XA - Infection following a procedure, other surgical site, initial encounter Status: Acute (4) COVID-19: Code(s): U07.1 - COVID-19 Status: Acute (5) A-fib: Qualifiers: Atrial fibrillation type: unspecified Qualified Code(s): I48.91 - Unspecified atrial fibrillation Code(s): I48.91 - Unspecified atrial fibrillation Status: Chronic (6) GI (gastrointestinal bleed): Code(s): K92.2 - Gastrointestinal hemorrhage, unspecified Status: Acute (7) Acute kidney injury: Code(s): N17.9 - Acute kidney failure, unspecified Status: Acute (8) Metabolic acidosis: Code(s): E87.2 - Acidosis Status: Acute (9) Acute encephalopathy: Code(s): G93.40 - Encephalopathy, unspecified Status: Acute (10) Rheumatoid arthritis: Qualifiers: Rheumatoid arthritis location: multiple sites Rheumatoid factor presence: unspecified presence Qualified Code(s): M06.9 - Rheumatoid arthritis, unspecified Code(s): M06.9 - Rheumatoid arthritis, unspecified Status: Chronic (11) Dementia: Code(s): F03.90 - Unspecified dementia without behavioral disturbance Status: Acute (12) Acute hyperkalemia: Code(s): E87.5 - Hyperkalemia Status: Acute (13) Urinary tract infection: Code(s): N39.0 - Urinary tract infection, site not specified Status: Acute Additional Plan Family has come in and has decided to proceed with comfort measures. Spoke with family and all questions were answered. They are comfortable with this decision. Plan for terminal wean later today. Comfort measures. Subjective Date/time seen: 11/22/21 14:02 Interval history: 86yo female with hx of chronic anemia, chronic anticoagulation for AFib, dementia, right footdrop, HTN, chronic Rt hip wound after hematoma/I&D/Wound vac, and RA brought to the ED via EMS from am NH due to hypoxia and AMS. Patient remains intubated and sedated. Family came in today and have decided to withdraw care. Remains on Levophed Review of Systems Review of Systems: ROS unobtainable: Yes unobtainable due to endotracheal tube Exam Narrative: AF 97.8 100/55 62 18 95% MV Gen - intubated and sedated Neck - Left IJ in place Chest - lungs clear anteriorly. CV - irregularly irregular. Abd - soft. ND. +BS. Ext - nonpitting pedal edema. SCDs in place Neuro - sedated Skin - Several areas of ecchymosis, dried eschars and skin tears UE/LE. Wound vac in place to the right hip open wound. Objective Data Vital Signs Vital Signs: Vital Signs - 24 hr 11/21/21 14:27 11/21/21 14:28 11/21/21 16:00 Temperature 98.9 F Pulse Rate 61 60 75 Respiratory Rate 24 H 26 H Blood Pressure 112/65 Pulse Oximetry 98 97 11/21/21 17:08 11/21/21 17:46 11/21/21 18:00 Temperature 98.9 F Pulse Rate 69 76 62 Respiratory Rate 22 H Blood Pressure 129/64 100/55 L Pulse Oximetry 98 97 11/21/21 18:45 11/21/21 19:45 11/21/21 20:00 Temperature 98.7 F Pulse Rate 83 72 Respiratory Rate 27 H Blood Pressure 112/84 74/39 L 108/59 L Pulse Oximetry 95 11/21/21 20:01 11/21/21 20:48 11/21/21 20:50 Temperature Pulse Rate 83 70 61 Respiratory Rate 25 H Blood Pressure 108/59 L Pulse Oximetry 98 11/21/21 21:00 11/21/21 21:45 11/21/21 22:00 Temperature 98.1 F Pulse Rate 63 92 94 Respiratory Rate 25 H 39 H 44 H Blood Pressure 120/92 H Pulse Oximetry 100 11/21/21 22:34 11/21/21 23:09 11/21/21 23:35 Temperature Pulse Rate 88 80 58 L Respirato
[2021-11-22] MEDS: MORPHINE SULFATE (*CRX) 2 MG/ML INJ IV PUSH ×5 (14:18→18:01)
[2021-11-22] MEDS: MORPHINE SULFATE INJ (*CRX) 50 MG in SODIUM CHLORIDE 0.9% IV 95 ML 8 MG IV CONT (19:59)
--- NOTE | 2021-11-22 21:54 | PC.NURSE ---
This patient, Tatiana Serrato, was transferred to [facility] on 11/22/21 at 2150. Personal belongings sent with patient. Report given to Lien SHARPE. Appropriate documentation sent with patient.
[2021-11-23 08:00] VITALS: BP 83/47; PULSE 68; RESP 10; TEMP 36.3
[2021-11-23] MEDS: MORPHINE SULFATE INJ (*CRX) 50 MG in SODIUM CHLORIDE 0.9% IV 95 ML 8 MG IV CONT ×2 (10:20→23:14)
--- NOTE | 2021-11-23 10:23 | PM.IMPN ---
Progress Note: A&P Assessment and Plan (1) Acute respiratory failure: Code(s): J96.00 - Acute respiratory failure, unspecified whether with hypoxia or hypercapnia Status: Acute Assessment and Plan: Patient was mildly hypoxic on 11/18 but condition worsened requiring intubation on 11/18 felt related to COVID PNA vs CHF vs bacterial PNA. On steroids and broad spectrum abx. Extubated currently under comfort care (2) Septic shock: Code(s): A41.9 - Sepsis, unspecified organism; R65.21 - Severe sepsis with septic shock Status: Acute Assessment and Plan: Patient became HoTN in the ED requiring central line placement and pressors. She has been given fluids and Albumin. Midodrine added. Lactic acidosis to 6.1 but normal now after fluid resuscitation. BCx NGTD. UCx negative. She was on Prednisone on admission for her RA and was on hydrocortisone at stress dosing but changed to Dexamethasone. Weaning Levophed as BP tolerates. Continue broad spectrum abx for now. Currently under comfort care (3) Postoperative wound infection of right hip: Code(s): T81.49XA - Infection following a procedure, other surgical site, initial encounter Status: Acute Assessment and Plan: Patient admitted for hip pain after a fall and found to right subtrochanteric femur status post right hip IM sukhwinder placement 08/22/21. She was readmitted for postop and underwent I&D right hip wound and wound VAC placement 09/10/21 and repeat I&D and Wound Closure Right Hip 09/13/21. Wound vac removed this admission and has been replaced. Wound Care consult was ordered. Unclear if this is the source of her sepsis. Currently under comfort care (4) COVID-19: Code(s): U07.1 - COVID-19 Status: Acute Assessment and Plan: Patient tested positive for COVID prior to admission but is vaccinated and had no evidence of COVID-[address] Chest. She was hypoxic on admission but improved initially. She had mild hypoxia that worsened to the point of requiring intubation. Continue isolation. Changed to Dexamethasone. Currently under comfort care (5) A-fib: Qualifiers: Atrial fibrillation type: unspecified Qualified Code(s): I48.91 - Unspecified atrial fibrillation Code(s): I48.91 - Unspecified atrial fibrillation Status: Chronic Assessment and Plan: Patient has history of atrial fibrillation. EKG reviewed showing atrial fibrillation with controlled rate and diffuse ST T wave changes. The ST T wave changes appear to be chronic. Beta-coreen on hold due to hypotension. Digoxin also on hold. Digoxin level is noted. HR remaining stable. Eliquis on hold for presumed GI bleed. Echo showing moderate to severe LV systolic dysfunction with segmental wall motion abnormalities, EF 30-35%, diastolic dysfunction, [id number] MR and moderate pulmonary hypertension. Currently under comfort care (6) GI (gastrointestinal bleed): Code(s): K92.2 - Gastrointestinal hemorrhage, unspecified Status: Acute Assessment and Plan: ED note states patient was guaiac positive with melanotic stools. This has not been corroborated by nursing since the patient's admission. Hemoglobin last year was normal. However, since her hip fracture in August her hemoglobin has been running in the 9-10 range mostly. Hemoglobin 11.1 on admission but patient was hypotensive and dehydrated. With IV fluids her hemoglobin has drifted down to 7 range but stable. Again no gross evidence of GI blood loss. In the abundance of caution however, will hold Eliquis. Continue Protonix twice a day. GI has been consulted and is on the case. Currently under comfort care (7) Acute kidney injury: Code(s): N17.9 - Acute kidney failure, unspecified Status: Acute Assessment and Plan: Creatinine 1.6 on admission related to dehydration and chronic Lasix use. Lasix has been stopped. Creatinine has normal
[2021-11-23 20:00] VITALS: BP 108/46; PULSE 56; RESP 15; TEMP 35.7; O2SAT 90
[2021-11-24 06:35] VITALS: BP 114/58; PULSE 58; RESP 15; TEMP 36.1; O2SAT 90
--- NOTE | 2021-11-24 09:29 | P.PNIM_ITS ---
Progress Note: A&P Assessment and Plan (1) Acute respiratory failure: Code(s): J96.00 - Acute respiratory failure, unspecified whether with hypoxia or hypercapnia Status: Acute Assessment and Plan: Patient was mildly hypoxic on 11/18 but condition worsened requiring intubation on 11/18 felt related to COVID PNA vs CHF vs bacterial PNA. On steroids and broad spectrum abx. Extubated currently under comfort care (2) Septic shock: Code(s): A41.9 - Sepsis, unspecified organism; R65.21 - Severe sepsis with septic shock Status: Acute Assessment and Plan: Patient became HoTN in the ED requiring central line placement and pressors. She has been given fluids and Albumin. Midodrine added. Lactic acidosis to 6.1 but normal now after fluid resuscitation. BCx NGTD. UCx negative. She was on Prednisone on admission for her RA and was on hydrocortisone at stress dosing but changed to Dexamethasone. Weaning Levophed as BP tolerates. Continue broad spectrum abx for now. Currently under comfort care (3) Postoperative wound infection of right hip: Code(s): T81.49XA - Infection following a procedure, other surgical site, initial encounter Status: Acute Assessment and Plan: Patient admitted for hip pain after a fall and found to right subtrochanteric femur status post right hip IM sukhwinder placement 08/22/21. She was readmitted for postop and underwent I&D right hip wound and wound VAC placement 09/10/21 and repeat I&D and Wound Closure Right Hip 09/13/21. Wound vac removed this admission and has been replaced. Wound Care consult was ordered. Unclear if this is the source of her sepsis. Currently under comfort care (4) COVID-19: Code(s): U07.1 - COVID-19 Status: Acute Assessment and Plan: Patient tested positive for COVID prior to admission but is vaccinated and had no evidence of COVID-[address] Chest. She was hypoxic on admission but improved initially. She had mild hypoxia that worsened to the point of requiring intubation. Continue isolation. Changed to Dexamethasone. Currently under comfort care (5) A-fib: Qualifiers: Atrial fibrillation type: unspecified Qualified Code(s): I48.91 - Unspecified atrial fibrillation Code(s): I48.91 - Unspecified atrial fibrillation Status: Chronic Assessment and Plan: Patient has history of atrial fibrillation. EKG reviewed showing atrial fibrillation with controlled rate and diffuse ST T wave changes. The ST T wave changes appear to be chronic. Beta-coreen on hold due to hypotension. Digoxin also on hold. Digoxin level is noted. HR remaining stable. Eliquis on hold for presumed GI bleed. Echo showing moderate to severe LV systolic dysfunction with segmental wall motion abnormalities, EF 30-35%, diastolic dysfunction, [id number] MR and moderate pulmonary hypertension. Currently under comfort care (6) GI (gastrointestinal bleed): Code(s): K92.2 - Gastrointestinal hemorrhage, unspecified Status: Acute Assessment and Plan: ED note states patient was guaiac positive with melanotic stools. This has not been corroborated by nursing since the patient's admission. Hemoglobin last year was normal. However, since her hip fracture in August her hemoglobin has been running in the 9-10 range mostly. Hemoglobin 11.1 on admission but patient was hypotensive and dehydrated. With IV fluids her hemoglobin has drifted down to 7 range but stable. Again no gross evidence of GI blood loss. In the abundance of caution however, will hold Eliquis. Continue Protonix twice a day. GI has been consulted and
[2021-11-24] MEDS: MORPHINE SULFATE INJ (*CRX) 50 MG in SODIUM CHLORIDE 0.9% IV 95 ML 8 MG IV CONT (10:50)
--- NOTE | 2021-11-24 22:45 | PM.DDS ---
Discharge Summary Date and Time Date of : 11/24/21 Time of : 14:45 Provider Pronounced By: Monica Lozoya, RN Adrienne Church RN Probable Cause of Probable Cause of : Acute hypoxic respiratory failure secondary to pneumonia Summary Hospital Course: Assessment and Plan (1) Acute respiratory failure: Code(s): J96.00 - Acute respiratory failure, unspecified whether with hypoxia or hypercapnia Status: Acute Assessment and Plan: Patient was mildly hypoxic on 11/18 but condition worsened requiring intubation on 11/18 felt related to COVID PNA and CHF and bacterial PNA. On steroids and broad spectrum abx. Extubated treated with comfort care (2) Septic shock: Code(s): A41.9 - Sepsis, unspecified organism; R65.21 - Severe sepsis with septic shock Status: Acute Assessment and Plan: Patient became HoTN in the ED requiring central line placement and pressors. She has been given fluids and Albumin. Midodrine added. Lactic acidosis to 6.1 but normal now after fluid resuscitation. BCx NGTD. UCx negative. She was on Prednisone on admission for her RA and was on hydrocortisone at stress dosing but changed to Dexamethasone. Weaning Levophed as BP tolerates. Continue broad spectrum abx for now. comfort care (3) Postoperative wound infection of right hip: Code(s): T81.49XA - Infection following a procedure, other surgical site, initial encounter Status: Acute Assessment and Plan: Patient admitted for hip pain after a fall and found to right subtrochanteric femur status post right hip IM sukhwinder placement 08/22/21. She was readmitted for postop and underwent I&D right hip wound and wound VAC placement 09/10/21 and repeat I&D and Wound Closure Right Hip 09/13/21. Wound vac removed this admission and has been replaced. Wound Care consult was ordered. Unclear if this is the source of her sepsis. comfort care (4) COVID-19: Code(s): U07.1 - COVID-19 Status: Acute Assessment and Plan: Patient tested positive for COVID prior to admission but is vaccinated and had no evidence of COVID-[address] Chest. She was hypoxic on admission but improved initially. She had mild hypoxia that worsened to the point of requiring intubation. Continue isolation. Changed to Dexamethasone. comfort care (5) A-fib: Qualifiers: Atrial fibrillation type: unspecified Qualified Code(s): I48.91 - Unspecified atrial fibrillation Code(s): I48.91 - Unspecified atrial fibrillation Status: Chronic Assessment and Plan: Patient has history of atrial fibrillation. EKG reviewed showing atrial fibrillation with controlled rate and diffuse ST T wave changes. The ST T wave changes appear to be chronic. Beta-coreen on hold due to hypotension. Digoxin also on hold. Digoxin level is noted. HR remaining stable. Eliquis on hold for presumed GI bleed. Echo showing moderate to severe LV systolic dysfunction with segmental wall motion abnormalities, EF 30-35%, diastolic dysfunction, [id number] MR and moderate pulmonary hypertension. comfort care (6) GI (gastrointestinal bleed): Code(s): K92.2 - Gastrointestinal hemorrhage, unspecified Status: Acute Assessment and Plan: ED note states patient was guaiac positive with melanotic stools. This has not been corroborated by nursing since the patient's admission. Hemoglobin last year was normal. However, since her hip fracture in August her hemoglobin has been running in the 9-10 range mostly. Hemoglobin 11.1 on admission but patient was hypotensive and dehydrated. With IV fluids her hemoglobin has drifted down to 7 range but stable. Again no gross evidence of GI blood loss. In the abundance of caution however, will hold Eliquis. Continue Protonix twice a day. GI has been consulted and is on the case. comfort care (7) Acute kidney injury: Code(s): N17.9 - Acute kidney failure, un
== END 2021-11-24 14:45 | disposition expired | DRG 870 ==
LOC: ANHED 18:43 → ANHIMU 19:47 → ANHICU 11-16 07:58 → ANH3MEDSUR 11-24 16:38 → ANHICU 11-25 10:27
PROVIDERS: Internal Medicine; Admitting Provider Family Medicine; Emergency Provider Emergency Medicine; PCP Internal Medicine; Visit Provider Internal Medicine
DX: A41.9 Sepsis, unspecified organism (principal); U07.1 COVID-19; R65.21 Severe sepsis with septic shock; J96.01 Acute respiratory failure with hypoxia; J12.82 Pneumonia due to coronavirus disease 2019; G93.41 Metabolic encephalopathy; N17.9 Acute kidney failure, unspecified; E87.2 Acidosis; T81.49XA Infection following a procedure, other surgical site, initial encounter; D84.821 Immunodeficiency due to drugs; E78.2 Mixed hyperlipidemia; K21.9 Gastro-esophageal reflux disease without esophagitis; E03.9 Hypothyroidism, unspecified; Z66 Do not resuscitate; Z51.5 Encounter for palliative care; I10 Essential (primary) hypertension; I48.0 Paroxysmal atrial fibrillation; Z79.01 Long term (current) use of anticoagulants; M06.9 Rheumatoid arthritis, unspecified; E55.9 Vitamin D deficiency, unspecified; Z87.891 Personal history of nicotine dependence; Z74.09 Other reduced mobility; D64.9 Anemia, unspecified; S72.21XD Displaced subtrochanteric fracture of right femur, subsequent encounter for closed fracture with routine healing; E87.8 Other disorders of electrolyte and fluid balance, not elsewhere classified; E87.5 Hyperkalemia; F03.90 Unspecified dementia, unspecified severity, without behavioral disturbance, psychotic disturbance, mood disturbance, and anxiety; M21.371 Foot drop, right foot
CPT/HCPCS: 36415; 36556; 36600; 70450; 71045; 71275; 74176; 76705; 80048; 80053; 80074; 80162; 80202; 81001; 82375; 82550; 82565; 82607; 82728; 82746; 82805; 82948; 83050; 83540; 83550; 83605; 83735; 84100; 84460; 85025; 85027; 85610; 85730; 86850; 86900; 86901; 87040; 87070; 87086; 87088; 87205; 92610; 93005; 93306; 94002; 94003; 94640; 96361; 96365; 96375; 99285; A9270; C1751; C9113; C9803; G0378; J0330; J0610; J0696; J0743; J1100; J1720; J1815; J1940; J2060; J2250; J2270; J3010; J3370; J3475; J3480; J7030; J7050; J7070; J7120; P9047; Q9967; U0003; U0005